=== PATIENT | female | born 1970 | race Caucasian/White ===

== ENCOUNTER 2020-08-18 13:41 | Outpatient (REF) | payer MEDICARE, MEDICAID, SELFPAY ==
[2020-08-18 14:58] LABS: Hematocrit 39.2 % (37-47); Hemoglobin 12.4 g/dl (12.0-16.0); Mean Corpuscular HGB Conc 31.6 g/dl (31.0-35.0); Mean Corpuscular Hemoglobin 25.9 pg (27.0-33.0); Mean Corpuscular Volume 81.8 fL (80-98); Mean Platelet Volume 9.4 fL (9.4-12.3); Platelet Count 292 X10*3/uL (160-400); Red Blood Count 4.79 X10*6/uL (4.20-5.50); Red Cell Distribution Width 16.5 % (11.0-16.0); White Blood Count 7.8 X10*3/uL (4.8-10.8)
[2020-08-18 15:46] LABS: TSH reflex Free T4 0.07 mIU/mL (0.32-4.0)
[2020-08-18 16:53] LABS: Free T4 (Free Thyroxine) 1.43 ng/dL (0.71-1.85)
== END 2020-08-18 13:42 | disposition home or self-care (01) ==
LOC: HO.LAB 13:41
PROVIDERS: PCP Physician Assistant; Visit Provider Physician Assistant
DX: E03.9 Hypothyroidism, unspecified (principal)
CPT/HCPCS: 36415; 84439; 84443; 85027

== ENCOUNTER 2020-09-01 16:18 | Outpatient (REF) | payer MEDICARE, MEDICAID, SELFPAY ==
--- NOTE | 2020-09-01 16:23 | XR_ITS ---
EXAMINATION: CHEST 2 VIEWS CLINICAL INFORMATION: Chest pain. COMPARISON: Multiple prior exams are reviewed. The most recent is from May 11, 2019. TECHNIQUE: PA and lateral views of the chest were obtained. FINDINGS: The cardiac silhouette is not enlarged. The mediastinal and hilar contours are unremarkable. There are neither pleural effusions nor pneumothoraces. The appearance of diffuse coarsened interstitial prominence throughout both lungs is relatively stable. There are no consolidations. The osseous structures are stable. XR/XR chest 2V IMPRESSION: No consolidations. Mild diffuse interstitial prominence throughout both lungs relatively stable.
== END 2020-09-01 16:19 | disposition home or self-care (01) ==
LOC: HO.HMGCX 16:18
PROVIDERS: PCP Physician Assistant; Visit Provider Nurse Practitioner Family
DX: R07.89 Other chest pain (principal)
CPT/HCPCS: 71046

== ENCOUNTER 2020-09-19 10:27 | Emergency (ER) | payer MEDICARE, MEDICAID, SELFPAY ==
--- NOTE | 2020-09-19 11:16 | CT_ITS ---
EXAMINATION: NONCONTRAST HEAD CT NONCONTRAST MAXILLOFACIAL CT NONCONTRAST CERVICAL SPINE CT INDICATION INFORMATION: Head trauma. Facial trauma. Fall. COMPARISON: Chest CT 01/21/2017 TECHNIQUE: Separate noncontrast CT examinations of the head, maxillofacial bones, and cervical spine were performed. Coronal and sagittal images were created for each examination at the technologist workstation. This CT examination was performed using dose optimization techniques as appropriate, variously including the following: *Automated exposure control *Adjustment of mA and/or kV according to patient size (this includes techniques or standardized protocols for targeted exams where dose is matched to indication/reason for exam; i.e. extremities or head) *Use of iterative reconstruction technique DLP: 1360 mGy-cm FINDINGS: Head: There is no evidence of acute intracranial hemorrhage or territorial infarction. No abnormal mass effect or midline shift is seen. Mccormick to white matter differentiation is well preserved. No extra-axial fluid collections are identified. No hydrocephalus. No significant volume loss. There is no abnormal attenuation within the brain parenchyma. No acute soft tissue abnormality. No calvarial fracture. The mastoid air cells are well aerated. Maxillofacial: There is a fracture of the anterior alveolar ridge associated with the left central maxillary incisor. This is seen on series 6 image 101. Mild lucency around the root of the tooth. Additional periapical lucency involving left mandibular molars with dental caries also noted. No additional fractures. The pterygoid plates are intact. The lamina papyracea are intact. The zygomatic arches are intact. The orbital rims are intact. The nasal bone is intact. The frontal, maxillary, ethmoid, and sphenoid sinuses are well aerated. The uncinate process is normal bilaterally. The infundibula and middle meati are patent. The nasal septum is midline. The mandibular heads are well-seated in the condylar fossa. The orbits demonstrate a normal appearance bilaterally. The globes are intact, and there are no suspicious findings to suggest retrobulbar hemorrhage. Cervical spine: There is anatomic alignment of the vertebral bodies and posterior elements. The atlantoaxial and atlantooccipital articulations are intact. Vertebral body heights are maintained. There is multilevel intervertebral disc space narrowing with endplate osteophyte formation and facet arthropathy. This is most prominent at the C6-C7 level. No evidence of acute fracture. No prevertebral soft tissue swelling. Groundglass opacities are seen at the lung apices with mild bronchiectasis. No pneumothorax. The thyroid gland is unremarkable. CT/CT cervical spine wo con IMPRESSION: 1. No acute intracranial finding. 2. Fracture of the left maxillary alveolar ridge overlying the central incisor. 3. No acute fracture or malalignment of the cervical spine. Mild degenerative changes. 4. Nonspecific opacities are seen at both lung apices. This may be chronic given the appearance on previous imaging.
--- NOTE | 2020-09-19 11:16 | ECG_ITS ---
Test Reason : SYNCOPE Blood Pressure : / mmHG Vent. Rate : 080 BPM Atrial Rate : 080 BPM P-R Int : 164 ms QRS Dur : 082 ms QT Int : 386 ms P-R-T Axes : 030 -27 019 degrees QTc Int : 445 ms Normal sinus rhythm Left axis deviation Low voltage QRS Borderline ECG When compared with ECG of 11-MAY-2019 13:43, Heart rate has decreased Referred By: Henrique Ramesh Electronically Signed By:BLAS FENTON MD
[2020-09-19 11:22] VITALS: BP 94/65; PULSE 90; RESP 18; TEMP 37.1; O2SAT 94; BMI 25.0
--- NOTE | 2020-09-19 11:31 | ED.SYNCOPE ---
HPI - Syncope General Chief Complaint: Syncope Stated Complaint: passed out last night,hit face Time Seen by Provider: 09/19/20 10:52 Source: patient Mode of arrival: ambulatory Limitations: no limitations History of Present Illness HPI narrative: patient presents to ED for syncope that occurred last night. Patient states her friend witnessed her passing out through the kitchen,. Patient has a known history of orthostatic hypotension and has passed out before in the past due to low blood pressure. Patient states she is not on any medication for blood pressure. Patient states syncopal episode occurred around 19:00 last night. Patient she came today due to facial pain. Patient states feeling lightheaded before passing out yesterday. Patient denies ever had chest pain, abdominal pain, nausea, vomiting, slurred speech, or paralysis before passing out. patient's only complaint presently is facial pain. patient denies any pmh of blood clots, recent travel, recent surgery, swelling of lower extremities, chest pain, calf pain, chest pain on inspiration, or shortness of breath. patient is not on any control pills. Related Data Previous Rx's Medication Instructions Recorded levothyroxine 150 mcg tablet 150 mcg PO DAILY 30 Days #30 tab 08/22/20 trazodone 50 mg tablet 50 mg PO BEDTIME 30 Days #30 tab 08/22/20 amoxicillin-pot clavulanate 1 tab PO Q12H #20 tab 09/19/20 [Augmentin] naproxen 500 mg PO BID PRN #20 tab 09/19/20 Allergies Allergy/AdvReac Type Severity Reaction Status Date / Time No Known Allergies Allergy Unverified 09/19/20 10:03 Review of Systems Review of Systems: Yes all other systems are reviewed and are negative Constitutional: Constitutional: Reports as per HPI and Reports no additional constitutional complaints Eyes: Eyes: Reports as per HPI and Reports no additional eye complaints ENT: Reports system reviewed and no additional complaints, except as documented and Reports as per HPI Comments: Facial pain due to fall Cardiovascular: Cardiovascular: Reports as per HPI and Reports no additional cardiovascular complaints Respiratory: Respiratory: Reports as per HPI and Reports no additional respiratory complaints Gastrointestinal: Gastrointestinal: Reports as per HPI and Reports no additional gastrointestinal complaints Musculoskeletal: Musculoskeletal: Reports no additional musculoskeletal complaints and Reports as per HPI Neurologic: Reports system reviewed and no additional complaints, except as documented and Reports as per HPI Psychiatric: Psychiatric: Reports no additional psychiatric complaints and Reports as per [facility] Social History Social History Smoking Status: Former smoker Use of substances other than those prescribed or required for medical reasons: Yes Substance Use Type: Marijuana Substance Use Frequency: Socially Advance Directives: No Advance Directives Information Provided: Yes Physical Exam Vital Signs: Vital Signs: Last Vital Signs Temp 98.8 F 09/19/20 11:22 Pulse 101 H 09/19/20 13:42 Resp 16 09/19/20 13:38 BP 112/72 09/19/20 13:42 Pulse Ox 97 09/19/20 13:39 Body Mass Index 25.0 Const: General: cooperative, healthy appearing, comfortable, no acute distress, well developed, alert, awake and Physically active Orientation/consciousness: patient oriented x3 HENMT: Other: positive for Dried blood below Lower lip a small inner laceration that occurred since 19:00 last night. this makes it over 12 hours. Wound is granulating. Head: Yes normal to inspection, Yes No palpable skull fracture present, No Dickey's sign and No raccoon eyes Eyes: General: appearance normal, both eyes and all related structures Neck: Neck: Yes normal visual inspection, Yes full ROM, Yes no lymphadenopathy, Yes no meningeal signs, Yes trachea midline and No tender Chest: Chest palpation & inspection: normal inspection of the chest and no localized rib tenderness Resp: Effort & Inspection: normal respiratory effort and able to speak in complete sentences Auscultation: clear to auscultation bilaterally, no crackles, no rales, no rhonchi and no wheezes Cardio: Jugular venous distension: no JVD Heart sounds: S1 normal heart sound present and S2 normal heart sound present GI: Inspection: Yes normal to inspection and No abdominal wall ecchymosis Palpation (GI): Soft to palpation, not firm, nontender, no guarding and not rigid : General: No CVA tenderness and Yes no CVA tenderness Back/Spine/Pelvis: Back: no CVA tenderness, No CVA tenderness and No back tenderness Skin: General skin exam: no rashes or lesions noted Trauma: no lacerations or abrasions Neuro: General: patient oriented x3, gait normal, no meningeal signs and CN's II-XI intact bilaterally Cranial nerves: Yes CN's II-XII intact bilaterally Extrem: General: Yes normal to inspection and Yes full ROM Psych: Appearance: grossly normal, well kempt and not disheveled Course Course Course Narrative: Patient had basic labs including EKG and troponin. Patient also have head CT, C-spine, and facial CT due to patient's obvious signs of trauma. Patient will be given IV fluids and orthostatics will be done. Reevaluation(s) Reevaluation #1: patient's troponin came back negative. Patient's head CT and C-spine came back negative for any fractures or bleed. Patient's facial CT scan shows maxillary alveolar ridge fracture above left central incisor. Patient's orthostatics are negative After being given 1 bag of IV fluids. Patient was initially hypotensive on initial ED triage. Patient states he feels better. Patient states he has syncopized many times before in the past due to her low blood pressure. Patient informed if she still having menstruation, but refused to give urine. Will add blood test and then discharge patient. Patient will be placed on antibiotics informed to follow-up with dentist. No indication for tooth extraction the ED. Labs are at baseline. patient given copy of imaging for follow up with PCP. patient given tdap Time: 14:19 Reevaluation #2: patient's came back negative. Not suspecting PE. UTI normal MDM - Syncope MDM Narrative Medical decision making narrative: Syncope Lab Data Result diagrams: 09/19/20 12:52 09/19/20 12:25 Labs: Lab Results 09/19/20 09/19/20 09/19/20 Range/Units 12:25 12:52 12:52 WBC 4.5 L (4.8-10.8) X10*3/uL RBC 4.38 (4.20-5.50) X10*6/uL Hgb 11.5 L (12.0-16.0) g/dl Hct 36.3 L (37-47) % MCV 82.9 (80-98) fL MCH 26.3 L (27.0-33.0) pg MCHC 31.7 (31.0-35.0) g/dl RDW 16.3 H (11.0-16.0) % Plt Count 160 D (160-400) X10*3/uL MPV 10.1 (9.4-12.3) fL Immature Gran % (Auto) 0.4 (0.0-0.4) % Neut % (Auto) 66.3 (45-73) % Lymph % (Auto) 24.3 (20-40) % [place] % (Auto) 7.9 (2-11) % Eos % (Auto) 0.9 (0-4) % Baso % (Auto) 0.2 (0-2) % Lymph # (Auto) 1.1 L (1.2-4.9) X10*3/uL [place] # (Auto) 0.4 (0.1-1.2) X10*3/uL Eos # (Auto) 0.0 (0.0-0.4) X10*3/uL Baso # (Auto) 0.0 (0.0-0.2) X10*3/uL Abs Immat Gran (auto) 0.02 (0.00-0.03) X10*3/uL Absolute Neuts (auto) 3.0 (2.0-8.3) X10*3/uL Absolute Nucleated RBC 0.000 (0.0-0.012) X10*3/uL Nucleated RBC % (auto) 0.0 (0.0-0.2) /100WBC Smear Tech's Comments VERIFIED PT 12.2 (10.8-13.0) SEC INR 1.0 (0.9-1.1) APTT 26.7 (24.1-38.0) SEC Sodium 138 (135-145) mmol/L Potassium 4.0 (3.3-5.1) mmol/l Chloride 107 (96-108) mmol/L Carbon Dioxide 22 (22-29) mmol/L Anion Gap 13 (12-20) BUN 18 H (9-16) mg/dL Creatinine 0.73 (0.5-1.4) mg/dL Estim Creat Clear Calc 88.7 Estimated GFR > 60 Random Glucose 78 (60-115) mg/dL Calcium 7.6 L (8.4-10.2) mg/dL Total Bilirubin 0.2 (0.0-1.0) mg/dL AST 29 (5-31) U/L ALT 32 H (0-31) U/L Alkaline Phosphatase 116 (39-117) U/L Troponin I High Sens (<3.5-17.0) ng/L Total Protein 5.9 L (6.5-8.0) g/dL Albumin 3.5 (3.5-5.0) g/dL Beta HCG, Quant < 2 mIU/mL Urine Color Urine Appearance Urine pH (5.0-8.0) Ur Specific [place] (1.005-1.025) Urine Protein (NEG-TRACE) MG/DL Urine Glucose (UA) (NEG) MG/DL Urine Ketones (NEG) MG/DL Urine Blood (NEG) Urine Nitrite (NEG) Ur Leukocyte Esterase (NEG) 09/19/20 09/19/20 Range/Units 13:13 14:52 WBC (4.8-10.8) X10*3/uL RBC (4.20-5.50) X10*6/uL Hgb (12.0-16.0) g/dl Hct (37-47) % MCV (80-98) fL MCH (27.0-33.0) pg MCHC (31.0-35.0) g/dl RDW (11.0-16.0) % Plt Count (160-400) X10*3/uL MPV (9.4-12.3) fL Immature Gran % (Auto) (0.0-0.4) % Neut % (Auto) (45-73) % Lymph % (Auto) (20-40) % [place] % (Auto) (2-11) % Eos % (Auto) (0-4) % Baso % (Auto) (0-2) % Lymph # (Auto) (1.2-4.9) X10*3/uL [place] # (Auto) (0.1-1.2) X10*3/uL Eos # (Auto) (0.0-0.4) X10*3/uL Baso # (Auto) (0.0-0.2) X10*3/uL Abs Immat Gran (auto) (0.00-0.03) X10*3/uL Absolute Neuts (auto) (2.0-8.3) X10*3/uL Absolute Nucleated RBC (0.0-0.012) X10*3/uL Nucleated RBC % (auto) (0.0-0.2) /100WBC Smear Tech's Comments PT (10.8-13.0) SEC INR (0.9-1.1) APTT (24.1-38.0) SEC Sodium (135-145) mmol/L Potassium (3.3-5.1) mmol/l Chloride (96-108) mmol/L Carbon Dioxide (22-29) mmol/L Anion Gap (12-20) BUN (9-16) mg/dL Creatinine (0.5-1.4) mg/dL Estim Creat Clear Calc Estimated GFR Random Glucose (60-115) mg/dL Calcium (8.4-10.2) mg/dL Total Bilirubin (0.0-1.0) mg/dL AST (5-31) U/L ALT (0-31) U/L Alkaline Phosphatase (39-117) U/L Troponin I High Sens < 3.5 (<3.5-17.0) ng/L Total Protein (6.5-8.0) g/dL Albumin (3.5-5.0) g/dL Beta HCG, Quant mIU/mL Urine Color YELLOW Urine Appearance CLEAR Urine pH 5.5 (5.0-8.0) Ur Specific [place] 1.025 (1.005-1.025) Urine Protein NEG (NEG-TRACE) MG/DL Urine Glucose (UA) NEG (NEG) MG/DL Urine Ketones NEG (NEG) MG/DL Urine Blood NEG (NEG) Urine Nitrite NEG (NEG) Ur Leukocyte Esterase NEG (NEG) ECG Data Interpretation: normal sinus rhythm. Ventricular rate 80. Pr interval 164. QRS 82. Negative STEMI Discharge Plan Discharge Clinical Impression: Syncope, Facial bone fracture Patient Disposition: Home, Self-Care Instructions: Syncope (ED) Additional Instructions: return to the ED immediately for any chest pain, shortness of breath, weakness, dizziness, nausea, vomiting, flank pain, headache, slurred speech, paralysis of extremities, another syncopal episode, or any other concerning symptoms. Please follow-up with your dentist for impacted left central incisor due to trauma Prescriptions: New amoxicillin-pot clavulanate [Augmentin] 875-125 mg tablet 1 tab PO Q12H Qty: 20 RF: 0 naproxen 500 mg tablet 500 mg PO BID PRN (Reason: pain) Qty: 20 RF: 0 No Action levothyroxine 150 mcg tablet 150 mcg PO DAILY 30 Days Qty: 30 RF: 1 trazodone 50 mg tablet 50 mg PO BEDTIME 30 Days Qty: 30 RF: 1 Referrals: Eric De La Rosa PA-C [Primary Care Provider] - 2 days (Syncope. facial fracture) Stand Alone Forms: Work/School Release Discharge Date/Time: 09/19/20 15:33 Print Language: Japanese
[2020-09-19] MEDS: 0.9 % Sodium Chloride 1,000 ML 999 ML IVCONT (11:50)
[2020-09-19 13:00] LABS: Alanine Aminotransferase 32 U/L (0-31); Albumin Level 3.5 g/dL (3.5-5.0); Alkaline Phosphatase 116 U/L (39-117); Anion Gap 13 (12-20); Aspartate Amino Transferase 29 U/L (5-31); Bilirubin Total 0.2 mg/dL (0.0-1.0); Blood Urea Nitrogen 18 mg/dL (9-16); Calcium 7.6 mg/dL (8.4-10.2); Carbon Dioxide 22 mmol/L (22-29); Chloride 107 mmol/L (96-108); Creatinine Clr Calc Pharmacy 88.7; Estimated Glomerular Filt Rate > 60; Glucose Random 78 mg/dL (60-115); Sodium 138 mmol/L (135-145); Total Protein 5.9 g/dL (6.5-8.0)
[2020-09-19 13:18] LABS: Prothrombin Time 12.2 SEC (10.8-13.0)
[2020-09-19 13:21] LABS: Partial Thromboplastin Time 26.7 SEC (24.1-38.0)
[2020-09-19 13:24] LABS: Basophils Percent Auto 0.2 % (0-2); Eosinophils Percent Auto 0.9 % (0-4); Hemoglobin 11.5 g/dl (12.0-16.0); Imm Gran Abs Auto 0.02 X10*3/uL (0.00-0.03); MANUAL DIFF FLAG SCAN; PLT CLUMP 1; SCAN SMEAR FLAG 1
[2020-09-19 13:26] LABS: Hematocrit 36.3 % (37-47); Imm Gran Pct Auto 0.4 % (0.0-0.4); Lymphocytes Absolute Auto 1.1 X10*3/uL (1.2-4.9); Lymphocytes Percent Auto 24.3 % (20-40); Mean Corpuscular HGB Conc 31.7 g/dl (31.0-35.0); Mean Corpuscular Hemoglobin 26.3 pg (27.0-33.0); Mean Corpuscular Volume 82.9 fL (80-98); Mean Platelet Volume 10.1 fL (9.4-12.3); Monocytes Absolute Auto 0.4 X10*3/uL (0.1-1.2); Monocytes Percent Auto 7.9 % (2-11); Neutrophils Percent Auto 66.3 % (45-73); Platelet Count 160 X10*3/uL (160-400); Red Blood Count 4.38 X10*6/uL (4.20-5.50); Red Cell Distribution Width 16.3 % (11.0-16.0); White Blood Count 4.5 X10*3/uL (4.8-10.8)
[2020-09-19 13:38] VITALS: BP 95/68; PULSE 81; RESP 16; O2SAT 96
[2020-09-19 13:39] VITALS: PULSE 80; O2SAT 97
[2020-09-19 13:41] VITALS: BP 110/74; BP 95/68; PULSE 80; PULSE 84
[2020-09-19 13:42] VITALS: BP 112/72; PULSE 101
[2020-09-19 13:50] LABS: Troponin-I High Sensitivity < 3.5 ng/L (<3.5-17.0)
[2020-09-19 14:39] LABS: SLIDE REVIEW VERIFIED
[2020-09-19 14:53] LABS: HCG Quantitative < 2 mIU/mL
[2020-09-19] MEDS: Ketorolac Tromethamine 30 MG/ML VIAL IVPUSH (14:59)
[2020-09-19 15:02] LABS: Glucose Urine UA NEG (NEG); Leukocyte Esterase Urine NEG (NEG); Nitrite Urine NEG (NEG); PH 5.5 (5.0-8.0); Specific Gravity - Urine 1.025 (1.005-1.025); Urine Blood NEG (NEG); Urine Ketones NEG (NEG); Urine Protein NEG (NEG-TRACE)
[2020-09-19 15:05] LABS: Appearance Urine CLEAR; Color Urine YELLOW; UACC Culture Trigger NO
== END 2020-09-19 15:33 | disposition home or self-care (01) ==
PROVIDERS: Physician Assistant; Emergency Provider Emergency Medicine; PCP Physician Assistant
DX: S02.2XXA Fracture of nasal bones, initial encounter for closed fracture (principal); S00.31XA Abrasion of nose, initial encounter; R55 Syncope and collapse; F12.90 Cannabis use, unspecified, uncomplicated; W18.30XA Fall on same level, unspecified, initial encounter; Y93.9 Activity, unspecified; Y92.9 Unspecified place or not applicable; Y99.9 Unspecified external cause status; Z79.899 Other long term (current) drug therapy; Z87.891 Personal history of nicotine dependence
CPT/HCPCS: 36415; 70450; 70486; 72125; 80053; 81003; 84484; 84702; 85025; 85610; 85730; 90471; 90715; 93005; 96361; 96374; 99285; J1885

== ENCOUNTER 2020-11-02 07:49 | Emergency (ER) | payer MEDICARE, MEDICAID, SELFPAY ==
[2020-11-02 07:56] VITALS: BP 102/68; PULSE 98; RESP 26; TEMP 36.6; O2SAT 97; BMI 26.6
--- NOTE | 2020-11-02 08:17 | ECG_ITS ---
Test Reason : DYSPNEA Blood Pressure : / mmHG Vent. Rate : 081 BPM Atrial Rate : 081 BPM P-R Int : 146 ms QRS Dur : 082 ms QT Int : 368 ms P-R-T Axes : 037 -35 037 degrees QTc Int : 427 ms Normal sinus rhythm Left axis deviation Borderline ECG When compared with ECG of 19-SEP-2020 14:02, No significant change was found Referred By: Lana Grewal Electronically Signed By:BRAEDEN AGEE
--- NOTE | 2020-11-02 08:17 | XR_ITS ---
EXAMINATION: XR CHEST CLINICAL INFORMATION: Shortness of breath. COMPARISON: 09/01/2020 chest radiographs. Chest CTA dated 01/21/2017. TECHNIQUE: Frontal view of the chest was obtained. FINDINGS: Bilateral patchy pulmonary markings show similar distribution to the previous study, but appear mildly increased. The heart and mediastinal structures are unremarkable. XR/XR chest 1V IMPRESSION: Bilateral patchy pulmonary markings show similar distribution to the previous study, but appear mildly increased. This could be secondary to differences in technique. Acute infiltrates on chronic interstitial disease cannot be excluded.
--- NOTE | 2020-11-02 08:19 | ED.SOB ---
HPI - SOB/Dyspnea General Chief Complaint: Dyspnea Stated Complaint: SOB Time Seen by Provider: 11/02/20 08:17 History of Present Illness HPI Narrative: Patient is a 50-year-old female with a history of a spells that had a positive test for coronavirus. Presents today with coughing upper respiratory symptoms along with chest pain that is constant sharp worse with cough. Cough is nonproductive in nature. Patient denies any diaphoresis. Shortness of breath is made worse with walking. No fever no chills. Patient did not have a coronavirus test in the past. Patient feels very weak and achy. Has a history of smoking. No history of diabetes, hypertension, mi, family history of DC. positive decreased appetite Related Data Previous Rx's Medication Instructions Recorded levothyroxine 150 mcg tablet 150 mcg PO DAILY 30 Days #30 tab 08/22/20 naproxen 500 mg PO BID PRN #20 tab 09/19/20 albuterol sulfate 90 mcg/actuation 2 puff INHALATION Q6H PRN 30 Days 09/26/20 aerosol inhaler #8.5 g azithromycin 250 mg tablet 250 mg PO DAILY 10 Days #10 tab 09/26/20 trazodone 100 mg tablet 100 mg PO BEDTIME 30 Days #30 tab 09/26/20 prednisone 10 mg tablet 10 mg PO DAILY 9 Days #18 tab 10/11/20 Allergies Allergy/AdvReac Type Severity Reaction Status Date / Time No Known Allergies Allergy Verified 09/26/20 08:19 Review of Systems Review of Systems: Constitutional: No Weight loss, No Fever, No Chills, No Night Sweats, No Fatigue, positive Malaise ENT/Mouth: No Hearing loss, No Ear Pain, No Nasal Congestion, No Sinus Pain, No Hoarseness, No sore throat, No Rhinorrhea, No Swallowing Difficulty Eyes: No Eye Pain, No Swelling, No Redness, No Foreign Body, No Discharge, No Vision Changes Cardiovascular: No Chest Pain, No SOB, No Dyspnea on Exertion, No Orthopnea, No Edema, No Palpitations Respiratory: Positive Cough, No Sputum, No Wheezing, No Smoke Exposure, No Dyspnea Gastrointestinal: No Nausea, No Vomiting, No Diarrhea, No Constipation, No abdominal Pain, No Hematochezia, No Melena Genitourinary: no irregular bleeding, No Dysuria, No Urinary Frequency, No Hematuria, No Urinary Incontinence, No Urgency, No Flank Pain, No Urinary Flow Changes, No Hesitancy Musculoskeletal: No joint pain, No Myalgias, No Joint Swelling Skin: No Skin Lesions, No rash Neuro: No Weakness, No Numbness, No Paresthesias, No Loss of Consciousness, No Dizziness, No Headache Psych: No Anxiety/Panic, No Depression, No SI/HI/AH/VH, No Social Issues, Heme/Lymph: No Bruising, No Bleeding,No Lymphadenopathy Endocrine: No Polyuria, No Polydipsia, No Temperature Intolerance [facility] Social History Social History Smoking Status: Former smoker Smoked in Last 30 Days: No Use of substances other than those prescribed or required for medical reasons: No Substance Use Type: Crack/Cocaine Substance Use Frequency: Chronic Longstanding Any prior treatment program specific to substance use: No Advance Directives: No Advance Directives Information Provided: Yes Physical Exam Vital Signs: Vital Signs: Last Vital Signs Temp 98 F 11/02/20 07:56 Pulse 85 11/02/20 09:21 Resp 20 11/02/20 09:21 BP 120/67 11/02/20 09:21 Pulse Ox 96 11/02/20 09:21 Body Mass Index 26.6 Appearance: Alert. Oriented X3. No acute distress. Eyes: Pupils equal, round and reactive to light. ENT: Pharynx normal. Neck: Normal inspection. Neck supple. No lymph nodes noted. No crepitus CVS: Normal heart rate and rhythm. Pulses normal. Normal S1 and S2 Respiratory: No respiratory distress. Breath sounds normal. Minimal Wheezing bilaterally. No rales Abdomen: Soft and nontender. No rigidity. No distention. good BS x4 Skin: Skin warm and dry. Normal skin color. Normal skin turgor. Extremities: No lower extremity edema. Neurovascular intact to all extremities. No Lacerations. No Rash Neuro: Oriented X 3. No motor deficit. No sensory deficit. Moving all extermities. No slurred speech MDM - SOB/Dyspnea MDM Narrative Medical decision making narrative: Well-appearing patient's troponin was negative in the setting of having constant pain for the last 2 days atypical history normal EKG patient's heart score is less than 3. Patient's chest x-ray showed no new focal infiltrate. Patient's alfaro is negative however patient's family was tested positive for the coronavirus. Patient still more likely to have the coronavirus. Will have patient follow strict home quarantine. Close follow-up outpatient basis. Lab Data Result diagrams: 11/02/20 08:33 11/02/20 08:33 Labs: Lab Results 11/02/20 11/02/20 11/02/20 Range/Units 08:24 08:33 08:33 WBC 8.5 (4.8-10.8) X10*3/uL RBC 4.41 (4.20-5.50) X10*6/uL Hgb 11.9 L (12.0-16.0) g/dl Hct 38.0 (37-47) % MCV 86.2 (80-98) fL MCH 27.0 (27.0-33.0) pg MCHC 31.3 (31.0-35.0) g/dl RDW 15.1 (11.0-16.0) % Plt Count 262 D (160-400) X10*3/uL MPV 9.0 L (9.4-12.3) fL Immature Gran % (Auto) 0.1 (0.0-0.4) % Neut % (Auto) 54.8 (45-73) % Lymph % (Auto) 22.8 (20-40) % [place] % (Auto) 9.3 (2-11) % Eos % (Auto) 12.3 H (0-4) % Baso % (Auto) 0.7 (0-2) % Lymph # (Auto) 1.9 (1.2-4.9) X10*3/uL [place] # (Auto) 0.8 (0.1-1.2) X10*3/uL Eos # (Auto) 1.0 H (0.0-0.4) X10*3/uL Baso # (Auto) 0.1 (0.0-0.2) X10*3/uL Abs Immat Gran (auto) 0.01 (0.00-0.03) X10*3/uL Absolute Neuts (auto) 4.6 (2.0-8.3) X10*3/uL Absolute Nucleated RBC 0.000 (0.0-0.012) X10*3/uL Nucleated RBC % (auto) 0.0 (0.0-0.2) /100WBC Hold Blue Top SEE NOTE Sodium (135-145) mmol/L Potassium (3.3-5.1) mmol/l Chloride (96-108) mmol/L Carbon Dioxide (22-29) mmol/L Anion Gap (12-20) BUN (9-16) mg/dL Creatinine (0.5-1.4) mg/dL Estim Creat Clear Calc Estimated GFR Random Glucose (60-115) mg/dL Calcium (8.4-10.2) mg/dL Troponin I High Sens (<3.5-17.0) ng/L B-Natriuretic Peptide (<100) pg/mL Coronavirus (PCR) NEGATIVE (Negative) Influenza Type A (PCR) NEGATIVE (Negative) Influenza Type B (PCR) NEGATIVE (Negative) RSV RNA Qual (PCR) NEGATIVE (Negative) 11/02/20 11/02/20 Range/Units 08:33 08:33 WBC (4.8-10.8) X10*3/uL RBC (4.20-5.50) X10*6/uL Hgb (12.0-16.0) g/dl Hct (37-47) % MCV (80-98) fL MCH (27.0-33.0) pg MCHC (31.0-35.0) g/dl RDW (11.0-16.0) % Plt Count (160-400) X10*3/uL MPV (9.4-12.3) fL Immature Gran % (Auto) (0.0-0.4) % Neut % (Auto) (45-73) % Lymph % (Auto) (20-40) % [place] % (Auto) (2-11) % Eos % (Auto) (0-4) % Baso % (Auto) (0-2) % Lymph # (Auto) (1.2-4.9) X10*3/uL [place] # (Auto) (0.1-1.2) X10*3/uL Eos # (Auto) (0.0-0.4) X10*3/uL Baso # (Auto) (0.0-0.2) X10*3/uL Abs Immat Gran (auto) (0.00-0.03) X10*3/uL Absolute Neuts (auto) (2.0-8.3) X10*3/uL Absolute Nucleated RBC (0.0-0.012) X10*3/uL Nucleated RBC % (auto) (0.0-0.2) /100WBC Hold Blue Top Sodium 140 (135-145) mmol/L Potassium 4.2 (3.3-5.1) mmol/l Chloride 107 (96-108) mmol/L Carbon Dioxide 25 (22-29) mmol/L Anion Gap 12 (12-20) BUN 12 (9-16) mg/dL Creatinine 0.69 (0.5-1.4) mg/dL Estim Creat Clear Calc 103.2 Estimated GFR > 60 Random Glucose 107 D (60-115) mg/dL Calcium 8.8 D (8.4-10.2) mg/dL Troponin I High Sens < 3.5 (<3.5-17.0) ng/L B-Natriuretic Peptide < 10 (<100) pg/mL Coronavirus (PCR) (Negative) Influenza Type A (PCR) (Negative) Influenza Type B (PCR) (Negative) RSV RNA Qual (PCR) (Negative) Discharge Plan Discharge Clinical Impression: COVID-19 Patient Disposition: Home, Self-Care Instructions: COVID-19 (Coronavirus Disease 2019) (ED) Additional Instructions: Strict home quarantine advised. Worsening condition return to the emergency department. Prescriptions: No Action levothyroxine 150 mcg tablet 150 mcg PO DAILY 30 Days Qty: 30 RF: 1 prednisone 10 mg tablet 10 mg PO DAILY 9 Days Qty: 18 RF: 0 naproxen 500 mg tablet 500 mg PO BID PRN (Reason: pain) Qty: 20 RF: 0 albuterol sulfate 90 mcg/actuation HFA aerosol inhaler 2 puff inhalation Q6H PRN (Reason: shortness of breath or wheezing) 30 Days Qty: 8.5 RF: 3 azithromycin 250 mg tablet 250 mg PO DAILY 10 Days Qty: 10 RF: 0 trazodone 100 mg tablet 100 mg PO BEDTIME 30 Days Qty: 30 RF: 3 Referrals: Eric De La Rosa PA-C [Primary Care Provider] - 2 days
[2020-11-02 08:43] LABS: MANUAL DIFF FLAG NO
[2020-11-02 08:46] LABS: Basophils Absolute Auto 0.1 X10*3/uL (0.0-0.2); Basophils Percent Auto 0.7 % (0-2); Eosinophils Percent Auto 12.3 % (0-4); Hemoglobin 11.9 g/dl (12.0-16.0); Imm Gran Abs Auto 0.01 X10*3/uL (0.00-0.03); Imm Gran Pct Auto 0.1 % (0.0-0.4); Lymphocytes Absolute Auto 1.9 X10*3/uL (1.2-4.9); Lymphocytes Percent Auto 22.8 % (20-40); Mean Corpuscular HGB Conc 31.3 g/dl (31.0-35.0); Mean Corpuscular Volume 86.2 fL (80-98); Monocytes Absolute Auto 0.8 X10*3/uL (0.1-1.2); Monocytes Percent Auto 9.3 % (2-11); Neutrophils Absolute Auto 4.6 X10*3/uL (2.0-8.3); Neutrophils Percent Auto 54.8 % (45-73); Platelet Count 262 X10*3/uL (160-400); Red Blood Count 4.41 X10*6/uL (4.20-5.50); Red Cell Distribution Width 15.1 % (11.0-16.0); White Blood Count 8.5 X10*3/uL (4.8-10.8)
[2020-11-02 09:17] LABS: Anion Gap 12 (12-20); Blood Urea Nitrogen 12 mg/dL (9-16); Calcium 8.8 mg/dL (8.4-10.2); Carbon Dioxide 25 mmol/L (22-29); Chloride 107 mmol/L (96-108); Creatinine Clr Calc Pharmacy 103.2; Estimated Glomerular Filt Rate > 60; Glucose Random 107 mg/dL (60-115); Potassium 4.2 mmol/l (3.3-5.1); Sodium 140 mmol/L (135-145)
[2020-11-02 09:21] VITALS: BP 120/67; PULSE 85; RESP 20; O2SAT 96
[2020-11-02 09:24] LABS: Influenza A PCR NEGATIVE (Negative); Influenza B PCR NEGATIVE (Negative); Resp Syncy Virus RNA Qual PCR NEGATIVE (Negative); SARS COV2 PCR INHOUSE NEGATIVE (Negative)
[2020-11-02 09:26] LABS: B Type Natriuretic Peptide < 10 pg/mL (<100); Troponin-I High Sensitivity < 3.5 ng/L (<3.5-17.0)
[2020-11-02] MEDS: HYDROmorphone HCl 2 MG TABLET PO (09:51)
== END 2020-11-02 10:41 | disposition home or self-care (01) ==
PROVIDERS: Emergency Provider Emergency Medicine Emergency Medical Services; PCP Physician Assistant
DX: R06.02 Shortness of breath (principal); Z20.828 Contact with and (suspected) exposure to other viral communicable diseases
CPT/HCPCS: 0241U; 36415; 71045; 80048; 83880; 84484; 85025; 93005; 96374; 99284

== ENCOUNTER 2020-11-16 03:28 | Inpatient (IN) | payer OTHER, SELFPAY ==
[2020-11-16] VITALS (11 sets, daily range): BP systolic 88–119; BP diastolic 50–77; PULSE 89–118; RESP 18–29; TEMP 36.4–37.2; O2SAT 90–95; BMI 26.6; BMI 25.5
--- NOTE | 2020-11-16 04:50 | ED.SOB ---
HPI - SOB/Dyspnea General Chief Complaint: Dyspnea Stated Complaint: Sob Time Seen by Provider: 11/16/20 04:45 Source: patient Mode of arrival: ambulatory Limitations: no limitations History of Present Illness HPI Narrative: Patient comes emergency room complaining of shortness of breath. Patient states it has been ongoing for about week and half. Patient has history of asthma and COPD, but states that she has not been coughing more than usual, not having any sputum production, no fever or chills. Patient tried breathing treatments at home with no relief. MD elicited complaint: shortness of breath Pertinent past history: COPD and asthma Related Data Previous Rx's Medication Instructions Recorded albuterol sulfate 90 mcg/actuation 2 puff INHALATION Q6H PRN 30 Days 09/26/20 aerosol inhaler #8.5 g Allergies Allergy/AdvReac Type Severity Reaction Status Date / Time No Known Allergies Allergy Verified 11/15/20 08:11 Review of Systems Review of Systems: Constitutional : No Weight loss, No Fever, No Chills, No Night Sweats, No Fatigue, No Malaise ENT/Mouth : No Hearing loss, No Ear Pain, No Nasal Congestion, No Sinus Pain, No Hoarseness, No sore throat, No Rhinorrhea, No Swallowing Difficulty Eyes: No Eye Pain, No Swelling, No Redness, No Foreign Body, No Discharge, No Vision Changes Cardiovascular : No Chest Pain, No SOB, No Dyspnea on Exertion, No Orthopnea, No Edema, No Palpitations Respiratory : Usual cough, No Sputum, complaining of worsening Wheezing, No Smoke Exposure, complaining of Dyspnea Gastrointestinal : No Nausea, No Vomiting, No Diarrhea, No Constipation, No abdominal Pain, No Hematochezia, No Melena Genitourinary : no irregular bleeding, No Dysuria, No Urinary Frequency, No Hematuria, No Urinary Incontinence, No Urgency, No Flank Pain, No Urinary Flow Changes, No Hesitancy Musculoskeletal : No joint pain, No Myalgias, No Joint Swelling Skin : No Skin Lesions, No rash Neuro : No Weakness, No Numbness, No Paresthesias, No Loss of Consciousness, No Dizziness, No Headache Psych : No Anxiety/Panic, No Depression, No SI/HI/AH/VH, No Social Issues, Heme/Lymph: No Bruising, No Bleeding,No Lymphadenopathy Endocrine : No Polyuria, No Polydipsia, No Temperature Intolerance PMFSH Past Medical History Medical History Asthma COPD (chronic obstructive pulmonary disease) Hypothyroid Surgical History (Updated 11/15/20 @ 08:12 by KERRIE Jett) History of hemorrhoidectomy History of tubal ligation Family History Family History (Updated 11/15/20 @ 08:12 by KERRIE Jett) Father No problems noted. Mother No problems noted. Maternal Grandmother Stroke Maternal Grandfather Stroke Family/Other Substance abuse Social History Social History Alcohol intake: current Alcohol intake frequency: holidays/special occasions only Smoking Status: Never smoker Use of substances other than those prescribed or required for medical reasons: Yes Substance Use Type: Crack/Cocaine Substance Use Frequency: Occasionally Advance Directives: No Physical Exam Vital Signs: Vital Signs: Last Vital Signs Temp 97.7 F 11/16/20 04:39 Pulse 97 11/16/20 05:00 Resp 22 H 11/16/20 04:39 BP 119/77 11/16/20 04:39 Pulse Ox 94 11/16/20 04:39 Body Mass Index 26.6 Appearance: Alert. Oriented X3. Mild respiratory distress Eyes: Pupils equal, round and reactive to light. ENT: Pharynx normal. Neck: Normal inspection. Neck supple. No lymph nodes noted. No crepitus CVS: Normal heart rate and rhythm. Pulses normal. Normal S1 and S2 Respiratory: Mild respiratory distress, bilateral wheezing Abdomen: Soft and nontender. No rigidity. No distention. good BS x4 Skin: Skin warm and dry. Normal skin color. Normal skin turgor. Extremities: No lower extremity edema. No lower extremity edema. No Lacerations. No Rash Neuro: Oriented X 3. No motor deficit. No sensory deficit. Moving all extermities. No slurred speech. Course Course Course Narrative: Patient's white blood cell count within normal limits, patient's lactic acid likely secondary to multiple albuterol nebulizations. Patient has no fever, sepsis is not suspected. Patient does have history of both asthma and COPD, this is most likely an asthma exacerbation. I discussed the patient with our hospitalist Dr. Hendrix, patient being admitted Bite 1 hour nebulization treatments steroids and magnesium IV, patient continues wheezing, patient's oxygen saturation remains at 93% on room air MDM - SOB/Dyspnea Lab Data Result diagrams: 11/16/20 05:05 11/16/20 05:05 Labs: Lab Results 11/16/20 11/16/20 11/16/20 Range/Units 05:05 05:05 05:05 WBC 10.8 (4.8-10.8) X10*3/uL RBC 5.08 (4.20-5.50) X10*6/uL Hgb 13.5 (12.0-16.0) g/dl Hct 43.5 (37-47) % MCV 85.6 (80-98) fL MCH 26.6 L (27.0-33.0) pg MCHC 31.0 (31.0-35.0) g/dl RDW 14.7 (11.0-16.0) % Plt Count 314 (160-400) X10*3/uL MPV 8.7 L (9.4-12.3) fL Immature Gran % (Auto) 0.3 (0.0-0.4) % Neut % (Auto) 62.3 (45-73) % Lymph % (Auto) 16.9 L (20-40) % [place] % (Auto) 8.2 (2-11) % Eos % (Auto) 11.4 H (0-4) % Baso % (Auto) 0.9 (0-2) % Lymph # (Auto) 1.8 (1.2-4.9) X10*3/uL [place] # (Auto) 0.9 (0.1-1.2) X10*3/uL Eos # (Auto) 1.2 H (0.0-0.4) X10*3/uL Baso # (Auto) 0.1 (0.0-0.2) X10*3/uL Abs Immat Gran (auto) 0.03 (0.00-0.03) X10*3/uL Absolute Neuts (auto) 6.7 (2.0-8.3) X10*3/uL Absolute Nucleated RBC 0.000 (0.0-0.012) X10*3/uL Nucleated RBC % (auto) 0.0 (0.0-0.2) /100WBC Sodium 141 (135-145) mmol/L Potassium 4.7 (3.3-5.1) mmol/l Chloride 105 (96-108) mmol/L Carbon Dioxide 22 (22-29) mmol/L Anion Gap 19 (12-20) BUN 16 (9-16) mg/dL Creatinine 0.80 (0.5-1.4) mg/dL Estim Creat Clear Calc 89.0 Estimated GFR > 60 Random Glucose 113 (60-115) mg/dL Lactic Acid 2.3 H* (0.5-2.0) mmol/L Calcium 9.5 D (8.4-10.2) mg/dL Coronavirus (PCR) (Negative) Influenza Type A (PCR) (Negative) Influenza Type B (PCR) (Negative) RSV RNA Qual (PCR) (Negative) 11/16/20 Range/Units 05:05 WBC (4.8-10.8) X10*3/uL RBC (4.20-5.50) X10*6/uL Hgb (12.0-16.0) g/dl Hct (37-47) % MCV (80-98) fL MCH (27.0-33.0) pg MCHC (31.0-35.0) g/dl RDW (11.0-16.0) % Plt Count (160-400) X10*3/uL MPV (9.4-12.3) fL Immature Gran % (Auto) (0.0-0.4) % Neut % (Auto) (45-73) % Lymph % (Auto) (20-40) % [place] % (Auto) (2-11) % Eos % (Auto) (0-4) % Baso % (Auto) (0-2) % Lymph # (Auto) (1.2-4.9) X10*3/uL [place] # (Auto) (0.1-1.2) X10*3/uL Eos # (Auto) (0.0-0.4) X10*3/uL Baso # (Auto) (0.0-0.2) X10*3/uL Abs Immat Gran (auto) (0.00-0.03) X10*3/uL Absolute Neuts (auto) (2.0-8.3) X10*3/uL Absolute Nucleated RBC (0.0-0.012) X10*3/uL Nucleated RBC % (auto) (0.0-0.2) /100WBC Sodium (135-145) mmol/L Potassium (3.3-5.1) mmol/l Chloride (96-108) mmol/L Carbon Dioxide (22-29) mmol/L Anion Gap (12-20) BUN (9-16) mg/dL Creatinine (0.5-1.4) mg/dL Estim Creat Clear Calc Estimated GFR Random Glucose (60-115) mg/dL Lactic Acid (0.5-2.0) mmol/L Calcium (8.4-10.2) mg/dL Coronavirus (PCR) NEGATIVE (Negative) Influenza Type A (PCR) NEGATIVE (Negative) Influenza Type B (PCR) NEGATIVE (Negative) RSV RNA Qual (PCR) NEGATIVE (Negative) Imaging Data Chest x-ray: Radiologist's impression: FINDINGS: Bilateral patchy pulmonary markings show similar distribution to the previous study, but appear mildly increased. The heart and mediastinal structures are unremarkable. XR/XR chest 1V IMPRESSION: Bilateral patchy pulmonary markings show similar distribution to the previous study, but appear mildly increased. This could be secondary to differences in technique. Acute infiltrates on chronic interstitialdisease cannot be excluded. Discharge Plan Discharge Clinical Impression: Asthma exacerbation, Asthma with exacerbation Patient Disposition: Admitted As Inpatient Prescriptions: No Action albuterol sulfate 90 mcg/actuation HFA aerosol inhaler 2 puff inhalation Q6H PRN (Reason: shortness of breath or wheezing) 30 Days Qty: 8.5 RF: 3
--- NOTE | 2020-11-16 04:53 | XR_ITS ---
EXAMINATION: XR CHEST CLINICAL INFORMATION: Cough COMPARISON: 11/02/2020 TECHNIQUE: Frontal view of the chest was obtained. FINDINGS: Patchy reticular interstitial and airspace opacities are again seen throughout both lungs. These appear unchanged if not slightly improved as compared to prior (11/02/2020). No new opacities are identified. Cardiomediastinal contours are unchanged. No pneumothorax or pleural effusion. Biapical pleural parenchymal scarring is noted. No acute osseous findings. XR/XR chest 1V IMPRESSION: Patchy bilateral reticular pulmonary opacities are unchanged if not slightly improved as compared to prior. No new abnormalities.
[2020-11-16] MEDS: Albuterol Sulfate (0.083%) 2.5 MG/3 ML VIAL.NEB 10 MG INHALE (04:59)
[2020-11-16] MEDS: Magnesium Sulfate/H2O 2 GM/50 ML PIGGYBACK IV (05:11)
[2020-11-16] MEDS: methylPREDNISolone Sod Succ/PF 125 MG/2 ML VIAL IVPUSH (05:11)
[2020-11-16 05:13] LABS: MANUAL DIFF FLAG NO
[2020-11-16 05:14] LABS: Basophils Absolute Auto 0.1 X10*3/uL (0.0-0.2); Basophils Percent Auto 0.9 % (0-2); Eosinophils Absolute Auto 1.2 X10*3/uL (0.0-0.4); Eosinophils Percent Auto 11.4 % (0-4); Hematocrit 43.5 % (37-47); Hemoglobin 13.5 g/dl (12.0-16.0); Imm Gran Abs Auto 0.03 X10*3/uL (0.00-0.03); Imm Gran Pct Auto 0.3 % (0.0-0.4); Lymphocytes Absolute Auto 1.8 X10*3/uL (1.2-4.9); Lymphocytes Percent Auto 16.9 % (20-40); Mean Corpuscular Hemoglobin 26.6 pg (27.0-33.0); Mean Corpuscular Volume 85.6 fL (80-98); Mean Platelet Volume 8.7 fL (9.4-12.3); Monocytes Absolute Auto 0.9 X10*3/uL (0.1-1.2); Monocytes Percent Auto 8.2 % (2-11); Neutrophils Absolute Auto 6.7 X10*3/uL (2.0-8.3); Neutrophils Percent Auto 62.3 % (45-73); Platelet Count 314 X10*3/uL (160-400); Red Blood Count 5.08 X10*6/uL (4.20-5.50); Red Cell Distribution Width 14.7 % (11.0-16.0); White Blood Count 10.8 X10*3/uL (4.8-10.8)
[2020-11-16 05:35] LABS: Anion Gap 19 (12-20); Blood Urea Nitrogen 16 mg/dL (9-16); Calcium 9.5 mg/dL (8.4-10.2); Carbon Dioxide 22 mmol/L (22-29); Chloride 105 mmol/L (96-108); Estimated Glomerular Filt Rate > 60; Glucose Random 113 mg/dL (60-115); Lactic Acid 2.3 mmol/L (0.5-2.0); Potassium 4.7 mmol/l (3.3-5.1); Sodium 141 mmol/L (135-145)
[2020-11-16 06:03] LABS: Influenza A PCR NEGATIVE (Negative); Influenza B PCR NEGATIVE (Negative); Resp Syncy Virus RNA Qual PCR NEGATIVE (Negative); SARS COV2 PCR INHOUSE NEGATIVE (Negative)
[2020-11-16] MEDS: 0.9 % Sodium Chloride 1,000 ML 999 ML IVCONT (06:44)
[2020-11-16 07:10] LABS: Reflex Lactate? Lactic Acid Added
--- NOTE | 2020-11-16 10:06 | PC.NURSE ---
PER PROVIDER REQUEST THIS RN AMBULATED PATIENT W/ PULSE OX IN [facility], PT'S SPO2 DROPPED FROM 94% TO 92%, HR INCREASED FROM ~100 TO 130, RR INCREASED FROM 22 TO 42, PT REPORTED SIGNIFICANT SOB.
--- NOTE | 2020-11-16 11:11 | P.HPHOSP_ITS ---
History of Present Illness Date of Service: 11/16/20 Chief Complaint: Difficulty breathing, dyspnea 50 years old lady with PMH of I LD, asthma, COPD who presents to the hospital complaining difficulty breathing, dyspnea on exertion for the last 2 weeks. The patient reports moving to a new place recently. She is reporting feeling congested, lethargic, short of breath with minimal exertion. She denies having fever, chills, nausea or vomiting for changes of mental status. She uses albuterol as needed when she has difficulty breathing but otherwise she is used to ambulate final room air. In the emergency a chest x-ray was consistent with stable findings of I LD. She was noted to be in significant respiratory distress as her respiratory rate went in 30s with heart rate in 140s. Admitted for further evaluation and treatment. Review of Systems Review of Systems: No fever, chills but reports generalized weakness No chest pain, palpitation Dyspnea on exertion, shortness of breath No abdominal pain, nausea or vomiting No urinary symptoms No any rash or wounds [facility] Medical History (Updated 11/16/20 @ 11:14 by Richard Gomez MD) Asthma COPD (chronic obstructive pulmonary disease) Hypothyroid Interstitial lung disease Family History Father No problems noted. Mother No problems noted. Maternal Grandmother Stroke Maternal Grandfather Stroke Family/Other Substance abuse Surgical History History of hemorrhoidectomy History of tubal ligation Social History Alcohol intake: current Alcohol intake frequency: holidays/special occasions only Smoking Status: Never smoker Use of substances other than those prescribed or required for medical reasons: Yes Substance Use Type: Crack/Cocaine Substance Use Frequency: Occasionally Advance Directives: No Meds Allergies Allergy/AdvReac Type Severity Reaction Status Date / Time No Known Allergies Allergy Verified 11/15/20 08:11 Physical Exam 2 Vital Signs and Narrative: Vital Signs: Last Vital Signs Temp 97.7 F 11/16/20 04:39 Pulse 100 11/16/20 10:07 Resp 22 H 11/16/20 10:07 BP 96/55 L 11/16/20 07:55 Pulse Ox 94 11/16/20 10:07 Body Mass Index 26.6 Constitutional : Alert, oriented, in mild respiratory distress Neck : Normal inspection, Supple Cardiovascular : Tachycardia, RRR, S1 S2, no lower extremity edema Respiratory : Decreased bilateral air entry, with bilateral expiratory wheezes and rhonchi, no crackles noted Gastrointestinal: soft, lax, Normal bowel sounds, Non tender Skin : Warm/Dry, facial rash which reported to be chronic Neurological : Alert & oriented x3, No focal deficit Results Labs CBC and Chem 7: 11/16/20 05:05 11/16/20 05:05 Labs: Laboratory Results - last 24 hr 11/16/20 11/16/20 11/16/20 05:05 05:05 05:05 MCV 85.6 MCH 26.6 L MCHC 31.0 RDW 14.7 Plt Count 314 MPV 8.7 L Immature Gran % (Auto) 0.3 Neut % (Auto) 62.3 Lymph % (Auto) 16.9 L [place] % (Auto) 8.2 Eos % (Auto) 11.4 H Baso % (Auto) 0.9 Lymph # (Auto) 1.8 [place] # (Auto) 0.9 Eos # (Auto) 1.2 H Baso # (Auto) 0.1 Abs Immat Gran (auto) 0.03 Absolute Neuts (auto) 6.7 Absolute Nucleated RBC 0.000 Nucleated RBC % (auto) 0.0 Anion Gap 19 Estim Creat Clear Calc 89.0 Estimated GFR > 60 Random Glucose 113 Lactic Acid 2.3 H* Lactic Acid Fup @ 2Hr Calcium 9.5 D Coronavirus (PCR) Influenza Type A (PCR) Influenza Type B (PCR) RSV RNA Qual (PCR) 11/16/20 11/16/20 05:05 07:53 MCV MCH MCHC RDW Plt Count MPV Immature Gran % (Auto) Neut % (Auto) Lymph % (Auto) [place] % (Auto) Eos % (Auto) Baso % (Auto) Lymph # (Auto) [place] # (Auto) Eos # (Auto) Baso # (Auto) Abs Immat Gran (auto) Absolute Neuts (auto) Absolute Nucleated RBC Nucleated RBC % (auto) Anion Gap Estim Creat Clear Calc Estimated GFR Random Glucose Lactic Acid Lactic Acid Fup @ 2Hr 2.0 Calcium Coronavirus (PCR) NEGATIVE Influenza Type A (PCR) NEGATIVE Influenza Type B (PCR) NEGATIVE RSV RNA Qual (PCR) NEGATIVE Imaging Radiologist's Impressions: Impressions Chest X-Ray 11/16/20 04:53 IMPRESSION: Patchy bilateral reticular pulmonary opacities are unchanged if not slightly improved as compared to prior. No new abnormalities. Assessment and Plan (1) Interstitial lung disease: Status: Acute (2) IPF (idiopathic pulmonary fibrosis): Status: Acute (3) Asthma exacerbation: Qualifiers: Asthma persistence: unspecified Asthma severity: unspecified severity Qualified Code(s): J45.901 - Unspecified asthma with (acute) exacerbation Status: Acute 50 years old lady with PMH of I LD, asthma, COPD who presents to the hospital complaining difficulty breathing, dyspnea on exertion for the last 2 weeks. Interstitial lung disease exacerbation Asthma exacerbation Respiratory distress Patient RR 29 with heart rate of 140s Continue IV steroids Start azithromycin antibiotic for anti-inflammatory effect O2 supplement as needed Bronchodilator nebulizers To get pulmonology evaluation Lactic acidosis Likely secondary to albuterol usage Improved Hypotension Blood pressure noted to be low in 80s over 50s Received IV fluid Continue to monitor DVT PPX Lovenox
[2020-11-16] MEDS: Azithromycin 500 MG in 0.9 % Sodium Chloride 250 ML 125 MG IV (11:44)
[2020-11-16] MEDS: Enoxaparin Sodium 40 MG/0.4 ML SYRINGE SUBCUT (11:44)
[2020-11-16] MEDS: Albuterol/Iprat 2.5/0.5MG 3 ML AMPUL.NEB INHALE ×3 (12:02→20:11)
[2020-11-16] MEDS: 0.9 % Sodium Chloride Flush 3 ML SYRINGE IVFLUSH ×2 (15:57→20:02)
--- NOTE | 2020-11-16 16:43 | MHC.CM.PN ---
Met with pt in [facility]. INPT with bed pending. Pt independent. A&O x3. Has no services. Expect d/c home without services. IMM reviewed and signed. HCP Vaughn Nunes, , ([phone]). will follow for d/c needs
[2020-11-16] MEDS: Acetaminophen 325 MG TABLET 650 MG PO (20:02)
[2020-11-17] VITALS (8 sets, daily range): BP systolic 115–118; BP diastolic 49–73; PULSE 95–121; RESP 18; TEMP 36.2–36.6; O2SAT 94–96
--- NOTE | 2020-11-17 | CT_ITS ---
EXAMINATION: CT CHEST WITHOUT CONTRAST CLINICAL INFORMATION: ILD. COMPARISON: CT chest of 08/15/2018 TECHNIQUE: Multidetector volumetric CT imaging of the chest was done. Axial MIP volume rendering provided. Sagittal and coronal reformatted images were obtained. This CT examination was performed using dose optimization techniques as appropriate, variously including the following: *Automated exposure control *Adjustment of mA and/or kV according to patient size (this includes techniques or standardized protocols for targeted exams where dose is matched to indication/reason for exam; i.e. extremities or head) *Use of iterative reconstruction technique DLP: 125 mGy-cm FINDINGS: LUNGS: There is no significant change in bilateral regions of interstitial lung disease compared to study of 08/15/2018. There are regions of ground-glass opacification with some retraction and cylindrical bronchiectasis within the upper lobes bilaterally. Other areas of interstitial disease with bronchiectasis seen within the lingula, right middle lobe, and lower lobes bilaterally. No significant emphysematous change is appreciated. Within the right lower lobe, there is a noncalcified 5 mm nodule on image 73 of 199. This was present on study of 08/15/2018. MEDIASTINUM: Heart normal size. Minimal aortic valve calcification. Minimal coronary artery calcification. No pericardial effusion. There are prominent mediastinal lymph nodes but none of which are pathologically enlarged. No thoracic aortic aneurysm. No mediastinal or hilar lymphadenopathy. Prominent but not pathologically enlarged hilar lymph nodes present. PLEURA: There is no pleural effusion. No pleural mass or thickening. AXILLA: No lymphadenopathy. UPPER ABDOMEN: Unremarkable. OSSEOUS STRUCTURES: No destructive bony lesions identified. CT/CT chest wo con IMPRESSION: Stable chronic interstitial lung disease with bronchiectasis and stable right lower lobe nodule. There are prominent but not pathologically enlarged mediastinal and hilar lymph nodes. Findings can be seen in respiratory bronchiolitis interstitial lung disease. Chronic hypersensitivity to the pneumonitis can have this appearance as can idiopathic pulmonary fibrosis. Chronic sarcoidosis could also look this way.
[2020-11-17 06:13] LABS: Basophils Percent Auto 0.1 % (0-2); Hematocrit 37.2 % (37-47); Hemoglobin 11.8 g/dl (12.0-16.0); Imm Gran Abs Auto 0.05 X10*3/uL (0.00-0.03); Imm Gran Pct Auto 0.4 % (0.0-0.4); Lymphocytes Absolute Auto 0.6 X10*3/uL (1.2-4.9); Lymphocytes Percent Auto 5.6 % (20-40); MANUAL DIFF FLAG SCAN; Mean Corpuscular HGB Conc 31.7 g/dl (31.0-35.0); Mean Corpuscular Hemoglobin 27.3 pg (27.0-33.0); Mean Corpuscular Volume 85.9 fL (80-98); Mean Platelet Volume 9.4 fL (9.4-12.3); Monocytes Absolute Auto 0.3 X10*3/uL (0.1-1.2); Monocytes Percent Auto 2.6 % (2-11); Neutrophils Absolute Auto 10.4 X10*3/uL (2.0-8.3); Neutrophils Percent Auto 91.3 % (45-73); Platelet Count 298 X10*3/uL (160-400); Red Blood Count 4.33 X10*6/uL (4.20-5.50); Red Cell Distribution Width 14.6 % (11.0-16.0); SCAN SMEAR FLAG 1; White Blood Count 11.4 X10*3/uL (4.8-10.8)
[2020-11-17 06:45] LABS: Alanine Aminotransferase 12 U/L (0-31); Alkaline Phosphatase 90 U/L (39-117); Anion Gap 15 (12-20); Aspartate Amino Transferase 8 U/L (5-31); Bilirubin Total < 0.2 mg/dL (0.0-1.0); Blood Urea Nitrogen 19 mg/dL (9-16); Calcium 9.1 mg/dL (8.4-10.2); Carbon Dioxide 23 mmol/L (22-29); Chloride 108 mmol/L (96-108); Creatinine Clr Calc Pharmacy 99.9; Estimated Glomerular Filt Rate > 60; Glucose Random 133 mg/dL (60-115); Potassium 4.7 mmol/l (3.3-5.1); Sodium 141 mmol/L (135-145); Total Protein 6.9 g/dL (6.5-8.0)
[2020-11-17] MEDS: Albuterol/Iprat 2.5/0.5MG 3 ML AMPUL.NEB INHALE ×4 (07:37→20:24)
[2020-11-17 08:03] LABS: SLIDE REVIEW VERIFIED
[2020-11-17] MEDS: 0.9 % Sodium Chloride Flush 3 ML SYRINGE IVFLUSH ×3 (09:25→20:20)
--- NOTE | 2020-11-17 10:02 | PM.EVENT ---
Event Note Date of Service: 11/17/20 Event Note: Pulmonary consult note: I saw this patient this morning, reviewed her current to history, past history, lab and chest x-ray. Complete note is dictated. A: Acute exacerbation bronchial asthma/COPD Longstanding history of allergic bronchial asthma/COPD Eiosinophil count high Also known to have interstitial lung disease . P: Agree with current T/X will need IV Solumedrol for one more day and then slow Prednisone taper . will order CT scan of chest for comparison with old CT scan of 2018 .
[2020-11-17] MEDS: Enoxaparin Sodium 40 MG/0.4 ML SYRINGE SUBCUT (11:52)
[2020-11-17] MEDS: Azithromycin 500 MG in 0.9 % Sodium Chloride 250 ML 125 MG IV (11:52)
--- NOTE | 2020-11-17 13:49 | CONS_ITS ---
DATE OF SERVICE: 11/17/2020 HISTORY OF PRESENT ILLNESS: This 50-year-old female is a long-standing case of bronchial asthma. She has history of frequent admissions to the hospital with acute exacerbations. Her previous CT scan of the chest back in 2018, has shown presence of diffuse interstitial lung disease suggesting hypersensitivity pneumonitis/bronchiolitis. She has not been seen by me as outpatient for the last few years. During that time, she has been admitted here a few times. At this time, she presented to the emergency room on 11/16/2020 with recurrent bouts of cough, feeling of chest congestion, and shortness of breath. These symptoms have been going on for about 2 weeks'. Initially, she was seen in the emergency room on 11/02/2020. Her COVID-19 test at that time was negative. The patient was sent home on a short course of prednisone and no antibiotics. The patient finished her prednisone in 5 days and continue to use the albuterol. Her symptoms have gotten worse again, but she denies fever, chills, or chest pain. She presented to the emergency room, and at this time, the chest x-ray shows mild increase in the interstitial markings, but no definite pneumonia. The patient is admitted for further care in the hospital. REVIEW OF SYSTEMS: No chest pain. No palpitations. No abdominal pain, nausea, or vomiting. No fever or chills, but she has had general weakness. She has no urinary symptoms. No skin rash. PAST MEDICAL HISTORY: 1. Bronchial asthma/COPD for the past many years. 2. Hypothyroidism. 3. Interstitial lung disease as per previous CT scan of the chest. PERSONAL HISTORY: Lives with her . Currently denies smoking. She has had history of opioid use in the past and still uses cocaine occasionally. PHYSICAL EXAMINATION: GENERAL: A 50-year-old female, who is relatively more comfortable today and she did have by bilateral malar erythema of the face. THROAT: No acute infection especially. No thrush is noted. NECK: No jugular venous distention. Trachea is in midline. CHEST: Percussion note resonant and has good breath sounds on both sides. The breath sounds are very harsh, and she has scattered inspiratory crackles and wheezes throughout the chest. CARDIAC: PMI not palpable. Heart sounds are normal. No murmurs or gallops. ABDOMEN: Flat, soft, and nontender. EXTREMITIES: No clubbing. No varicosities. Peripheral pulses are normal. LABORATORY DATA: White cell count 11.4, hemoglobin 11.8, and eosinophil count is 12.3 on 11/02 and 11.4 on 11/16 and 0 today. Chest x-ray, there is no definite pneumonia, but she has patchy bilateral reticular opacities, consistent with interstitial lung disease. IMPRESSION: 1. Acute exacerbation of bronchial asthma/chronic obstructive pulmonary disease. 2. Most likely she has hypersensitivity type of bronchial asthma/pneumonitis. 3. Chronic interstitial lung disease. RECOMMENDATIONS: 1. I think we should get a CT scan of the chest for comparison to the last CT scan in 2018. 2. Continue IV Solu-Medrol 40 mg b.i.d. for 1 or 2 more days, then she should be on a prednisone taper for few weeks. 3. Oxygen supplementation 2 L/minute as needed. 4. Singulair 10 mg daily for her chronic allergic symptoms. 5. The patient has had intolerance to inhaled steroids, so we will have to avoid that. Thank you very much for asking me to see this patient. I will be glad to follow her along. MD ODETTE Gordillo/ALEX / [phone]
[2020-11-17] MEDS: Benzonatate 100 MG CAPSULE 200 MG PO ×2 (13:54→20:19)
[2020-11-17] MEDS: guaiFENesin LA 600 MG TAB.ER.12H PO ×2 (13:54→20:19)
--- NOTE | 2020-11-17 16:13 | HO.PM.IMPN ---
Subjective Subjective Date of Service: 11/17/20 Interval History: the patient was seen and evaluated this morning Laying in bed, feels comfortable the, still complaining of shortness of breath and coughing Denies any fever, chills or the chest pain No reported other overnight events. Systemic review: No fever, chills or weakness No chest pain, palpitation The dyspnea on exertion, reporting shortness of breath No abdominal pain, nausea or vomiting No urinary symptoms No any rash or wounds Physical Exam Vital Signs: Vital Signs: Last Vital Signs Temp 97.8 F 11/17/20 16:00 Pulse 121 H 11/17/20 16:00 Resp 18 11/17/20 16:00 BP 118/56 L 11/17/20 16:00 Pulse Ox 95 11/17/20 16:00 Body Mass Index 25.5 Constitutional : Alert, oriented, not in distress Neck : Normal inspection, Supple Cardiovascular : RRR, S1 S2, no lower extremity edema Respiratory : Decreased bilateral air entry, bilateral scattered wheezes and rhonchi, basal bilateral crackles. Gastrointestinal: soft, lax, Normal bowel sounds, Non tender Skin : Warm/Dry, No rash Neurological : Alert & oriented x3, No focal deficit Objective Data Current Medications Generic Name Dose Route Start Last Admin Trade Name Freq PRN Reason Stop Dose Admin Acetaminophen 650 mg 11/16/20 11:10 11/16/20 20:02 Acetaminophen 325 Mg Tablet PO 650 mg Q6H PRN Administration Pain, Mild (Pain Scale 1-3) Albuterol Sulfate 2.5 mg 11/16/20 11:10 Albuterol Sulfate (0.083%) 2.5 Mg/3 Ml Vial.Neb INHALE Q2H PRN Shortness of Breath/Wheezing Albuterol/Ipratropium 3 ml 11/16/20 12:00 11/17/20 15:11 Albuterol/Iprat 2.5/0.5mg 3 Ml Ampul.Neb INHALE 3 ml RQ4H WHILE AWAKE PAULA Administration Benzonatate 200 mg 11/17/20 12:25 11/17/20 13:54 Benzonatate 100 Mg Capsule PO 200 mg TID PAULA Administration Enoxaparin Sodium 40 mg 11/16/20 11:15 11/17/20 11:52 Enoxaparin Sodium 40 Mg/0.4 Ml Syringe SUBCUT 40 mg Q24H PAULA Administration Guaifenesin 600 mg 11/17/20 12:25 11/17/20 13:54 Guaifenesin La 600 Mg Tab.Er.12h PO 600 mg BID PAULA Administration Azithromycin 500 mg/ Sodium 250 mls @ 125 mls/hr 11/16/20 11:15 11/17/20 13:56 Chloride IV Infused Q24H PAULA Infusion Methylprednisolone Sodium Succinate 40 mg 11/16/20 21:00 11/17/20 09:25 Methylprednisolone Sod Succ/Pf 40 Mg/Ml Vial IVPUSH 40 mg BID PAULA Administration Montelukast Sodium 10 mg 11/17/20 21:00 Montelukast Sodium 10 Mg Tablet PO BEDTIME PAULA Ondansetron HCl 4 mg 11/16/20 11:10 Ondansetron Hcl 4 Mg/2 Ml Vial IVPUSH Q8H PRN Nausea and Vomiting Sodium Chloride 3 ml 11/16/20 16:00 11/17/20 15:25 0.9 % Sodium Chloride Flush 3 Ml Syringe IVFLUSH 3 ml QSHIFT PAULA Administration Labs CBC & Chem 7: 11/17/20 05:36 11/17/20 05:36 Microbiology Microbiology Results: Microbiology 11/16/20 05:05 Blood - Venous Blood Culture - Preliminary No growth after 24 hours. 11/16/20 05:05 Blood - Venous Blood Culture - Preliminary No growth after 24 hours. Assessment and Plan (1) Interstitial lung disease: Status: Acute (2) IPF (idiopathic pulmonary fibrosis): Status: Acute (3) Asthma exacerbation: Status: Acute Assessment and Plan: 50 years old lady with PMH of I LD, asthma, COPD who presents to the hospital complaining difficulty breathing, dyspnea on exertion for the last 2 weeks. Interstitial lung disease exacerbation Asthma exacerbation Respiratory distress Patient RR 29 with heart rate of 140s the Continue IV steroids Start azithromycin antibiotic for anti-inflammatory effect O2 supplement as needed Bronchodilator nebulizers Pulmonology input appreciated, the continue steroids and Singulair the Lactic acidosis Likely secondary to albuterol usage Improved Hypotension Blood pressure noted to be low in 80s over 50s Received IV fluid Continue to monitor DVT PPX Lovenox
[2020-11-17] MEDS: Montelukast Sodium 10 MG TABLET PO (20:19)
[2020-11-18] VITALS (8 sets, daily range): BP systolic 102–122; BP diastolic 55–72; PULSE 86–111; RESP 18–20; TEMP 36.3–37.1; O2SAT 93–98
[2020-11-18 06:40] LABS: Hematocrit 36.2 % (37-47); Hemoglobin 11.3 g/dl (12.0-16.0); Mean Corpuscular HGB Conc 31.2 g/dl (31.0-35.0); Mean Corpuscular Hemoglobin 27.1 pg (27.0-33.0); Mean Corpuscular Volume 86.8 fL (80-98); Mean Platelet Volume 10.8 fL (9.4-12.3); Platelet Count 177 X10*3/uL (160-400); Red Blood Count 4.17 X10*6/uL (4.20-5.50); Red Cell Distribution Width 14.8 % (11.0-16.0); White Blood Count 14.7 X10*3/uL (4.8-10.8)
[2020-11-18 07:12] LABS: Anion Gap 17 (12-20); Blood Urea Nitrogen 19 mg/dL (9-16); Calcium 8.8 mg/dL (8.4-10.2); Carbon Dioxide 21 mmol/L (22-29); Chloride 104 mmol/L (96-108); Creatinine Clr Calc Pharmacy 105.9; Estimated Glomerular Filt Rate > 60; Glucose Random 120 mg/dL (60-115); Potassium 4.6 mmol/l (3.3-5.1); Sodium 137 mmol/L (135-145)
[2020-11-18] MEDS: Albuterol/Iprat 2.5/0.5MG 3 ML AMPUL.NEB INHALE ×4 (07:19→20:10)
[2020-11-18] MEDS: Benzonatate 100 MG CAPSULE 200 MG PO ×3 (10:20→20:00)
[2020-11-18] MEDS: 0.9 % Sodium Chloride Flush 3 ML SYRINGE IVFLUSH ×3 (10:22→20:01)
[2020-11-18] MEDS: guaiFENesin LA 600 MG TAB.ER.12H PO ×2 (10:23→20:00)
[2020-11-18] MEDS: Azithromycin 500 MG in 0.9 % Sodium Chloride 250 ML 125 MG IV (10:23)
[2020-11-18] MEDS: Enoxaparin Sodium 40 MG/0.4 ML SYRINGE SUBCUT (10:24)
--- NOTE | 2020-11-18 10:40 | P.PNPL_ITS ---
Subjective Subjective Date of Service: 11/18/20 Principal diagnosis: copd excerbation Interval history: This patient is feeling much better, has only mild nasal conge stion. Has mild intermittent cough and she gets short winded if she gets up and walk. No fever chills or chest pain. Expectorates only small amount of mucus off and on. Has remained off oxygen. Objective Data Labs CBC & Chem 7: 11/18/20 05:47 11/18/20 05:47 Labs: Laboratory Results - last 24 hr 11/18/20 11/18/20 05:47 05:47 WBC 14.7 H RBC 4.17 L Hgb 11.3 L Hct 36.2 L MCV 86.8 MCH 27.1 MCHC 31.2 RDW 14.8 Plt Count 177 D MPV 10.8 Absolute Nucleated RBC 0.000 Nucleated RBC % (auto) 0.0 Sodium 137 Potassium 4.6 Chloride 104 Carbon Dioxide 21 L Anion Gap 17 BUN 19 H Creatinine 0.66 Estim Creat Clear Calc 105.9 Estimated GFR > 60 Random Glucose 120 H Calcium 8.8 Microbiology Microbiology Results: Microbiology 11/16/20 05:05 Blood - Venous Blood Culture - Preliminary No growth after 48 hours. 11/16/20 05:05 Blood - Venous Blood Culture - Preliminary No growth after 48 hours. Review of Systems Review of Systems Yes all other systems are reviewed and are negative Constitutional: Denies body ache(s), Denies chills, Reports fatigue, Denies fever(s) and Denies headache(s) Eyes: Denies blurry vision, Denies irritation, Denies itchy eyes and Denies loss of vision Denies dysphagia, Denies vertigo, Denies headache(s), Denies epistaxis, Reports nasal congestion (mild), Denies nasal discharge, Denies nasal obstruction and Denies sinus pain Cardiovascular: Denies chest pain, Denies rapid heart rate, Denies irregular heart rhythm and Reports dyspnea on exertion Respiratory: Reports as per HPI and Reports dyspnea on exertion Gastrointestinal: Denies bloating, Denies change in bowel habits, Denies change in stool character, Denies dysphagia, Denies heartburn, Denies nausea and Denies vomiting Genitourinary: Denies difficulty voiding and Denies urinary incontinence Musculoskeletal: Denies abnormal gait, Denies back pain, Denies myalgias, Denies arthralgias, Denies muscle weakness and Denies stiffness Denies abnormal gait, Denies vertigo, Denies headache(s), Denies focal weakness, Denies loss of vision, Denies memory loss, Denies restless legs and Denies tremor(s) Psychiatric: Denies anxiety, Denies depression, Denies difficulty concentrating, Denies irritability, Denies memory loss and Denies mood swings Endocrine: Reports no additional endocrine complaints and Reports fatigue Hematologic/Lymphatic: Reports no additional hematologic/lymphatic complaints Allergic/Immunologic: Reports no additional allergic/immunologic complaints and Denies itchy eyes Physical Exam Vital Signs: Vital Signs: Last Vital Signs Temp 97.9 F 11/18/20 09:17 Pulse 105 H 11/18/20 09:17 Resp 20 11/18/20 09:17 BP 122/72 11/18/20 09:17 Pulse Ox 93 11/18/20 09:17 Body Mass Index 25.5 Const: General: healthy appearing, comfortable, no acute distress, alert and awake Orientation/consciousness: patient oriented x3 HENMT: Head: Yes normal to inspection General nose exam: No nasal polyps present and No nasal discharge present Face and sinus: Yes sinuses nontender Mouth: oropharynx normal Throat: Yes posterior oropharynx normal Eyes: General: appearance normal, both eyes and all related structures Neck: Neck: Yes normal visual inspection, Yes no lymphadenopathy, Yes trachea midline and Yes no JVD Thyroid: Thyroid normal Chest: Chest palpation & inspection: normal inspection of the chest and normal palpation of entire chest wall Resp: Other: She does have good breath sounds on both sides. However the breath sounds are very harsh. She has inspiratory crackles and some expiratory wheezes throughout the chest more marked over the upper lobes Cardio: Palpation: normal PMI Rate: regular rate Rhythm: regular rhythm Heart sounds: no gallops and no murmurs Peripheral pulses: Peripheral pulses 2+ throughout GI: Palpation (GI): Soft to palpation, nontender, No hepatosplenomegaly present and no masses Auscultation: normal bowel sounds Back/Spine/Pelvis: Thoracic/Lumbar Spine: thoracic and lumbar spine normal to inspection Skin: General skin exam: other (both cheeks are erythematous) Neuro: General: patient oriented x3, gait normal and no focal motor deficits Cranial nerves: Yes CN's II-XII intact bilaterally Extrem: General: Yes normal to inspection, Yes no clubbing, cyanosis or edema, Yes no calf tenderness and No venous stasis dermatitis Psych: Appearance: grossly normal Speech and movement: Normal speech and movement present Assessment and Plan Assessment and plan (1) IPF (idiopathic pulmonary fibrosis): Problem details: She has chronic fibrotic changes throughout the lungs, along with ground-glass opacities, consistent with IV LD/pulmonary fibrosis. Current CT scan does not show any interval changes. Status: Acute Assessment and Plan: I think to oral prednisone over the next few weeks she would be helpful, to reduce any interstitial pneumonitis. (2) Asthma with exacerbation: Problem details: Seems to be well controlled at this time, Status: Acute Assessment and Plan: Complete the course of azithromycin. May change IV Solu-Medrol to prednisone 40 mg a day, taper by 10 mg every week, until she is seen in the office as outpatient (3) Allergic rhinitis: Problem details: She has chronic mild allergic rhinitis which is controlled at present, She cannot use nasal steroids. Singulair 10 mg daily will be helpful Status: Acute Time Spent With Patient Time: Total time spent is greater than 50% in coordination of care (as documented) at patient's floor/unit and/or counseling patient: Time with patient: 15 - 24 minutes
--- NOTE | 2020-11-18 11:50 | MHC.CM.PN ---
per rounds pt expected to dc sat imm updated pt will go mhome no servceis ttransportaion will be provided by family
--- NOTE | 2020-11-18 14:02 | HO.PM.IMPN ---
Subjective Subjective Date of Service: 11/18/20 Interval History: the patient was seen and evaluated this morning Laying in bed, feels comfortable the, still complaining of shortness of breath and coughing Denies any fever, chills or the chest pain No reported other overnight events. Systemic review: No fever, chills or weakness No chest pain, palpitation The dyspnea on exertion, reporting shortness of breath No abdominal pain, nausea or vomiting No urinary symptoms No any rash or wounds Physical Exam Vital Signs: Vital Signs: Last Vital Signs Temp 97.9 F 11/18/20 09:17 Pulse 92 11/18/20 11:28 Resp 20 11/18/20 09:17 BP 122/72 11/18/20 09:17 Pulse Ox 93 11/18/20 09:17 Body Mass Index 25.5 Constitutional : Alert, oriented, not in distress Neck : Normal inspection, Supple Cardiovascular : RRR, S1 S2, no lower extremity edema Respiratory : Decreased bilateral air entry, bilateral scattered wheezes and rhonchi, basal bilateral crackles. Gastrointestinal: soft, lax, Normal bowel sounds, Non tender Skin : Warm/Dry, No rash Neurological : Alert & oriented x3, No focal deficit Objective Data Current Medications Generic Name Dose Route Start Last Admin Trade Name Freq PRN Reason Stop Dose Admin Acetaminophen 650 mg 11/16/20 11:10 11/16/20 20:02 Acetaminophen 325 Mg Tablet PO 650 mg Q6H PRN Administration Pain, Mild (Pain Scale 1-3) Albuterol Sulfate 2.5 mg 11/16/20 11:10 Albuterol Sulfate (0.083%) 2.5 Mg/3 Ml Vial.Neb INHALE Q2H PRN Shortness of Breath/Wheezing Albuterol/Ipratropium 3 ml 11/16/20 12:00 11/18/20 11:27 Albuterol/Iprat 2.5/0.5mg 3 Ml Ampul.Neb INHALE 3 ml RQ4H WHILE AWAKE PAULA Administration Benzonatate 200 mg 11/17/20 12:25 11/18/20 10:20 Benzonatate 100 Mg Capsule PO 200 mg TID PAULA Administration Enoxaparin Sodium 40 mg 11/16/20 11:15 11/18/20 10:24 Enoxaparin Sodium 40 Mg/0.4 Ml Syringe SUBCUT 40 mg Q24H PAULA Administration Guaifenesin 600 mg 11/17/20 12:25 11/18/20 10:23 Guaifenesin La 600 Mg Tab.Er.12h PO 600 mg BID PAULA Administration Azithromycin 500 mg/ Sodium 250 mls @ 125 mls/hr 11/16/20 11:15 11/18/20 12:32 Chloride IV Infused Q24H PAULA Infusion Methylprednisolone Sodium Succinate 40 mg 11/16/20 21:00 11/18/20 10:23 Methylprednisolone Sod Succ/Pf 40 Mg/Ml Vial IVPUSH 11/18/20 22:00 40 mg BID PAULA Administration Montelukast Sodium 10 mg 11/17/20 21:00 11/17/20 20:19 Montelukast Sodium 10 Mg Tablet PO 10 mg BEDTIME PAULA Administration Ondansetron HCl 4 mg 11/16/20 11:10 Ondansetron Hcl 4 Mg/2 Ml Vial IVPUSH Q8H PRN Nausea and Vomiting Prednisone 40 mg 11/19/20 09:00 Prednisone 20 Mg Tablet PO DAILY PAULA Sodium Chloride 3 ml 11/16/20 16:00 11/18/20 10:22 0.9 % Sodium Chloride Flush 3 Ml Syringe IVFLUSH 3 ml QSHIFT PAULA Administration Labs CBC & Chem 7: 11/18/20 05:47 11/18/20 05:47 Microbiology Microbiology Results: Microbiology 11/16/20 05:05 Blood - Venous Blood Culture - Preliminary No growth after 48 hours. 11/16/20 05:05 Blood - Venous Blood Culture - Preliminary No growth after 48 hours. Assessment and Plan (1) Interstitial lung disease: Status: Acute (2) IPF (idiopathic pulmonary fibrosis): Status: Acute (3) Asthma exacerbation: Status: Acute Assessment and Plan: 50 years old lady with PMH of I LD, asthma, COPD who presents to the hospital complaining difficulty breathing, dyspnea on exertion for the last 2 weeks. Interstitial lung disease exacerbation Asthma exacerbation improving slowly DC IV steroids PO Prednisone tomorrow Continue azithromycin antibiotic for anti-inflammatory effect O2 supplement as needed Bronchodilator nebulizers Pulmonology input appreciated, the continue steroids and Singulair Lactic acidosis Likely secondary to albuterol usage Improved Hypotension Blood pressure noted to be low in 80s over 50s Received IV fluid Continue to monitor DVT PPX Lovenox
[2020-11-18] MEDS: Acetaminophen 325 MG TABLET 650 MG PO (19:59)
[2020-11-18] MEDS: Montelukast Sodium 10 MG TABLET PO (20:00)
[2020-11-19 03:59] VITALS: BP 112/57; PULSE 83; RESP 18; TEMP 36.8; O2SAT 95
[2020-11-19] MEDS: Benzonatate 100 MG CAPSULE 200 MG PO (07:47)
[2020-11-19] MEDS: Albuterol/Iprat 2.5/0.5MG 3 ML AMPUL.NEB INHALE ×2 (07:47→11:17)
[2020-11-19] MEDS: guaiFENesin LA 600 MG TAB.ER.12H PO (07:47)
[2020-11-19] MEDS: predniSONE 20 MG TABLET 40 MG PO (07:48)
[2020-11-19] MEDS: 0.9 % Sodium Chloride Flush 3 ML SYRINGE IVFLUSH (07:50)
[2020-11-19 08:00] VITALS: BP 132/80; PULSE 100; RESP 20; TEMP 36.6; O2SAT 94
[2020-11-19] MEDS: Azithromycin 250 MG TABLET PO (08:07)
[2020-11-19] MEDS: Omeprazole 40 MG CAPSULE.DR PO (08:07)
--- NOTE | 2020-11-19 11:37 | PM.DS ---
DS: Providers Provider Date of Service: 11/19/20 Date of admission: 11/16/20 11:10 Primary care physician: Unknown Physician Consults: 11/16/20 11:10 Consult to Pulmonology Routine Consulting Provider: Danyell Wagner Reason for consultation: Respiratory distress, ILD exacerbation for your kind evaluation DS: Diagnosis Discharge Diagnosis (1) Interstitial lung disease: Status: Acute (2) IPF (idiopathic pulmonary fibrosis): Status: Acute (3) Asthma exacerbation: Status: Acute (4) Lactic acidosis: Status: Acute (5) Hypotension: Status: Acute DS: Medications Discharge Medications Home Medications: Previous Rx's Medication Instructions Recorded albuterol sulfate 90 mcg/actuation 2 puff INHALATION Q6H PRN 30 Days 09/26/20 aerosol inhaler #8.5 g azithromycin 250 mg PO Q24H #3 tab 11/19/20 benzonatate 200 mg PO TID #30 cap 11/19/20 prednisone See Rx Instructions .ROUTE 11/19/20 .COMPLEX #30 tab DS: Summary Hospital Course Hospital Course: Admission note HPI 50 years old lady with PMH of I LD, asthma, COPD who presents to the hospital complaining difficulty breathing, dyspnea on exertion for the last 2 weeks. The patient reports moving to a new place recently. She is reporting feeling congested, lethargic, short of breath with minimal exertion. She denies having fever, chills, nausea or vomiting for changes of mental status. She uses albuterol as needed when she has difficulty breathing but otherwise she is used to ambulate final room air. In the emergency a chest x-ray was consistent with stable findings of I LD. She was noted to be in significant respiratory distress as her respiratory rate went in 30s with heart rate in 140s. Admitted for further evaluation and treatment. Hospital course The patient was admitted to the hospital and treated with IV steroids, oxygen supplement and azithromycin as antibiotic with bronchodilator nebulizers. She improved during the hospital stay and was able to wean him down to room air with good response over the course of hospital stay. Evaluated by pulmonology who recommended tapering dose of steroid at time of discharge. Next [facility] to follow-up as outpatient with pulmonology next [place] to continue prednisone, azithromycin and home inhalers as prescribed. Time Spent with Patient Time attestation: Total time spent providing and/or coordinating discharge services: Discharge coordination time: Greater than 30 minutes Physical Exam Vital Signs: Vital Signs: Last Vital Signs Temp 97.9 F 11/19/20 08:00 Pulse 100 11/19/20 08:00 Resp 20 11/19/20 08:00 BP 132/80 11/19/20 08:00 Pulse Ox 94 11/19/20 08:00 Body Mass Index 25.5 Constitutional : Alert, oriented, not in distress Neck : Normal inspection, Supple Cardiovascular : RRR, S1 S2, no lower extremity edema Respiratory : Fair bilateral air entry, scattered bilateral wheezes, no crepitations Gastrointestinal: soft, lax, Normal bowel sounds, Non tender Skin : Warm/Dry, chronic facial rash Neurological : Alert & oriented x3, No focal deficit DS: Data Data Completed and Pending Labs on day of discharge: Laboratory Tests 11/16/20 11/16/20 11/16/20 05:05 05:05 05:05 WBC 10.8 RBC 5.08 Hgb 13.5 Hct 43.5 MCV 85.6 MCH 26.6 L MCHC 31.0 RDW 14.7 Plt Count 314 MPV 8.7 L Immature Gran % (Auto) 0.3 Neut % (Auto) 62.3 Lymph % (Auto) 16.9 L [place] % (Auto) 8.2 Eos % (Auto) 11.4 H Baso % (Auto) 0.9 Lymph # (Auto) 1.8 [place] # (Auto) 0.9 Eos # (Auto) 1.2 H Baso # (Auto) 0.1 Abs Immat Gran (auto) 0.03 Absolute Neuts (auto) 6.7 Absolute Nucleated RBC 0.000 Nucleated RBC % (auto) 0.0 Smear Tech's Comments Sodium 141 Potassium 4.7 Chloride 105 Carbon Dioxide 22 Anion Gap 19 BUN 16 Creatinine 0.80 Estim Creat Clear Calc 89.0 Estimated GFR > 60 Random Glucose 113 Lactic Acid 2.3 H* Lactic Acid Fup @ 2Hr Calcium 9.5 D Total Bilirubin AST ALT Alkaline Phosphatase Total Protein Albumin Coronavirus (PCR) Influenza Type A (PCR) Influenza Type B (PCR) RSV RNA Qual (PCR) 11/16/20 11/16/20 11/17/20 05:05 07:53 05:36 WBC 11.4 H RBC 4.33 Hgb 11.8 L Hct 37.2 MCV 85.9 MCH 27.3 MCHC 31.7 RDW 14.6 Plt Count 298 MPV 9.4 Immature Gran % (Auto) 0.4 Neut % (Auto) 91.3 H Lymph % (Auto) 5.6 L [place] % (Auto) 2.6 Eos % (Auto) 0.0 Baso % (Auto) 0.1 Lymph # (Auto) 0.6 L [place] # (Auto) 0.3 Eos # (Auto) 0.0 Baso # (Auto) 0.0 Abs Immat Gran (auto) 0.05 H Absolute Neuts (auto) 10.4 H Absolute Nucleated RBC 0.000 Nucleated RBC % (auto) 0.0 Smear Tech's Comments VERIFIED Sodium Potassium Chloride Carbon Dioxide Anion Gap BUN Creatinine Estim Creat Clear Calc Estimated GFR Random Glucose Lactic Acid Lactic Acid Fup @ 2Hr 2.0 Calcium Total Bilirubin AST ALT Alkaline Phosphatase Total Protein Albumin Coronavirus (PCR) NEGATIVE Influenza Type A (PCR) NEGATIVE Influenza Type B (PCR) NEGATIVE RSV RNA Qual (PCR) NEGATIVE 11/17/20 11/18/20 11/18/20 05:36 05:47 05:47 WBC 14.7 H RBC 4.17 L Hgb 11.3 L Hct 36.2 L MCV 86.8 MCH 27.1 MCHC 31.2 RDW 14.8 Plt Count 177 D MPV 10.8 Immature Gran % (Auto) Neut % (Auto) Lymph % (Auto) [place] % (Auto) Eos % (Auto) Baso % (Auto) Lymph # (Auto) [place] # (Auto) Eos # (Auto) Baso # (Auto) Abs Immat Gran (auto) Absolute Neuts (auto) Absolute Nucleated RBC 0.000 Nucleated RBC % (auto) 0.0 Smear Tech's Comments Sodium 141 137 Potassium 4.7 4.6 Chloride 108 104 Carbon Dioxide 23 21 L Anion Gap 15 17 BUN 19 H 19 H Creatinine 0.70 0.66 Estim Creat Clear Calc 99.9 105.9 Estimated GFR > 60 > 60 Random Glucose 133 H 120 H Lactic Acid Lactic Acid Fup @ 2Hr Calcium 9.1 8.8 Total Bilirubin < 0.2 AST 8 D ALT 12 Alkaline Phosphatase 90 D Total Protein 6.9 Albumin 4.0 Coronavirus (PCR) Influenza Type A (PCR) Influenza Type B (PCR) RSV RNA Qual (PCR) Preliminary micro results at discharge 11/16/20 05:05 Blood Culture - Preliminary Blood - Venous No growth after 48 hours. 11/16/20 05:05 Blood Culture - Preliminary Blood - Venous No growth after 48 hours. Discharge Plan Discharge Patient Disposition: Home, Self-Care Referrals: Physician,Unknown [Primary Care Provider] - Discharge Medications: New azithromycin 250 mg Tablet 250 mg PO Q24H Qty: 3 RF: 0 benzonatate 100 mg Capsule 200 mg PO TID Qty: 30 RF: 0 prednisone 10 mg tablet See Rx Instructions .ROUTE .COMPLEX Qty: 30 RF: 0 Continued albuterol sulfate 90 mcg/actuation HFA aerosol inhaler 2 puff inhalation Q6H PRN (Reason: shortness of breath or wheezing) 30 Days Qty: 8.5 RF: 3 Discharge Orders: Discharge Order (Routine); Ordered 11/19/20 Ordered By: Richard Gomez Diet: advance to usual diet Activity on Discharge: As tolerated Visit Report Forms: Patient Portal Discharge page Care Plan Goals: Read below Health Concerns: Read below Plan of Treatment: You have presented to the hospital for evaluation of shortness of breath and wheezing. Treated for asthma exacerbation with nebulizers, steroids and antibiotic with good response. You were evaluated with lung specialist who recommended tapering dose of steroids at time of discharge. Azithromycin as prescribed Use cough pills as needed Continue prednisone tapering dose as prescribed to follow-up with lung physician as outpatient as scheduled
--- NOTE | 2020-11-19 11:55 | MHC.CM.PN ---
Patient has been medically cleared for dc to home today, no services. Last IMM addressed on 11/18/2020.
== END 2020-11-19 12:53 | disposition home or self-care (01) | DRG 203 ==
LOC: HO.ED 08:46 → HO.EDOVER 11:29 → HO.IMC 17:45
PROVIDERS: Admitting Provider Student in an Organized Health Care Education/Training Program; Emergency Provider Emergency Medicine; PCP Physician Assistant; Visit Provider Student in an Organized Health Care Education/Training Program
DX: J45.901 Unspecified asthma with (acute) exacerbation (principal); J84.112 Idiopathic pulmonary fibrosis; I95.9 Hypotension, unspecified; Z20.822 Contact with and (suspected) exposure to COVID-19; E03.9 Hypothyroidism, unspecified; Z79.51 Long term (current) use of inhaled steroids; Z79.899 Other long term (current) drug therapy
CPT/HCPCS: 0241U; 36415; 71045; 71250; 80048; 80053; 83605; 85025; 85027; 87040; 94640; 94644; 94664; 96361; 96365; 96366; 96375; 99285; J0456; J1650; J2920; J2930; J3475

== ENCOUNTER 2020-12-17 10:06 | Emergency (ER) | payer OTHER, SELFPAY ==
--- NOTE | ~2020-12-17 | XR_ITS ---
EXAMINATION: XR CHEST CLINICAL INFORMATION: Cough with wheezing COMPARISON: November 16, 2020 and studies dating back to January 18, 2017 TECHNIQUE: AP portable view of the chest was obtained. FINDINGS: There is stable bilateral chronic interstitial lung disease without significant change from prior study of September 21, 2017. No definite new region of acute parenchymal disease is appreciated. No pneumothorax or pleural effusion. Heart normal size. No evidence of pulmonary edema. XR/XR chest 1V IMPRESSION: Stable chronic interstitial lung disease.
[2020-12-17 10:29] VITALS: BP 106/72; PULSE 110; RESP 24; TEMP 36.7; O2SAT 94; BMI 25.8
--- NOTE | 2020-12-17 10:43 | ECG_ITS ---
Test Reason : ASTHMA Blood Pressure : / mmHG Vent. Rate : 099 BPM Atrial Rate : 099 BPM P-R Int : 138 ms QRS Dur : 078 ms QT Int : 334 ms P-R-T Axes : 041 -29 040 degrees QTc Int : 428 ms Normal sinus rhythm Normal ECG When compared with ECG of 02-NOV-2020 08:25, No significant change was found Referred By: Cheryl Iglesias Electronically Signed By:JERAMIE BOOKER MD
[2020-12-17 11:15] LABS: MANUAL DIFF FLAG NO
[2020-12-17 11:19] LABS: Basophils Percent Auto 0.4 % (0-2); Eosinophils Absolute Auto 0.4 X10*3/uL (0.0-0.4); Hematocrit 38.8 % (37-47); Hemoglobin 12.6 g/dl (12.0-16.0); Imm Gran Abs Auto 0.03 X10*3/uL (0.00-0.03); Imm Gran Pct Auto 0.3 % (0.0-0.4); Lymphocytes Absolute Auto 0.8 X10*3/uL (1.2-4.9); Mean Corpuscular HGB Conc 32.5 g/dl (31.0-35.0); Mean Corpuscular Hemoglobin 27.6 pg (27.0-33.0); Mean Corpuscular Volume 84.9 fL (80-98); Monocytes Absolute Auto 0.7 X10*3/uL (0.1-1.2); Monocytes Percent Auto 6.8 % (2-11); Neutrophils Absolute Auto 7.8 X10*3/uL (2.0-8.3); Neutrophils Percent Auto 80.5 % (45-73); Platelet Count 249 X10*3/uL (160-400); Red Blood Count 4.57 X10*6/uL (4.20-5.50); Red Cell Distribution Width 14.7 % (11.0-16.0); White Blood Count 9.6 X10*3/uL (4.8-10.8)
[2020-12-17 11:28] LABS: Prothrombin Time 12.3 SEC (10.8-13.0)
[2020-12-17] MEDS: Magnesium Sulfate/H2O 2 GM/50 ML PIGGYBACK IV (11:29)
[2020-12-17] MEDS: methylPREDNISolone Sod Succ/PF 125 MG/2 ML VIAL IVPUSH (11:29)
[2020-12-17] MEDS: 0.9 % Sodium Chloride 1,000 ML 999 ML IVCONT (11:30)
[2020-12-17 11:44] LABS: IDNOW Serial# 9DD0AD1C
[2020-12-17 11:45] LABS: COVID-19 Test Negative (Negative)
[2020-12-17 11:48] LABS: Lactic Acid 2.1 mmol/L (0.5-2.0)
[2020-12-17 11:50] LABS: Alanine Aminotransferase 13 U/L (0-31); Albumin Level 4.2 g/dL (3.5-5.0); Alkaline Phosphatase 107 U/L (39-117); Anion Gap 16 (12-20); Aspartate Amino Transferase 15 U/L (5-31); Bilirubin Direct < 0.2 mg/dL (0.0-0.5); Bilirubin Total 0.4 mg/dL (0.0-1.0); Blood Urea Nitrogen 11 mg/dL (9-16); C Reactive Protein 1.88 mg/dL (< or = 0.50); Calcium 9.1 mg/dL (8.4-10.2); Carbon Dioxide 25 mmol/L (22-29); Chloride 103 mmol/L (96-108); Creatinine Clr Calc Pharmacy 103.4; Estimated Glomerular Filt Rate > 60; Glucose Random 93 mg/dL (60-115); Lactate Dehydrogenase 245 U/L (122-220); Magnesium 2.1 mg/dL (1.6-2.6); Potassium 4.5 mmol/L (3.3-5.1); Sodium 139 mmol/L (135-145); Total Protein 7.1 g/dL (6.5-8.0)
[2020-12-17] MEDS: Albuterol Sulfate (0.083%) 2.5 MG/3 ML VIAL.NEB 10 MG INHALE (11:54)
[2020-12-17 11:56] VITALS: PULSE 95; O2SAT 98
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
[2020-12-17 12:08] LABS: Procalcitonin 0.04 ng/mL
[2020-12-17 12:17] LABS: Ferritin 46 ng/mL (10-250)
[2020-12-17 13:13] LABS: Reflex Lactate? Lactic Acid Added
[2020-12-17 13:27] VITALS: BP 103/58; PULSE 110; RESP 24; TEMP 36.8; O2SAT 98
[2020-12-17 14:00] LABS: Appearance Urine CLEAR; Color Urine YELLOW; Glucose Urine UA NEG (NEG); Leukocyte Esterase Urine NEG (NEG); Nitrite Urine NEG (NEG); PH 6.5 (5.0-8.0); Specific Gravity - Urine 1.025 (1.005-1.025); Urine Blood NEG (NEG); Urine Ketones NEG (NEG); Urine Protein NEG (NEG-TRACE)
[2020-12-17 14:04] LABS: ~Lactic Acid-LAB USE ONLY 1.9 mmol/L (0.5-2.0)
[2020-12-17] MEDS: cefTRIAXone sodium 1 GM in 0.9 % Sodium Chloride 50 ML IV (14:57)
[2020-12-17 15:59] VITALS: BP 104/53; PULSE 113; RESP 18; O2SAT 97
--- NOTE | 2020-12-17 17:08 | PC.NURSE ---
pt reports sx improved, wheexing throughout has improved and is mild at this time. She states she is ready for discharge.
== END 2020-12-17 17:00 | disposition home or self-care (01) ==
PROVIDERS: Physician Assistant Medical; Emergency Provider Emergency Medicine Emergency Medical Services; PCP Physician Assistant
DX: J40 Bronchitis, not specified as acute or chronic (principal); J44.1 Chronic obstructive pulmonary disease with (acute) exacerbation; J45.901 Unspecified asthma with (acute) exacerbation; J84.9 Interstitial pulmonary disease, unspecified; Z20.822 Contact with and (suspected) exposure to COVID-19
CPT/HCPCS: 36415; 71045; 80048; 80076; 81003; 82728; 83605; 83615; 83735; 84145; 85025; 85610; 86140; 87040; 87635; 93005; 94640; 94644; 96361; 96365; 96375; 99284; 99291; J0696; J2930; J3475

== ENCOUNTER 2021-01-04 09:05 | Outpatient (REF) | payer OTHER, SELFPAY ==
[2021-01-04 09:45] LABS: MANUAL DIFF FLAG NO
[2021-01-04 09:48] LABS: Basophils Absolute Auto 0.1 X10*3/uL (0.0-0.2); Basophils Percent Auto 0.6 % (0-2); Eosinophils Absolute Auto 0.1 X10*3/uL (0.0-0.4); Eosinophils Percent Auto 1.1 % (0-4); Hematocrit 38.7 % (37-47); Hemoglobin 12.2 g/dl (12.0-16.0); Imm Gran Abs Auto 0.04 X10*3/uL (0.00-0.03); Imm Gran Pct Auto 0.4 % (0.0-0.4); Lymphocytes Absolute Auto 1.6 X10*3/uL (1.2-4.9); Lymphocytes Percent Auto 14.6 % (20-40); Mean Corpuscular HGB Conc 31.5 g/dl (31.0-35.0); Mean Corpuscular Hemoglobin 26.9 pg (27.0-33.0); Mean Corpuscular Volume 85.2 fL (80-98); Monocytes Absolute Auto 0.5 X10*3/uL (0.1-1.2); Monocytes Percent Auto 4.2 % (2-11); Neutrophils Absolute Auto 8.5 X10*3/uL (2.0-8.3); Neutrophils Percent Auto 79.1 % (45-73); Platelet Count 334 X10*3/uL (160-400); Red Blood Count 4.54 X10*6/uL (4.20-5.50); Red Cell Distribution Width 14.9 % (11.0-16.0); White Blood Count 10.7 X10*3/uL (4.8-10.8)
[2021-01-04 10:30] LABS: Alanine Aminotransferase 12 U/L (0-31); Albumin Level 4.3 g/dL (3.5-5.0); Alkaline Phosphatase 94 U/L (39-117); Anion Gap 15 (12-20); Aspartate Amino Transferase 8 U/L (5-31); Bilirubin Total 0.6 mg/dL (0.0-1.0); Blood Urea Nitrogen 15 mg/dL (9-16); Calcium 9.1 mg/dL (8.4-10.2); Carbon Dioxide 25 mmol/L (22-29); Chloride 103 mmol/L (96-108); Estimated Glomerular Filt Rate > 60; Glucose Fasting 143 mg/dL (60-99); Potassium 4.5 mmol/L (3.3-5.1); Sodium 138 mmol/L (135-145); Total Protein 7.1 g/dL (6.5-8.0)
[2021-01-04 10:40] LABS: Estimated Average Glucose 117 mg/dL; Hemoglobin A1c % 5.7 %
[2021-01-04 10:55] LABS: TSH reflex Free T4 4.21 uIU/mL (0.32-4.0)
[2021-01-04 12:39] LABS: Free T4 (Free Thyroxine) 0.69 ng/dL (0.71-1.85)
[2021-01-05 08:51] LABS: Follicle Stimulating Hormone 18.1 mIU/mL
== END 2021-01-04 09:06 | disposition home or self-care (01) ==
LOC: HO.LAB 09:05
PROVIDERS: PCP Physician Assistant; Visit Provider Physician Assistant
DX: J84.112 Idiopathic pulmonary fibrosis (principal); N95.1 Menopausal and female climacteric states; M79.10 Myalgia, unspecified site; J41.0 Simple chronic bronchitis; E03.9 Hypothyroidism, unspecified; Z13.1 Encounter for screening for diabetes mellitus; Z13.29 Encounter for screening for other suspected endocrine disorder
CPT/HCPCS: 36415; 80053; 82785; 83001; 83036; 84439; 84443; 85025; 86003

== ENCOUNTER 2021-01-31 18:34 | Inpatient (IN) | payer OTHER, SELFPAY ==
--- NOTE | ~2021-01-31 | XR_ITS ---
EXAMINATION: PORTABLE CHEST 1 VIEW CLINICAL INFORMATION: sob . COMPARISON: 12/17/2020. TECHNIQUE: Portable frontal view of the chest was obtained. FINDINGS: Lungs are hyperinflated with chronic patchy bilateral interstitial changes similar distribution to the prior study. I do not appreciate any acute superimposed process superimposed on these extensive chronic changes. These airspace changes are better demonstrated on the older 11/17/2020 CT scan. No significant effusion edema or pneumothorax. Cardiac and mediastinal silhouettes within normal limits for size. XR/XR chest 1V IMPRESSION: Chronic airspace disease again noted.
[2021-01-31 20:04] VITALS: BP 147/111; PULSE 107; RESP 24; O2SAT 91; BMI 25.8
[2021-01-31 21:08] VITALS: PULSE 105; O2SAT 95
[2021-01-31] MEDS: Albuterol Sulfate (0.083%) 2.5 MG/3 ML VIAL.NEB 10 MG INHALE (21:08)
[2021-01-31] MEDS: Albuterol/Iprat 2.5/0.5MG 3 ML AMPUL.NEB INHALE (21:08)
--- NOTE | 2021-01-31 21:13 | ED.ASTHMA ---
HPI - Asthma General Chief Complaint: Asthma Stated Complaint: asthma Time Seen by Provider: 01/31/21 20:31 Source: patient Mode of arrival: ambulatory Limitations: no limitations History of Present Illness HPI Narrative: History of asthma pulmonary fibrosis cocaine abuse been short of breath for last 5 days using nebulizing treatment every 4 hours without any relief patient used to be on low-dose prednisone for long time which stopped about 1 year ago as she was doing better patient denies any fever has dry cough no COVID contacts on arrival patient is saturating 91% at room air tachypneic and tachycardic. Patient denied chest pain no leg swelling seems similar to her previous attacks MD complaint: shortness of breath Onset (ago): day(s) Severity: severe Associated symptoms: dry cough Asthma History: adult onset, history of frequent attacks and history of prior ED visit Treatments Prior to Arrival: inhaled bronchodilator Related Data Current Asthma Therapy: inhaled bronchodilator Previous Rx's Medication Instructions Recorded nebulizers #1 ea 12/22/20 ipratropium 0.5 mg-albuterol 3 mg 3 ml INHALATION Q8H PRN 30 Days 01/02/21 (2.5 mg base)/3 mL nebulization #180 ml soln albuterol sulfate 0.63 mg/3 mL 0.63 mg INHALATION QID 30 Days #90 01/17/21 solution for nebulization ml albuterol sulfate 90 mcg/actuation 2 puff INHALATION Q6H PRN 30 Days 01/17/21 aerosol inhaler #8.5 g Allergies Allergy/AdvReac Type Severity Reaction Status Date / Time No Known Allergies Allergy Verified 01/02/21 15:04 Review of Systems Review of Systems: Constitutional : No Weight loss, No Fever, No Chills ENT/Mouth : No sore throat, No Rhinorrhea Eyes: No Eye Pain, No Swelling Cardiovascular : No Chest Pain, no palpitations Respiratory : ++ Cough, No Sputum, ++shortness of breath Gastrointestinal : no Nausea, No Vomiting, No Diarrhea, No abdominal Pain, no black stools Genitourinary : No Dysuria, No Urinary Frequency Musculoskeletal : No joint pain, No Myalgias, No Joint Swelling Skin : No Skin Lesions, No rash Neuro : No Weakness, No Numbness, No Dizziness, No Headache Psych : No Anxiety/Panic, No Depression Heme/Lymph: No Bruising, No Lymphadenopathy Endocrine : No Polyuria, No Polydipsia All other systems reviewed and are negative [facility] Past Medical History Medical History Allergic rhinitis Asthma Asthma with exacerbation COPD (chronic obstructive pulmonary disease) Hypothyroid Interstitial lung disease IPF (idiopathic pulmonary fibrosis) Surgical History History of hemorrhoidectomy History of tubal ligation Family History Family History Father No problems noted. Mother No problems noted. Maternal Grandmother Stroke Maternal Grandfather Stroke Family/Other Substance abuse Social History Social History Household Members: Spouse Housing: House Alcohol intake: never Smoking Status: Never smoker Substance Use Type: Crack/Cocaine Advance Directives: No Advance Directives Information Provided: Yes service: No Current occupational status: disabled Physical Exam Vital Signs: Vital Signs: Last Vital Signs Temp 98.1 F 01/31/21 22:00 Pulse 100 02/01/21 02:42 Resp 28 H 02/01/21 02:42 BP 103/40 L 02/01/21 02:42 Pulse Ox 97 02/01/21 02:42 Body Mass Index 25.8 Const: General: well developed and in distress Nutritional Appearance: average body habitus Orientation/consciousness: patient oriented x3 HENMT: Head: Yes normocephalic and Yes atraumatic Eyes: General: appearance normal, both eyes and all related structures Conjunctivae: conjunctivae normal Sclerae: sclerae normal Corneas: corneas normal Neck: Neck: Yes full ROM and Yes no lymphadenopathy Thyroid: Thyroid normal Chest: Chest palpation & inspection: normal inspection of the chest Resp: Effort & Inspection: labored Auscultation: no crackles, no rales, rhonchi throughout and wheezes throughout Cardio: Jugular venous distension: no JVD Palpation: normal PMI Rate: tachycardic Rhythm: regular rhythm Heart sounds: S1 normal heart sound present and S2 normal heart sound present Peripheral pulses: Peripheral pulses 2+ throughout GI: Inspection: Yes normal to inspection Palpation (GI): Soft to palpation and nontender Auscultation: normal bowel sounds : General: Yes no CVA tenderness Back/Spine/Pelvis: Back: no CVA tenderness Thoracic/Lumbar Spine: thoracic and lumbar spine normal to inspection Skin: General skin exam: no rashes or lesions noted Neuro: General: patient oriented x3, moves all extremities and no focal motor deficits Extrem: General: Yes normal to inspection, Yes no calf tenderness and No pedal edema MDM - Asthma MDM Narrative Medical decision making narrative: Patient chronic lung disease cocaine abuse came with hypoxia. Patient improved after IV steroids and nebulizing treatment with still wheezing COVID-19 is negative no pneumonia will admit patient for bronchodilator treatment and IV steroids Differential Diagnosis Differential diagnosis: Likely Acute exacerbation, Pneumonia and COPD exacerbation Medical Records Attestation: I reviewed the patient's medical records. Lab Data Attestation: I reviewed the patient's lab results. Result diagrams: 01/31/21 22:02 01/31/21 23:26 Labs: Lab Results 01/31/21 01/31/21 01/31/21 Range/Units 22:02 22:02 22:02 WBC 12.8 H (4.8-10.8) X10*3/uL RBC 4.46 (4.20-5.50) X10*6/uL Hgb 12.2 (12.0-16.0) g/dl Hct 38.3 (37-47) % MCV 85.9 (80-98) fL MCH 27.4 (27.0-33.0) pg MCHC 31.9 (31.0-35.0) g/dl RDW 14.7 (11.0-16.0) % Plt Count 310 (160-400) X10*3/uL MPV 9.8 (9.4-12.3) fL Immature Gran % (Auto) 0.3 (0.0-0.4) % Neut % (Auto) 55.7 (45-73) % Lymph % (Auto) 23.9 (20-40) % [place] % (Auto) 6.0 (2-11) % Eos % (Auto) 13.3 H (0-4) % Baso % (Auto) 0.8 (0-2) % Lymph # (Auto) 3.1 (1.2-4.9) X10*3/uL [place] # (Auto) 0.8 (0.1-1.2) X10*3/uL Eos # (Auto) 1.7 H (0.0-0.4) X10*3/uL Baso # (Auto) 0.1 (0.0-0.2) X10*3/uL Abs Immat Gran (auto) 0.04 H (0.00-0.03) X10*3/uL Absolute Neuts (auto) 7.2 (2.0-8.3) X10*3/uL Absolute Nucleated RBC 0.000 (0.0-0.012) X10*3/uL Nucleated RBC % (auto) 0.0 (0.0-0.2) /100WBC Smear Tech's Comments VERIFIED PT (10.8-13.0) SEC INR (0.9-1.1) APTT (24.1-38.0) SEC D-Dimer NG/ML Sodium (135-145) mmol/L Potassium (3.3-5.1) mmol/L Chloride (96-108) mmol/L Carbon Dioxide (22-29) mmol/L Anion Gap (12-20) BUN (9-16) mg/dL Creatinine (0.5-1.4) mg/dL Estim Creat Clear Calc Estimated GFR Random Glucose (60-115) mg/dL Lactic Acid 1.5 (0.5-2.0) mmol/L Calcium (8.4-10.2) mg/dL Total Bilirubin (0.0-1.0) mg/dL Direct Bilirubin (0.0-0.5) mg/dL AST (5-31) U/L ALT (0-31) U/L Alkaline Phosphatase (39-117) U/L Troponin I High Sens < 3.5 (<3.5-17.0) ng/L Total Protein (6.5-8.0) g/dL Albumin (3.5-5.0) g/dL COVID-19 (JON) (Negative) COVID-19 Clin Com 01/31/21 01/31/21 01/31/21 Range/Units 22:05 23:26 23:26 WBC (4.8-10.8) X10*3/uL RBC (4.20-5.50) X10*6/uL Hgb (12.0-16.0) g/dl Hct (37-47) % MCV (80-98) fL MCH (27.0-33.0) pg MCHC (31.0-35.0) g/dl RDW (11.0-16.0) % Plt Count (160-400) X10*3/uL MPV (9.4-12.3) fL Immature Gran % (Auto) (0.0-0.4) % Neut % (Auto) (45-73) % Lymph % (Auto) (20-40) % [place] % (Auto) (2-11) % Eos % (Auto) (0-4) % Baso % (Auto) (0-2) % Lymph # (Auto) (1.2-4.9) X10*3/uL [place] # (Auto) (0.1-1.2) X10*3/uL Eos # (Auto) (0.0-0.4) X10*3/uL Baso # (Auto) (0.0-0.2) X10*3/uL Abs Immat Gran (auto) (0.00-0.03) X10*3/uL Absolute Neuts (auto) (2.0-8.3) X10*3/uL Absolute Nucleated RBC (0.0-0.012) X10*3/uL Nucleated RBC % (auto) (0.0-0.2) /100WBC Smear Tech's Comments PT 12.7 (10.8-13.0) SEC INR 1.1 (0.9-1.1) APTT 28.6 (24.1-38.0) SEC D-Dimer < 200 NG/ML Sodium 140 (135-145) mmol/L Potassium 2.9 L D (3.3-5.1) mmol/L Chloride 106 (96-108) mmol/L Carbon Dioxide 23 (22-29) mmol/L Anion Gap 14 (12-20) BUN 14 (9-16) mg/dL Creatinine 0.77 (0.5-1.4) mg/dL Estim Creat Clear Calc 91.2 Estimated GFR > 60 Random Glucose 150 H D (60-115) mg/dL Lactic Acid (0.5-2.0) mmol/L Calcium 8.3 L D (8.4-10.2) mg/dL Total Bilirubin 0.4 (0.0-1.0) mg/dL Direct Bilirubin < 0.2 (0.0-0.5) mg/dL AST 18 D (5-31) U/L ALT 30 (0-31) U/L Alkaline Phosphatase 96 (39-117) U/L Troponin I High Sens (<3.5-17.0) ng/L Total Protein 6.1 L (6.5-8.0) g/dL Albumin 3.7 (3.5-5.0) g/dL COVID-19 (JON) Negative (Negative) COVID-19 Clin Com See Note ECG Data Attestation: I personally reviewed and interpreted this ECG as follows: Interpretation: Sinus tachycardia with heart rate of 106 beats per minute left axis deviation normal intervals no acute ST T wave changes no acute ischemia Discharge Plan Discharge Clinical Impression: Interstitial lung disease, Hypoxia COPD (chronic obstructive pulmonary disease) Qualifiers: COPD type: chronic bronchitis Chronic bronchitis type: mixed simple and mucopurulent Qualified Code(s): J41.8 - Mixed simple and mucopurulent chronic bronchitis Patient Disposition: Admitted As Inpatient
--- NOTE | 2021-01-31 21:17 | ECG_ITS ---
Test Reason : SOB Blood Pressure : / mmHG Vent. Rate : 106 BPM Atrial Rate : 106 BPM P-R Int : 138 ms QRS Dur : 078 ms QT Int : 326 ms P-R-T Axes : 040 -60 024 degrees QTc Int : 433 ms Sinus tachycardia Left axis deviation Inferior infarct , age undetermined Anterior infarct , age undetermined Abnormal ECG When compared with ECG of 17-DEC-2020 11:23, Anterior and inferior infarct present now Referred By: Freddy English Electronically Signed By:Jj Woods
[2021-01-31 22:00] VITALS: BP 105/58; PULSE 108; RESP 28; TEMP 36.7; O2SAT 94
[2021-01-31] MEDS: dexAMETHasone sod phosphate 4 MG/ML VIAL 6 MG IVPUSH (22:08)
[2021-01-31] MEDS: 0.9 % Sodium Chloride 1,000 ML 999 ML IVCONT ×2 (22:08→23:45)
[2021-01-31 22:18] LABS: Basophils Absolute Auto 0.1 X10*3/uL (0.0-0.2); Basophils Percent Auto 0.8 % (0-2); Imm Gran Abs Auto 0.04 X10*3/uL (0.00-0.03); Imm Gran Pct Auto 0.3 % (0.0-0.4); MANUAL DIFF FLAG SCAN; PLT CLUMP 1; SCAN SMEAR FLAG 1
[2021-01-31 22:20] LABS: Eosinophils Absolute Auto 1.7 X10*3/uL (0.0-0.4); Eosinophils Percent Auto 13.3 % (0-4); Hematocrit 38.3 % (37-47); Hemoglobin 12.2 g/dl (12.0-16.0); Lymphocytes Absolute Auto 3.1 X10*3/uL (1.2-4.9); Lymphocytes Percent Auto 23.9 % (20-40); Mean Corpuscular HGB Conc 31.9 g/dl (31.0-35.0); Mean Corpuscular Hemoglobin 27.4 pg (27.0-33.0); Mean Corpuscular Volume 85.9 fL (80-98); Mean Platelet Volume 9.8 fL (9.4-12.3); Monocytes Absolute Auto 0.8 X10*3/uL (0.1-1.2); Neutrophils Absolute Auto 7.2 X10*3/uL (2.0-8.3); Neutrophils Percent Auto 55.7 % (45-73); Platelet Count 310 X10*3/uL (160-400); Red Blood Count 4.46 X10*6/uL (4.20-5.50); Red Cell Distribution Width 14.7 % (11.0-16.0); White Blood Count 12.8 X10*3/uL (4.8-10.8)
[2021-01-31 22:28] LABS: COVID-19 Test Negative (Negative); IDNOW Serial# 9DD0AD1C
--- NOTE | 2021-01-31 22:29 | PC.NURSE ---
Late Entry 2030 Pt arrived to ED via triage for asthma exacerbation x4 days. At this time, patient with labored breathing; tight breath sounds, I/E wheezing. Pt apperas uncomfortable. Pt states no relief with use of at home nebs. Pt with resp hx of COPD, asthma and interstitial lung disease. Pt also admits to using IV cocaine, last use Saturday. Upon arrival to room, SPO2 90-91%, placed on 2L NC. Neb started as ordered. MD to bedside for IV insertion. EJ to left place 20G. IVF started and pt medicated as ordered. Will continue to monitor.
--- NOTE | 2021-01-31 22:33 | PC.NURSE ---
Labs need to be redrawn. As patient hard is hard phlebotomy stick, phlebotomy paged and stated They will send someone up next shift whenever they are available . swatch cutter aware
[2021-01-31 22:35] LABS: Lactic Acid 1.5 mmol/L (0.5-2.0)
[2021-01-31 22:39] VITALS: PULSE 110; RESP 30; O2SAT 95
--- NOTE | 2021-01-31 22:40 | PC.NURSE ---
Hour long breathing treatment completed. Pt remains with increased WOB. Pt also with dry cough noted at this time. Pt remains on 2L via NC. Pt states she feels more comfortable. Will continue to monitor closely. Call caballero within reach
[2021-01-31 22:44] LABS: Troponin-I High Sensitivity < 3.5 ng/L (<3.5-17.0)
[2021-01-31 22:52] LABS: SLIDE REVIEW VERIFIED
[2021-01-31] MEDS: Magnesium Sulfate/H2O 2 GM/50 ML PIGGYBACK IV (22:52)
[2021-01-31 22:56] VITALS: PULSE 92; RESP 28; O2SAT 97
--- NOTE | 2021-01-31 22:56 | PC.NURSE ---
Pt medicated as ordered with IV Mag at this time. IV positional to EJ, IV bolus continues to infuse as well. Pt laying on left side, position of comfort. Breathing less labored, VSS. Will continue to monitor
[2021-01-31 23:41] LABS: INTERNATIONAL NORM RATIO 1.1 (0.9-1.1); Prothrombin Time 12.7 SEC (10.8-13.0)
[2021-01-31] MEDS: cefTRIAXone sodium 1 GM in 0.9 % Sodium Chloride 50 ML IV (23:43)
[2021-01-31 23:44] LABS: Partial Thromboplastin Time 28.6 SEC (24.1-38.0)
[2021-01-31 23:46] VITALS: PULSE 90; RESP 22; O2SAT 97
[2021-01-31 23:55] LABS: Alanine Aminotransferase 30 U/L (0-31); Albumin Level 3.7 g/dL (3.5-5.0); Alkaline Phosphatase 96 U/L (39-117); Anion Gap 14 (12-20); Aspartate Amino Transferase 18 U/L (5-31); Bilirubin Direct < 0.2 mg/dL (0.0-0.5); Bilirubin Total 0.4 mg/dL (0.0-1.0); Blood Urea Nitrogen 14 mg/dL (9-16); Calcium 8.3 mg/dL (8.4-10.2); Carbon Dioxide 23 mmol/L (22-29); Chloride 106 mmol/L (96-108); Creatinine Clr Calc Pharmacy 91.2; Estimated Glomerular Filt Rate > 60; Glucose Random 150 mg/dL (60-115); Potassium 2.9 mmol/L (3.3-5.1); Sodium 140 mmol/L (135-145); Total Protein 6.1 g/dL (6.5-8.0)
[2021-02-01] VITALS (11 sets, daily range): BP systolic 86–134; BP diastolic 36–89; PULSE 78–100; RESP 18–28; TEMP 36.2–36.7; O2SAT 95–97
--- NOTE | 2021-02-01 00:27 | P.HPHOSP_ITS ---
History of Present Illness Date of Service: 02/01/21 <Darnell Gibbons MD - Last Filed: 02/01/21 00:30> Chief Complaint: SOB <Darnell Gibbons MD - Last Filed: 02/01/21 00:30> 50-year-old female with a past medical history of asthma/COPD, idiopathic pulmonary fibrosis presented to the hospital with a chief complaint of shortness for breath. Patient mentioned that over the past few days he has been having increased shortness of breath associated with cough and sputum. Denies any fever chills. Denies any COVID-19 exposures. Tried to use her home inhalers as the symptoms were not improving decided to come to the ER for further evaluation. Denies any numbness tingling. Denies any chest pain palpitations lightheadedness or dizziness. Review of all other systems is negative except mentioned above ER course: Per ER team patient was noted to have diffuse wheezing on presentation and 91% on room air placed on supplemental oxygen. Given nebulizations, steroids, magnesium. Home admitted to the hospital for further management. At the time of entry patient reported that her symptoms are improving. <Darnell Gibbons MD - Last Filed: 02/01/21 00:30> [facility] Medical History: Medical History Allergic rhinitis Asthma Asthma with exacerbation COPD (chronic obstructive pulmonary disease) Hypothyroid Interstitial lung disease IPF (idiopathic pulmonary fibrosis) <Darnell Gibbons MD - Last Filed: 02/01/21 00:30> Family History: Family History Father No problems noted. Mother No problems noted. Maternal Grandmother Stroke Maternal Grandfather Stroke Family/Other Substance abuse <Darnell Gibbons MD - Last Filed: 02/01/21 00:30> Surgical History: Surgical History History of hemorrhoidectomy History of tubal ligation <Darnell Gibbons MD - Last Filed: 02/01/21 00:30> Social History: Social History Household Members: Family Housing: House Alcohol intake: never Smoking Status: Former smoker Tobacco Type: Cigarette Second Hand Smoke Exposure: No Substance Use Type: Crack/Cocaine service: No Current occupational status: unemployed and disabled <Darnell Gibbons MD - Last Filed: 02/01/21 00:30> Meds Allergies/Adverse reactions: Allergies Allergy/AdvReac Type Severity Reaction Status Date / Time No Known Allergies Allergy Verified 01/02/21 15:04 <Darnell Gibbons MD - Last Filed: 02/01/21 00:30> Active Medications: Current Medications Generic Name Dose Route Start Last Admin Trade Name Freq PRN Reason Stop Dose Admin Acetaminophen 650 mg 02/01/21 00:22 Acetaminophen 325 Mg Tablet PO Q6H PRN Pain, Mild (Pain Scale 1-3) Albuterol/Ipratropium 3 ml 02/01/21 08:00 Albuterol/Iprat 2.5/0.5mg 3 Ml Ampul.Neb INHALE RQ6H WHILE AWAKE PAULA Albuterol/Ipratropium 3 ml 02/01/21 00:22 Albuterol/Iprat 2.5/0.5mg 3 Ml Ampul.Neb INHALE RQ4H PRN Shortness of Breath/Wheezing Azithromycin 500 mg 02/01/21 00:30 Azithromycin 500 Mg Tablet PO Q24H PAULA Enoxaparin Sodium 40 mg 02/01/21 00:30 Enoxaparin Sodium 40 Mg/0.4 Ml Syringe SUBCUT Q24H PAULA Famotidine 20 mg 02/01/21 09:00 Famotidine 20 Mg Tablet PO BID PAULA Sodium Chloride 1,000 mls @ 999 mls/hr 01/31/21 23:45 01/31/21 23:45 Ns IVCONT 02/01/21 00:45 999 mls/hr .Q1H1M PAULA Administration Methylprednisolone Sodium Succinate 60 mg 02/01/21 00:30 Methylprednisolone Sod Succ 125 Mg/2 Ml Vial IVPUSH Q8H PAULA Senna 17.2 mg 02/01/21 00:22 Sennosides 8.6 Mg Tablet PO BEDTIME PRN Constipation Sodium Chloride 3 ml 02/01/21 08:00 0.9 % Sodium Chloride Flush 3 Ml Syringe IVFLUSH QSHIFT PAULA <Darnell Gibbons MD - Last Filed: 02/01/21 00:30> Home medications: Home Medications Medication Instructions Recorded Confirmed Last Taken Type Spiriva with HandiHaler 1 cap INHALATION DAILY 02/01/21 02/01/21 Unknown History montelukast 10 mg PO DAILY 02/01/21 02/01/21 Unknown History <Darnell Gibbons MD - Last Filed: 02/01/21 00:30> Physical Exam Vital Signs and Narrative: Vital Signs: Last Vital Signs Temp 98.1 F 01/31/21 22:00 Pulse 90 01/31/21 23:46 Resp 22 H 01/31/21 23:46 BP 105/58 L 01/31/21 22:00 Pulse Ox 97 01/31/21 23:46 Body Mass Index 25.8 <Darnell Gibbons MD - Last Filed: 02/01/21 00:30> Gen: Appears be in no acute distress. Speaks in full sentences HEENT: NCAT, Moist mucosa. Pulmonary: Diffuse wheezing bilaterally. But has a entry. CVS: Normal S1-S2 Abdomen: BS+, Soft, Nontender Extremities: Warm well perfused Neuro: Alert and awake. <Darnell Gibbons MD - Last Filed: 02/01/21 00:30> Results Labs CBC and Chem 7: : 02/01/21 07:08 02/01/21 07:08 <Darnell Gibbons MD - Last Filed: 02/01/21 00:30> Labs: Laboratory Results - last 24 hr 01/31/21 01/31/21 01/31/21 22:02 22:02 22:02 MCV 85.9 MCH 27.4 MCHC 31.9 RDW 14.7 Plt Count 310 MPV 9.8 Immature Gran % (Auto) 0.3 Neut % (Auto) 55.7 Lymph % (Auto) 23.9 [place] % (Auto) 6.0 Eos % (Auto) 13.3 H Baso % (Auto) 0.8 Lymph # (Auto) 3.1 [place] # (Auto) 0.8 Eos # (Auto) 1.7 H Baso # (Auto) 0.1 Abs Immat Gran (auto) 0.04 H Absolute Neuts (auto) 7.2 Absolute Nucleated RBC 0.000 Nucleated RBC % (auto) 0.0 Smear Tech's Comments VERIFIED PT INR APTT Anion Gap Estim Creat Clear Calc Estimated GFR Random Glucose Lactic Acid 1.5 Calcium Total Bilirubin Direct Bilirubin AST ALT Alkaline Phosphatase Troponin I High Sens < 3.5 Total Protein Albumin COVID-19 (JON) COVID-19 Clin Com 01/31/21 01/31/21 01/31/21 22:05 23:26 23:26 MCV MCH MCHC RDW Plt Count MPV Immature Gran % (Auto) Neut % (Auto) Lymph % (Auto) [place] % (Auto) Eos % (Auto) Baso % (Auto) Lymph # (Auto) [place] # (Auto) Eos # (Auto) Baso # (Auto) Abs Immat Gran (auto) Absolute Neuts (auto) Absolute Nucleated RBC Nucleated RBC % (auto) Smear Tech's Comments PT 12.7 INR 1.1 APTT 28.6 Anion Gap 14 Estim Creat Clear Calc 91.2 Estimated GFR > 60 Random Glucose 150 H D Lactic Acid Calcium 8.3 L D Total Bilirubin 0.4 Direct Bilirubin < 0.2 AST 18 D ALT 30 Alkaline Phosphatase 96 Troponin I High Sens Total Protein 6.1 L Albumin 3.7 COVID-19 (JON) Negative COVID-19 Clin Com See Note <Darnell Gibbons MD - Last Filed: 02/01/21 00:30> Imaging Radiologist's Impressions: Impressions Chest X-Ray 01/31/21 21:17 IMPRESSION: Chronic airspace disease again noted. <Darnell Gibbons MD - Last Filed: 02/01/21 00:30> Assessment and Plan (1) Hypoxia: Status: Resolved <Darnell Gibbons MD - Last Filed: 02/01/21 00:30> 50-year-old female with a chief complaint of asthma/COPD, idiopathic pulmonary fibrosis presented to the hospital with a chief complaint of shortness of breath. Shortness of breath: Likely in the setting of COPD/pulmonary fibrosis flare. Will give the patient on Solu-Medrol 60 mg IV t.i.d. DuoNeb standing and p.r.n. Pepcid for GI prophylaxis Will consult pulmonology for further recommendations. Patient speaks in full sentences. Continue supplemental oxygen with goal saturation 93%. Will also keep the patient on azithromycin. COVID-19 negative. DVT prophylaxis: Lovenox Code status: Full code <Darnell Gibbons MD - Last Filed: 02/01/21 00:30>
[2021-02-01 00:36] LABS: D Dimer < 200 NG/ML
[2021-02-01] MEDS: Azithromycin 500 MG TABLET PO ×2 (01:16→20:50)
--- NOTE | 2021-02-01 01:17 | PC.NURSE ---
Pt medicated per MAR with PO ABX.. Per hospitalist to hold first dose of Solumedrol as pt received Decadron @ 2114. VSS at this time. Continue to monitor.
[2021-02-01] MEDS: 0.9 % Sodium Chloride 500 ML 50 ML IV (02:16)
--- NOTE | 2021-02-01 02:25 | PC.NURSE ---
Repeat Troponin obtained and sent by this RN. Troponin drawn late due to extremely poor access. Pt ambulating to and from the bathroom with a steady gait, O2 sat upon return from the bathroom while ambulating was 93%. Pt sitting upright in bed eating/drinking in NAD. IVF infusing per MAR. Continue to monitor.
--- NOTE | 2021-02-01 03:01 | PC.NURSE ---
network support technician at bedside to redraw hemolyzed Troponin.
[2021-02-01 03:36] LABS: Troponin-I High Sensitivity < 3.5 ng/L (<3.5-17.0)
[2021-02-01] MEDS: Enoxaparin Sodium 40 MG/0.4 ML SYRINGE SUBCUT (05:47)
--- NOTE | 2021-02-01 05:50 | PC.NURSE ---
Pt found sleeping in bed, had removed oxygen by accident however was able to maintain an O2 sat of 95% with good pleth. Pt medicated per JAN, VSS. Awaiting bed assignment.
[2021-02-01 07:36] LABS: Basophils Percent Auto 0.4 % (0-2); Eosinophils Percent Auto 0.4 % (0-4); Hematocrit 34.3 % (37-47); Imm Gran Abs Auto 0.02 X10*3/uL (0.00-0.03); Imm Gran Pct Auto 0.3 % (0.0-0.4); Lymphocytes Absolute Auto 0.4 X10*3/uL (1.2-4.9); Lymphocytes Percent Auto 4.9 % (20-40); MANUAL DIFF FLAG SCAN; Mean Corpuscular HGB Conc 32.1 g/dl (31.0-35.0); Mean Corpuscular Volume 87.3 fL (80-98); Mean Platelet Volume 9.8 fL (9.4-12.3); Monocytes Absolute Auto 0.1 X10*3/uL (0.1-1.2); Monocytes Percent Auto 0.8 % (2-11); Neutrophils Absolute Auto 7.4 X10*3/uL (2.0-8.3); Neutrophils Percent Auto 93.2 % (45-73); Platelet Count 269 X10*3/uL (160-400); Red Blood Count 3.93 X10*6/uL (4.20-5.50); Red Cell Distribution Width 14.7 % (11.0-16.0); SCAN SMEAR FLAG 1; White Blood Count 7.9 X10*3/uL (4.8-10.8)
[2021-02-01 07:46] LABS: Anion Gap 14 (12-20); Blood Urea Nitrogen 13 mg/dL (9-16); Calcium 7.7 mg/dL (8.4-10.2); Carbon Dioxide 18 mmol/L (22-29); Chloride 111 mmol/L (96-108); Creatinine Clr Calc Pharmacy 94.9; Estimated Glomerular Filt Rate > 60; Glucose Random 188 mg/dL (60-115); Potassium 4.2 mmol/L (3.3-5.1); Sodium 139 mmol/L (135-145)
[2021-02-01] MEDS: Famotidine 20 MG TABLET PO ×2 (07:56→20:50)
[2021-02-01] MEDS: methylPREDNISolone Sod Succ 125 MG/2 ML VIAL 60 MG IVPUSH ×2 (07:56→16:59)
--- NOTE | 2021-02-01 08:08 | PC.NURSE ---
report given to Monique MELENDEZ
[2021-02-01 08:20] LABS: SLIDE REVIEW VERIFIED
--- NOTE | 2021-02-01 09:02 | MHC.CDI.CONC ---
CDI Concurrent Query Service Date: 02/03/21 Documentation Clarification: Please clarify if you are treating a probable/suspected/likely or confirmed: Specifics: COPD COPD exacerbation Please specify if known Provider Response: COPD Exacerbation PLEASE DO NOT DELETE/MODIFY EXISTING CONTENT Additional information is needed in order to code to the highest accuracy and appropriate Severity of Illness (SOI). Please clarify the information noted below in your progress notes and discharge summary. Risk Factors/Clinical Indicators/Treatments Shortness of breath: likely in the setting of COPD/pulmonary fibrosis flare. Will give patient Solumedrol 60 mg IV t.i.d. Duayeshab standing and p.r.n.. Consult pulmonology for further recommendations. CDS: Nikki Gonsales CCS, CDIS Contact Number: [phone] Please Review the information above and exercise your independent professional judgment in responding to the query. If you concur, pleas document in the PROGRESS NOTES and DISCHARGE SUMMARY. If you do not agree with the query, please document in the query above. THIS QUERY IS PART OF THE PERMANENT MEDICAL RECORD
--- NOTE | 2021-02-01 14:04 | PM.CNPUL ---
History of Present Illness History of Present Illness Consult date: 02/01/21 Requesting physician: Rudolph Cedeno Chief complaint: SOB Narrative: 50-year-old lady, former 20+ pack-year smoker, with underlying history of UIP, COPD, supplemental oxygen dependent 2 L at baseline, poor medication compliance, inability to tolerate inhaled corticosteroids admitted on 02/01/2021 with several day history of progressive dyspnea, wheezing, and nonproductive cough. Patient was noted to be in exacerbation of her underlying COPD she was started on inhaled bronchodilators and systemic glucocorticoids and admitted to general medical [facility]. Review of Systems Constitutional: Constitutional: Denies daytime sleepiness, Denies excessive sweating, Denies fatigue, Denies fever(s), Denies lethargy, Denies malaise, Denies night sweats, Denies snoring and Denies weight loss Eyes: Eyes: Denies blurry vision and Denies itchy eyes ENT: Denies nasal congestion, Denies post nasal drip, Denies sinus pain, Denies sinus pressure and Denies other ( Thrush) Cardiovascular: Cardiovascular: Denies chest pain, Denies pedal edema, Reports dyspnea, Denies orthopnea and Denies paroxysmal nocturnal dyspnea Respiratory: Respiratory: Reports cough, Denies hemoptysis, Denies excessive phlegm production, Reports dyspnea, Denies snoring and Reports wheezing Gastrointestinal: Gastrointestinal: Denies abdominal pain and Denies heartburn Musculoskeletal: Musculoskeletal: Denies myalgias, Denies arthralgias and Denies joint swelling Integumentary/Breasts: Skin/Breast: Denies rash Neurologic: Denies memory loss and Denies seizure-like activity Psychiatric: Psychiatric: Denies abnormal sleep pattern, Denies anxiety and Denies memory loss Endocrine: Endocrine: Denies excessive sweating, Denies fatigue and Denies heat intolerance Hematologic/Lymphatic: Hematologic/Lymphatic: Denies easy bruising Allergic/Immunologic: Allergic/Immunologic: Denies itchy eyes, Denies seasonal rhinorrhea and Reports wheezing PMFSH Past Medical History Medical History Allergic rhinitis Asthma Asthma with exacerbation COPD (chronic obstructive pulmonary disease) Hypothyroid Interstitial lung disease IPF (idiopathic pulmonary fibrosis) Family History Family History Father No problems noted. Mother No problems noted. Maternal Grandmother Stroke Maternal Grandfather Stroke Family/Other Substance abuse Surgical History Surgical History History of hemorrhoidectomy History of tubal ligation Social History Social History Household Members: Family Housing: House Do you presently have visiting nurse or other home services: No Alcohol intake: never Smoking Status: Former smoker Tobacco Type: Cigarette Patient Interested in Nicotine Replacement: No Patient Given Instructions on How to Stop Smoking: No Second Hand Smoke Exposure: No Use of substances other than those prescribed or required for medical reasons: Yes Substance Use Type: Crack/Cocaine Substance Use Frequency: Chronic Longstanding Last Used Substance: Days (ago) Currently Displaying Signs/Symptoms of Drug Intoxication Withdrawal: No Any prior treatment program specific to substance use: No Have you been hit, kicked, punched, or otherwise hurt by someone within the past year? If so, by whom?: No Do you feel safe in your current relationship?: Yes Is there a partner from a previous relationship who is making you feel unsafe now?: No Are you made to feel afraid or neglected: No Advance Directives: No Advance Directives Information Provided: Yes Advance Directives on File: Yes Do you have thoughts of harming others: None Do you have a plan to hurt others: No Plan Recently lost weight without trying: No service: No Current occupational status: disabled Meds Allergies Allergy/AdvReac Type Severity Reaction Status Date / Time No Known Allergies Allergy Verified 01/02/21 15:04 Active Medications: Current Medications Generic Name Dose Route Start Last Admin Trade Name Freq PRN Reason Stop Dose Admin Acetaminophen 650 mg 02/01/21 00:22 Acetaminophen 325 Mg Tablet PO Q6H PRN Pain, Mild (Pain Scale 1-3) Albuterol/Ipratropium 3 ml 02/01/21 08:00 02/01/21 07:40 Albuterol/Iprat 2.5/0.5mg 3 Ml Ampul.Neb INHALE Not Given RQ6H WHILE AWAKE PAULA Albuterol/Ipratropium 3 ml 02/01/21 00:22 Albuterol/Iprat 2.5/0.5mg 3 Ml Ampul.Neb INHALE RQ4H PRN Shortness of Breath/Wheezing Azithromycin 500 mg 02/01/21 00:30 02/01/21 01:16 Azithromycin 500 Mg Tablet PO 500 mg 2200 [facility] Administration Enoxaparin Sodium 40 mg 02/01/21 06:00 02/01/21 05:47 Enoxaparin Sodium 40 Mg/0.4 Ml Syringe SUBCUT 40 mg Q24H PAULA Administration Famotidine 20 mg 02/01/21 09:00 02/01/21 07:56 Famotidine 20 Mg Tablet PO 20 mg BID PAULA Administration Methylprednisolone Sodium Succinate 60 mg 02/01/21 01:00 02/01/21 07:56 Methylprednisolone Sod Succ 125 Mg/2 Ml Vial IVPUSH 60 mg Q8H [facility] Administration Senna 17.2 mg 02/01/21 00:22 Sennosides 8.6 Mg Tablet PO BEDTIME PRN Constipation Sodium Chloride 3 ml 02/01/21 08:00 02/01/21 09:01 0.9 % Sodium Chloride Flush 3 Ml Syringe IVFLUSH Not Given QSHIFT [facility] Home Medications Medication Instructions Recorded Confirmed Last Taken Type montelukast 10 mg PO DAILY 02/01/21 02/01/21 Unknown History tiotropium bromide [Spiriva with 1 cap INHALATION DAILY 02/01/21 02/01/21 Unknown History HandiHaler] Physical Exam Vital Signs: Vital Signs: Last Vital Signs Temp 98.0 F 02/01/21 12:00 Pulse 100 02/01/21 12:00 Resp 24 H 02/01/21 12:00 BP 134/89 02/01/21 12:00 Pulse Ox 96 02/01/21 12:00 Body Mass Index 25.8 Const: General: no acute distress, alert and awake Eyes: Sclerae: sclerae normal EOM: EOMs intact bilaterally Neck: Neck: Yes no lymphadenopathy, Yes trachea midline and Yes supple Resp: Effort & Inspection: normal respiratory effort and no respiratory distress Auscultation: wheezes expiratory wheezes (Diffuse bilateral) Cardio: Rate: regular rate Rhythm: regular rhythm Heart sounds: no gallops, no murmurs and no rubs GI: Palpation (GI): Soft to palpation and Other GI palpation findings present ( Nontender) Auscultation: normal bowel sounds Extrem: General: Yes no pedal edema, No clubbing and No cyanosis Results Laboratory Findings CBC and BMP: 02/01/21 07:08 02/01/21 07:08 ABG, PT/INR, D-dimer: PT/INR, D-dimer PT 12.7 SEC (10.8-13.0) 01/31/21 23:26 INR 1.1 (0.9-1.1) 01/31/21 23:26 D-Dimer < 200 NG/ML 01/31/21 23:26 Abnormal lab findings: Abnormal Labs 01/31/21 01/31/21 02/01/21 22:02 23:26 07:08 WBC 12.8 H RBC 3.93 L Hgb 11.0 L Hct 34.3 L Neut % (Auto) 93.2 H Lymph % (Auto) 4.9 L Toole % (Auto) 0.8 L Eos % (Auto) 13.3 H Lymph # (Auto) 0.4 L Eos # (Auto) 1.7 H Abs Immat Gran (auto) 0.04 H Potassium 2.9 L D Chloride Carbon Dioxide Random Glucose 150 H D Calcium 8.3 L D Total Protein 6.1 L 02/01/21 07:08 WBC RBC Hgb Hct Neut % (Auto) Lymph % (Auto) Toole % (Auto) Eos % (Auto) Lymph # (Auto) Eos # (Auto) Abs Immat Gran (auto) Potassium Chloride 111 H Carbon Dioxide 18 L Random Glucose 188 H Calcium 7.7 L D Total Protein Assessment and Plan (1) COPD (chronic obstructive pulmonary disease): Qualifiers: COPD type: chronic bronchitis Chronic bronchitis type: mixed simple and mucopurulent Qualified Code(s): J41.8 - Mixed simple and mucopurulent chronic bronchitis Status: Acute Impression: 50-year-old lady with underlying COPD, you AP, supplemental oxygen 2 L continuous flow dependent, poor compliance with therapy, and inability to use inhaled glucocorticoid secondary to severe stomatitis admitted with COPD exacerbation, improving slowly on current therapy of inhaled bronchodilators and systemic glucocorticoids. Recommendation: Agree with current regimen of inhaled bronchodilators and systemic glucocorticoids. (2) IPF (idiopathic pulmonary fibrosis): Status: Acute (3) Supplemental oxygen dependent: Status: Acute
[2021-02-01] MEDS: Albuterol/Iprat 2.5/0.5MG 3 ML AMPUL.NEB INHALE ×2 (15:04→20:02)
--- NOTE | 2021-02-01 15:57 | MHC.CM.PN ---
pt lives c her in their home. she reports that she is independent in her care, but if she needs help c something then her will help her. in fact her will provide transport when she is dc'd. she does not use any AD c ambulation and has no svcs in the home. she denies the need for vna at DC. dc plan is home no svcs. cm to cont. to follow.
[2021-02-01] MEDS: 0.9 % Sodium Chloride Flush 3 ML SYRINGE IVFLUSH ×2 (17:03→20:51)
[2021-02-01] MEDS: Acetaminophen 325 MG TABLET 650 MG PO (18:11)
[2021-02-01] MEDS: oxyCODONE HCl Immed Release 5 MG TABLET PO (20:51)
[2021-02-02] VITALS (9 sets, daily range): BP systolic 100–119; BP diastolic 52–70; PULSE 80–115; RESP 18–21; TEMP 36.3–36.9; O2SAT 95–98
[2021-02-02] MEDS: methylPREDNISolone Sod Succ 125 MG/2 ML VIAL 60 MG IVPUSH ×3 (00:33→16:32)
[2021-02-02] MEDS: Enoxaparin Sodium 40 MG/0.4 ML SYRINGE SUBCUT (06:01)
[2021-02-02] MEDS: Albuterol/Iprat 2.5/0.5MG 3 ML AMPUL.NEB INHALE ×3 (07:48→19:42)
[2021-02-02] MEDS: 0.9 % Sodium Chloride Flush 3 ML SYRINGE IVFLUSH ×3 (08:07→21:11)
[2021-02-02] MEDS: Famotidine 20 MG TABLET PO ×2 (08:07→21:11)
[2021-02-02] MEDS: Acetaminophen 325 MG TABLET 650 MG PO (13:54)
[2021-02-02] MEDS: Azithromycin 500 MG TABLET PO (21:11)
[2021-02-03] MEDS: methylPREDNISolone Sod Succ 125 MG/2 ML VIAL 60 MG IVPUSH (01:41)
[2021-02-03 03:39] VITALS: BP 127/76; PULSE 82; RESP 19; TEMP 36.4; O2SAT 94
[2021-02-03] MEDS: Enoxaparin Sodium 40 MG/0.4 ML SYRINGE SUBCUT (06:08)
[2021-02-03 07:17] VITALS: BP 117/65; PULSE 77; RESP 21; TEMP 36.6; O2SAT 95
[2021-02-03] MEDS: Famotidine 20 MG TABLET PO (08:52)
[2021-02-03] MEDS: Albuterol/Iprat 2.5/0.5MG 3 ML AMPUL.NEB INHALE (09:16)
[2021-02-03 09:17] VITALS: PULSE 102; O2SAT 96
--- NOTE | 2021-02-03 09:22 | P.PNIM_ITS ---
Subjective Subjective Date of Service: 02/02/21 Interval History: late entry note for 02/02 , seen in f/u for asthma ex, less sob Review of Systems Gen: no fever Resp: less sob, cough CV: no chest, no WIGGINS, no leg edema GI: No n/v, no abd pain Neuro: No confusion Physical Exam Vital Signs: Vital Signs: vitals from 02/22 were reveiewed Body Mass Index 25.8 General: AO X 3, no acute distress Resp: R upper lung field wheeze CVS: S1,S2,RRR GI: +BS, NT, no distention Skin: No rash Neuro: motor grossly intact Psych: appropriate affect Objective Data Current Medications Generic Name Dose Route Start Last Admin Trade Name Freq PRN Reason Stop Dose Admin Acetaminophen 650 mg 02/01/21 00:22 02/02/21 13:54 Acetaminophen 325 Mg Tablet PO 650 mg Q6H PRN Administration Pain, Mild (Pain Scale 1-3) Albuterol/Ipratropium 3 ml 02/01/21 08:00 02/03/21 09:16 Albuterol/Iprat 2.5/0.5mg 3 Ml Ampul.Neb INHALE 3 ml RQ6H WHILE AWAKE PAULA Administration Albuterol/Ipratropium 3 ml 02/01/21 00:22 Albuterol/Iprat 2.5/0.5mg 3 Ml Ampul.Neb INHALE RQ4H PRN Shortness of Breath/Wheezing Azithromycin 500 mg 02/01/21 00:30 02/02/21 21:11 Azithromycin 500 Mg Tablet PO 500 mg 2200 PAULA Administration Benzonatate 100 mg 02/03/21 09:19 Benzonatate 100 Mg Capsule PO TID PRN Cough Enoxaparin Sodium 40 mg 02/01/21 06:00 02/03/21 06:08 Enoxaparin Sodium 40 Mg/0.4 Ml Syringe SUBCUT 40 mg Q24H PAULA Administration Famotidine 20 mg 02/01/21 09:00 02/03/21 08:52 Famotidine 20 Mg Tablet PO 20 mg BID PAULA Administration Lidocaine 1 patch 02/02/21 09:00 02/03/21 08:53 Lidocaine 4 % Patch Adh..Patch TRANSDERMA Not Given DAILY [facility] Protocol Oxycodone HCl 5 mg 02/01/21 19:31 02/01/21 20:51 Oxycodone Hcl Immed Release 5 Mg Tablet PO 5 mg Q6H PRN Administration Breakthrough Pain Prednisone 40 mg 02/03/21 09:20 Prednisone 20 Mg Tablet PO DAILY [facility] Senna 17.2 mg 02/01/21 00:22 Sennosides 8.6 Mg Tablet PO BEDTIME PRN Constipation Sodium Chloride 3 ml 02/01/21 08:00 02/02/21 21:11 0.9 % Sodium Chloride Flush 3 Ml Syringe IVFLUSH 3 ml QSHIFT PAULA Administration Labs CBC & Chem 7: 02/01/21 07:08 02/01/21 07:08 Microbiology Microbiology Results: Microbiology 01/31/21 22:02 Blood - Arterial Blood Culture - Preliminary No growth after 48 hours. 01/31/21 22:07 Blood - Arterial Blood Culture - Preliminary No growth after 48 hours. Assessment and Plan (1) Hypoxia: Status: Acute Assessment and Plan: 50-year-old female with a chief complaint of asthma/COPD, idiopathic pulmonary fibrosis presented to the hospital with a chief complaint of shortness of breath. Shortness of breath: Likely in the setting of COPD/pulmonary fibrosis flare. IV solumedrol for one more day DuoNeb standing and p.r.n. Pepcid for GI prophylaxis DVT prophylaxis: Lovenox Code status: Full code Late entry note for 02/02/21
--- NOTE | 2021-02-03 09:30 | PM.DS ---
DS: Providers Provider Date of Service: 02/03/21 Date of admission: 02/01/21 00:22 Primary care physician: Eric De La Rosa PA-C Consults: 02/01/21 00:22 Consult to Pulmonology Routine Consulting Provider: Danyell Wagner Reason for consultation: Hypoxia DS: Diagnosis Discharge Diagnosis (1) Hypoxia: Status: Acute (2) COPD (chronic obstructive pulmonary disease): Status: Acute (3) IPF (idiopathic pulmonary fibrosis): Status: Acute (4) Interstitial lung disease: Status: Acute DS: Medications Discharge Medications Home Medications: Home Medications Medication Instructions Recorded Confirmed montelukast 10 mg PO DAILY 02/01/21 02/01/21 tiotropium bromide [Spiriva with 1 cap INHALATION DAILY 02/01/21 02/01/21 HandiHaler] Previous Rx's Medication Instructions Recorded nebulizers #1 ea 12/22/20 ipratropium 0.5 mg-albuterol 3 mg 3 ml INHALATION Q8H PRN 30 Days 01/02/21 (2.5 mg base)/3 mL nebulization #180 ml soln albuterol sulfate 0.63 mg/3 mL 0.63 mg INHALATION QID 30 Days #90 01/17/21 solution for nebulization ml albuterol sulfate 90 mcg/actuation 2 puff INHALATION Q6H PRN 30 Days 01/17/21 aerosol inhaler #8.5 g DS: Summary Hospital Course Hospital Course: HPI from admission:Chief Complaint: Difficulty breathing, dyspnea 50 years old lady with PMH of I LD, asthma, COPD who presents to the hospital complaining difficulty breathing, dyspnea on exertion for the last 2 weeks. The patient reports moving to a new place recently. She is reporting feeling congested, lethargic, short of breath with minimal exertion. She denies having fever, chills, nausea or vomiting for changes of mental status. She uses albuterol as needed when she has difficulty breathing but otherwise she is used to ambulate final room air. In the emergency a chest x-ray was consistent with stable findings of I LD. She was noted to be in significant respiratory distress as her respiratory rate went in 30s with heart rate in 140s. Admitted for further evaluation and treatment. Hospital course: Patient was admitted for exacerbation of copd complicated by interstitial sadia disease with pumonary fibrosis. She was treated with IV solumedrol, bronchodilator by Nebulizer and was on Azithromycin, however there is no evidence of bacterial infection and therefore discontinued antibiotics. Pulmonology saw her with no further recommendation. She will be discharged with Prednisone for 4 more days. Treated with 1 time dose of diflucan 150 for lc vaginitis Time Spent with Patient Time attestation: Total time spent providing and/or coordinating discharge services: Discharge coordination time: Greater than 30 minutes Physical Exam Vital Signs: Vital Signs: Last Vital Signs Temp 97.8 F 02/03/21 07:17 Pulse 102 H 02/03/21 09:17 Resp 21 H 02/03/21 07:17 BP 117/65 02/03/21 07:17 Pulse Ox 95 02/03/21 07:17 Body Mass Index 25.8 General: AO X 3, no acute distress Resp: CTA bilateral, except sligh wheeze at rul CVS: S1,S2,RRR GI: +BS, NT, no distention Skin: No rash Neuro: motor grossly intact Psych: appropriate affect DS: Data Data Completed and Pending Labs on day of discharge: Preliminary micro results at discharge 01/31/21 22:02 Blood Culture - Preliminary Blood - Arterial No growth after 48 hours. 01/31/21 22:07 Blood Culture - Preliminary Blood - Arterial No growth after 48 hours. Discharge Plan Discharge Anticipated Discharge Date/Time: 02/03/21 09:26 Patient Disposition: Home, Self-Care Referrals: Eric De La Rosa PA-C [Primary Care Provider] - Discharge Medications: New prednisone 20 mg Tablet 40 mg PO DAILY Qty: 4 RF: 0 benzonatate 100 mg Capsule 100 mg PO TID PRN (Reason: Cough) Qty: 15 RF: 0 Continued (DME) AeroEclipse II Nebulizer Misc See Rx Instructions .ROUTE .MEDSUPPLY Qty: 1 RF: 0 albuterol sulfate 90 mcg/actuation HFA aerosol inhaler 2 puff inhalation Q6H PRN (Reason: shortness of breath or wheezing) 30 Days Qty: 8.5 RF: 3 albuterol sulfate 0.63 mg/3 mL solution for nebulization 0.63 mg inhalation QID 30 Days Qty: 90 RF: 1 montelukast 10 mg tablet 10 mg PO DAILY RF: 0 Spiriva with HandiHaler 18 mcg capsule, w/inhalation device 1 cap inhalation DAILY RF: 0 ipratropium-albuterol 0.5 mg-3 mg(2.5 mg base)/3 mL solution for nebulization 3 ml inhalation Q8H PRN (Reason: wheezing) 30 Days Qty: 180 RF: 3 Discharge Orders: Discharge Order (Routine); Ordered 02/03/21 Ordered By: Rudolph Cedeno Diet: advance to usual diet Activity on Discharge: As tolerated Stand Alone Forms: Patient Portal Discharge page Care Plan Goals: prvent rehospitalization and exacerbation of copd Health Concerns: interstitial lung disease, copd exacerbation Plan of Treatment: use and inhalers and take prednisone as directed and no smoking and follow up with your Doctor in[place]
--- NOTE | 2021-02-03 09:48 | MHC.CM.PN ---
Addendum entered by Hawa Mcclain RN 02/03/21 10:17: PER PT REQUEST PT GIVEN CONTACT INFO FOR WAY FINDERS, PT AWARE THEY ARE REMOTE ONLY. Original Note: IMM 02/03/21, PT DISCHARGING HOME SELF-CARE, SPOUSE TO TRANSPORT, PT HAS NEBULIZER AT HOME FOR TX'S.
[2021-02-03] MEDS: Fluconazole 150 MG TABLET PO (09:57)
[2021-02-03] MEDS: predniSONE 20 MG TABLET 40 MG PO (09:57)
== END 2021-02-03 11:43 | disposition home or self-care (01) | DRG 192 ==
LOC: HO.ED 23:36 → HO.EDOVER 02-01 00:42 → HO.S3 02-01 07:28
PROVIDERS: Admitting Provider Hospitalist; Emergency Provider Internal Medicine; PCP Physician Assistant; Visit Provider Internal Medicine
DX: J44.1 Chronic obstructive pulmonary disease with (acute) exacerbation (principal); E03.9 Hypothyroidism, unspecified; J84.112 Idiopathic pulmonary fibrosis; Z20.822 Contact with and (suspected) exposure to COVID-19; Z99.81 Dependence on supplemental oxygen; Z87.891 Personal history of nicotine dependence; Z79.899 Other long term (current) drug therapy
CPT/HCPCS: 36415; 71045; 80048; 80076; 83605; 84484; 85025; 85379; 85610; 85730; 87040; 87635; 93005; 94640; 94644; 96365; 96367; 96375; 99285; J0696; J1100; J1650; J2930; J3475

== ENCOUNTER 2021-05-07 21:04 | Inpatient (IN) | payer OTHER, SELFPAY ==
--- NOTE | ~2021-05-07 | XR_ITS ---
EXAMINATION: XR CHEST CLINICAL INFORMATION: Shortness of breath. COMPARISON: X-ray 01/31/2021. TECHNIQUE: Frontal view of the chest was obtained. FINDINGS: Cardiac and mediastinal silhouette is stable. Lungs are hyperinflated. There are chronic interstitial airspace opacities extensively in bilateral lungs, appearing similar as compared to previous. No definite acute superimposed process is identified. No effusion. No pulmonary edema. No pneumothorax. XR/XR chest 1V IMPRESSION: Extensive chronic airspace disease, appearing similar as compared to previous. No definite new/acute superimposed process is identified.
[2021-05-07 21:08] VITALS: BP 111/74; PULSE 119; RESP 18; TEMP 37.1; O2SAT 91; BMI 23.8
--- NOTE | 2021-05-07 21:33 | ECG_ITS ---
Test Reason : SOB Blood Pressure : / mmHG Vent. Rate : 120 BPM Atrial Rate : 120 BPM P-R Int : 130 ms QRS Dur : 078 ms QT Int : 306 ms P-R-T Axes : 041 -62 041 degrees QTc Int : 432 ms Sinus tachycardia Possible Left atrial enlargement Left axis deviation Abnormal ECG When compared with ECG of 31-JAN-2021 21:42, Criteria for Inferior infarct are no longer Present T wave inversion no longer evident in Anterolateral leads Referred By: Lamar Holbrook Electronically Signed By:JERAMIE BOOKER MD
[2021-05-07] MEDS: Albuterol Sulfate (0.083%) 2.5 MG/3 ML VIAL.NEB 5 MG INHALE (21:45)
--- NOTE | 2021-05-07 21:45 | ED_ITS ---
HPI - SOB/Dyspnea General Chief Complaint: Upper Respiratory Symptoms Stated Complaint: Difficulty breathing Time Seen by Provider: 05/07/21 21:33 Source: patient Mode of arrival: ambulatory History of Present Illness HPI Narrative: 51-year-old female with history of COPD and on oxygen as needed at home (specific order as per patient is for 2 L while ambulating ) presents with 3 days of increasing shortness of breath without associated fevers, chills, chest pain /palpitations, but notes that she is having pain in her chest when she coughs ( has been productive with yellowish color) or takes a deep breath primarily on the right side. Otherwise, patient denies GI or symptoms. Patient drinks infrequently, however endorses that she regularly uses cocaine with the last episode occurring prior to arrival. She denies having received any COVID-19 vaccine. Related Data Home Medications Medication Instructions Recorded Confirmed Spiriva with HandiHaler 1 cap INHALATION DAILY 02/01/21 04/05/21 montelukast 10 mg PO DAILY 02/01/21 04/05/21 benzonatate 100 mg PO TID PRN 05/08/21 05/08/21 Previous Rx's Medication Instructions Recorded nebulizers #1 ea 12/22/20 ipratropium 0.5 mg-albuterol 3 mg 3 ml INHALATION Q8H PRN 30 Days 01/02/21 (2.5 mg base)/3 mL nebulization #180 ml soln albuterol sulfate 0.63 mg/3 mL 0.63 mg INHALATION QID 30 Days #90 04/22/21 solution for nebulization ml albuterol sulfate 90 mcg/actuation 2 puff INHALATION Q6H PRN 30 Days 04/22/21 aerosol inhaler #8.5 g prednisone 10 mg tablet 10 mg PO TID 3 Days #9 tab 04/22/21 Allergies Allergy/AdvReac Type Severity Reaction Status Date / Time No Known Allergies Allergy Verified 05/07/21 21:07 Review of Systems Review of Systems: Pertinent positives and negatives as stated in HPI 10 point review of systems is otherwise negative. [facility] Past Medical History Source: nursing notes reviewed Medical History Allergic rhinitis Asthma Asthma with exacerbation COPD (chronic obstructive pulmonary disease) Hypothyroid Interstitial lung disease IPF (idiopathic pulmonary fibrosis) Surgical History History of hemorrhoidectomy History of tubal ligation Family History Family History Father No problems noted. Mother No problems noted. Maternal Grandmother Stroke Maternal Grandfather Stroke Family/Other Substance abuse Social History Social History Household Members: Family Housing: House Do you presently have visiting nurse or other home services: No Alcohol intake: never Patient Tobacco Use Status: Former Tobacco user Quit Date: 7 years ago Second Hand Smoke Exposure: No Use of substances other than those prescribed or required for medical reasons: Yes Substance Use Type: Crack/Cocaine Substance Use Frequency: Chronic Longstanding Last Used Substance: Hours (ago) Advance Directives: No Advance Directives Information Provided: No service: No Current occupational status: unemployed and disabled Physical Exam Vital Signs: Vital Signs: Last Vital Signs Temp 98.7 F 05/07/21 21:08 Pulse 91 05/08/21 01:06 Resp 24 H 05/08/21 00:16 BP 100/61 05/08/21 00:00 Pulse Ox 100 05/08/21 00:00 Body Mass Index 23.8 VITAL SIGNS: Reviewed. GENERAL: Well developed, well nourished, in no acute distress. HEAD: Normocephalic/atraumatic EYES: PERRLA, EOMI OROPHARYNX: no oral lesions noted, posterior pharynx clear , dry mucosa NECK: Supple, no adenopathy LUNGS: scattered rhonchi throughout, bibasilar decreased breath sounds with noted expiratory wheeze, tachypnea, increased work of breathing with pursing of lips but otherwise able to complete full sentences. SpO2<99> On supplemental nasal cannula, 2 L CARDIOVASCULAR: Regular rate and rhythm without noted murmurs, no JVD or lower extremity edema. ABDOMEN: Soft, non-tender, non-distended with bowel sounds. SKIN: Inspection of the skin reveals no rashes NEUROLOGIC: Alert and oriented x 4. Strength and sensation to light touch were grossly intact x 4. Course Course Course Narrative: 51-year-old female with history and clinical presentation suggestive of COPD/asthma exacerbation, but with phlegm production the possibility of pneumonia. Lactic acid /blood cultures / antibiotics were initiated and at this time there is no indication to pursue IV fluids. Review of all investigations consistent with COPD/asthma exacerbation, patient has received antibiotics, steroids, as well as nebulized treatments an re- evaluation reports some improvement of her symptoms. Patient still requiring nasal cannula supplementation and this case was discussed with inpatient hospitalist who has accepted admission. MDM - SOB/Dyspnea Lab Data Result diagrams: 05/07/21 22:12 05/07/21 22:12 Labs: Lab Results 05/07/21 05/07/21 05/07/21 Range/Units 22:12 22:12 22:12 WBC 16.1 H (4.8-10.8) X10*3/uL RBC 5.02 D (4.20-5.50) X10*6/uL Hgb 13.7 D (12.0-16.0) g/dl Hct 42.3 D (37-47) % MCV 84.3 (80-98) fL MCH 27.3 (27.0-33.0) pg MCHC 32.4 (31.0-35.0) g/dl RDW 15.3 (11.0-16.0) % Plt Count 346 D (160-400) X10*3/uL MPV 8.8 L (9.4-12.3) fL Immature Gran % (Auto) 0.3 (0.0-0.4) % Neut % (Auto) 74.5 H (45-73) % Lymph % (Auto) 8.3 L (20-40) % [place] % (Auto) 7.2 (2-11) % Eos % (Auto) 9.0 H (0-4) % Baso % (Auto) 0.7 (0-2) % Lymph # (Auto) 1.3 (1.2-4.9) X10*3/uL [place] # (Auto) 1.2 (0.1-1.2) X10*3/uL Eos # (Auto) 1.4 H (0.0-0.4) X10*3/uL Baso # (Auto) 0.1 (0.0-0.2) X10*3/uL Abs Immat Gran (auto) 0.05 H (0.00-0.03) X10*3/uL Absolute Neuts (auto) 12.0 H (2.0-8.3) X10*3/uL Absolute Nucleated RBC 0.000 (0.0-0.012) X10*3/uL Nucleated RBC % (auto) 0.0 (0.0-0.2) /100WBC PT 12.4 (9.9-13.0) SEC INR 1.1 (0.9-1.1) VBG pH (7.32-7.43) VBG pCO2 mmHg VBG pO2 mmHg VBG HCO3 (22-26) mmol/L VBG O2 Saturation % VBG Base Excess mmol/L Sodium 138 (135-145) mmol/L Potassium 4.3 (3.3-5.1) mmol/L Chloride 100 (96-108) mmol/L Carbon Dioxide 24 (22-29) mmol/L Anion Gap 18 (12-20) BUN 10 (9-16) mg/dL Creatinine 0.81 (0.5-1.4) mg/dL Estim Creat Clear Calc 79.0 Estimated GFR > 60 Random Glucose 149 H (60-115) mg/dL Lactic Acid (0.5-2.0) mmol/L Calcium 10.3 H D (8.4-10.2) mg/dL Magnesium (1.6-2.6) mg/dL Total Bilirubin 0.9 (0.0-1.0) mg/dL AST 12 (5-31) U/L ALT 15 (0-31) U/L Alkaline Phosphatase 129 H D (39-117) U/L Total Protein 7.9 D (6.5-8.0) g/dL Albumin 4.4 (3.5-5.0) g/dL COVID-19 (JON) (Negative) COVID-19 Clin Com 05/07/21 05/07/21 05/07/21 Range/Units 22:12 22:12 22:12 WBC (4.8-10.8) X10*3/uL RBC (4.20-5.50) X10*6/uL Hgb (12.0-16.0) g/dl Hct (37-47) % MCV (80-98) fL MCH (27.0-33.0) pg MCHC (31.0-35.0) g/dl RDW (11.0-16.0) % Plt Count (160-400) X10*3/uL MPV (9.4-12.3) fL Immature Gran % (Auto) (0.0-0.4) % Neut % (Auto) (45-73) % Lymph % (Auto) (20-40) % [place] % (Auto) (2-11) % Eos % (Auto) (0-4) % Baso % (Auto) (0-2) % Lymph # (Auto) (1.2-4.9) X10*3/uL [place] # (Auto) (0.1-1.2) X10*3/uL Eos # (Auto) (0.0-0.4) X10*3/uL Baso # (Auto) (0.0-0.2) X10*3/uL Abs Immat Gran (auto) (0.00-0.03) X10*3/uL Absolute Neuts (auto) (2.0-8.3) X10*3/uL Absolute Nucleated RBC (0.0-0.012) X10*3/uL Nucleated RBC % (auto) (0.0-0.2) /100WBC PT (9.9-13.0) SEC INR (0.9-1.1) VBG pH (7.32-7.43) VBG pCO2 mmHg VBG pO2 mmHg VBG HCO3 (22-26) mmol/L VBG O2 Saturation % VBG Base Excess mmol/L Sodium (135-145) mmol/L Potassium (3.3-5.1) mmol/L Chloride (96-108) mmol/L Carbon Dioxide (22-29) mmol/L Anion Gap (12-20) BUN (9-16) mg/dL Creatinine (0.5-1.4) mg/dL Estim Creat Clear Calc Estimated GFR Random Glucose (60-115) mg/dL Lactic Acid 2.3 H* (0.5-2.0) mmol/L Calcium (8.4-10.2) mg/dL Magnesium 2.1 (1.6-2.6) mg/dL Total Bilirubin (0.0-1.0) mg/dL AST (5-31) U/L ALT (0-31) U/L Alkaline Phosphatase (39-117) U/L Total Protein (6.5-8.0) g/dL Albumin (3.5-5.0) g/dL COVID-19 (JON) Negative (Negative) COVID-19 Clin Com See Note 05/07/21 Range/Units 22:19 WBC (4.8-10.8) X10*3/uL RBC (4.20-5.50) X10*6/uL Hgb (12.0-16.0) g/dl Hct (37-47) % MCV (80-98) fL MCH (27.0-33.0) pg MCHC (31.0-35.0) g/dl RDW (11.0-16.0) % Plt Count (160-400) X10*3/uL MPV (9.4-12.3) fL Immature Gran % (Auto) (0.0-0.4) % Neut % (Auto) (45-73) % Lymph % (Auto) (20-40) % [place] % (Auto) (2-11) % Eos % (Auto) (0-4) % Baso % (Auto) (0-2) % Lymph # (Auto) (1.2-4.9) X10*3/uL [place] # (Auto) (0.1-1.2) X10*3/uL Eos # (Auto) (0.0-0.4) X10*3/uL Baso # (Auto) (0.0-0.2) X10*3/uL Abs Immat Gran (auto) (0.00-0.03) X10*3/uL Absolute Neuts (auto) (2.0-8.3) X10*3/uL Absolute Nucleated RBC (0.0-0.012) X10*3/uL Nucleated RBC % (auto) (0.0-0.2) /100WBC PT (9.9-13.0) SEC INR (0.9-1.1) VBG pH 7.43 (7.32-7.43) VBG pCO2 38 mmHg VBG pO2 50 mmHg VBG HCO3 26 (22-26) mmol/L VBG O2 Saturation 75.0 % VBG Base Excess 1.9 mmol/L Sodium (135-145) mmol/L Potassium (3.3-5.1) mmol/L Chloride (96-108) mmol/L Carbon Dioxide (22-29) mmol/L Anion Gap (12-20) BUN (9-16) mg/dL Creatinine (0.5-1.4) mg/dL Estim Creat Clear Calc Estimated GFR Random Glucose (60-115) mg/dL Lactic Acid (0.5-2.0) mmol/L Calcium (8.4-10.2) mg/dL Magnesium (1.6-2.6) mg/dL Total Bilirubin (0.0-1.0) mg/dL AST (5-31) U/L ALT (0-31) U/L Alkaline Phosphatase (39-117) U/L Total Protein (6.5-8.0) g/dL Albumin (3.5-5.0) g/dL COVID-19 (JON) (Negative) COVID-19 Clin Com ECG Data Attestation: I personally reviewed and interpreted this ECG as follows: Prior ECG tracings: available for review ( 01/31/2021 no acute changes on comp arison) Interpretation: sinus tachycardia, HR - 120, no evidence of acute ischemia, AL /QRS /QTC are within normal limits. Discharge Plan Discharge Clinical Impression: Asthma exacerbation with COPD (chronic obstructive pulmonary disease), Sepsis Patient Disposition: Admitted As Inpatient Prescriptions: No Action (DME) AeroEclipse II Nebulizer Misc See Rx Instructions .ROUTE .MEDSUPPLY Qty: 1 RF: 0 albuterol sulfate 90 mcg/actuation HFA aerosol inhaler 2 puff inhalation Q6H PRN (Reason: shortness of breath or wheezing) 30 Days Qty: 8.5 RF: 3 albuterol sulfate 0.63 mg/3 mL solution for nebulization 0.63 mg inhalation QID 30 Days Qty: 90 RF: 1 prednisone 10 mg tablet 10 mg PO TID 3 Days Qty: 9 RF: 0 montelukast 10 mg tablet 10 mg PO DAILY RF: 0 Spiriva with HandiHaler 18 mcg capsule, w/inhalation device 1 cap inhalation DAILY RF: 0 benzonatate 100 mg capsule 100 mg PO TID PRN (Reason: Cough) RF: 0 ipratropium-albuterol 0.5 mg-3 mg(2.5 mg base)/3 mL solution for nebulization 3 ml inhalation Q8H PRN (Reason: wheezing) 30 Days Qty: 180 RF: 3
[2021-05-07 21:51] VITALS: PULSE 115; O2SAT 96
[2021-05-07] MEDS: Ketorolac Tromethamine 15 MG/ML VIAL IVPUSH (22:17)
[2021-05-07] MEDS: methylPREDNISolone Sod Succ 125 MG/2 ML VIAL IVPUSH (22:18)
[2021-05-07 22:21] VITALS: PULSE 116; O2SAT 93
[2021-05-07 22:31] LABS: Basophils Absolute Auto 0.1 X10*3/uL (0.0-0.2); Basophils Percent Auto 0.7 % (0-2); Eosinophils Absolute Auto 1.4 X10*3/uL (0.0-0.4); Hematocrit 42.3 % (37-47); Hemoglobin 13.7 g/dl (12.0-16.0); Imm Gran Abs Auto 0.05 X10*3/uL (0.00-0.03); Imm Gran Pct Auto 0.3 % (0.0-0.4); Lymphocytes Absolute Auto 1.3 X10*3/uL (1.2-4.9); Lymphocytes Percent Auto 8.3 % (20-40); Mean Corpuscular HGB Conc 32.4 g/dl (31.0-35.0); Mean Corpuscular Hemoglobin 27.3 pg (27.0-33.0); Mean Corpuscular Volume 84.3 fL (80-98); Mean Platelet Volume 8.8 fL (9.4-12.3); Monocytes Absolute Auto 1.2 X10*3/uL (0.1-1.2); Monocytes Percent Auto 7.2 % (2-11); Neutrophils Percent Auto 74.5 % (45-73); Platelet Count 346 X10*3/uL (160-400); Red Blood Count 5.02 X10*6/uL (4.20-5.50); Red Cell Distribution Width 15.3 % (11.0-16.0); White Blood Count 16.1 X10*3/uL (4.8-10.8)
--- NOTE | 2021-05-07 22:31 | PC.NURSE ---
RHONCHI & WHEEZES AUDIBLE THROUGHOUT. PT SPEAKING IN CLEAR FULL SENTENCES, THOUGH LABOURED. DIFFICULT STICK, IV ACCESS OBTAINED IN R FOOT. SPO2 WNL.
[2021-05-07 22:33] LABS: MANUAL DIFF FLAG NO
[2021-05-07 22:37] LABS: INTERNATIONAL NORM RATIO 1.1 (0.9-1.1); Prothrombin Time 12.4 SEC (9.9-13.0)
[2021-05-07 22:44] LABS: Venous Blood Gas Refer to POC result
[2021-05-07 22:45] LABS: VBG Base Excess 1.9 mmol/L; VBG HCO3 26 mmol/L (22-26); VBG pCO2 38 mmHg; VBG pH 7.43 (7.32-7.43); VBG pO2 50 mmHg
[2021-05-07 22:48] LABS: Lactic Acid 2.3 mmol/L (0.5-2.0)
[2021-05-07] MEDS: levoFLOXacin/D5W 750 MG/150 ML PIGGYBACK 100 MG IV (22:50)
[2021-05-07 22:51] LABS: Magnesium 2.1 mg/dL (1.6-2.6)
[2021-05-07 22:52] LABS: COVID-19 Test Negative (Negative); IDNOW Serial# 9DD0AD1C
[2021-05-07 22:55] LABS: Alanine Aminotransferase 15 U/L (0-31); Albumin Level 4.4 g/dL (3.5-5.0); Alkaline Phosphatase 129 U/L (39-117); Anion Gap 18 (12-20); Aspartate Amino Transferase 12 U/L (5-31); Bilirubin Total 0.9 mg/dL (0.0-1.0); Blood Urea Nitrogen 10 mg/dL (9-16); Calcium 10.3 mg/dL (8.4-10.2); Carbon Dioxide 24 mmol/L (22-29); Chloride 100 mmol/L (96-108); Estimated Glomerular Filt Rate > 60; Glucose Random 149 mg/dL (60-115); Potassium 4.3 mmol/L (3.3-5.1); Sodium 138 mmol/L (135-145); Total Protein 7.9 g/dL (6.5-8.0)
--- NOTE | 2021-05-07 22:56 | PC.NURSE ---
PATIENT IS A DIFFICULT STICK MULTIPLE ATTEMPTS WERE MADE BY PREVIOUS RN FOR IV ACCESS AND LABS. WAS ABLE TO GET ONE SET OF CULTURES AND KANDI CURTIS IS CURRENTLY MAKING ATTEMPTS FOR A SECOND SET. HAS BEEN UNSUCCESSFUL THIS FAR. PATIENT STATING FEELING BETTER AFTER FINISHING BREATHING TREATMENT. IV ANTIBIOTICS WILL BE HUNG TECH CONTINUES TO MAKE ATTEMPTS FOR BLOOD CULTURES
--- NOTE | 2021-05-07 23:25 | PC.NURSE ---
DISCUSSING CRITIAL LACTIC WITH PROVIDER, NO NEW ORDERS AT THIS TIME.
[2021-05-08] VITALS (15 sets, daily range): BP systolic 94–118; BP diastolic 49–69; PULSE 68–118; RESP 12–24; TEMP 35.8–36.8; O2SAT 90–100
[2021-05-08 00:16] LABS: Reflex Lactate? Lactic Acid Added
[2021-05-08] MEDS: 0.9 % Sodium Chloride 1,000 ML 999 ML IV (00:16)
[2021-05-08] MEDS: Albuterol/Iprat 2.5/0.5MG 3 ML AMPUL.NEB INHALE ×5 (01:06→20:01)
[2021-05-08 01:35] LABS: ~Lactic Acid-LAB USE ONLY 1.7 mmol/L (0.5-2.0)
[2021-05-08] MEDS: Enoxaparin Sodium 40 MG/0.4 ML SYRINGE SUBCUT (05:31)
--- NOTE | 2021-05-08 06:14 | PM.IMHP ---
History of Present Illness Date of Service: 05/08/21 Chief Complaint: shortness of breath this is a 51-year-old female with past medical history of COPD, asthma, hypothyroidism, IPF, who presents to the hospital with complaints of shortness of breath. Patient reports that she has always had shortness of breath and is on home oxygen p.r.n. but about few days ago started developing worsening shortness of breath, and some sputum production. reports some fever as high as 99, some chills, also reports using cocaine, denies any headache, change in vision, chest pain, no palpitations, no abdominal pain nausea or vomiting, no diarrhea constipation, no urinary symptoms. of note patient was recently placed on prednisone with no relief of her symptoms. On arrival to the ED hemodynamically stable, with no abnormal vitals, satting 90-91% on room air, patient placed on 2 L of oxygen now satting 98%. Labs are significant for WBC count 16.1, Lactic acid of 2.3 which resolved, chest x-ray shows no evidence of pneumonia but rather an extensive chronic airspace disease, appearing similar to as compared to previous. No definitive new acute superimposed process [facility] Medical History Allergic rhinitis Asthma Asthma with exacerbation COPD (chronic obstructive pulmonary disease) Hypothyroid Interstitial lung disease IPF (idiopathic pulmonary fibrosis) Family History Father No problems noted. Mother No problems noted. Maternal Grandmother Stroke Maternal Grandfather Stroke Family/Other Substance abuse Surgical History History of hemorrhoidectomy History of tubal ligation Social History Household Members: Spouse Housing: House Do you presently have visiting nurse or other home services: No Alcohol intake: never Patient Tobacco Use Status: Former Tobacco user Quit Date: 7 years ago Second Hand Smoke Exposure: No Use of substances other than those prescribed or required for medical reasons: No Substance Use Type: Crack/Cocaine Substance Use Frequency: Weekly Last Used Substance: Just Prior to Admission Currently Displaying Signs/Symptoms of Drug Intoxication Withdrawal: No Have you been hit, kicked, punched, or otherwise hurt by someone within the past year? If so, by whom?: No Do you feel safe in your current relationship?: Yes Is there a partner from a previous relationship who is making you feel unsafe now?: No Are you made to feel afraid or neglected: No Advance Directives: No Advance Directives Information Provided: No Do you have thoughts of harming others: None Do you have a plan to hurt others: No Plan Recently lost weight without trying: No Nutrition Risks: No Nutritional Risk service: No Current occupational status: unemployed and disabled Meds Allergies Allergy/AdvReac Type Severity Reaction Status Date / Time No Known Allergies Allergy Verified 05/07/21 21:07 Active Medications: Current Medications Generic Name Dose Route Start Last Admin Trade Name Freq PRN Reason Stop Dose Admin Acetaminophen 650 mg 05/08/21 00:56 Acetaminophen 325 Mg Tablet PO Q6H PRN Pain, Mild (Pain Scale 1-3) Albuterol/Ipratropium 3 ml 05/08/21 08:00 Albuterol/Iprat 2.5/0.5mg 3 Ml Ampul.Neb INHALE RQ4H WHILE AWAKE [facility] Albuterol/Ipratropium 3 ml 05/08/21 00:56 Albuterol/Iprat 2.5/0.5mg 3 Ml Ampul.Neb INHALE RQ4H PRN Shortness of Breath/Wheezing Docusate Sodium 100 mg 05/08/21 00:56 Docusate Sodium 100 Mg Capsule PO DAILY PRN Constipation Enoxaparin Sodium 40 mg 05/08/21 06:00 05/08/21 05:31 Enoxaparin Sodium 40 Mg/0.4 Ml Syringe SUBCUT 40 mg Q24H PAULA Administration Methylprednisolone Sodium Succinate 40 mg 05/08/21 09:00 Methylprednisolone Sod Succ 40 Mg/Ml Vial IVPUSH Q12H PAULA Ondansetron HCl 4 mg 05/08/21 00:56 Ondansetron Hcl 4 Mg/2 Ml Vial IVPUSH Q8H PRN Nausea and Vomiting Sodium Chloride 3 ml 05/08/21 08:00 0.9 % Sodium Chloride Flush 3 Ml Syringe IVFLUSH QSHIFT [facility] Home Medications Medication Instructions Recorded Confirmed Last Taken Type Spiriva with HandiHaler 1 cap INHALATION DAILY 02/01/21 05/08/21 Unknown History montelukast 10 mg PO DAILY 02/01/21 04/05/21 Unknown History benzonatate 100 mg PO TID PRN 05/08/21 05/08/21 Unknown History Physical Exam Vital Signs and Narrative: Vital Signs: Last Vital Signs Temp 97.4 F 05/08/21 03:30 Pulse 99 05/08/21 03:30 Resp 16 05/08/21 03:30 BP 100/60 05/08/21 03:30 Pulse Ox 98 05/08/21 03:30 Body Mass Index 23.8 Const: General: cooperative and no acute distress Orientation/consciousness: patient oriented x3 Eyes: General: appearance normal, both eyes and all related structures Pupils: Equal, round and reactive pupils present Resp: Other: rhonchi bilaterally Effort & Inspection: normal respiratory effort and able to speak in complete sentences Cardio: Rate: regular rate Rhythm: regular rhythm GI: Palpation (GI): Soft to palpation Auscultation: normal bowel sounds Skin: General skin exam: no rashes or lesions noted Neuro: General: patient oriented x3 Cranial nerves: Yes Equal, round and reactive pupils present Cognition (Neuro): normal cognition Extrem: General: Yes normal to inspection and Yes no pedal edema Results Labs CBC and Chem 7: 05/07/21 22:12 05/07/21 22:12 Labs: Laboratory Results - last 24 hr 05/07/21 05/07/21 05/07/21 22:12 22:12 22:12 MCV 84.3 MCH 27.3 MCHC 32.4 RDW 15.3 Plt Count 346 D MPV 8.8 L Immature Gran % (Auto) 0.3 Neut % (Auto) 74.5 H Lymph % (Auto) 8.3 L [place] % (Auto) 7.2 Eos % (Auto) 9.0 H Baso % (Auto) 0.7 Lymph # (Auto) 1.3 [place] # (Auto) 1.2 Eos # (Auto) 1.4 H Baso # (Auto) 0.1 Abs Immat Gran (auto) 0.05 H Absolute Neuts (auto) 12.0 H Absolute Nucleated RBC 0.000 Nucleated RBC % (auto) 0.0 PT 12.4 INR 1.1 VBG pH VBG pCO2 VBG pO2 VBG HCO3 VBG O2 Saturation VBG Base Excess Anion Gap 18 Estim Creat Clear Calc 79.0 Estimated GFR > 60 Random Glucose 149 H Lactic Acid Lactic Acid Fup @ 2Hr Calcium 10.3 H D Magnesium Total Bilirubin 0.9 AST 12 ALT 15 Alkaline Phosphatase 129 H D Total Protein 7.9 D Albumin 4.4 COVID-19 (JON) COVID-19 [employer] Com 05/07/21 05/07/21 05/07/21 22:12 22:12 22:12 MCV MCH MCHC RDW Plt Count MPV Immature Gran % (Auto) Neut % (Auto) Lymph % (Auto) [place] % (Auto) Eos % (Auto) Baso % (Auto) Lymph # (Auto) [place] # (Auto) Eos # (Auto) Baso # (Auto) Abs Immat Gran (auto) Absolute Neuts (auto) Absolute Nucleated RBC Nucleated RBC % (auto) PT INR VBG pH VBG pCO2 VBG pO2 VBG HCO3 VBG O2 Saturation VBG Base Excess Anion Gap Estim Creat Clear Calc Estimated GFR Random Glucose Lactic Acid 2.3 H* Lactic Acid Fup @ 2Hr Calcium Magnesium 2.1 Total Bilirubin AST ALT Alkaline Phosphatase Total Protein Albumin COVID-19 (JON) Negative COVID-19 ScreenTag See Note 05/07/21 05/08/21 22:19 01:05 MCV MCH MCHC RDW Plt Count MPV Immature Gran % (Auto) Neut % (Auto) Lymph % (Auto) [place] % (Auto) Eos % (Auto) Baso % (Auto) Lymph # (Auto) [place] # (Auto) Eos # (Auto) Baso # (Auto) Abs Immat Gran (auto) Absolute Neuts (auto) Absolute Nucleated RBC Nucleated RBC % (auto) PT INR VBG pH 7.43 VBG pCO2 38 VBG pO2 50 VBG HCO3 26 VBG O2 Saturation 75.0 VBG Base Excess 1.9 Anion Gap Estim Creat Clear Calc Estimated GFR Random Glucose Lactic Acid Lactic Acid Fup @ 2Hr 1.7 Calcium Magnesium Total Bilirubin AST ALT Alkaline Phosphatase Total Protein Albumin COVID-19 (JON) COVID-19 [employer] Com Imaging Radiologist's Impressions: Impressions Chest X-Ray 05/07/21 21:17 IMPRESSION: Extensive chronic airspace disease, appearing similar as compared to previous. No definite new/acute superimposed process is identified. Assessment and Plan (1) Asthma exacerbation with COPD (chronic obstructive pulmonary disease): Status: Acute (2) Sepsis: Status: Acute (3) Leukocytosis: Status: Acute 51-year-old female with past medical history of COPD presents the hospital with complaints of shortness of breath. # Acute COPD exacerbation - cough, sputum production, dyspnea - most likely exacerbated by her cocaine use - will start her on IV Solu-Medrol, DuoNeb p.r.n. as well as scheduled - follow respiratory status # meets sepsis criteria - based on tachycardia, leukocytosis - no evidence of pneumonia on chest x-ray - lactic acidosis most likely secondary to hypoxia which resolved after IV fluids - monitor # leukocytosis - most likely secondary to recent prednisone use - no evidence of infection - follow CBC # hypothyroidism - no levothyroxine on med list - follow-up outpatient DVT prophylaxis: lovenox Quality Stroke Does the patient have a stroke diagnosis?: No VTE Prior VTE?: No VTE Risk Level:: Medical - moderate - high VTE Device Contraindication: Treatment Not Indicated VTE Drug Contraindication: N/A - Med Ordered
[2021-05-08] MEDS: methylPREDNISolone Sod Succ 40 MG/ML VIAL IVPUSH ×2 (08:18→20:30)
[2021-05-08] MEDS: 0.9 % Sodium Chloride Flush 3 ML SYRINGE IVFLUSH ×3 (08:19→23:25)
[2021-05-08 08:22] LABS: Hematocrit 36.3 % (37-47); Hemoglobin 11.6 g/dl (12.0-16.0); Mean Corpuscular Hemoglobin 27.1 pg (27.0-33.0); Mean Corpuscular Volume 84.8 fL (80-98); Mean Platelet Volume 9.1 fL (9.4-12.3); Platelet Count 296 X10*3/uL (160-400); Red Blood Count 4.28 X10*6/uL (4.20-5.50); Red Cell Distribution Width 14.9 % (11.0-16.0); White Blood Count 7.7 X10*3/uL (4.8-10.8)
[2021-05-08 08:23] LABS: Glucose Urine UA 100 MG/DL (NEG); Leukocyte Esterase Urine NEG (NEG); Nitrite Urine NEG (NEG); PH 5.5 (5.0-8.0); Specific Gravity - Urine >= 1.030 (1.005-1.025); Urine Blood NEG (NEG); Urine Ketones NEG (NEG); Urine Protein NEG (NEG-TRACE)
[2021-05-08] MEDS: Benzonatate 100 MG CAPSULE PO ×3 (08:24→23:24)
[2021-05-08 08:26] LABS: Appearance Urine HAZY; Color Urine YELLOW
[2021-05-08 08:39] LABS: Amphetamine Screen Urine Not Detected (Not Detect); Barbiturates, Urine Not Detected (Not Detect); Benzodiazepines Screen Urine Not Detected (Not Detect); Cannabinoid Screen Urine Not Detected (Not Detect); Cocaine Screen Urine POSITIVE (Not Detect); Opiate Screen Urine Not Detected (Not Detect); Phencyclidine Screen Urine Not Detected (Not Detect)
--- NOTE | 2021-05-08 09:15 | MHC.CM.PN ---
PATIENT LIVES WITH HER HCP/SPOUSE. HCP IS ON FILE AND VERIFIED. SHE USES NO ASSISTIVE DEVICES FOR AMBULATION. SHE DOES USE INHALERS AND NEBULIZER. NO SUPERVISOR FORCE ADJUSTMENT OR MENTAL HEALTH SERVICES IN THE HOME. SHE IS HOPING OT RETURN HOME WITH NO NEED FOR SERVICES. SPOUSE TO TRANSPORT. IMM 05/08 IN CHART.
--- NOTE | 2021-05-08 12:20 | PM.IMPN ---
Subjective Subjective Date of Service: 05/08/21 Interval History: Follow up sob still with coughing but better Physical Exam Vital Signs: Vital Signs: Last Vital Signs Temp 98.3 F 05/08/21 11:56 Pulse 73 05/08/21 11:56 Resp 18 05/08/21 11:56 BP 107/63 05/08/21 11:56 Pulse Ox 92 05/08/21 11:56 Body Mass Index 23.8 Appearing in no acute distress lung sounds wheezing heart regular rate rhythm, clear S1, S2 positive bowel sounds, abdomen is soft, nontender neuro patient is alert x3, no focal deficits Objective Data Current Medications Generic Name Dose Route Start Last Admin Trade Name Freq PRN Reason Stop Dose Admin Acetaminophen 650 mg 05/08/21 00:56 Acetaminophen 325 Mg Tablet PO Q6H PRN Pain, Mild (Pain Scale 1-3) Albuterol/Ipratropium 3 ml 05/08/21 08:00 05/08/21 11:38 Albuterol/Iprat 2.5/0.5mg 3 Ml Ampul.Neb INHALE 3 ml RQ4H WHILE AWAKE PAULA Administration Albuterol/Ipratropium 3 ml 05/08/21 00:56 Albuterol/Iprat 2.5/0.5mg 3 Ml Ampul.Neb INHALE RQ4H PRN Shortness of Breath/Wheezing Benzonatate 100 mg 05/08/21 06:16 05/08/21 08:24 Benzonatate 100 Mg Capsule PO 100 mg TID PRN Administration Cough Docusate Sodium 100 mg 05/08/21 00:56 Docusate Sodium 100 Mg Capsule PO DAILY PRN Constipation Enoxaparin Sodium 40 mg 05/08/21 06:00 05/08/21 05:31 Enoxaparin Sodium 40 Mg/0.4 Ml Syringe SUBCUT 40 mg Q24H PAULA Administration Methylprednisolone Sodium Succinate 40 mg 05/08/21 09:00 05/08/21 08:18 Methylprednisolone Sod Succ 40 Mg/Ml Vial IVPUSH 40 mg Q12H PAULA Administration Ondansetron HCl 4 mg 05/08/21 00:56 Ondansetron Hcl 4 Mg/2 Ml Vial IVPUSH Q8H PRN Nausea and Vomiting Sodium Chloride 3 ml 05/08/21 08:00 05/08/21 08:19 0.9 % Sodium Chloride Flush 3 Ml Syringe IVFLUSH 3 ml QSHIFT PAULA Administration Tiotropium [place] 1 puff 05/08/21 09:00 05/08/21 08:03 Tiotropium [place] 18 Mcg Cap.W.Dev INHALE 1 puff DAILY PAULA Administration Labs CBC & Chem 7: 05/08/21 07:36 05/07/21 22:12 Labs: Laboratory Results - last 24 hr 05/07/21 05/07/21 05/07/21 22:12 22:12 22:12 MCV 84.3 MCH 27.3 MCHC 32.4 RDW 15.3 Plt Count 346 D MPV 8.8 L Immature Gran % (Auto) 0.3 Neut % (Auto) 74.5 H Lymph % (Auto) 8.3 L [place] % (Auto) 7.2 Eos % (Auto) 9.0 H Baso % (Auto) 0.7 Lymph # (Auto) 1.3 [place] # (Auto) 1.2 Eos # (Auto) 1.4 H Baso # (Auto) 0.1 Abs Immat Gran (auto) 0.05 H Absolute Neuts (auto) 12.0 H Absolute Nucleated RBC 0.000 Nucleated RBC % (auto) 0.0 PT 12.4 INR 1.1 VBG pH VBG pCO2 VBG pO2 VBG HCO3 VBG O2 Saturation VBG Base Excess Anion Gap 18 Estim Creat Clear Calc 79.0 Estimated GFR > 60 Random Glucose 149 H Lactic Acid Lactic Acid Fup @ 2Hr Calcium 10.3 H D Magnesium Total Bilirubin 0.9 AST 12 ALT 15 Alkaline Phosphatase 129 H D Total Protein 7.9 D Albumin 4.4 Urine Color Urine Appearance Urine pH Ur Specific [place] Urine Protein Urine Glucose (UA) Urine Ketones Urine Blood Urine Nitrite Ur Leukocyte Esterase Urine Opiates Screen Ur Barbiturates Screen Ur Phencyclidine Scrn Ur Amphetamines Screen U Benzodiazepines Scrn Urine Cocaine Screen U Marijuana (THC) Screen COVID-19 (JON) COVID-19 Clin Com 05/07/21 05/07/21 05/07/21 22:12 22:12 22:12 MCV MCH MCHC RDW Plt Count MPV Immature Gran % (Auto) Neut % (Auto) Lymph % (Auto) [place] % (Auto) Eos % (Auto) Baso % (Auto) Lymph # (Auto) [place] # (Auto) Eos # (Auto) Baso # (Auto) Abs Immat Gran (auto) Absolute Neuts (auto) Absolute Nucleated RBC Nucleated RBC % (auto) PT INR VBG pH VBG pCO2 VBG pO2 VBG HCO3 VBG O2 Saturation VBG Base Excess Anion Gap Estim Creat Clear Calc Estimated GFR Random Glucose Lactic Acid 2.3 H* Lactic Acid Fup @ 2Hr Calcium Magnesium 2.1 Total Bilirubin AST ALT Alkaline Phosphatase Total Protein Albumin Urine Color Urine Appearance Urine pH Ur Specific [place] Urine Protein Urine Glucose (UA) Urine Ketones Urine Blood Urine Nitrite Ur Leukocyte Esterase Urine Opiates Screen Ur Barbiturates Screen Ur Phencyclidine Scrn Ur Amphetamines Screen U Benzodiazepines Scrn Urine Cocaine Screen U Marijuana (THC) Screen COVID-19 (JON) Negative COVID-[employer] See Note 05/07/21 05/08/21 05/08/21 22:19 01:05 07:36 MCV 84.8 MCH 27.1 MCHC 32.0 RDW 14.9 Plt Count 296 MPV 9.1 L Immature Gran % (Auto) Neut % (Auto) Lymph % (Auto) [place] % (Auto) Eos % (Auto) Baso % (Auto) Lymph # (Auto) [place] # (Auto) Eos # (Auto) Baso # (Auto) Abs Immat Gran (auto) Absolute Neuts (auto) Absolute Nucleated RBC 0.000 Nucleated RBC % (auto) 0.0 PT INR VBG pH 7.43 VBG pCO2 38 VBG pO2 50 VBG HCO3 26 VBG O2 Saturation 75.0 VBG Base Excess 1.9 Anion Gap Estim Creat Clear Calc Estimated GFR Random Glucose Lactic Acid Lactic Acid Fup @ 2Hr 1.7 Calcium Magnesium Total Bilirubin AST ALT Alkaline Phosphatase Total Protein Albumin Urine Color Urine Appearance Urine pH Ur Specific [place] Urine Protein Urine Glucose (UA) Urine Ketones Urine Blood Urine Nitrite Ur Leukocyte Esterase Urine Opiates Screen Ur Barbiturates Screen Ur Phencyclidine Scrn Ur Amphetamines Screen U Benzodiazepines Scrn Urine Cocaine Screen U Marijuana (THC) Screen COVID-19 (JON) COVID-[employer] 05/08/21 05/08/21 08:12 08:12 MCV MCH MCHC RDW Plt Count MPV Immature Gran % (Auto) Neut % (Auto) Lymph % (Auto) [place] % (Auto) Eos % (Auto) Baso % (Auto) Lymph # (Auto) [place] # (Auto) Eos # (Auto) Baso # (Auto) Abs Immat Gran (auto) Absolute Neuts (auto) Absolute Nucleated RBC Nucleated RBC % (auto) PT INR VBG pH VBG pCO2 VBG pO2 VBG HCO3 VBG O2 Saturation VBG Base Excess Anion Gap Estim Creat Clear Calc Estimated GFR Random Glucose Lactic Acid Lactic Acid Fup @ 2Hr Calcium Magnesium Total Bilirubin AST ALT Alkaline Phosphatase Total Protein Albumin Urine Color YELLOW Urine Appearance HAZY Urine pH 5.5 Ur Specific [place] >= 1.030 H Urine Protein NEG Urine Glucose (UA) 100 H Urine Ketones NEG Urine Blood NEG Urine Nitrite NEG Ur Leukocyte Esterase NEG Urine Opiates Screen Not Detected Ur Barbiturates Screen Not Detected Ur Phencyclidine Scrn Not Detected Ur Amphetamines Screen Not Detected U Benzodiazepines Scrn Not Detected Urine Cocaine Screen POSITIVE H U Marijuana (THC) Screen Not Detected COVID-19 (JON) COVID-19 Clin Com Progress Note: A&P (1) Asthma exacerbation with COPD (chronic obstructive pulmonary disease): Status: Acute Assessment and Plan: 51-year-old female with past medical history of COPD presents the hospital with complaints of shortness of breath. Acute COPD exacerbation cough, sputum production, dyspnea most likely exacerbated by her cocaine use will start her on IV Solu-Medrol, DuoNeb p.r.n. as well as scheduled follow respiratory status Hypothyroidism no levothyroxine on med list follow-up outpatient DVT prophylaxis: lovenox Attending: Dr. Cedeno Full code Quality Stroke Does the patient have a stroke diagnosis?: No VTE Prior VTE?: No VTE Risk Level:: Medical - moderate - high VTE Device Contraindication: Treatment Not Indicated VTE Drug Contraindication: N/A - Med Ordered
[2021-05-08] MEDS: Ketorolac Tromethamine 15 MG/ML VIAL IVPUSH (15:10)
[2021-05-08] MEDS: Acetaminophen 325 MG TABLET 650 MG PO (16:56)
[2021-05-08] MEDS: HYDROmorphone HCl 0.5 MG/0.5 ML SYRINGE IVPUSH (20:30)
[2021-05-09] VITALS (10 sets, daily range): BP systolic 111–130; BP diastolic 59–80; PULSE 89–121; RESP 16–22; TEMP 36–36.6; O2SAT 91–98
[2021-05-09] MEDS: Enoxaparin Sodium 40 MG/0.4 ML SYRINGE SUBCUT (05:19)
[2021-05-09 06:47] LABS: Basophils Percent Auto 0.1 % (0-2); Eosinophils Percent Auto 0.1 % (0-4); Hematocrit 35.4 % (37-47); Hemoglobin 11.3 g/dl (12.0-16.0); Imm Gran Abs Auto 0.08 X10*3/uL (0.00-0.03); Imm Gran Pct Auto 0.6 % (0.0-0.4); Lymphocytes Absolute Auto 0.6 X10*3/uL (1.2-4.9); Lymphocytes Percent Auto 4.3 % (20-40); MANUAL DIFF FLAG SCAN; Mean Corpuscular HGB Conc 31.9 g/dl (31.0-35.0); Mean Corpuscular Hemoglobin 27.3 pg (27.0-33.0); Mean Corpuscular Volume 85.5 fL (80-98); Mean Platelet Volume 9.4 fL (9.4-12.3); Monocytes Absolute Auto 0.4 X10*3/uL (0.1-1.2); Monocytes Percent Auto 2.6 % (2-11); Neutrophils Absolute Auto 12.7 X10*3/uL (2.0-8.3); Neutrophils Percent Auto 92.3 % (45-73); Platelet Count 317 X10*3/uL (160-400); Red Blood Count 4.14 X10*6/uL (4.20-5.50); Red Cell Distribution Width 15.2 % (11.0-16.0); SCAN SMEAR FLAG 1; White Blood Count 13.7 X10*3/uL (4.8-10.8)
[2021-05-09] MEDS: Albuterol/Iprat 2.5/0.5MG 3 ML AMPUL.NEB INHALE ×4 (07:15→19:57)
[2021-05-09 07:17] LABS: Anion Gap 19 (12-20); Blood Urea Nitrogen 29 mg/dL (9-16); Calcium 9.6 mg/dL (8.4-10.2); Carbon Dioxide 21 mmol/L (22-29); Chloride 105 mmol/L (96-108); Creatinine Clr Calc Pharmacy 84.2; Estimated Glomerular Filt Rate > 60; Glucose Random 166 mg/dL (60-115); Sodium 140 mmol/L (135-145)
[2021-05-09 07:18] LABS: SLIDE REVIEW VERIFIED
[2021-05-09] MEDS: Benzonatate 100 MG CAPSULE PO (07:27)
[2021-05-09] MEDS: methylPREDNISolone Sod Succ 40 MG/ML VIAL IVPUSH ×3 (07:29→20:31)
[2021-05-09] MEDS: 0.9 % Sodium Chloride Flush 3 ML SYRINGE IVFLUSH ×3 (07:30→20:31)
[2021-05-09] MEDS: guaiFENesin LA 600 MG TAB.ER.12H 1200 MG PO ×2 (09:58→20:30)
[2021-05-09] MEDS: Azithromycin 500 MG TABLET PO (10:30)
--- NOTE | 2021-05-09 11:20 | PM.IMPN ---
Subjective Subjective Date of Service: 05/09/21 Interval History: Follow up COPD/asthma still with wheezing and sob Physical Exam Vital Signs: Vital Signs: Last Vital Signs Temp 97.3 F 05/09/21 08:00 Pulse 89 05/09/21 08:00 Resp 18 05/09/21 08:00 BP 123/73 05/09/21 08:00 Pulse Ox 91 L 05/09/21 08:00 Body Mass Index 23.8 Objective Data Current Medications Generic Name Dose Route Start Last Admin Trade Name [place] PRN Reason Stop Dose Admin Acetaminophen 650 mg 05/08/21 00:56 05/08/21 16:56 Acetaminophen 325 Mg Tablet PO 650 mg Q6H PRN Administration Pain, Mild (Pain Scale 1-3) Albuterol/Ipratropium 3 ml 05/08/21 08:00 05/09/21 11:06 Albuterol/Iprat 2.5/0.5mg 3 Ml Ampul.Neb INHALE 3 ml RQ4H WHILE AWAKE PAULA Administration Albuterol/Ipratropium 3 ml 05/08/21 00:56 Albuterol/Iprat 2.5/0.5mg 3 Ml Ampul.Neb INHALE RQ4H PRN Shortness of Breath/Wheezing Azithromycin 500 mg 05/09/21 10:00 05/09/21 10:30 Azithromycin 500 Mg Tablet PO 500 mg Q24H PAULA Administration Docusate Sodium 100 mg 05/08/21 00:56 Docusate Sodium 100 Mg Capsule PO DAILY PRN Constipation Enoxaparin Sodium 40 mg 05/08/21 06:00 05/09/21 05:19 Enoxaparin Sodium 40 Mg/0.4 Ml Syringe SUBCUT 40 mg Q24H PAULA Administration Guaifenesin 1,200 mg 05/09/21 10:00 05/09/21 09:58 Guaifenesin [place] 600 Mg Tab.Er.12h PO 1,200 mg BID PAULA Administration Methylprednisolone Sodium Succinate 40 mg 05/09/21 15:00 Methylprednisolone Sod Succ 40 Mg/Ml Vial IVPUSH TID PAULA Ondansetron HCl 4 mg 05/08/21 00:56 Ondansetron Hcl 4 Mg/2 Ml Vial IVPUSH Q8H PRN Nausea and Vomiting Sodium Chloride 3 ml 05/08/21 08:00 05/09/21 07:30 0.9 % Sodium Chloride Flush 3 Ml Syringe IVFLUSH 3 ml QSHIFT PAULA Administration Tiotropium [place] 1 puff 05/08/21 09:00 05/09/21 07:16 Tiotropium [place] 18 Mcg Cap.W.Dev INHALE 1 puff DAILY PAULA Administration Labs CBC & Chem 7: 05/09/21 05:46 05/09/21 05:46 Labs: Laboratory Results - last 24 hr 05/09/21 05/09/21 05:46 05:46 MCV 85.5 MCH 27.3 MCHC 31.9 RDW 15.2 Plt Count 317 MPV 9.4 Immature Gran % (Auto) 0.6 H Neut % (Auto) 92.3 H Lymph % (Auto) 4.3 L [place] % (Auto) 2.6 Eos % (Auto) 0.1 Baso % (Auto) 0.1 Lymph # (Auto) 0.6 L [place] # (Auto) 0.4 Eos # (Auto) 0.0 Baso # (Auto) 0.0 Abs Immat Gran (auto) 0.08 H Absolute Neuts (auto) 12.7 H Absolute Nucleated RBC 0.000 Nucleated RBC % (auto) 0.0 Smear Tech's Comments VERIFIED Anion Gap 19 Estim Creat Clear Calc 84.2 Estimated GFR > 60 Random Glucose 166 H Calcium 9.6 D Microbiology Microbiology Results: Microbiology 05/07/21 22:57 Blood - Venous Blood Culture - Preliminary No growth after 24 hours. 05/07/21 22:12 Blood - Venous Blood Culture - Preliminary No growth after 24 hours. Progress Note: A&P (1) Asthma exacerbation with COPD (chronic obstructive pulmonary disease): Status: Acute Assessment and Plan: 51-year-old female with past medical history of COPD presents the hospital with complaints of shortness of breath. Acute COPD exacerbation cough, sputum production, dyspnea most likely exacerbated by her cocaine use Still with dry cough, wheezing and shortness of breath increase IV Solu-Medrol to TID, DuoNeb p.r.n. as well as scheduled added mucinex and azithromycin follow respiratory status Hypothyroidism no levothyroxine on med list follow-up outpatient DVT prophylaxis: lovenox Attending: Dr. Hernandes Full code Quality Stroke Does the patient have a stroke diagnosis?: No VTE Prior VTE?: No VTE Risk Level:: Medical - moderate - high VTE Device Contraindication: Treatment Not Indicated VTE Drug Contraindication: N/A - Med Ordered
--- NOTE | 2021-05-09 11:30 | MHC.CM.PN ---
PER PHYSICIAN ROUNDS, NO PLAN FOR DISCHARGE TODAY. CASE MANAGEMENT TO CONTINUE TO FOLLOW FOR ANY DISCHARGE NEEDS.
[2021-05-09] MEDS: Ketorolac Tromethamine 15 MG/ML VIAL IVPUSH (14:05)
[2021-05-09] MEDS: Acetaminophen 325 MG TABLET 650 MG PO (20:33)
[2021-05-10] VITALS (10 sets, daily range): BP systolic 106–138; BP diastolic 55–88; PULSE 79–104; RESP 16–20; TEMP 36–37; O2SAT 91–95
[2021-05-10] MEDS: Enoxaparin Sodium 40 MG/0.4 ML SYRINGE SUBCUT (05:19)
[2021-05-10] MEDS: Azithromycin 500 MG TABLET PO (07:55)
[2021-05-10] MEDS: methylPREDNISolone Sod Succ 40 MG/ML VIAL IVPUSH ×3 (07:55→19:51)
[2021-05-10] MEDS: guaiFENesin LA 600 MG TAB.ER.12H 1200 MG PO ×2 (07:55→19:51)
[2021-05-10] MEDS: Albuterol/Iprat 2.5/0.5MG 3 ML AMPUL.NEB INHALE ×4 (07:57→19:44)
[2021-05-10] MEDS: 0.9 % Sodium Chloride Flush 3 ML SYRINGE IVFLUSH ×3 (07:58→19:51)
--- NOTE | 2021-05-10 12:15 | P.PNIM_ITS ---
Subjective Subjective Date of Service: 05/10/21 Interval History: Follow-up asthma/COPD exacerbation feeling better than yesterday but still with some cough and wheezing Physical Exam Vital Signs: Vital Signs: Last Vital Signs Temp 96.9 F 05/10/21 11:10 Pulse 103 H 05/10/21 11:24 Resp 18 05/10/21 11:10 BP 122/83 05/10/21 11:10 Pulse Ox 92 05/10/21 11:10 Body Mass Index 23.8 Appearing in no acute distress lung sounds exp wheezing heart regular rate rhythm, clear S1, S2 positive bowel sounds, abdomen is soft, nontender neuro patient is alert x3, no focal deficits Objective Data Current Medications Generic Name Dose Route Start Last Admin Trade Name Freq PRN Reason Stop Dose Admin Acetaminophen 650 mg 05/08/21 00:56 05/09/21 20:33 Acetaminophen 325 Mg Tablet PO 650 mg Q6H PRN Administration Pain, Mild (Pain Scale 1-3) Albuterol/Ipratropium 3 ml 05/08/21 08:00 05/10/21 11:22 Albuterol/Iprat 2.5/0.5mg 3 Ml Ampul.Neb INHALE 3 ml RQ4H WHILE AWAKE PAULA Administration Albuterol/Ipratropium 3 ml 05/08/21 00:56 Albuterol/Iprat 2.5/0.5mg 3 Ml Ampul.Neb INHALE RQ4H PRN Shortness of Breath/Wheezing Azithromycin 500 mg 05/09/21 10:00 05/10/21 07:55 Azithromycin 500 Mg Tablet PO 500 mg Q24H PAULA Administration Docusate Sodium 100 mg 05/08/21 00:56 Docusate Sodium 100 Mg Capsule PO DAILY PRN Constipation Enoxaparin Sodium 40 mg 05/08/21 06:00 05/10/21 05:19 Enoxaparin Sodium 40 Mg/0.4 Ml Syringe SUBCUT 40 mg Q24H PAULA Administration Guaifenesin 1,200 mg 05/09/21 10:00 05/10/21 07:55 Guaifenesin [place] 600 Mg Tab.Er.12h PO 1,200 mg BID PAULA Administration Methylprednisolone Sodium Succinate 40 mg 05/09/21 15:00 05/10/21 07:55 Methylprednisolone Sod Succ 40 Mg/Ml Vial IVPUSH 40 mg TID PAULA Administration Ondansetron HCl 4 mg 05/08/21 00:56 Ondansetron Hcl 4 Mg/2 Ml Vial IVPUSH Q8H PRN Nausea and Vomiting Sodium Chloride 3 ml 05/08/21 08:00 05/10/21 07:58 0.9 % Sodium Chloride Flush 3 Ml Syringe IVFLUSH 3 ml QSHIFT PAULA Administration Tiotropium [place] 1 puff 05/08/21 09:00 05/10/21 07:58 Tiotropium [place] 18 Mcg Cap.W.Dev INHALE 1 puff DAILY PAULA Administration Labs CBC & Chem 7: 05/09/21 05:46 05/09/21 05:46 Microbiology Microbiology Results: Microbiology 05/07/21 22:57 Blood - Venous Blood Culture - Preliminary No growth after 48 hours. 05/07/21 22:12 Blood - Venous Blood Culture - Preliminary No growth after 48 hours. Progress Note: A&P (1) Asthma exacerbation with COPD (chronic obstructive pulmonary disease): Status: Acute Assessment and Plan: 51-year-old female with past medical history of COPD presents the hospital with complaints of shortness of breath. Acute COPD exacerbation cough, sputum production, dyspnea most likely exacerbated by her cocaine use Still with dry cough, wheezing and shortness of breath increase IV Solu-Medrol to TID, DuoNeb p.r.n. as well as scheduled continue mucinex and azithromycin follow respiratory status Hypothyroidism no levothyroxine on med list follow-up outpatient DISPO likely dc tomorrow if medically stable DVT prophylaxis: lovenox Attending: Dr. Hernandes Full code Quality Stroke Does the patient have a stroke diagnosis?: No VTE Prior VTE?: No VTE Risk Level:: Medical - moderate - high VTE Device Contraindication: Treatment Not Indicated VTE Drug Contraindication: N/A - Med Ordered
--- NOTE | 2021-05-10 12:18 | P.DS_ITS ---
DS: Providers Provider Date of Service: 05/11/21 <RAN Peralta - Last Filed: 05/11/21 09:29> Date of admission: 05/08/21 00:56 <Carmela Mcfadden NP - Last Filed: 05/10/21 17:41> Primary care physician: Eric De La Rosa PA-C <Carmela Mcfadden NP - Last Filed: 05/10/21 17:41> DS: Diagnosis Discharge Diagnosis (1) Asthma exacerbation with COPD (chronic obstructive pulmonary disease): Status: Acute <Carmela Mcfadden NP - Last Filed: 05/10/21 17:41> DS: Medications Discharge Medications Home Medications: Home Medications Medication Instructions Recorded Confirmed Spiriva with HandiHaler 1 cap INHALATION DAILY 02/01/21 05/08/21 montelukast 10 mg PO DAILY 02/01/21 05/08/21 benzonatate 100 mg PO TID PRN 05/08/21 05/08/21 Previous Rx's Medication Instructions Recorded nebulizers #1 ea 12/22/20 ipratropium 0.5 mg-albuterol 3 mg 3 ml INHALATION Q8H PRN 30 Days 01/02/21 (2.5 mg base)/3 mL nebulization #180 ml soln albuterol sulfate 0.63 mg/3 mL 0.63 mg INHALATION QID 30 Days #90 04/22/21 solution for nebulization ml albuterol sulfate 90 mcg/actuation 2 puff INHALATION Q6H PRN 30 Days 04/22/21 aerosol inhaler #8.5 g <Carmela Mcfadden NP - Last Filed: 05/10/21 17:41> DS: Summary Hospital Course Hospital Course: HP as per admitting provider this is a 51-year-old female with past medical history of COPD, asthma, hypothyroidism, IPF, who presents to the hospital with complaints of shortness of breath. Patient reports that she has always had shortness of breath and is on home oxygen p.r.n. but about few days ago started developing worsening shortness of breath, and some sputum production. reports some fever as high as 99, some chills, also reports using cocaine, denies any headache, change in vision, chest pain, no palpitations, no abdominal pain nausea or vomiting, no diarrhea constipation, no urinary symptoms. of note patient was recently placed on prednisone with no relief of her symptoms. On arrival to the ED hemodynamically stable, with no abnormal vitals, satting 90-91% on room air, patient placed on 2 L of oxygen now satting 98%. Labs are significant for WBC count 16.1, Lactic acid of 2.3 which resolved, chest x-ray shows no evidence of pneumonia but rather an extensive chronic airspace disease, appearing similar to as compared to previous. No definitive new acute superimposed process . Asthma/COPD exacerbation. History of admissions for this in the past. Continues to use cocaine which may exacerbate her respiratory symptoms. She did not have any consolidation noted on x-ray however she was mildly hypoxic with oxygen saturation 90-91%. She was treated with scheduled steroids and DuoNebs. Azithromycin and Mucinexwas also added. She was as vice to continue bronchodilators at home and avoid the use of cocaine and other allergens such as cigarette smoke. <Carmela Mcfadden NP - Last Filed: 05/10/21 17:41> Time Spent with Patient Time attestation: Total time spent providing and/or coordinating discharge services: <Carmela Mcfadden NP - Last Filed: 05/10/21 17:41> Discharge coordination time: Greater than 30 minutes <RAN Peralta - Last Filed: 05/11/21 09:29> Quality: Stroke Does the patient have a stroke diagnosis?: No <RAN Peralta - Last Filed: 05/11/21 09:29> Physical Exam 2 Vital Signs: Vital Signs: Last Vital Signs Temp 96.9 F 05/10/21 11:10 Pulse 103 H 05/10/21 11:24 Resp 18 05/10/21 11:10 BP 122/83 05/10/21 11:10 Pulse Ox 92 05/10/21 11:10 Body Mass Index 23.8 <Carmela Mcfadden NP - Last Filed: 05/10/21 17:41> Const: Nutritional Appearance: well nourished <RAN Peralta - Last Filed: 05/11/21 09:29> Orientation/consciousness: patient oriented x3 <RAN Peralta - Last Filed: 05/11/21 09:29> HENMT: Head: Yes normocephalic and Yes atraumatic <RAN Peralta - Last Filed: 05/11/21 09:29> Eyes: Sclerae: sclerae normal <RAN Peralta Last Filed: 05/11/21 09:29> Chest: Chest palpation & inspection: normal inspection of the chest <RAN Peralta Last Filed: 05/11/21 09:29> Resp: Other: course breath sound b/l <RAN Peralta - Last Filed: 05/11/21 09:29> Effort & Inspection: normal respiratory effort and no respiratory distress <RAN Peralta Last Filed: 05/11/21 09:29> Cardio: Rate: regular rate <RAN Peralta Last Filed: 05/11/21 09:29> Rhythm: regular rhythm <RAN Peralta Last Filed: 05/11/21 09:29> GI: Palpation (GI): Soft to palpation and nontender <RAN Peralta - Last Filed: 05/11/21 09:29> Neuro: General: patient oriented x3 <RAN Peralta Last Filed: 05/11/21 09:29> Cranial nerves: Yes CN's II-XII intact bilaterally and Yes Bilaterally intact EOM present <RAN Peralta Last Filed: 05/11/21 09:29> DS: Data Data Completed and Pending Labs on day of discharge: Preliminary micro results at discharge 05/07/21 22:57 Blood Culture - Preliminary Blood - Venous No growth after 48 hours. 05/07/21 22:12 Blood Culture - Preliminary Blood - Venous No growth after 48 hours. <Carmela Mcfadden NP - Last Filed: 05/10/21 17:41> Discharge Plan Discharge Patient Disposition: Home, Self-Care <Carmela Mcfadden NP - Last Filed: 05/10/21 17:41> Discharge Diagnosis: asthma/COPD exacerbation <Carmela Mcfadden NP - Last Filed: 05/10/21 17:41> asthma/COPD exacerbation <RAN Peralta Last Filed: 05/11/21 09:29> Referrals: Eric De La Rosa PA-C [Primary Care Provider] - 1 Week <Carmela Mcfadden NP - Last Filed: 05/10/21 17:41> Discharge Medications: New azithromycin 500 mg tablet 500 mg PO DAILY 2 Days Qty: 2 RF: 0 albuterol sulfate 90 mcg/actuation HFA aerosol inhaler 2 puff inhalation Q6H PRN (Reason: shortness of breath or wheezing) Qty: 8.5 RF: 0 Continued (DME) AeroEclipse II Nebulizer Misc See Rx Instructions .ROUTE .MEDSUPPLY Qty: 1 RF: 0 albuterol sulfate 0.63 mg/3 mL solution for nebulization 0.63 mg inhalation QID 30 Days Qty: 90 RF: 1 montelukast 10 mg tablet 10 mg PO DAILY RF: 0 Spiriva with HandiHaler 18 mcg capsule, w/inhalation device 1 cap inhalation DAILY RF: 0 benzonatate 100 mg capsule 100 mg PO TID PRN (Reason: Cough) RF: 0 albuterol sulfate 90 mcg/actuation HFA aerosol inhaler 2 puff inhalation Q6H PRN (Reason: shortness of breath or wheezing) 30 Days Qty: 8.5 RF: 3 ipratropium-albuterol 0.5 mg-3 mg(2.5 mg base)/3 mL solution for nebulization 3 ml inhalation Q8H PRN (Reason: wheezing) 30 Days Qty: 180 RF: 3 <Carmela Mcfadden NP - Last Filed: 05/10/21 17:41> Discharge Orders: Discharge Order (Routine); Ordered 05/11/21 Ordered By: Kathy Polanco <Carmela Mcfadden NP - Last Filed: 05/10/21 17:41> Diet: advance to usual diet <Carmela Mcfadden NP - Last Filed: 05/10/21 17:41> advance to usual diet <RAN Peralta - Last Filed: 05/11/21 09:29> Activity on Discharge: As tolerated <Carmela Mcfadden NP - Last Filed: 05/10/21 17:41> As tolerated <RAN Peralta - Last Filed: 05/11/21 09:29> Stand Alone Forms: Patient Portal Discharge page <Carmela Mcfadden NP - Last Filed: 05/10/21 17:41> Care Plan Goals: resolution of asthma and COPD symptoms <Carmela Mcfadden NP - Last Filed: 05/10/21 17:41> Health Concerns: asthma/COPD exacerbation <Carmela Mcfadden NP - Last Filed: 05/10/21 17:41> Plan of Treatment: continue taking medication as prescribed stop doing cocaine, this may worsen your respiratory symptoms follow-up with her primary care provider as needed <Carmela Mcfadden NP - Last Filed: 05/10/21 17:41> Assessment: see discharge summary <Carmela Mcfadden NP - Last Filed: 05/10/21 17:41>
[2021-05-10] MEDS: Acetaminophen 325 MG TABLET 650 MG PO (17:36)
[2021-05-10] MEDS: oxyCODONE HCl Immed Release 5 MG TABLET PO (19:51)
[2021-05-11 03:33] VITALS: BP 118/71; PULSE 76; RESP 16; TEMP 36.6; O2SAT 96
[2021-05-11] MEDS: Enoxaparin Sodium 40 MG/0.4 ML SYRINGE SUBCUT (05:17)
[2021-05-11] MEDS: Albuterol/Iprat 2.5/0.5MG 3 ML AMPUL.NEB INHALE (07:49)
[2021-05-11 07:50] VITALS: BP 134/84; PULSE 85; PULSE 86; RESP 18; TEMP 36.1; O2SAT 94; O2SAT 95
[2021-05-11] MEDS: Azithromycin 500 MG TABLET PO (08:08)
[2021-05-11] MEDS: Lidocaine 4 % Patch ADH..PATCH 1 PATCH TRANSDERMA (08:08)
[2021-05-11] MEDS: 0.9 % Sodium Chloride Flush 3 ML SYRINGE IVFLUSH (08:08)
[2021-05-11] MEDS: guaiFENesin LA 600 MG TAB.ER.12H 1200 MG PO (08:08)
[2021-05-11] MEDS: methylPREDNISolone Sod Succ 40 MG/ML VIAL IVPUSH (08:09)
[2021-05-11] MEDS: Fluconazole 150 MG TABLET PO (09:30)
--- NOTE | 2021-05-11 09:49 | MHC.CM.PN ---
PATIENT IS DISCHARGED TO HOME - SELF CARE. IMM 05/10 IN CHART. SPOUSE TO TRANSPORT. RN AWARE OF PLAN.
== END 2021-05-11 10:28 | disposition home or self-care (01) | DRG 191 ==
LOC: HO.ED 05-08 01:16 → HO.S3 05-08 01:21
PROVIDERS: Internal Medicine; Admitting Provider Internal Medicine; Emergency Provider Student in an Organized Health Care Education/Training Program; PCP Physician Assistant; Visit Provider Family Medicine
DX: J44.1 Chronic obstructive pulmonary disease with (acute) exacerbation (principal); J45.901 Unspecified asthma with (acute) exacerbation; F14.90 Cocaine use, unspecified, uncomplicated; D72.829 Elevated white blood cell count, unspecified; Z20.822 Contact with and (suspected) exposure to COVID-19; E03.9 Hypothyroidism, unspecified; Z99.81 Dependence on supplemental oxygen; Z87.891 Personal history of nicotine dependence; Z79.899 Other long term (current) drug therapy
CPT/HCPCS: 36415; 71045; 80048; 80053; 80307; 81003; 83605; 83735; 85025; 85027; 85610; 87040; 87635; 93005; 94640; 99285; J1170; J1650; J1885; J1956; J2920; J2930

== ENCOUNTER 2021-07-23 08:17 | Emergency (ER) | payer OTHER, SELFPAY ==
--- NOTE | ~2021-07-23 | XR_ITS ---
EXAMINATION: XR CHEST CLINICAL INFORMATION: Pneumonia COMPARISON: Previous chest x-ray 05/07/2021 TECHNIQUE: Frontal view of the chest was obtained. FINDINGS: The cardiac and mediastinal contours are stable. There is chronic appearing lung disease seen in the left lung. This appears unchanged. There is chronic lung disease at the at the right base that appears unchanged. There is new airspace disease seen in the right upper lung questionable for acute infection or acute alveolitis. There is no pleural effusion or pneumothorax. There are degenerative changes of the spine. XR/XR chest 1V IMPRESSION: Chronic lung disease in the left lung and at the right lung base. Question new acute lung disease, pneumonia or acute alveolitis, in the right upper lung.
--- NOTE | ~2021-07-23 | CT_ITS ---
EXAMINATION: CT CHEST WITHOUT CONTRAST CLINICAL INFORMATION: Right upper lobe pneumonia. COMPARISON: CT chest 11/17/2020 and chest x-ray 07/23/2021. TECHNIQUE: Multidetector volumetric CT imaging of the chest was done. Axial MIP volume rendering provided. Sagittal and coronal reformatted images were obtained. This CT examination was performed using dose optimization techniques as appropriate, variously including the following: *Automated exposure control *Adjustment of mA and/or kV according to patient size (this includes techniques or standardized protocols for targeted exams where dose is matched to indication/reason for exam; i.e. 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 LUNGS: Both lungs are slightly hyperinflated with intralobular and interlobular interstitial thickening in both upper and lower lobes with groundglass opacity scattered throughout both lungs. There is upper lobe and lingular cylindrical bronchiectasis. There are small pulmonary nodules as well.. A 4 mm nodule right lower lobe axial image 24/3, pleural 5 mm nodule left lower lobe axial image 24/3, 2 mm nodule right lower lobe superior segment image 205/5 few 2 mm micronodules right upper lobe axial image 206/5. MEDIASTINUM: The thyroid lobes are symmetric and normal. The central trachea and the bronchi widely patent. Heart size and the great vessels are normal caliber. There are small lymph nodes in the mediastinum. The largest (aortic lymph node measures 1.2 x 1.0 cm and a precarinal lymph node measures 1.0 x 0.8 cm. Heart size and the great vessels are normal caliber. No pericardial effusion seen. There is trace coronary artery calcifications. PLEURA: There is no pleural effusion. No pleural mass or thickening. AXILLA: There are small shotty lymph nodes in the axilla. The largest left axillary lymph node measures 6 mm. UPPER ABDOMEN: Visualized liver, spleen and pancreas unremarkable. OSSEOUS STRUCTURES: Unremarkable. CT/CT chest wo con IMPRESSION: Chronic interstitial lung disease throughout the lungs with bronchiectasis both upper lobes and the lingular segments. There are a few scattered pulmonary nodules. Most of them are visualized in the previous study and stable. The largest 5 mm nodule right lower lobe is stable. The differentials are several considering chronic interstitial fibrosis, hypersensitivity, sarcoidosis. No acute pneumonic consolidation seen. There are inflammatory mediastinal lymph nodes. Overall stable exam compared to 11/17/2020.
[2021-07-23 09:01] VITALS: BP 98/58; PULSE 82; RESP 16; TEMP 36.4; O2SAT 93; BMI 22.2
--- NOTE | 2021-07-23 09:05 | PC.NURSE ---
lungs - exp wheezing/tight all lobes.
--- NOTE | 2021-07-23 09:22 | ED_ITS ---
HPI - Asthma General Chief Complaint: Asthma Stated Complaint: DIFF BREATHING Time Seen by Provider: 07/23/21 08:54 Source: patient Mode of arrival: ambulatory Limitations: no limitations History of Present Illness HPI Narrative: Patient presents to ED chest tightness, coughing and wheezing. Patient states history of COPD and oxygen dependent. Patient does not know she had been exposed to COVID. Patient is not vaccinated against COVID Related Data Home Medications Medication Instructions Recorded Confirmed montelukast 10 mg tablet 10 mg PO DAILY 02/01/21 05/08/21 tiotropium bromide 18 mcg capsule 1 cap INHALATION DAILY 02/01/21 05/08/21 with inhalation device (Spiriva with HandiHaler) benzonatate 100 mg capsule 100 mg PO TID PRN 05/08/21 05/08/21 Previous Rx's Medication Instructions Recorded nebulizers (AeroEclipse II #1 ea 12/22/20 Nebulizer) ipratropium 0.5 mg-albuterol 3 mg 3 ml INHALATION Q8H PRN 30 Days 01/02/21 (2.5 mg base)/3 mL nebulization #180 ml soln albuterol sulfate 0.63 mg/3 mL 0.63 mg INHALATION QID 30 Days #90 04/22/21 solution for nebulization ml albuterol sulfate 90 mcg/actuation 2 puff INHALATION Q6H PRN #8.5 g 05/11/21 aerosol inhaler albuterol sulfate 90 mcg/actuation 2 puff INHALATION Q6H PRN 30 Days 05/11/21 aerosol inhaler #8.5 g azithromycin 500 mg tablet 500 mg PO DAILY 2 Days #2 tab 05/11/21 prednisone 20 mg tablet 40 mg PO DAILY 3 Days #6 tab 05/11/21 benzonatate 100 mg capsule 100 mg PO TID PRN #15 cap 07/23/21 (Tesfavian Mancini) prednisone 20 mg tablet 60 mg PO DAILY 5 Days #15 tab 07/23/21 Allergies Allergy/AdvReac Type Severity Reaction Status Date / Time No Known Allergies Allergy Verified 05/07/21 21:07 Review of Systems Review of Systems: Yes all other systems are reviewed and are negative Constitutional: Constitutional: Reports as per HPI and Reports no additional constitutional complaints Eyes: Eyes: Reports as per HPI and Reports no additional eye complaints ENT: Reports system reviewed and no additional complaints, except as documented and Reports as per HPI Cardiovascular: Cardiovascular: Reports as per HPI, Reports no additional cardiovascular complaints and Denies chest pain Respiratory: Respiratory: Reports as per HPI, Reports no additional respiratory complaints, Reports cough and Reports wheezing Gastrointestinal: Gastrointestinal: Reports as per HPI and Reports no ad ditional gastrointestinal complaints Musculoskeletal: Musculoskeletal: Reports no additional musculoskeletal complaints and Reports as per HPI Integumentary/Breasts: Skin/Breast: Reports system reviewed and no additional complaints, except as docu and Reports as per HPI Neurologic: Reports system reviewed and no additional complaints, except as documented and Reports as per HPI Psychiatric: Psychiatric: Reports no additional psychiatric complaints and Reports as per HPI Allergic/Immunologic: Allergic/Immunologic: Reports wheezing PMFSH Past Medical History Medical History Allergic rhinitis Asthma Asthma with exacerbation COPD (chronic obstructive pulmonary disease) Hypothyroid Interstitial lung disease IPF (idiopathic pulmonary fibrosis) Surgical History History of hemorrhoidectomy History of tubal ligation Family History Family History Father No problems noted. Mother No problems noted. Maternal Grandmother Stroke Maternal Grandfather Stroke Family/Other Substance abuse Social History Social History Household Members: Spouse Housing: House Do you presently have visiting nurse or other home services: No Alcohol intake: never Patient Tobacco Use Status: Former Tobacco user Quit Date: 7 years ago Second Hand Smoke Exposure: No Use of substances other than those prescribed or required for medical reasons: Yes Substance Use Type: Crack/Cocaine Substance Use Frequency Other:: last used on Last Used Substance: Days (ago) Advance Directives: Yes Advance Directives on File: Yes Advance Directives Date on File: 05/12/21 Patient : No service: No Current occupational status: unemployed and disabled Physical Exam Vital Signs: Vital Signs: Last Vital Signs Temp 98.7 F 07/23/21 12:37 Pulse 88 07/23/21 12:37 Resp 22 H 07/23/21 12:37 BP 99/65 07/23/21 12:37 Pulse Ox 94 07/23/21 12:37 Body Mass Index 22.2 HENMT: Head: Yes normal to inspection, Yes No palpable skull fracture present, Yes normocephalic and Yes atraumatic Eyes: General: appearance normal, both eyes and all related structures Neck: Neck: Yes normal visual inspection, Yes full ROM, Yes no lymphadenopathy, Yes no meningeal signs, Yes trachea midline, Yes supple and No tender Chest: Chest palpation & inspection: normal inspection of the chest and normal palpation of entire chest wall Resp: Effort & Inspection: normal respiratory effort and able to speak in complete sentences Auscultation: wheezes (diffuse) expiratory wheezes Cardio: Jugular venous distension: no JVD Heart sounds: S1 normal heart sound present and S2 normal heart sound present GI: Inspection: Yes normal to inspection and No abdominal wall ecchymosis Palpation (GI): Soft to palpation, not firm, nontender, no guarding and not rigid : General: No CVA tenderness and Yes no CVA tenderness Back/Spine/Pelvis: Back: no CVA tenderness, No CVA tenderness and No back tenderness Skin: General skin exam: no rashes or lesions noted and elasticity normal Neuro: General: gait normal, no meningeal signs and CN's II-XI intact bilaterally Cranial nerves: Yes CN's II-XII intact bilaterally Extrem: Other: Lower extremities negative for swelling, pitting edema, or calf tenderness General: Yes normal to inspection and Yes full ROM Psych: Appearance: grossly normal, well kempt and not disheveled Course Course Course Narrative: Patient will have labs and be given medication for COPD. Chest x-ray ordered for COVID swab ordered Reevaluation(s) Reevaluation #1: Troponin negative. EKG negative for STEMI. BNP negative. Patient feels better after receiving magnesium Solu-Medrol albuterol. Chest x- ray shows possible pneumonia. Was sent for chest CT to confirm. Time: 11:04 Reevaluation #2: Chest CT negative pneumonia. Patient is safe for discharge. Patient will be discharged with steroids. And Tessalon Perles. patient has albuterol inhaler and nebulizer at home. Patient feels better. Wheezing improved. Patient would like to be discharged Time: 13:18 MDM - Asthma MDM Narrative Medical decision making narrative: URI. COPD Lab Data Result diagrams: 07/23/21 10:43 07/23/21 10:43 Labs: Lab Results 07/23/21 07/23/21 07/23/21 Range/Units 10:42 10:43 10:43 WBC 9.2 (4.8-10.8) X10*3/uL RBC 4.36 (4.20-5.50) X10*6/uL Hgb 12.3 (12.0-16.0) g/dl Hct 37.4 (37-47) % MCV 85.8 (80-98) fL MCH 28.2 (27.0-33.0) pg MCHC 32.9 (31.0-35.0) g/dl RDW 14.0 (11.0-16.0) % Plt Count 277 (160-400) X10*3/uL MPV 9.1 L (9.4-12.3) fL Immature Gran % (Auto) 0.1 (0.0-0.4) % Neut % (Auto) 55.9 (45-73) % Lymph % (Auto) 22.7 (20-40) % Spalding % (Auto) 8.1 (2-11) % Eos % (Auto) 12.2 H (0-4) % Baso % (Auto) 1.0 (0-2) % Lymph # (Auto) 2.1 (1.2-4.9) X10*3/uL Spalding # (Auto) 0.7 (0.1-1.2) X10*3/uL Eos # (Auto) 1.1 H (0.0-0.4) X10*3/uL Baso # (Auto) 0.1 (0.0-0.2) X10*3/uL Abs Immat Gran (auto) 0.01 (0.00-0.03) X10*3/uL Absolute Neuts (auto) 5.1 (2.0-8.3) X10*3/uL Absolute Nucleated RBC 0.000 (0.0-0.012) X10*3/uL Nucleated RBC % (auto) 0.0 (0.0-0.2) /100WBC PT (9.9-13.0) SEC INR (0.9-1.1) APTT (24.1-38.0) SEC Sodium 139 (135-145) mmol/L Potassium 4.5 (3.3-5.1) mmol/L Chloride 106 (96-108) mmol/L Carbon Dioxide 23 (22-29) mmol/L Anion Gap 15 (12-20) BUN 9 D (9-16) mg/dL Creatinine 0.68 (0.5-1.4) mg/dL Estim Creat Clear Calc 94.1 Estimated GFR > 60 Random Glucose 110 (60-115) mg/dL Lactic Acid 0.8 (0.5-2.0) mmol/L Calcium 9.3 (8.4-10.2) mg/dL Total Bilirubin 0.2 (0.0-1.0) mg/dL AST 14 (5-31) U/L ALT 8 (0-31) U/L Alkaline Phosphatase 113 (39-117) U/L Troponin I High Sens (<3.5-17.0) ng/L B-Natriuretic Peptide (<100) pg/mL Total Protein 6.7 (6.5-8.0) g/dL Albumin 4.1 (3.5-5.0) g/dL Coronavirus (PCR) (Negative) Influenza Type A (PCR) (Negative) Influenza Type B (PCR) (Negative) RSV RNA Qual (PCR) (Negative) 07/23/21 07/23/21 07/23/21 Range/Units 10:43 10:43 10:44 WBC (4.8-10.8) X10*3/uL RBC (4.20-5.50) X10*6/uL Hgb (12.0-16.0) g/dl Hct (37-47) % MCV (80-98) fL MCH (27.0-33.0) pg MCHC (31.0-35.0) g/dl RDW (11.0-16.0) % Plt Count (160-400) X10*3/uL MPV (9.4-12.3) fL Immature Gran % (Auto) (0.0-0.4) % Neut % (Auto) (45-73) % Lymph % (Auto) (20-40) % Spalding % (Auto) (2-11) % Eos % (Auto) (0-4) % Baso % (Auto) (0-2) % Lymph # (Auto) (1.2-4.9) X10*3/uL Spalding # (Auto) (0.1-1.2) X10*3/uL Eos # (Auto) (0.0-0.4) X10*3/uL Baso # (Auto) (0.0-0.2) X10*3/uL Abs Immat Gran (auto) (0.00-0.03) X10*3/uL Absolute Neuts (auto) (2.0-8.3) X10*3/uL Absolute Nucleated RBC (0.0-0.012) X10*3/uL Nucleated RBC % (auto) (0.0-0.2) /100WBC PT 11.4 (9.9-13.0) SEC INR 1.0 (0.9-1.1) APTT 29.4 (24.1-38.0) SEC Sodium (135-145) mmol/L Potassium (3.3-5.1) mmol/L Chloride (96-108) mmol/L Carbon Dioxide (22-29) mmol/L Anion Gap (12-20) BUN (9-16) mg/dL Creatinine (0.5-1.4) mg/dL Estim Creat Clear Calc Estimated GFR Random Glucose (60-115) mg/dL Lactic Acid (0.5-2.0) mmol/L Calcium (8.4-10.2) mg/dL Total Bilirubin (0.0-1.0) mg/dL AST (5-31) U/L ALT (0-31) U/L Alkaline Phosphatase (39-117) U/L Troponin I High Sens < 3.5 (<3.5-17.0) ng/L B-Natriuretic Peptide 33 (<100) pg/mL Total Protein (6.5-8.0) g/dL Albumin (3.5-5.0) g/dL Coronavirus (PCR) NEGATIVE (Negative) Influenza Type A (PCR) NEGATIVE (Negative) Influenza Type B (PCR) NEGATIVE (Negative) RSV RNA Qual (PCR) NEGATIVE (Negative) ECG Data Interpretation: Sinus rhythm with PVC. Ventricular rate 82. Pr interval 144. QRS 80. QTC 441. Negative Discharge Plan Discharge Clinical Impression: COPD (chronic obstructive pulmonary disease) Patient Disposition: Home, Self-Care Instructions: COPD (Chronic Obstructive Pulmonary Disease) (ED) Additional Instructions: Will be discharged with oral steroids. Return to the ED for any chest pain, shortness of breath, worsening cough, fever, chills, weakness, dizziness, or any other concerning symptoms. Please follow-up with your primary care provider Prescriptions: New prednisone 20 mg tablet 60 mg PO DAILY 5 Days Qty: 15 RF: 0 benzonatate [Tessalon Perles] 100 mg capsule 100 mg PO TID PRN (Reason: cough) Qty: 15 RF: 0 No Action (DME) AeroEclipse II Nebulizer Misc See Rx Instructions .ROUTE .MEDSUPPLY Qty: 1 RF: 0 albuterol sulfate 0.63 mg/3 mL solution for nebulization 0.63 mg inhalation QID 30 Days Qty: 90 RF: 1 montelukast 10 mg tablet 10 mg PO DAILY RF: 0 Spiriva with HandiHaler 18 mcg capsule, w/inhalation device 1 cap inhalation DAILY RF: 0 benzonatate 100 mg capsule 100 mg PO TID PRN (Reason: Cough) RF: 0 azithromycin 500 mg tablet 500 mg PO DAILY 2 Days Qty: 2 RF: 0 albuterol sulfate 90 mcg/actuation HFA aerosol inhaler 2 puff inhalation Q6H PRN (Reason: shortness of breath or wheezing) 30 Days Qty: 8.5 RF: 3 albuterol sulfate 90 mcg/actuation HFA aerosol inhaler 2 puff inhalation Q6H PRN (Reason: shortness of breath or wheezing) Qty: 8.5 RF: 0 prednisone 20 mg tablet 40 mg PO DAILY 3 Days Qty: 6 RF: 0 ipratropium-albuterol 0.5 mg-3 mg(2.5 mg base)/3 mL solution for nebulization 3 ml inhalation Q8H PRN (Reason: wheezing) 30 Days Qty: 180 RF: 3 Interventions: ED Discharge Assessment Last Done: 07/23/21 13:42 Discharge Date/Time: 07/23/21 13:42 Print Language: Upper Sorbian
--- NOTE | 2021-07-23 09:25 | ECG_ITS ---
Test Reason : DIFFICULTY BREATHING Blood Pressure : / mmHG Vent. Rate : 082 BPM Atrial Rate : 082 BPM P-R Int : 144 ms QRS Dur : 080 ms QT Int : 378 ms P-R-T Axes : 058 -43 063 degrees QTc Int : 441 ms Sinus rhythm with Premature ventricular complexes or Fusion complexes Possible Left atrial enlargement Left axis deviation Low voltage QRS Abnormal ECG When compared with ECG of 07-MAY-2021 21:39, Fusion complexes are now Present Premature ventricular complexes are now Present Referred By: Hnerique Ramesh Electronically Signed By:CE JAVIER
[2021-07-23 10:10] VITALS: BP 108/69; PULSE 75; RESP 32; O2SAT 95
[2021-07-23] MEDS: Albuterol/Iprat 2.5/0.5MG 3 ML AMPUL.NEB INHALE (10:14)
[2021-07-23] MEDS: methylPREDNISolone Sod Succ 125 MG/2 ML VIAL IVPUSH (10:14)
[2021-07-23] MEDS: Magnesium Sulfate/H2O 2 GM/50 ML PIGGYBACK IV (10:14)
[2021-07-23 10:58] LABS: Basophils Absolute Auto 0.1 X10*3/uL (0.0-0.2); Eosinophils Absolute Auto 1.1 X10*3/uL (0.0-0.4); Eosinophils Percent Auto 12.2 % (0-4); Hematocrit 37.4 % (37-47); Hemoglobin 12.3 g/dl (12.0-16.0); Imm Gran Abs Auto 0.01 X10*3/uL (0.00-0.03); Imm Gran Pct Auto 0.1 % (0.0-0.4); Lymphocytes Absolute Auto 2.1 X10*3/uL (1.2-4.9); Lymphocytes Percent Auto 22.7 % (20-40); MANUAL DIFF FLAG NO; Mean Corpuscular HGB Conc 32.9 g/dl (31.0-35.0); Mean Corpuscular Hemoglobin 28.2 pg (27.0-33.0); Mean Corpuscular Volume 85.8 fL (80-98); Mean Platelet Volume 9.1 fL (9.4-12.3); Monocytes Absolute Auto 0.7 X10*3/uL (0.1-1.2); Monocytes Percent Auto 8.1 % (2-11); Neutrophils Absolute Auto 5.1 X10*3/uL (2.0-8.3); Neutrophils Percent Auto 55.9 % (45-73); Platelet Count 277 X10*3/uL (160-400); Red Blood Count 4.36 X10*6/uL (4.20-5.50); White Blood Count 9.2 X10*3/uL (4.8-10.8)
[2021-07-23 11:05] LABS: Prothrombin Time 11.4 SEC (9.9-13.0)
[2021-07-23 11:07] LABS: Partial Thromboplastin Time 29.4 SEC (24.1-38.0)
[2021-07-23 11:08] LABS: Lactic Acid 0.8 mmol/L (0.5-2.0)
[2021-07-23 11:14] LABS: Alanine Aminotransferase 8 U/L (0-31); Albumin Level 4.1 g/dL (3.5-5.0); Alkaline Phosphatase 113 U/L (39-117); Anion Gap 15 (12-20); Aspartate Amino Transferase 14 U/L (5-31); Bilirubin Total 0.2 mg/dL (0.0-1.0); Blood Urea Nitrogen 9 mg/dL (9-16); Calcium 9.3 mg/dL (8.4-10.2); Carbon Dioxide 23 mmol/L (22-29); Chloride 106 mmol/L (96-108); Creatinine Clr Calc Pharmacy 94.1; Estimated Glomerular Filt Rate > 60; Glucose Random 110 mg/dL (60-115); Potassium 4.5 mmol/L (3.3-5.1); Sodium 139 mmol/L (135-145); Total Protein 6.7 g/dL (6.5-8.0)
[2021-07-23 11:18] LABS: B Type Natriuretic Peptide 33 pg/mL (<100); Troponin-I High Sensitivity < 3.5 ng/L (<3.5-17.0)
[2021-07-23 11:31] LABS: Influenza A PCR NEGATIVE (Negative); Influenza B PCR NEGATIVE (Negative); Resp Syncy Virus RNA Qual PCR NEGATIVE (Negative); SARS COV2 PCR INHOUSE NEGATIVE (Negative)
[2021-07-23 11:45] VITALS: BP 95/61; PULSE 77; RESP 22; O2SAT 95
[2021-07-23 12:37] VITALS: BP 99/65; PULSE 88; RESP 22; TEMP 37.1; O2SAT 94
== END 2021-07-23 13:42 | disposition home or self-care (01) ==
PROVIDERS: Physician Assistant; Emergency Provider Emergency Medicine Emergency Medical Services; PCP Physician Assistant
DX: J44.9 Chronic obstructive pulmonary disease, unspecified (principal); R06.02 Shortness of breath; R05 Cough; F14.90 Cocaine use, unspecified, uncomplicated; Z20.822 Contact with and (suspected) exposure to COVID-19; Z99.81 Dependence on supplemental oxygen; Z87.891 Personal history of nicotine dependence
CPT/HCPCS: 0241U; 36415; 71045; 71250; 80053; 83605; 83880; 84484; 85025; 85610; 85730; 87040; 93005; 96365; 96366; 96375; 99284; 99285; J2930; J3475

== ENCOUNTER 2021-08-08 14:49 | Outpatient (REF) | payer OTHER, SELFPAY ==
[2021-08-08 18:01] LABS: Influenza A PCR NEGATIVE (Negative); Influenza B PCR NEGATIVE (Negative); Resp Syncy Virus RNA Qual PCR NEGATIVE (Negative); SARS COV2 PCR INHOUSE NEGATIVE (Negative)
== END 2021-08-08 14:50 | disposition home or self-care (01) ==
LOC: HO.LAB 14:49
PROVIDERS: Visit Provider Internal Medicine
DX: Z20.822 Contact with and (suspected) exposure to COVID-19 (principal); R43.9 Unspecified disturbances of smell and taste
CPT/HCPCS: 0241U; 36415

== ENCOUNTER 2021-09-15 10:16 | Outpatient (REF) | payer OTHER, SELFPAY ==
[2021-09-15 11:20] LABS: MANUAL DIFF FLAG NO
[2021-09-15 12:16] LABS: Basophils Absolute Auto 0.1 X10*3/uL (0.0-0.2); Basophils Percent Auto 1.2 % (0-2); Eosinophils Absolute Auto 1.7 X10*3/uL (0.0-0.4); Eosinophils Percent Auto 16.4 % (0-4); Hematocrit 37.4 % (37.0-47.0); Hemoglobin 11.6 g/dl (12.0-16.0); Imm Gran Abs Auto 0.04 X10*3/uL (0.00-0.03); Imm Gran Pct Auto 0.4 % (0.0-0.4); Mean Corpuscular Hemoglobin 26.1 pg (27.0-33.0); Mean Platelet Volume 9.7 fL (9.4-12.3); Monocytes Absolute Auto 0.9 X10*3/uL (0.1-1.2); Monocytes Percent Auto 8.3 % (2-11); Neutrophils Absolute Auto 5.7 x10*3/uL (2.0-8.3); Neutrophils Percent Auto 54.7 % (45-73); Platelet Count 378 X10*3/uL (160-400); Red Blood Count 4.45 X10*6/uL (4.20-5.50); Red Cell Distribution Width 15.1 % (11.0-16.0); White Blood Count 10.4 X10*3/uL (4.8-10.8)
== END 2021-09-15 10:17 | disposition home or self-care (01) ==
LOC: HO.LAB 10:16
PROVIDERS: PCP Physician Assistant; Visit Provider Internal Medicine Pulmonary Disease
DX: J84.10 Pulmonary fibrosis, unspecified (principal); J45.50 Severe persistent asthma, uncomplicated; J44.9 Chronic obstructive pulmonary disease, unspecified; Z91.09 Other allergy status, other than to drugs and biological substances
CPT/HCPCS: 36415; 82785; 85025; 86003; 99212

== ENCOUNTER 2021-11-10 13:03 | Outpatient (REF) | payer OTHER, SELFPAY ==
--- NOTE | 2021-11-10 17:25 | PFT_ITS ---
Forced vital capacity and FEV1 are both moderately decreased. [id number] is also moderately decreased. MVV normal. Postbronchodilator therapy, there is a slight improvement in [id number], and not in the other parameters. Total lung capacity and residual volume are both moderately decreased. Diffusion capacity is markedly decreased. CONCLUSION: Moderately severe restrictive pulmonary disorder. There is a small improvement in [id number], indicating a mild obstructive component involving the smaller airways and improved after bronchodilator therapy. This finding may indicate mild degree of bronchial asthma. Clinical correlation is recommended. Danyell Wagner MD [facility] / [id number]
== END 2021-11-10 13:04 | disposition home or self-care (01) ==
LOC: HO.RESP 13:03
PROVIDERS: PCP Physician Assistant; Visit Provider Internal Medicine Pulmonary Disease
DX: J44.9 Chronic obstructive pulmonary disease, unspecified (principal); J45.50 Severe persistent asthma, uncomplicated; J84.10 Pulmonary fibrosis, unspecified; Z91.09 Other allergy status, other than to drugs and biological substances
CPT/HCPCS: 94060; 94727; 94729; 99212

== ENCOUNTER → 2021-12-07 13:51 | Outpatient (BNVA) | payer OTHER, SELFPAY | PROVIDERS: PCP Physician Assistant; Visit Provider Internal Medicine Pulmonary Disease | DX: J84.10 Pulmonary fibrosis, unspecified (principal); J45.50 Severe persistent asthma, uncomplicated; J44.9 Chronic obstructive pulmonary disease, unspecified; Z91.09 Other allergy status, other than to drugs and biological substances; Z87.891 Personal history of nicotine dependence | CPT/HCPCS: 99212 ==

== ENCOUNTER 2021-12-15 10:50 | Outpatient (REF) | payer OTHER, SELFPAY | END 2021-12-15 10:51 | disposition home or self-care (01) | LOC: HO.MDS 10:50 | PROVIDERS: PCP Physician Assistant; Visit Provider Internal Medicine Pulmonary Disease | DX: J45.50 Severe persistent asthma, uncomplicated (principal) | CPT/HCPCS: 96372; J2357 ==

== ENCOUNTER 2022-01-11 11:29 | Outpatient (REF) | payer OTHER, SELFPAY | END 2022-01-11 11:30 | disposition home or self-care (01) | LOC: HO.MDS 11:29 | PROVIDERS: PCP Physician Assistant; Visit Provider Internal Medicine Pulmonary Disease | DX: J45.50 Severe persistent asthma, uncomplicated (principal) | CPT/HCPCS: 96372; J2357 ==

== ENCOUNTER → 2022-02-01 14:11 | Outpatient (BNVA) | payer OTHER, SELFPAY | PROVIDERS: PCP Physician Assistant; Visit Provider Internal Medicine Pulmonary Disease | DX: J84.10 Pulmonary fibrosis, unspecified (principal); J45.50 Severe persistent asthma, uncomplicated; J44.9 Chronic obstructive pulmonary disease, unspecified; Z91.09 Other allergy status, other than to drugs and biological substances | CPT/HCPCS: 99212 ==

== ENCOUNTER 2022-02-08 09:22 | Outpatient (REF) | payer OTHER, SELFPAY ==
--- NOTE | ~2022-02-08 | US_ITS ---
EXAMINATION: US VENOUS WITH DOPPLER UPPER EXTREMITY, right CLINICAL INFORMATION: Swelling COMPARISON: Previous exam July 2018 TECHNIQUE: Ultrasound of the upper extremity is performed using compression sonography and color and pulse Doppler flow with assessment of augmentation of flow. There is also imaging and Doppler assessment of the jugular and subclavian veins. Spectral analysis with color-flow imaging is performed. FINDINGS: Respiratory variation, normal compression, and augmented flow are noted throughout the upper extremity including the axillary, brachial, cubital, and radial and ulnar veins. There is normal flow in the internal jugular and subclavian veins. There is no visible deep or superficial thrombophlebitis. US/US venous duplex UE RT IMPRESSION: No DVT demonstrated in the right upper extremity
== END 2022-02-08 09:23 | disposition home or self-care (01) ==
LOC: HO.US 09:22
PROVIDERS: PCP Physician Assistant; Visit Provider Physician Assistant
DX: R60.0 Localized edema (principal)
CPT/HCPCS: 93971

== ENCOUNTER 2022-02-08 10:27 | Outpatient (REF) | payer OTHER, SELFPAY | END 2022-02-08 10:28 | disposition home or self-care (01) | LOC: HO.MDS 10:27 | PROVIDERS: PCP Physician Assistant; Visit Provider Internal Medicine Pulmonary Disease | DX: J45.50 Severe persistent asthma, uncomplicated (principal) | CPT/HCPCS: 96372; J2357 ==

== ENCOUNTER 2022-02-08 13:24 | Emergency (ER) | payer OTHER, SELFPAY ==
[2022-02-08 14:13] VITALS: BP 130/88; PULSE 98; RESP 22; TEMP 36.6; O2SAT 99; BMI 23.5
[2022-02-08 14:27] LABS: MANUAL DIFF FLAG NO
[2022-02-08 14:29] LABS: Basophils Percent Auto 0.2 % (0-2); Eosinophils Absolute Auto 0.4 X10*3/uL (0.0-0.4); Eosinophils Percent Auto 2.6 % (0-4); Hematocrit 40.3 % (37.0-47.0); Hemoglobin 12.8 g/dl (12.0-16.0); Imm Gran Abs Auto 0.07 X10*3/uL (0.00-0.03); Imm Gran Pct Auto 0.4 % (0.0-0.4); Mean Corpuscular HGB Conc 31.8 g/dl (31.0-35.0); Mean Corpuscular Hemoglobin 28.5 pg (27.0-33.0); Mean Corpuscular Volume 89.8 fL (80.0-98.0); Mean Platelet Volume 8.9 fL (9.4-12.3); Monocytes Absolute Auto 1.1 X10*3/uL (0.1-1.2); Monocytes Percent Auto 6.2 % (2-11); Neutrophils Absolute Auto 14.4 x10*3/uL (2.0-8.3); Neutrophils Percent Auto 84.6 % (45-73); Platelet Count 266 X10*3/uL (160-400); Red Blood Count 4.49 X10*6/uL (4.20-5.50); Red Cell Distribution Width 14.1 % (11.0-16.0)
[2022-02-08 14:45] LABS: Alanine Aminotransferase 17 U/L (0-31); Alkaline Phosphatase 71 U/L (39-117); Anion Gap 13 (12-20); Aspartate Amino Transferase 16 U/L (5-31); Bilirubin Total 0.4 mg/dL (0.0-1.0); Blood Urea Nitrogen 21 mg/dL (9-16); Calcium 9.1 mg/dL (8.4-10.2); Carbon Dioxide 27 mmol/L (22-29); Chloride 101 mmol/L (96-108); Creatinine Clr Calc Pharmacy 91.4; Estimated Glomerular Filt Rate > 60; Glucose Random 69 mg/dL (60-115); Potassium 3.8 mmol/L (3.3-5.1); Sodium 137 mmol/L (135-145)
== END 2022-02-08 23:03 | disposition left against medical advice (07) ==
PROVIDERS: Emergency Provider Emergency Medicine; PCP Physician Assistant
DX: M79.641 Pain in right hand (principal); L03.113 Cellulitis of right upper limb; F19.10 Other psychoactive substance abuse, uncomplicated
CPT/HCPCS: 36415; 80053; 85025; 87040; 99283

== ENCOUNTER 2022-02-09 02:35 | Inpatient (IN) | payer OTHER, SELFPAY ==
--- NOTE | ~2022-02-09 | CT_ITS ---
EXAMINATION: CT HAND WITH CONTRAST, RIGHT CLINICAL INFORMATION: Abscess COMPARISON: None TECHNIQUE: 85 mL Omnipaque 350 intravenous contrast was utilized. Multidetector helical imaging was performed through the right hand. Coronal and sagittal reformatted images were created. This CT examination was performed using dose optimization techniques as appropriate, variously including the following: *Automated exposure control *Adjustment of mA and/or kV according to patient size (this includes techniques or standardized protocols for targeted exams where dose is matched to indication/reason for exam; i.e. extremities or head) *Use of iterative reconstruction technique DLP: 180 mGy-cm FINDINGS: There is subcutaneous edema along the forearm, most prominent distally. Edema also extends into the dorsum of the hand overlying the metacarpals. No discrete collection is seen at this time, though there is suggestion of partial peripheral enhancement of fluid in the region of the third and fourth MCP joints, extending for approximately 3.5 cm. Articular alignment throughout the hand appears anatomic. No acute fracture is seen. CT/CT hand RT w con IMPRESSION: Swelling along the dorsum of the hand suspicious for cellulitis. Fluid attenuation in this region demonstrates partial peripheral enhancement, especially overlying the third and fourth MCP joints, suggesting phlegmonous change/developing abscess. Subcutaneous edema extends along the forearm, predominantly dorsally.
[2022-02-09 02:43] VITALS: BP 116/65; PULSE 82; RESP 18; TEMP 37.3; O2SAT 97; BMI 23.0
--- NOTE | 2022-02-09 03:37 | ED.SKABFB ---
HPI - Skin/Abscess/Foreign Bdy General Chief complaint: General Medical Stated complaint: swollen right arm Time Seen by Provider: 02/09/22 03:32 Source: patient and old records reviewed Mode of arrival: ambulatory (LWT earlier) Limitations: no limitations History of Present Illness MD complaint: rash, abscess/boil and lesion Onset (ago): day(s) (started Saturday) Tetanus up to date: yes Location: RUE and R hand Severity: severe Quality: aching Pain Consistency: constant Relieving factors: none Exacerbating factors: palpation and movement Context: IVDA Associated symptoms: chills Treatments prior to arrival: none Related Data Home Medications Medication Instructions Recorded Confirmed montelukast 10 mg tablet 10 mg PO DAILY 02/01/21 05/08/21 Previous Rx's Medication Instructions Recorded nebulizers (AeroEclipse II #1 ea 12/22/20 Nebulizer) fexofenadine 180 mg tablet 180 mg PO DAILY #30 tab 09/15/21 ([facility]) ipratropium 0.5 mg-albuterol 3 mg 3 ml INHALATION Q8H PRN 30 Days 09/15/21 (2.5 mg base)/3 mL nebulization #180 ml soln omalizumab 150 mg subcutaneous 300 mg SUBCUT Q4W 28 Days #1 ea 11/14/21 solution (Xolair) albuterol sulfate 90 mcg/actuation 2 puff INHALATION Q6H PRN #8.5 g 02/01/22 aerosol inhaler prednisone 10 mg tablet See Rx Instructions PO DAILY 28 02/01/22 Days #70 tab cephalexin 500 mg capsule 500 mg PO QID 7 Days #28 cap 02/08/22 sertraline 50 mg tablet (Zoloft) 50 mg PO DAILY 30 Days #30 tab 02/08/22 Allergies Allergy/AdvReac Type Severity Reaction Status Date / Time No Known Allergies Allergy Verified 02/08/22 08:39 Review of Systems Review of Systems: Constitutional : No Fever, pos Chills ENT/Mouth : No sore throat, No Rhinorrhea Eyes: No Eye Pain, No Swelling, No Redness Cardiovascular : No Chest Pain, No SOB Respiratory : No Cough, No Sputum Gastrointestinal : No Nausea, No Vomiting, No Diarrhea, No abdominal Pain Genitourinary : No Dysuria, No Hematuria Musculoskeletal : No joint pain, No Myalgias, No Joint Swelling Skin : No Skin Lesions, positive skin rash Neuro : No Weakness, No Numbness, No Headache Psych : No Anxiety, No Depression Heme/Lymph: No Bruising, No Bleeding,No Lymphadenopathy Endocrine : No Polyuria, No Polydipsia All other systems reviewed and are negative [facility] Past Medical History Medical History Allergic rhinitis Asthma Asthma with exacerbation COPD (chronic obstructive pulmonary disease) Hypothyroid Interstitial lung disease IPF (idiopathic pulmonary fibrosis) Surgical History History of hemorrhoidectomy History of tubal ligation Family History Family History Father No problems noted. Mother No problems noted. Maternal Grandmother Stroke Maternal Grandfather Stroke Family/Other Substance abuse Social History Social History Household Members: Spouse Housing: House Do you presently have visiting nurse or other home services: No Alcohol intake: never Patient Tobacco Use Status: Former Tobacco user Quit Date: 7 years ago e-Cigarette/Vaping Use: Never Used Second Hand Smoke Exposure: No Substance Use Type: Crack/Cocaine Advance Directives: Yes Advance Directives Information Provided: Yes Advance Directives on File: No Advance Directives Date on File: 05/12/21 service: No Current occupational status: unemployed and disabled Cognitive needs: No Hearing needs: No Vision needs: No Physical Exam Vital Signs: Vital Signs: Last Vital Signs Temp 99.2 F 02/09/22 02:43 Pulse 92 02/09/22 06:18 Resp 16 02/09/22 06:18 BP 98/60 02/09/22 06:18 Pulse Ox 95 02/09/22 06:18 BMI result Body Mass Index 23.0 Appearance: Alert. Oriented X3. No acute distress. Eyes: Pupils equal, round and reactive to light. ENT: Pharynx normal. Neck: Normal inspection. Neck supple. CVS: Normal heart rate and rhythm. Pulses normal. Respiratory: No respiratory distress. Breath sounds normal. Abdomen: Soft and non-tender. Skin: Skin warm and dry. Normal skin color. Extremities: No lower extremity edema. R hand significant swelling and erythema on dorsum of hand extending into the forearm she can move fingers but they are swollen she has no flexor tendon sheath ttp cannot fully extend the fingers due to swelling but I can extend them passively, she has abscess on dorsum of hand - 2+ radial pulse noted. L AC there is a small hematoma noted no overlying erythema ?small abscess. Neuro: Oriented X 3. No motor deficit. No sensory deficit. Course Course Course Narrative: plan to admit - hospitalist notified will ask orthopedics to evaluate hand as well - RAN child MDM - Skin/Abscess/Foreign Bdy MDM Narrative Medical decision making narrative: 51 yo female with hx of pulmonary fibrosis, MDD, cocaine IVDA, here with c/o R hand significant swelling and erythema into forearm after IVDA. At this time she can move fingers and most of the infection is on dorsum of hand - labs, cultures, IV zosyn/vancomycin ordered. CT scan to look at extent of the infection ordered. She agrees to stay in hospital. Pending CT scan will either I/D at bedside or consult orthopedics. Lab Data Result diagrams: 02/09/22 04:17 02/09/22 04:50 Labs: Lab Results 02/09/22 02/09/22 02/09/22 Range/Units 04:17 04:17 04:17 WBC 16.5 H (4.8-10.8) X10*3/uL RBC 4.24 (4.20-5.50) X10*6/uL Hgb 12.0 (12.0-16.0) g/dl Hct 37.4 (37.0-47.0) % MCV 88.2 (80.0-98.0) fL MCH 28.3 (27.0-33.0) pg MCHC 32.1 (31.0-35.0) g/dl RDW 14.2 (11.0-16.0) % Plt Count 230 (160-400) X10*3/uL MPV 8.9 L (9.4-12.3) fL Immature Gran % (Auto) 0.7 H (0.0-0.4) % Neut % (Auto) 90.4 H (45-73) % Lymph % (Auto) 2.6 L (20-40) % [place] % (Auto) 3.6 (2-11) % Eos % (Auto) 2.4 (0-4) % Baso % (Auto) 0.3 (0-2) % Lymph # (Auto) 0.4 L (1.2-4.9) X10*3/uL [place] # (Auto) 0.6 (0.1-1.2) X10*3/uL Eos # (Auto) 0.4 (0.0-0.4) X10*3/uL Baso # (Auto) 0.1 (0.0-0.2) X10*3/uL Abs Immat Gran (auto) 0.12 H (0.00-0.03) X10*3/uL Absolute Neuts (auto) 14.9 H (2.0-8.3) x10*3/uL Absolute Nucleated RBC 0.000 (0.0-0.012) X10*3/uL Nucleated RBC % (auto) 0.0 (0.0-0.2) /100WBC Smear Tech's Comments VERIFIED PT (9.9-13.0) SEC INR (0.9-1.1) APTT 21.7 L (24.1-38.0) SEC Sodium (135-145) mmol/L Potassium (3.3-5.1) mmol/L Chloride (96-108) mmol/L Carbon Dioxide (22-29) mmol/L Anion Gap (12-20) BUN (9-16) mg/dL Creatinine (0.5-1.4) mg/dL Estim Creat Clear Calc Estimated GFR Random Glucose (60-115) mg/dL Lactic Acid 0.7 (0.5-2.0) mmol/L Calcium (8.4-10.2) mg/dL Magnesium (1.6-2.6) mg/dL Total Bilirubin (0.0-1.0) mg/dL Direct Bilirubin (0.0-0.5) mg/dL AST (5-31) U/L ALT (0-31) U/L Alkaline Phosphatase (39-117) U/L Total Protein (6.5-8.0) g/dL Albumin (3.5-5.0) g/dL COVID-19 (JON) (Negative) COVID-19 Clin Com 02/09/22 02/09/22 02/09/22 Range/Units 04:17 04:17 04:50 WBC (4.8-10.8) X10*3/uL RBC (4.20-5.50) X10*6/uL Hgb (12.0-16.0) g/dl Hct (37.0-47.0) % MCV (80.0-98.0) fL MCH (27.0-33.0) pg MCHC (31.0-35.0) g/dl RDW (11.0-16.0) % Plt Count (160-400) X10*3/uL MPV (9.4-12.3) fL Immature Gran % (Auto) (0.0-0.4) % Neut % (Auto) (45-73) % Lymph % (Auto) (20-40) % [place] % (Auto) (2-11) % Eos % (Auto) (0-4) % Baso % (Auto) (0-2) % Lymph # (Auto) (1.2-4.9) X10*3/uL [place] # (Auto) (0.1-1.2) X10*3/uL Eos # (Auto) (0.0-0.4) X10*3/uL Baso # (Auto) (0.0-0.2) X10*3/uL Abs Immat Gran (auto) (0.00-0.03) X10*3/uL Absolute Neuts (auto) (2.0-8.3) x10*3/uL Absolute Nucleated RBC (0.0-0.012) X10*3/uL Nucleated RBC % (auto) (0.0-0.2) /100WBC Smear Tech's Comments PT 12.0 (9.9-13.0) SEC INR 1.1 (0.9-1.1) APTT (24.1-38.0) SEC Sodium 137 (135-145) mmol/L Potassium 4.0 (3.3-5.1) mmol/L Chloride 102 (96-108) mmol/L Carbon Dioxide 24 (22-29) mmol/L Anion Gap 15 (12-20) BUN 14 (9-16) mg/dL Creatinine 0.61 (0.5-1.4) mg/dL Estim Creat Clear Calc 104.9 Estimated GFR > 60 Random Glucose 144 H (60-115) mg/dL Lactic Acid (0.5-2.0) mmol/L Calcium 8.7 (8.4-10.2) mg/dL Magnesium 2.2 (1.6-2.6) mg/dL Total Bilirubin 0.9 (0.0-1.0) mg/dL Direct Bilirubin 0.2 (0.0-0.5) mg/dL AST 15 (5-31) U/L ALT 15 (0-31) U/L Alkaline Phosphatase 73 (39-117) U/L Total Protein 6.2 L (6.5-8.0) g/dL Albumin 3.5 (3.5-5.0) g/dL COVID-19 (JON) Negative (Negative) COVID-19 Clin Com See Note Discharge Plan Discharge Clinical Impression: Cellulitis, Leukocytosis, IV drug abuse Patient Disposition: Admitted As Inpatient
[2022-02-09 04:29] LABS: Basophils Absolute Auto 0.1 X10*3/uL (0.0-0.2); Basophils Percent Auto 0.3 % (0-2); Eosinophils Absolute Auto 0.4 X10*3/uL (0.0-0.4); Eosinophils Percent Auto 2.4 % (0-4); Hematocrit 37.4 % (37.0-47.0); Imm Gran Abs Auto 0.12 X10*3/uL (0.00-0.03); Imm Gran Pct Auto 0.7 % (0.0-0.4); Lymphocytes Absolute Auto 0.4 X10*3/uL (1.2-4.9); Lymphocytes Percent Auto 2.6 % (20-40); MANUAL DIFF FLAG SCAN; Mean Corpuscular HGB Conc 32.1 g/dl (31.0-35.0); Mean Corpuscular Hemoglobin 28.3 pg (27.0-33.0); Mean Corpuscular Volume 88.2 fL (80.0-98.0); Mean Platelet Volume 8.9 fL (9.4-12.3); Monocytes Absolute Auto 0.6 X10*3/uL (0.1-1.2); Monocytes Percent Auto 3.6 % (2-11); Neutrophils Absolute Auto 14.9 x10*3/uL (2.0-8.3); Neutrophils Percent Auto 90.4 % (45-73); Platelet Count 230 X10*3/uL (160-400); Red Blood Count 4.24 X10*6/uL (4.20-5.50); Red Cell Distribution Width 14.2 % (11.0-16.0); SCAN SMEAR FLAG 1; White Blood Count 16.5 X10*3/uL (4.8-10.8)
[2022-02-09 04:36] LABS: INTERNATIONAL NORM RATIO 1.1 (0.9-1.1)
[2022-02-09 04:38] LABS: Lactic Acid 0.7 mmol/L (0.5-2.0); Partial Thromboplastin Time 21.7 SEC (24.1-38.0)
[2022-02-09 04:41] LABS: COVID-19 Test Negative (Negative)
[2022-02-09 04:48] LABS: SLIDE REVIEW VERIFIED
[2022-02-09 05:21] LABS: Alanine Aminotransferase 15 U/L (0-31); Albumin Level 3.5 g/dL (3.5-5.0); Alkaline Phosphatase 73 U/L (39-117); Anion Gap 15 (12-20); Aspartate Amino Transferase 15 U/L (5-31); Bilirubin Direct 0.2 mg/dL (0.0-0.5); Bilirubin Total 0.9 mg/dL (0.0-1.0); Blood Urea Nitrogen 14 mg/dL (9-16); Calcium 8.7 mg/dL (8.4-10.2); Carbon Dioxide 24 mmol/L (22-29); Chloride 102 mmol/L (96-108); Creatinine Clr Calc Pharmacy 104.9; Estimated Glomerular Filt Rate > 60; Glucose Random 144 mg/dL (60-115); Magnesium 2.2 mg/dL (1.6-2.6); Sodium 137 mmol/L (135-145); Total Protein 6.2 g/dL (6.5-8.0)
[2022-02-09] MEDS: Piperacillin Sodium/Tazobactam 3.375 GM in 0.9 % Sodium Chloride 50 ML IV ×4 (05:32→23:55)
[2022-02-09] MEDS: 0.9 % Sodium Chloride 1,000 ML 999 ML IVCONT (05:33)
[2022-02-09] MEDS: oxyCODONE HCl Immed Release 5 MG TABLET 10 MG PO ×2 (05:36→08:40)
[2022-02-09] MEDS: iohexoL 350 MG/ML 100 ML INFUS..BTL 85 ML IV (05:36)
[2022-02-09 06:18] VITALS: BP 98/60; PULSE 92; RESP 16; O2SAT 95
[2022-02-09] MEDS: Lidocaine HCl 1 % MPF 5 ML VIAL SUBCUT (06:26)
[2022-02-09] MEDS: vancomycin HCL 750 MG in 0.9 % Sodium Chloride 250 ML 265 MG IV ×2 (06:26→10:36)
--- NOTE | 2022-02-09 08:27 | PHA.MEDREC ---
Pharmacy Consult ? Medication Reconciliation Pharmacy has completed the medication reconciliation. Pt states that she was taking Keflex but was unsure of dose, RX not in recent claim history. She also noted that she is on a prednisone taper, and has taken a weeks worth. Rx instructions stated Prednisone 10mg tablet, take 4 tabs QD X 7 days and decrease by one tablet weekly. Danita Diaz, VeronicaD
--- NOTE | 2022-02-09 08:34 | PM.IMHP ---
History of Present Illness Date of Service: 02/09/22 Chief Complaint: R hand pain, swelling This is a 51 year old female with a PMH as outlined below who presents to the ED with complaints of R hand erythema, edema, tenderness and decreased ROM which has been progressively worsening for the last 5 days. She reports that she uses intervenous cocaine and injected herself about 5-6 days ago. She knew immediately that she had missed her vein and in the days since her symptoms have progressively worsened. She went to her PCP's office on the day prior to admission where she was evaluated and started on PO Keflex. She was also sent to the ultrasound to rule out a DVT of the LUE. She states that she went home but her symptoms continued and so she decided to come to the ED. She denies any fevers or chills. In the ED, the patient was ntoed to have significant leukocytosis of 16k. A CT of the hand showed: Swelling along the dorsum of the hand suspicious for cellulitis. Fluid attenuation in this region demonstrates partial peripheral enhancement, especially overlying the third and fourth MCP joints, suggesting phlegmonous change/developing abscess. Subcutaneous edema extends along the forearm, predominantly dorsally. She was given a dose of IV vancomcyin/zosyn. Orthopedics has been notified and she will now be admitted for further treatment. COVID vaccination status: unvaccinated Review of Systems Review of Systems: negative except HPI [facility] Medical History Allergic rhinitis Asthma Asthma with exacerbation COPD (chronic obstructive pulmonary disease) Hypothyroid Interstitial lung disease IPF (idiopathic pulmonary fibrosis) Family History Father No problems noted. Mother No problems noted. Maternal Grandmother Stroke Maternal Grandfather Stroke Family/Other Substance abuse Surgical History History of hemorrhoidectomy History of tubal ligation Social History (Updated 02/09/22 @ 08:44 by Keegan Hernandes MD) Household Members: Spouse Housing: House Do you presently have visiting nurse or other home services: No Alcohol intake: never Patient Tobacco Use Status: Former Tobacco user Quit Date: 7 years ago e-Cigarette/Vaping Use: Never Used Second Hand Smoke Exposure: No Substance Use Type: Crack/Cocaine Advance Directives: Yes Advance Directives Information Provided: Yes Advance Directives on File: No Advance Directives Date on File: 05/12/21 service: No Current occupational status: unemployed and disabled Cognitive needs: No Hearing needs: No Vision needs: No Meds Allergies Allergy/AdvReac Type Severity Reaction Status Date / Time No Known Allergies Allergy Verified 02/08/22 08:39 Active Medications: Current Medications Lactated Ringer's (Lr) 1,000 mls @ 999 mls/hr IV .Q1H1M PAULA Stop: 02/09/22 09:30 Pharmacy Consult (Consult Rx Vancomycin Dosing) 1 each MISCELLANE DAILY PRN PRN Reason: Consult order Pharmacy Consult (Consult Rx Perform Med Rec) 1 each MISCELLANE ONCE PRN PRN Reason: Consult order Home Medications Medication Instructions Recorded Confirmed Last Taken Type albuterol sulfate 90 mcg/actuation 2 puff PO Q6H PRN 02/09/22 02/09/22 Unknown History aerosol inhaler ibuprofen 200 mg tablet (Advil) 400 mg PO Q6H PRN 02/09/22 02/09/22 Unknown History Physical Exam Vital Signs and Narrative: Vital Signs: Last Vital Signs Temp 99.2 F 02/09/22 02:43 Pulse 92 02/09/22 06:18 Resp 16 02/09/22 06:18 BP 98/60 02/09/22 06:18 Pulse Ox 95 02/09/22 06:18 BMI result Body Mass Index 23.0 Const: Other: Constitutional - Awake and Alert, No apparent distress Eyes - PERRLA, EOMI Cardiovascular - S1S2, RRR, No edema Respiratory - Normal lung expansion, Normal respiratory effort, No respiratory distress, CTA bilaterally Gastrointestinal - NT / ND; +BS; No rebound or guarding - No CVA tenderness Extremities - no calf tenderness bilaterally, no swelling Musculoskeletal - see hand pictures below; R hand ROM limited secondary to pain / edema Skin - Warm/Dry, see hand pictures below Neurological - Alert & oriented x3, No focal deficit Psychological - Appropriate affect Skin: Other: Results Labs CBC and Chem 7: 02/09/22 04:17 02/09/22 04:50 Labs: Laboratory Results - last 24 hr 02/09/22 02/09/22 02/09/22 04:17 04:17 04:17 MCV 88.2 MCH 28.3 MCHC 32.1 RDW 14.2 Plt Count 230 MPV 8.9 L Immature Gran % (Auto) 0.7 H Neut % (Auto) 90.4 H Lymph % (Auto) 2.6 L [place] % (Auto) 3.6 Eos % (Auto) 2.4 Baso % (Auto) 0.3 Lymph # (Auto) 0.4 L [place] # (Auto) 0.6 Eos # (Auto) 0.4 Baso # (Auto) 0.1 Abs Immat Gran (auto) 0.12 H Absolute Neuts (auto) 14.9 H Absolute Nucleated RBC 0.000 Nucleated RBC % (auto) 0.0 Smear Tech's Comments VERIFIED PT INR APTT 21.7 L Anion Gap Estim Creat Clear Calc Estimated GFR Random Glucose Lactic Acid 0.7 Calcium Magnesium Total Bilirubin Direct Bilirubin AST ALT Alkaline Phosphatase Total Protein Albumin COVID-19 (JON) COVID-19 Clin Com 02/09/22 02/09/22 02/09/22 04:17 04:17 04:50 MCV MCH MCHC RDW Plt Count MPV Immature Gran % (Auto) Neut % (Auto) Lymph % (Auto) [place] % (Auto) Eos % (Auto) Baso % (Auto) Lymph # (Auto) [place] # (Auto) Eos # (Auto) Baso # (Auto) Abs Immat Gran (auto) Absolute Neuts (auto) Absolute Nucleated RBC Nucleated RBC % (auto) Smear Tech's Comments PT 12.0 INR 1.1 APTT Anion Gap 15 Estim Creat Clear Calc 104.9 Estimated GFR > 60 Random Glucose 144 H Lactic Acid Calcium 8.7 Magnesium 2.2 Total Bilirubin 0.9 Direct Bilirubin 0.2 AST 15 ALT 15 Alkaline Phosphatase 73 Total Protein 6.2 L Albumin 3.5 COVID-19 (JON) Negative COVID-19 Clin Com See Note Imaging Radiologist's Impressions: Impressions Hand CT 02/09/22 05:30 IMPRESSION: Swelling along the dorsum of the hand suspicious for cellulitis. Fluid attenuation in this region demonstrates partial peripheral enhancement, especially overlying the third and fourth MCP joints, suggesting phlegmonous change/developing abscess. Subcutaneous edema extends along the forearm, predominantly dorsally. Assessment and Plan (1) Cellulitis: Qualifiers: Laterality: right Site of cellulitis: extremity Site of cellulitis of extremity: upper extremity Qualified Code(s): L03.113 - Cellulitis of right upper limb Status: Acute Plan This is a 51 yo F with a PMH of COPD/Asthma overlap syndrome, Pulmonary fibrosis, Allergies, IV cocaine use who presents to the hospital 5 days after injection into hand resulting in cellulitis and likely early abscess. She will be admitted for IV antibiotics with orthopedics consult. 1. Cellulitis and early abscess of the hand limb at risk. She is also chronically on steroids making her immunocompromised secondary to intervenous injection use. IV vancomyin and zosyn orthopedics consult in case I&D is needed follow culture data outpatient DVT study still pending 2. COPD/Asthma overlap syndrome / Pulmonary fibrosis continue her baseline inhalers; replace NF ones 3. IV cocaine use patient reports that she is determined to quit if agreeable, will get addiction medicine on board 4. Mood sertraline Full Code DVT pptx, Lovenox In light of a limb threatening cellulitis / early abscess in a patient who is immunocompromised secondary to chronic steroid use, I anticipate that she will need a medically necessary inpatient admission spanning at least 2 midnights for treatment (with broad spec IV antibiotics + possible I&D) and monitoring of response. This cannot be completed in a less acute setting. Quality Stroke Does the patient have a stroke diagnosis?: No VTE Prior VTE?: No VTE Risk Level:: Medical - moderate - high VTE Device Contraindication: Treatment Not Indicated VTE Drug Contraindication: N/A - Med Ordered
[2022-02-09] MEDS: Lidocaine HCl 2 % MPF 5 ML VIAL 10 ML INFILTRATI (08:41)
[2022-02-09] MEDS: Lactated Ringers 1,000 ML 999 ML IV (09:21)
[2022-02-09] MEDS: Enoxaparin Sodium 40 MG/0.4 ML SYRINGE SUBCUT (09:22)
--- NOTE | 2022-02-09 09:44 | PHA.PROG ---
Admission Date/Time: February 09, 2022 08:30 Indication: Bone and joint Weight in k.678 kg Adjusted body weight in Kg: [place] body weight in Kg: Obesity Dosing Indication % IBW: Serum Creatinine - Last 168 Hours 02/09/22 04:50 Creatinine 0.61 Estimated CrCl and GFR - Last 168 Hours 02/09/22 04:50 Estim Creat Clear Calc 104.9 Estimated GFR > 60 Vancomycin Loading Dose: 1500mg Current Vancomycin Dosing Regimen: 1000mg Q12H Vancomycin Monitoring using AUC goal of 400 - 600 range with trough as surrogate marker: 465mg/Lhr Date and Time for next Vancomycin Level to be drawn: 02/10/22 @1800 Pharmacist Comments on Vancomycin Plan: 750mg dose given 02/09/22 @0630, added another 750mg dose @ 0945 for total LD of 1500mg. Will continue to monitor. Vancomycin dosing will take advantage of [employer] as a clinical decision support tool that uses Bayesian modeling to calculate individual patient's pharmacokinetic parameters and forecast the patient's drug concentration time course with the target goal AUC 24 range of 400 - 600 mg/L/hr.
[2022-02-09] MEDS: predniSONE 10 MG TABLET 30 MG PO (10:36)
[2022-02-09] MEDS: Sertraline HCL 50 MG TABLET PO (10:37)
[2022-02-09 11:31] LABS: Amphetamine Screen Urine Not Detected (Not Detect); Barbiturates, Urine Not Detected (Not Detect); Benzodiazepines Screen Urine Not Detected (Not Detect); Cannabinoid Screen Urine POSITIVE (Not Detect); Cocaine Screen Urine Not Detected (Not Detect); Fentanyl, urine Not Detected (Not Detect); Opiate Screen Urine Not Detected (Not Detect); Phencyclidine Screen Urine Not Detected (Not Detect)
[2022-02-09 12:15] VITALS: BP 95/63; PULSE 82; O2SAT 95
--- NOTE | 2022-02-09 12:56 | PC.NURSE ---
patient presents to overflow at this time. ambulatory without issue. patient denies any needs at this time, alert and oriented
--- NOTE | 2022-02-09 13:27 | MHC.RECOVRN ---
Met with pt in ED16 this morning after pt called t/w and requested to speak. Pt reports returning to use of cocaine after was spiraling and pulled me in. is currently admitted at [facility] ICU for CHF/sepsis. Pt states we were bringing each other down bad this time. Pt had been using sporadically, however, recently returned to IV use. Pt is motivated to return to recovery and make lifestyle changes if necessary. Regarding , pt states If he keeps using I can't do it anymore. He is draining the life out of me. I've completely neglected myself. Will continue to follow and support pt.
[2022-02-09 17:38] VITALS: BP 101/67; PULSE 60; RESP 12; TEMP 36.3; O2SAT 95
--- NOTE | 2022-02-09 19:15 | PC.NURSE ---
Took report from Jayne to assume care of PT, Pt resting and watching TV, call light in reach.
[2022-02-09] MEDS: Acetaminophen 325 MG TABLET 650 MG PO (20:47)
[2022-02-09] MEDS: vancomycin HCL 1,000 MG in 0.9 % Sodium Chloride 250 ML 270 MG IV (22:01)
[2022-02-09] MEDS: 0.9 % Sodium Chloride Flush 3 ML SYRINGE IVFLUSH (23:56)
[2022-02-10] VITALS: BP 103/62; PULSE 67; RESP 18; TEMP 36.2; O2SAT 94
[2022-02-10] MEDS: Piperacillin Sodium/Tazobactam 3.375 GM in 0.9 % Sodium Chloride 50 ML IV ×2 (05:11→10:32)
[2022-02-10 06:42] VITALS: BP 108/64; PULSE 74; RESP 17; TEMP 36.5; O2SAT 94
[2022-02-10 07:06] LABS: Hematocrit 35.4 % (37.0-47.0); Hemoglobin 11.4 g/dl (12.0-16.0); Mean Corpuscular HGB Conc 32.2 g/dl (31.0-35.0); Mean Corpuscular Hemoglobin 28.6 pg (27.0-33.0); Mean Corpuscular Volume 88.7 fL (80.0-98.0); Mean Platelet Volume 9.2 fL (9.4-12.3); Platelet Count 260 X10*3/uL (160-400); Red Blood Count 3.99 X10*6/uL (4.20-5.50); Red Cell Distribution Width 14.1 % (11.0-16.0); White Blood Count 13.4 X10*3/uL (4.8-10.8)
[2022-02-10 07:18] VITALS: BP 116/71; PULSE 79; RESP 20; TEMP 36.9; O2SAT 95
[2022-02-10 07:25] LABS: Anion Gap 11 (12-20); Blood Urea Nitrogen 10 mg/dL (9-16); Calcium 8.5 mg/dL (8.4-10.2); Carbon Dioxide 29 mmol/L (22-29); Chloride 103 mmol/L (96-108); Creatinine Clr Calc Pharmacy 103.2; Estimated Glomerular Filt Rate > 60; Glucose Random 76 mg/dL (60-115); Potassium 4.1 mmol/L (3.3-5.1); Sodium 139 mmol/L (135-145)
[2022-02-10] MEDS: vancomycin HCL 1,000 MG in 0.9 % Sodium Chloride 250 ML 270 MG IV (08:50)
[2022-02-10] MEDS: Enoxaparin Sodium 40 MG/0.4 ML SYRINGE SUBCUT (08:52)
[2022-02-10] MEDS: predniSONE 10 MG TABLET 30 MG PO (08:52)
[2022-02-10] MEDS: 0.9 % Sodium Chloride Flush 3 ML SYRINGE IVFLUSH ×2 (08:52→15:16)
[2022-02-10] MEDS: Sertraline HCL 50 MG TABLET PO (08:53)
[2022-02-10] MEDS: Morphine Sulfate 4 MG/ML CARTRIDGE IVPUSH ×2 (09:10→16:49)
[2022-02-10 10:59] VITALS: BP 114/63; PULSE 90; RESP 18; TEMP 36.8; O2SAT 95
--- NOTE | 2022-02-10 10:59 | HO.PM.IMPN ---
Subjective Subjective Date of Service: 02/10/22 <RAN Peralta - Last Filed: 02/10/22 11:36> 02/11/22 <Pola Peralta DO - Last Filed: 02/11/22 08:00> Interval History: Seen and examined this morning Follow-up for right hand/arm cellulitis/abscess reporting pain in right hand. erythema increasing and spreading up right arm denies fever/chills <RAN Peralta - Last Filed: 02/10/22 11:36> Review of Systems Review of Systems: Yes all other systems are reviewed and are negative <RAN Peralta - Last Filed: 02/10/22 11:36> Constitutional Constitutional: Denies chills and Denies fever(s) <RAN Peralta - Last Filed: 02/10/22 11:36> Cardiovascular Cardiovascular: Denies chest pain, Denies palpitations and Denies dyspnea <RAN Peralta - Last Filed: 02/10/22 11:36> Respiratory Respiratory: Denies cough and Denies dyspnea <RAN Peralta - Last Filed: 02/10/22 11:36> Gastrointestinal Gastrointestinal: Denies abdominal pain, Denies diarrhea, Denies nausea and Denies vomiting <RAN Peralta Last Filed: 02/10/22 11:36> Endocrine Endocrine: Denies palpitations <RAN Peralta - Last Filed: 02/10/22 11:36> Physical Exam Vital Signs: Vital Signs: Last Vital Signs Temp 98.5 F 02/10/22 07:18 Pulse 79 02/10/22 07:18 Resp 20 02/10/22 07:18 BP 116/71 02/10/22 07:18 Pulse Ox 95 02/10/22 07:18 BMI result Body Mass Index 23.0 <RAN Peralta Last Filed: 02/10/22 11:36> Const: General: cooperative, no acute distress, alert and awake <RAN Peralta Last Filed: 02/10/22 11:36> Nutritional Appearance: average body habitus <RAN Peralta - Last Filed: 02/10/22 11:36> Orientation/consciousness: patient oriented x3 <RAN Peralta - Last Filed: 02/10/22 11:36> Eyes: Pupils: Equal, round and reactive pupils present <RAN Peralta - Last Filed: 02/10/22 11:36> EOM: EOMs intact bilaterally <RAN Peralta - Last Filed: 02/10/22 11:36> Cardio: Jugular venous distension: no JVD <RAN Peralta - Last Filed: 02/10/22 11:36> Rhythm: regular rhythm <RAN Peralta Last Filed: 02/10/22 11:36> Heart sounds: S1 normal heart sound present and S2 normal heart sound present <RAN Peralta - Last Filed: 02/10/22 11:36> GI: Inspection: No Abdominal wall edema <RAN Peralta - Last Filed: 02/10/22 11:36> Palpation (GI): Soft to palpation and nontender <RAN Peralta - Last Filed: 02/10/22 11:36> Skin: Other: <RAN Peralta - Last Filed: 02/10/22 11:36> Neuro: General: patient oriented x3 <RAN Peralta - Last Filed: 02/10/22 11:36> Cranial nerves: Yes Equal, round and reactive pupils present <RAN Peralta - Last Filed: 02/10/22 11:36> Extrem: General: Yes no pedal edema <RAN Peralta - Last Filed: 02/10/22 11:36> Objective Data Active Medications Acetaminophen (Acetaminophen 325 Mg Tablet) 650 mg PO Q6H PRN PRN Reason: Pain, Mild (Pain Scale 1-3) Last Admin: 02/09/22 20:47 Dose: 650 mg Documented by: YANNI Albuterol/Ipratropium (Albuterol/Iprat 2.5/0.5mg 3 Ml Ampul.Neb) 3 ml INHALE Q8H PRN PRN Reason: wheezing Enoxaparin Sodium (Enoxaparin Sodium 40 Mg/0.4 Ml Syringe) 40 mg SUBCUT Q24H [facility] Last Admin: 02/10/22 08:52 Dose: 40 mg Documented by: SOLANGE Vancomycin HCl 1,000 mg/ (Sodium Chloride) 270 mls @ 270 mls/hr IV Q12H [facility] Last Infusion: 02/10/22 09:50 Dose: 0 mls/hr Documented by: SOLANGE Piperacillin Sod/Tazobactam (Sod 3.375 gm/ Sodium Chloride) 50 mls @ 100 mls/hr IV Q6H [facility] Last Admin: 02/10/22 10:32 Dose: 100 mls/hr Documented by: SOLANGE Morphine Sulfate (Morphine Sulfate 4 Mg/Ml Cartridge) 4 mg IVPUSH Q4H PRN; Protocol PRN Reason: Pain, Severe (Pain Scale 7-10) Last Admin: 02/10/22 09:10 Dose: 4 mg Documented by: SOLANGE Ondansetron HCl (Ondansetron Hcl 4 Mg/2 Ml Vial) 4 mg IVPUSH Q8H PRN PRN Reason: Nausea and Vomiting Oxycodone HCl (Oxycodone Hcl Immed Release 5 Mg Tablet) 5 mg PO Q6H PRN PRN Reason: Pain, Severe (Pain Scale 7-10) Pharmacy Consult (Consult Rx Perform Med Rec) 1 each MISCELLANE ONCE PRN PRN Reason: Consult order Pharmacy Consult (Consult Rx Vancomycin Dosing) 1 each MISCELLANE DAILY PRN PRN Reason: Consult order Prednisone (Prednisone 10 Mg Tablet) 30 mg PO DAILY [facility] Last Admin: 02/10/22 08:52 Dose: 30 mg Documented by: SOLANGE Sertraline HCl (Sertraline Hcl 50 Mg Tablet) 50 mg PO DAILY [facility] Last Admin: 02/10/22 08:53 Dose: 50 mg Documented by: SOLANGE Sodium Chloride (0.9 % Sodium Chloride Flush 3 Ml Syringe) 3 ml IVFLUSH QSHIFT [facility] Last Admin: 02/10/22 08:52 Dose: 3 ml Documented by: SOLANGE <RAN Peralta - Last Filed: 02/10/22 11:36> Labs CBC & Chem 7: : 02/11/22 03:39 02/11/22 03:39 <RAN Peralta - Last Filed: 02/10/22 11:36> Labs: Laboratory Results - last 24 hr 02/09/22 02/10/22 02/10/22 11:10 06:08 06:08 MCV 88.7 MCH 28.6 MCHC 32.2 RDW 14.1 Plt Count 260 MPV 9.2 L Absolute Nucleated RBC 0.000 Nucleated RBC % (auto) 0.0 Anion Gap 11 L Estim Creat Clear Calc 103.2 Estimated GFR > 60 Random Glucose 76 Calcium 8.5 Urine Opiates Screen Not Detected Urine Fentanyl Screen Not Detected Ur Barbiturates Screen Not Detected Ur Phencyclidine Scrn Not Detected Ur Amphetamines Screen Not Detected U Benzodiazepines Scrn Not Detected Urine Cocaine Screen Not Detected U Marijuana (THC) Screen POSITIVE H <RAN Peralta - Last Filed: 02/10/22 11:36> Microbiology Microbiology Results: Microbiology 02/09/22 04:50 Blood Culture - Preliminary Blood - Venous No growth after 24 hours. 02/09/22 04:20 Blood Culture - Preliminary Blood - Venous No growth after 24 hours. 02/09/22 09:26 Gram Stain - Final Hand Right <RAN Peralta - Last Filed: 02/10/22 11:36> Assessment and Plan (1) IV drug abuse: Status: Acute <RAN Peralta - Last Filed: 02/10/22 11:36> (2) Cellulitis of arm, right: Status: Acute <RAN Peralta - Last Filed: 02/10/22 11:36> Plan This is a 51 yo F with a PMH of COPD/Asthma overlap syndrome, Pulmonary fibrosis, Allergies, IV cocaine use who presents to the hospital 5 days after injection into hand resulting in cellulitis and likely early abscess. She will be admitted for IV antibiotics with orthopedics consult. Sepsis secondary to Cellulitis /abscess of the right hand/arm r/t injection of IV drugs. erythema and swelling has spread from hand up past the elbow (met sepsis criteria with leukocytosis, RR 22, HR 98) leukocytosis trending down. no severe features s/p I&D in the ED 02/09 wound gram stain with 2+ GPC Continue IV vancomyin and zosyn for now ortho following - do not feel that there is need for any further I&D or washout at this time outpatient DVT study negative for clot BCx negative to date ID consult pending COPD/Asthma overlap syndrome / Pulmonary fibrosis continue her baseline inhalers; replace NF ones IV cocaine use patient reports that she is determined to quit care team following Mood sertraline Full Code DVT pptNavdeep wheeler Attending: dr. Peralta Needs continued inpatient care secondary to significant and worsening cellulitis / abscess in a patient who is immunocompromised secondary to chronic steroid use. At risk to develop sepsis. <RAN Peralta - Last Filed: 02/10/22 11:36> This is a 51 yo F with a PMH of COPD/Asthma overlap syndrome, Pulmonary fibrosis, Allergies, IV cocaine use who presents to the hospital 5 days after injection into hand resulting in cellulitis and likely early abscess. She will be admitted for IV antibiotics with orthopedics consult. Sepsis secondary to Cellulitis /abscess of the right hand/arm r/t injection of IV drugs. erythema and swelling has spread from hand up past the elbow (met sepsis criteria with leukocytosis, RR 22, HR 98) leukocytosis trending down. no severe features s/p I&D in the ED 02/09 wound gram stain with 2+ GPC Continue IV vancomyin and zosyn for now ortho following - do not feel that there is need for any further I&D or washout at this time outpatient DVT study negative for clot BCx negative to date ID consult pending COPD/Asthma overlap syndrome / Pulmonary fibrosis continue her baseline inhalers; replace NF ones IV cocaine use patient reports that she is determined to quit care team following Mood sertraline Full Code DVT Navdeep knott Attending: dr. Peralta Chart reviewed; patient examined. Agree with history and physical and plan as outlined by Ms. Polanco. Needs continued inpatient care secondary to significant and worsening cellulitis / abscess in a patient who is immunocompromised secondary to chronic steroid use. At risk to develop sepsis. <Pola Peralta DO - Last Filed: 02/11/22 08:00> Quality Stroke Does the patient have a stroke diagnosis?: No <RAN Peralta - Last Filed: 02/10/22 11:36> VTE Prior VTE?: No <RAN Peralta - Last Filed: 02/10/22 11:36> VTE Risk Level:: Medical - moderate - high <RAN Peralta - Last Filed: 02/10/22 11:36> VTE Device Contraindication: Treatment Not Indicated <RAN Peralta - Last Filed: 02/10/22 11:36> VTE Drug Contraindication: N/A - Med Ordered <RAN Peralta - Last Filed: 02/10/22 11:36>
[2022-02-10] MEDS: Acetaminophen 325 MG TABLET 650 MG PO (15:15)
[2022-02-10 15:21] VITALS: BP 114/71; PULSE 82; RESP 18; TEMP 37.1; O2SAT 94
--- NOTE | 2022-02-10 15:29 | W.PM.IDCN ---
History of Present Illness Data of Consult Service Date: 02/10/22 Requesting physician: Kathy Polanco Primary Care Provider: Unknown Physician HPI Reason for consult: sepsis,Group A strep She presents with six days right hand swelling and pain starting from cocaine injection site dorsum right hand. She has had chills. She reused needle from self (doesnt share) and goes to tapery. She denies opioid use disorder. She denies Hepatitis C or HIV. She has redness extending up arm as well. Review of Systems Review of Systems: Yes all other systems are reviewed and are negative [facility] Past Medical History Medical History (Updated 02/10/22 @ 15:35 by Neema Haro MD) Allergic rhinitis Asthma Asthma with exacerbation COPD (chronic obstructive pulmonary disease) Group A streptococcal infection Hypothyroid Interstitial lung disease IPF (idiopathic pulmonary fibrosis) Family History Family History Father No problems noted. Mother No problems noted. Maternal Grandmother Stroke Maternal Grandfather Stroke Family/Other Substance abuse Family history: reviewed and not pertinent Surgical History Surgical History History of hemorrhoidectomy History of tubal ligation Social History Social History Household Members: Spouse Housing: Apartment Do you presently have visiting nurse or other home services: No Alcohol intake: never Patient Tobacco Use Status: Former Tobacco user Quit Date: 5 years e-Cigarette/Vaping Use: Never Used Second Hand Smoke Exposure: No Substance Use Type: Crack/Cocaine and Marijuana Advance Directives Date on File: 05/12/21 service: No Current occupational status: unemployed Cognitive needs: No Hearing needs: No Vision needs: No Meds Allergies Allergy/AdvReac Type Severity Reaction Status Date / Time No Known Allergies Allergy Verified 02/08/22 08:39 Active Medications: Current Medications Acetaminophen (Acetaminophen 325 Mg Tablet) 650 mg PO Q6H PRN PRN Reason: Pain, Mild (Pain Scale 1-3) Last Admin: 02/10/22 15:15 Dose: 650 mg Documented by: Albuterol/Ipratropium (Albuterol/Iprat 2.5/0.5mg 3 Ml Ampul.Neb) 3 ml INHALE Q8H PRN PRN Reason: wheezing Enoxaparin Sodium (Enoxaparin Sodium 40 Mg/0.4 Ml Syringe) 40 mg SUBCUT Q24H [facility] Last Admin: 02/10/22 08:52 Dose: 40 mg Documented by: Morphine Sulfate (Morphine Sulfate 4 Mg/Ml Cartridge) 4 mg IVPUSH Q4H PRN; Protocol PRN Reason: Pain, Severe (Pain Scale 7-10) Last Admin: 02/10/22 09:10 Dose: 4 mg Documented by: Ondansetron HCl (Ondansetron Hcl 4 Mg/2 Ml Vial) 4 mg IVPUSH Q8H PRN PRN Reason: Nausea and Vomiting Oxycodone HCl (Oxycodone Hcl Immed Release 5 Mg Tablet) 5 mg PO Q6H PRN PRN Reason: Pain, Severe (Pain Scale 7-10) Pharmacy Consult (Consult Rx Perform Med Rec) 1 each MISCELLANE ONCE PRN PRN Reason: Consult order Pharmacy Consult (Consult Rx Vancomycin Dosing) 1 each MISCELLANE DAILY PRN PRN Reason: Consult order Prednisone (Prednisone 10 Mg Tablet) 30 mg PO DAILY [facility] Last Admin: 02/10/22 08:52 Dose: 30 mg Documented by: Sertraline HCl (Sertraline Hcl 50 Mg Tablet) 50 mg PO DAILY [facility] Last Admin: 02/10/22 08:53 Dose: 50 mg Documented by: Sodium Chloride (0.9 % Sodium Chloride Flush 3 Ml Syringe) 3 ml IVFLUSH QSHIFT [facility] Last Admin: 02/10/22 15:16 Dose: 3 ml Documented by: Home Medications Medication Instructions Recorded Confirmed Last Taken Type albuterol sulfate 90 mcg/actuation 2 puff PO Q6H PRN 02/09/22 02/09/22 Unknown History aerosol inhaler ibuprofen 200 mg tablet (Advil) 400 mg PO Q6H PRN 02/09/22 02/09/22 Unknown History Physical Exam Vital Signs: Vital Signs: Last Vital Signs Temp 98.7 F 02/10/22 15:21 Pulse 82 02/10/22 15:21 Resp 18 02/10/22 15:21 BP 114/71 02/10/22 15:21 Pulse Ox 94 02/10/22 15:21 BMI result Body Mass Index 23.0 Const: General: cooperative HEENT: Head: Yes normal to inspection Mouth: Normal oral and palatal mucosa present Eyes: General: appearance normal, both eyes and all related structures Resp: Effort & Inspection: normal respiratory effort Cardio: Rate: regular rate Rhythm: regular rhythm GI: Palpation (GI): Soft to palpation and nontender Extrem: Shoulder/upper arm images: 1. redness,better 2. redness and swelling,better Hand/finger images: 1. red area injection site Results Labs CBC & Chem 7: 02/10/22 06:08 02/10/22 06:08 Labs: Short CBC 02/10/22 Range/Units 06:08 WBC 13.4 H (4.8-10.8) X10*3/uL Hgb 11.4 L (12.0-16.0) g/dl Hct 35.4 L (37.0-47.0) % Plt Count 260 (160-400) X10*3/uL BMP 02/10/22 06:08 Sodium 139 Potassium 4.1 Chloride 103 Carbon Dioxide 29 BUN 10 Creatinine 0.62 Calcium 8.5 Microbiology Microbiology Results: Microbiology 02/09/22 09:26 Hand Right Gram Stain - Final 02/09/22 09:26 Hand Right Routine Culture - Final Streptococcus pyogenes (Grp A) 02/09/22 04:50 Blood - Venous Blood Culture - Preliminary No growth after 24 hours. 02/09/22 04:20 Blood - Venous Blood Culture - Preliminary No growth after 24 hours. Assessment and Plan (1) Group A streptococcal infection: Status: Acute This is caused by injection IV drug She has improvement Do want control toxin and decrease bacterial burden as well (2) Cellulitis of arm, right: Status: Acute (3) Leukocytosis: Qualifiers: Leukocytosis type: unspecified Qualified Code(s): D72.829 - Elevated white blood cell count, unspecified Status: Acute Plan Would stop Zosyn and Vancomycin IV Clindamycin 600 mg IV every 8 hours decrease bacterial burden and toxin Hand surgery followup Po Clindamycin 300 mg every 8 hours for a week on discharge likely
--- NOTE | 2022-02-10 16:02 | MHC.CM.PN ---
PT REPORTS SHE LIVES WITH HER AND IS COMPLETELY INDEPENDENT SHE DENIES USE OF DME OR HOME SERVICES PT HAS A HCP ON FILE AND REPORTS HER PCP IS KAYDEN BROWN IMM DELIVERED CURRENT DC PLAN IS HOME WITH NO SERVICES TO TRANSPORT
[2022-02-10] MEDS: Clindamycin Phosphate/D5W 600 MG/50 ML PIGGYBACK 100 MG IV (16:41)
--- NOTE | 2022-02-10 17:17 | MHC.RECOVSUP ---
Recovery Support note: This typewriter mechanic checked in with patient for support. Patient reports she is already on the waitlist at [facility] and is interested in pursuing other options for therapy. This typewriter mechanic provided patient with list of outpatient therapy agencies and encouraged her to call a few to see which one can get her in soonest. Discussed recovery coaching with patient. Patient is interested in a referral to a legal recovery specialist and also interested in meeting with a legal recovery specialist while in the hospital. This typewriter mechanic will introduce patient to a legal recovery specialist this shift.
--- NOTE | 2022-02-10 18:53 | PM.EVENT ---
Event Note Date of Service: 02/10/22 Event Note: Patient seen today, packing removed. She continues to have some redness and swelling in the right hand and redness up into the forearm. No fluctulance. She is able to open and close the hand without extreme pain, pulses present. No pain in the wrist. continue with iv abx, elevate and re eval tomorrow
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
[2022-02-10 19:26] VITALS: BP 122/70; PULSE 75; RESP 18; TEMP 36.9; O2SAT 92
[2022-02-11] VITALS (7 sets, daily range): BP systolic 93–121; BP diastolic 44–72; PULSE 60–79; RESP 14–20; TEMP 36–37.1; O2SAT 94–98
[2022-02-11] MEDS: 0.9 % Sodium Chloride Flush 3 ML SYRINGE IVFLUSH ×4 (01:25→23:28)
[2022-02-11] MEDS: Clindamycin Phosphate/D5W 600 MG/50 ML PIGGYBACK 100 MG IV ×4 (01:26→23:28)
[2022-02-11 04:18] LABS: Hematocrit 34.5 % (37.0-47.0); Hemoglobin 11.2 g/dl (12.0-16.0); Mean Corpuscular HGB Conc 32.5 g/dl (31.0-35.0); Mean Corpuscular Hemoglobin 28.1 pg (27.0-33.0); Mean Corpuscular Volume 86.7 fL (80.0-98.0); Platelet Count 264 X10*3/uL (160-400); Red Blood Count 3.98 X10*6/uL (4.20-5.50); Red Cell Distribution Width 13.8 % (11.0-16.0); White Blood Count 12.7 X10*3/uL (4.8-10.8)
[2022-02-11 04:55] LABS: Anion Gap 13 (12-20); Blood Urea Nitrogen 13 mg/dL (9-16); Calcium 8.5 mg/dL (8.4-10.2); Carbon Dioxide 27 mmol/L (22-29); Chloride 101 mmol/L (96-108); Creatinine Clr Calc Pharmacy 110.3; Estimated Glomerular Filt Rate > 60; Glucose Random 81 mg/dL (60-115); Potassium 3.9 mmol/L (3.3-5.1); Sodium 137 mmol/L (135-145)
[2022-02-11] MEDS: predniSONE 10 MG TABLET 30 MG PO (07:53)
[2022-02-11] MEDS: Enoxaparin Sodium 40 MG/0.4 ML SYRINGE SUBCUT (07:54)
[2022-02-11] MEDS: Sertraline HCL 50 MG TABLET PO (07:54)
--- NOTE | 2022-02-11 09:22 | PM.EVENT ---
Event Note Date of Service: 02/11/22 Event Note: spoke with nurse in regards to patient she states patient is feeling better, still has some swelling and redness but less than yesterday. pain has improved. patient was placed on nw abx by dr zuleta yesterday would like to see how she responds to these over the next 12-24 hours and will re-evaluate if worsening symptoms, please contact our team.
--- NOTE | 2022-02-11 11:14 | HO.PM.IMPN ---
Subjective Subjective Date of Service: 02/11/22 <RAN Peralta - Last Filed: 02/11/22 11:26> 02/11/22 <Pola Peralta DO - Last Filed: 02/11/22 15:08> Interval History: seen and examined this morning follow up for right hand/arm cellulitis Pain and swelling improving Denies fever, chills <RAN Peralta - Last Filed: 02/11/22 11:26> Review of Systems Review of Systems: Yes all other systems are reviewed and are negative <RAN Peralta - Last Filed: 02/11/22 11:26> Constitutional Constitutional: Denies chills and Denies fever(s) <RAN Peralta - Last Filed: 02/11/22 11:26> Cardiovascular Cardiovascular: Denies chest pain, Denies palpitations and Denies dyspnea <RAN Peralta - Last Filed: 02/11/22 11:26> Respiratory Respiratory: Denies cough and Denies dyspnea <RAN Peralta - Last Filed: 02/11/22 11:26> Gastrointestinal Gastrointestinal: Denies abdominal pain, Denies nausea and Denies vomiting <RAN Peralta - Last Filed: 02/11/22 11:26> Endocrine Endocrine: Denies palpitations <RAN Peralta - Last Filed: 02/11/22 11:26> Physical Exam Vital Signs: Vital Signs: Last Vital Signs Temp 97.4 F 02/11/22 06:42 Pulse 70 02/11/22 06:42 Resp 18 02/11/22 06:42 BP 106/44 L 02/11/22 06:42 Pulse Ox 96 02/11/22 06:42 BMI result Body Mass Index 23.0 <RAN Peralta - Last Filed: 02/11/22 11:26> Const: General: cooperative, no acute distress, alert and awake <RAN Peralta - Last Filed: 02/11/22 11:26> Nutritional Appearance: average body habitus <RAN Peralta - Last Filed: 02/11/22 11:26> Orientation/consciousness: patient oriented x3 <RAN Peralta Last Filed: 02/11/22 11:26> Eyes: Pupils: Equal, round and reactive pupils present <RAN Peralta Last Filed: 02/11/22 11:26> EOM: EOMs intact bilaterally <RAN Peralta Last Filed: 02/11/22 11:26> Cardio: Jugular venous distension: no JVD <RAN Peralta - Last Filed: 02/11/22 11:26> Rhythm: regular rhythm <RAN Peralta - Last Filed: 02/11/22 11:26> Heart sounds: S1 normal heart sound present and S2 normal heart sound present <RAN Peralta - Last Filed: 02/11/22 11:26> GI: Inspection: No Abdominal wall edema <RAN Peralta Last Filed: 02/11/22 11:26> Palpation (GI): Soft to palpation and nontender <RAN Peralta - Last Filed: 02/11/22 11:26> Skin: Other: right hand/arm swelling and erythema improving. more mobility right hand. good pulses. no fluctuance; packing removed. <RAN Peralta Last Filed: 02/11/22 11:26> Neuro: General: patient oriented x3 <RAN Peralta Last Filed: 02/11/22 11:26> Cranial nerves: Yes Equal, round and reactive pupils present <RAN Peralta - Last Filed: 02/11/22 11:26> Extrem: General: Yes no pedal edema <RAN Peralta - Last Filed: 02/11/22 11:26> Objective Data Active Medications Acetaminophen (Acetaminophen 325 Mg Tablet) 650 mg PO Q6H PRN PRN Reason: Pain, Mild (Pain Scale 1-3) Last Admin: 02/10/22 15:15 Dose: 650 mg Documented by: SOLANGE Albuterol/Ipratropium (Albuterol/Iprat 2.5/0.5mg 3 Ml Ampul.Neb) 3 ml INHALE Q8H PRN PRN Reason: wheezing Enoxaparin Sodium (Enoxaparin Sodium 40 Mg/0.4 Ml Syringe) 40 mg SUBCUT Q24H [facility] Last Admin: 02/11/22 07:54 Dose: 40 mg Documented by: SOLANGE Clindamycin Phosphate (Cleocin) 600 mg in 50 mls @ 100 mls/hr IV Q8H [facility] Last Infusion: 02/11/22 08:24 Dose: 0 mls/hr Documented by: SOLANGE Morphine Sulfate (Morphine Sulfate 4 Mg/Ml Cartridge) 4 mg IVPUSH Q4H PRN; Protocol PRN Reason: Pain, Severe (Pain Scale 7-10) Last Admin: 02/10/22 16:49 Dose: 4 mg Documented by: SOLANGE Ondansetron HCl (Ondansetron Hcl 4 Mg/2 Ml Vial) 4 mg IVPUSH Q8H PRN PRN Reason: Nausea and Vomiting Oxycodone HCl (Oxycodone Hcl Immed Release 5 Mg Tablet) 5 mg PO Q6H PRN PRN Reason: Pain, Severe (Pain Scale 7-10) Pharmacy Consult (Consult Rx Perform Med Rec) 1 each MISCELLANE ONCE PRN PRN Reason: Consult order Pharmacy Consult (Consult Rx Vancomycin Dosing) 1 each MISCELLANE DAILY PRN PRN Reason: Consult order Prednisone (Prednisone 10 Mg Tablet) 30 mg PO DAILY [facility] Last Admin: 02/11/22 07:53 Dose: 30 mg Documented by: SOLANGE Sertraline HCl (Sertraline Hcl 50 Mg Tablet) 50 mg PO DAILY [facility] Last Admin: 02/11/22 07:54 Dose: 50 mg Documented by: SOLANGE Sodium Chloride (0.9 % Sodium Chloride Flush 3 Ml Syringe) 3 ml IVFLUSH QSHIFT [facility] Last Admin: 02/11/22 07:53 Dose: 3 ml Documented by: SOLANGE <RAN Peralta - Last Filed: 02/11/22 11:26> Labs CBC & Chem 7: : 02/11/22 03:39 02/11/22 03:39 <RAN Peralta - Last Filed: 02/11/22 11:26> Labs: Laboratory Results - last 24 hr 02/11/22 02/11/22 03:39 03:39 MCV 86.7 MCH 28.1 MCHC 32.5 RDW 13.8 Plt Count 264 MPV 9.0 L Absolute Nucleated RBC 0.000 Nucleated RBC % (auto) 0.0 Anion Gap 13 Estim Creat Clear Calc 110.3 Estimated GFR > 60 Random Glucose 81 Calcium 8.5 <RAN Peralta - Last Filed: 02/11/22 11:26> Microbiology Microbiology Results: Microbiology 02/09/22 04:50 Blood Culture - Preliminary Blood - Venous No growth after 48 hours. 02/09/22 04:20 Blood Culture - Preliminary Blood - Venous No growth after 48 hours. 02/09/22 09:26 Gram Stain - Final Hand Right Routine Culture - Final Streptococcus pyogenes (Grp A) <RAN Peralta - Last Filed: 02/11/22 11:26> Assessment and Plan (1) Group A streptococcal infection: Status: Acute <RAN Peralta - Last Filed: 02/11/22 11:26> (2) Cellulitis of arm, right: Status: Acute <RAN Peralta - Last Filed: 02/11/22 11:26> (3) IV drug abuse: Status: Acute <RAN Peralta - Last Filed: 02/11/22 11:26> Plan This is a 51 yo F with a PMH of COPD/Asthma overlap syndrome, Pulmonary fibrosis, Allergies, IV cocaine use who presents to the hospital 5 days after injection into hand resulting in cellulitis and likely early abscess. She will be admitted for IV antibiotics with orthopedics consult. Sepsis secondary to Cellulitis /abscess of the right hand/arm r/t injection of IV drugs. erythema and swelling improving (met sepsis criteria initially with leukocytosis, RR 22, HR 98) leukocytosis trending down. no severe features s/p I&D in the ED 02/09 wound gram stain growing strep pyogenes Seen by ID: [email or web address] changed to IV clindamycin 02/10; recommending po Clindamycin 300 q8hrs x 1 week on d/c ortho following - do not feel that there is need for any further I&D or washout at this time outpatient DVT study negative for clot BCx negative to date COPD/Asthma overlap syndrome / Pulmonary fibrosis continue her baseline inhalers; replace NF ones Continue prednisone taper started as outpatient (to go down to 20mg daily on 4/14) IV cocaine use patient reports that she is determined to quit care team following Mood sertraline Full Code DVT aNvdeep knott Attending: dr. Peralta Needs continued inpatient care secondary to significant cellulitis / abscess in a patient who is immunocompromised secondary to chronic steroid use and at risk to develop sepsis. Requires close monitoring as well as IV narcotics for adequate pain control. <RAN Peralta - Last Filed: 02/11/22 11:26> This is a 51 yo F with a PMH of COPD/Asthma overlap syndrome, Pulmonary fibrosis, Allergies, IV cocaine use who presents to the hospital 5 days after injection into hand resulting in cellulitis and likely early abscess. She will be admitted for IV antibiotics with orthopedics consult. Sepsis secondary to Cellulitis /abscess of the right hand/arm r/t injection of IV drugs. erythema and swelling improving (met sepsis criteria initially with leukocytosis, RR 22, HR 98) leukocytosis trending down. no severe features s/p I&D in the ED 02/09 wound gram stain growing strep pyogenes Seen by ID: [email or web address] changed to IV clindamycin 02/10; recommending po Clindamycin 300 q8hrs x 1 week on d/c ortho following - do not feel that there is need for any further I&D or washout at this time outpatient DVT study negative for clot BCx negative to date COPD/Asthma overlap syndrome / Pulmonary fibrosis continue her baseline inhalers; replace NF ones Continue prednisone taper started as outpatient (to go down to 20mg daily on 02/15) IV cocaine use patient reports that she is determined to quit care team following Mood sertraline Full Code DVT Navdeep knott Attending: dr. Peralta Chart reviewed; patient examined. Agree with history physical and plan as outlined by Ms. Polanco Needs continued inpatient care secondary to significant cellulitis / abscess in a patient who is immunocompromised secondary to chronic steroid use and at risk to develop sepsis. Requires close monitoring as well as IV narcotics for adequate pain control. <Pola Peralta DO - Last Filed: 02/11/22 15:08> Quality Stroke Does the patient have a stroke diagnosis?: No <RAN Peralta - Last Filed: 02/11/22 11:26> VTE Prior VTE?: No <RAN Peralta - Last Filed: 02/11/22 11:26> VTE Risk Level:: Medical - moderate - high <RAN Peralta - Last Filed: 02/11/22 11:26> VTE Device Contraindication: Treatment Not Indicated <RAN Peralta - Last Filed: 02/11/22 11:26> VTE Drug Contraindication: N/A - Med Ordered <RAN Peralta - Last Filed: 02/11/22 11:26>
[2022-02-11] MEDS: Acetaminophen 325 MG TABLET 650 MG PO (13:36)
[2022-02-12 04:00] VITALS: BP 99/56; PULSE 63; RESP 14; TEMP 36.4; O2SAT 96
[2022-02-12 06:00] LABS: Hemoglobin 13.2 g/dl (12.0-16.0); Mean Corpuscular HGB Conc 32.2 g/dl (31.0-35.0); Platelet Count 190 X10*3/uL (160-400); Red Blood Count 4.71 X10*6/uL (4.20-5.50); Red Cell Distribution Width 14.1 % (11.0-16.0); White Blood Count 9.8 X10*3/uL (4.8-10.8)
[2022-02-12 06:15] LABS: Anion Gap 16 (12-20); Blood Urea Nitrogen 17 mg/dL (9-16); Calcium 8.9 mg/dL (8.4-10.2); Carbon Dioxide 25 mmol/L (22-29); Chloride 101 mmol/L (96-108); Creatinine Clr Calc Pharmacy 95.5; Estimated Glomerular Filt Rate > 60; Glucose Random 133 mg/dL (60-115); Potassium 3.9 mmol/L (3.3-5.1); Sodium 138 mmol/L (135-145)
[2022-02-12 07:17] VITALS: BP 95/52; PULSE 68; RESP 18; TEMP 36.6; O2SAT 95
[2022-02-12] MEDS: Morphine Sulfate 4 MG/ML CARTRIDGE IVPUSH ×2 (08:25→16:11)
[2022-02-12] MEDS: predniSONE 10 MG TABLET 30 MG PO (08:25)
[2022-02-12] MEDS: 0.9 % Sodium Chloride Flush 3 ML SYRINGE IVFLUSH ×3 (08:25→23:55)
[2022-02-12] MEDS: Sertraline HCL 50 MG TABLET PO (08:25)
[2022-02-12] MEDS: Clindamycin Phosphate/D5W 600 MG/50 ML PIGGYBACK 100 MG IV ×3 (08:26→23:54)
[2022-02-12] MEDS: Enoxaparin Sodium 40 MG/0.4 ML SYRINGE SUBCUT (08:26)
--- NOTE | 2022-02-12 10:01 | HO.PM.IMPN ---
Subjective Subjective Date of Service: 02/17/22 Review of Systems Follow up cellulitis and hand abscess Still with some pain adn worsening redness to right upper arm denies chest pain, sob, nausea Physical Exam Vital Signs: Vital Signs: Last Vital Signs Temp 98 F 02/12/22 07:17 Pulse 68 02/12/22 07:17 Resp 18 02/12/22 07:17 BP 95/52 L 02/12/22 07:17 Pulse Ox 95 02/12/22 07:17 BMI result Body Mass Index 23.0 Appearing in no acute distress lung sounds are clear to auscultation heart regular rate rhythm, clear S1, S2 positive bowel sounds, abdomen is soft, nontender neuro patient is alert x3, no focal deficits Erythema going up right outer arm Dressing to right hand intact, unable to visualize wound Objective Data Active Medications Acetaminophen (Acetaminophen 325 Mg Tablet) 650 mg PO Q6H PRN PRN Reason: Pain, Mild (Pain Scale 1-3) Last Admin: 02/11/22 13:36 Dose: 650 mg Documented by: SOLANGE Albuterol/Ipratropium (Albuterol/Iprat 2.5/0.5mg 3 Ml Ampul.Neb) 3 ml INHALE Q8H PRN PRN Reason: wheezing Enoxaparin Sodium (Enoxaparin Sodium 40 Mg/0.4 Ml Syringe) 40 mg SUBCUT Q24H [facility] Last Admin: 02/12/22 08:26 Dose: 40 mg Documented by: SOLANGE Clindamycin Phosphate (Cleocin) 600 mg in 50 mls @ 100 mls/hr IV Q8H [facility] Last Infusion: 02/12/22 08:56 Dose: 0 mls/hr Documented by: SOLANGE Morphine Sulfate (Morphine Sulfate 4 Mg/Ml Cartridge) 4 mg IVPUSH Q4H PRN; Protocol PRN Reason: Pain, Severe (Pain Scale 7-10) Last Admin: 02/12/22 08:25 Dose: 4 mg Documented by: SOLANGE Ondansetron HCl (Ondansetron Hcl 4 Mg/2 Ml Vial) 4 mg IVPUSH Q8H PRN PRN Reason: Nausea and Vomiting Oxycodone HCl (Oxycodone Hcl Immed Release 5 Mg Tablet) 5 mg PO Q6H PRN PRN Reason: Pain, Severe (Pain Scale 7-10) Pharmacy Consult (Consult Rx Perform Med Rec) 1 each MISCELLANE ONCE PRN PRN Reason: Consult order Pharmacy Consult (Consult Rx Vancomycin Dosing) 1 each MISCELLANE DAILY PRN PRN Reason: Consult order Prednisone (Prednisone 10 Mg Tablet) 30 mg PO DAILY [facility] Last Admin: 02/12/22 08:25 Dose: 30 mg Documented by: SOLANGE Sertraline HCl (Sertraline Hcl 50 Mg Tablet) 50 mg PO DAILY [facility] Last Admin: 02/12/22 08:25 Dose: 50 mg Documented by: SOLANGE Sodium Chloride (0.9 % Sodium Chloride Flush 3 Ml Syringe) 3 ml IVFLUSH QSHIFT [facility] Last Admin: 02/12/22 08:25 Dose: 3 ml Documented by: SOLANGE Labs CBC & Chem 7: 02/12/22 05:45 02/12/22 05:45 Labs: Laboratory Results - last 24 hr 02/12/22 02/12/22 05:45 05:45 MCV 87.0 MCH 28.0 MCHC 32.2 RDW 14.1 Plt Count 190 D MPV 10.0 Absolute Nucleated RBC 0.000 Nucleated RBC % (auto) 0.0 Anion Gap 16 Estim Creat Clear Calc 95.5 Estimated GFR > 60 Random Glucose 133 H Calcium 8.9 Microbiology Microbiology Results: Microbiology 02/09/22 04:50 Blood Culture - Preliminary Blood - Venous No growth after 48 hours. 02/09/22 04:20 Blood Culture - Preliminary Blood - Venous No growth after 48 hours. Assessment and Plan (1) Group A streptococcal infection: Status: Acute (2) Cellulitis of arm, right: Status: Acute (3) IV drug abuse: Plan This is a 51 yo F with a PMH of COPD/Asthma overlap syndrome, Pulmonary fibrosis, Allergies, IV cocaine use who presents to the hospital 5 days after injection into hand resulting in cellulitis and likely early abscess. She will be admitted for IV antibiotics with orthopedics consult. Sepsis secondary to Cellulitis /abscess of the right hand/arm r/t injection of IV drugs. Erythema continuing to go up right arm s/p I&D in the ED 02/09, ortho following no further I&D at this time wound gram stain growing strep pyogenes Seen by ID: [email or web address] changed to IV clindamycin 02/10; recommending po Clindamycin 300 q8hrs x 1 week on d/c outpatient DVT study negative for clot BCx negative to date COPD/Asthma overlap syndrome / Pulmonary fibrosis continue her baseline inhalers Continue prednisone taper started as outpatient (to go down to 20mg daily on 02/15) IV cocaine use patient reports that she is determined to quit care team following Mood sertraline Full Code DVT pptx, Lovenox Attending: dr. Hernandes Needs continued inpatient care secondary to significant cellulitis that is not improving and a change in IV abx may be warranted. Requires close monitoring as well as IV narcotics for adequate pain control. Quality Stroke Does the patient have a stroke diagnosis?: No VTE Prior VTE?: No VTE Risk Level:: Medical - moderate - high VTE Device Contraindication: Treatment Not Indicated VTE Drug Contraindication: N/A - Med Ordered
--- NOTE | 2022-02-12 10:14 | MHC.RECOVRN ---
Met with pt in 373 to check in. Pt reporting doing well, states my hand is much better, I have fingers again. Pt grateful for the time in the hospital in order to arrange supports prior to dc. Pt interested in recovery room rn outpatient, t/w sent referral. Pt reaching out to [facility] to help facilitate therapy in addition to making calls from list provided by [facility]. Pt concerned regarding HCV/HIV risk due to shared syringes, pt requesting testing. Pt denies other questions or concerns at this time. Discussed with Angeles Pinto APRN. Provider notified of pts request for blood test.
--- NOTE | 2022-02-12 10:24 | MHC.CLN ---
NUTRITION NUTRITION CONSULT FOR WOUND. PATIENT WITH CELLULITIS OF RIGHT HAND TO ELBOW. DIET=REGULAR. INTAKE APPEARS TO BE GOOD, 50-100%. NO NEW NUTRITION INTERVENTIONS AT THIS TIME.
[2022-02-12 11:14] VITALS: BP 90/55; PULSE 78; RESP 18; TEMP 36.1; O2SAT 97
--- NOTE | 2022-02-12 12:22 | PM.EVENT ---
Event Note Date of Service: 02/12/22 Event Note: Patient was seen early this morning by Dr. Nuñez to evaluated the patient's right arm and hand. It appears that the patient's hand and wrist pain and swelling has improved she does continue to have some lymphangitis into the forearm but there is no abscess formation. No need for surgical intervention.
--- NOTE | 2022-02-12 14:51 | PM.IDPN ---
Subjective Subjective Date of Service: 02/12/22 Critical Care Time (minutes): 15 Comment: she says hand feels better she has been seen by Hand Surgery Objective Data Labs CBC & Chem 7: 02/12/22 05:45 02/12/22 05:45 Labs: Laboratory Results - last 24 hr 02/12/22 02/12/22 05:45 05:45 WBC 9.8 RBC 4.71 Hgb 13.2 Hct 41.0 MCV 87.0 MCH 28.0 MCHC 32.2 RDW 14.1 Plt Count 190 D MPV 10.0 Absolute Nucleated RBC 0.000 Nucleated RBC % (auto) 0.0 Sodium 138 Potassium 3.9 Chloride 101 Carbon Dioxide 25 Anion Gap 16 BUN 17 H Creatinine 0.67 Estim Creat Clear Calc 95.5 Estimated GFR > 60 Random Glucose 133 H Calcium 8.9 Microbiology Microbiology Results: Microbiology 02/09/22 04:50 Blood - Venous Blood Culture - Preliminary No growth after 48 hours. 02/09/22 04:20 Blood - Venous Blood Culture - Preliminary No growth after 48 hours. 02/09/22 09:26 Hand Right Gram Stain - Final 02/09/22 09:26 Hand Right Routine Culture - Final Streptococcus pyogenes (Grp A) Physical Exam Vital Signs: Vital Signs: Last Vital Signs Temp 97 F 02/12/22 11:14 Pulse 78 02/12/22 11:14 Resp 18 02/12/22 11:14 BP 90/55 L 02/12/22 11:14 Pulse Ox 97 02/12/22 11:14 BMI result Body Mass Index 23.0 Const: General: cooperative Eyes: General: appearance normal, both eyes and all related structures Resp: Effort & Inspection: normal respiratory effort Cardio: Rate: regular rate Rhythm: regular rhythm GI: Palpation (GI): Soft to palpation and nontender Extrem: Other: less redness hand and arm Assessment and Plan Assessment and plan (1) Group A streptococcal infection: Problem details: Hand pain,Group A strep and patient improving post drainage Continue IV Clindamycin and po Clindamycin on discharge 300 tid for a week Status: Acute (2) Cellulitis of arm, right: Status: Acute Time Spent With Patient Time: Total time spent is greater than 50% in coordination of care (as documented) at patient's floor/unit and/or counseling patient:
[2022-02-12 15:14] VITALS: BP 112/64; PULSE 82; RESP 14; TEMP 36.9; O2SAT 96
[2022-02-12 19:08] VITALS: BP 109/67; PULSE 87; RESP 13; TEMP 36.5; O2SAT 93
[2022-02-12 23:29] VITALS: BP 102/59; PULSE 69; RESP 16; TEMP 36; O2SAT 96
[2022-02-13 03:28] VITALS: BP 121/74; PULSE 69; RESP 14; TEMP 36.3; O2SAT 96
[2022-02-13 04:56] LABS: HBS Num1 1.48 mIU/mL (0-7.99); HBc Num1 0.08 S/CO (0.00-0.79); Hepatitis B Core Antibody Nonreactive (Nonreactive); ~HepC Num1 0.08 S/CO (0.00-0.79); ~Hepatitis B Surface Antibody NONREACTIVE (Nonreactive); ~Hepatitis C Antibody Nonreactive (Nonreactive)
[2022-02-13 05:01] LABS: HBsAGNum1 0.13 S/CO (0.00-0.99); HIV AB/AG Nonreactive (Nonreactive); Hepatitis B Surface Antigen Negative (Negative)
[2022-02-13] MEDS: Clindamycin Phosphate/D5W 600 MG/50 ML PIGGYBACK 100 MG IV ×2 (07:16→23:58)
[2022-02-13] MEDS: predniSONE 10 MG TABLET 30 MG PO (07:16)
[2022-02-13] MEDS: 0.9 % Sodium Chloride Flush 3 ML SYRINGE IVFLUSH ×3 (07:17→23:58)
[2022-02-13] MEDS: Enoxaparin Sodium 40 MG/0.4 ML SYRINGE SUBCUT (07:17)
[2022-02-13] MEDS: Sertraline HCL 50 MG TABLET PO (07:17)
[2022-02-13 07:45] VITALS: BP 122/70; PULSE 65; RESP 16; TEMP 36.2; O2SAT 97
[2022-02-13] MEDS: oxyCODONE HCl Immed Release 5 MG TABLET PO (09:52)
--- NOTE | 2022-02-13 10:44 | PM.DS ---
DS: Providers Provider Date of Service: 02/13/22 Date of admission: 02/09/22 08:30 Primary care physician: Unknown Physician Consults: 02/09/22 06:22 Consult to Orthopedics Routine Consulting Provider: Monique Mccord Reason for consultation: R hand cellulitis Has provider been notified: Yes 02/10/22 10:22 Consult to Infectious Diseases Routine Consulting Provider: Neema Haro Reason for consultation: right hand/arm cellulitis/abscess; IV cocaine use Has provider been notified: No DS: Diagnosis Discharge Diagnosis (1) Group A streptococcal infection: Status: Acute (2) Cellulitis of arm, right: Status: Acute DS: Summary Hospital Course Hospital Course: Chief Complaint: R hand pain, swelling This is a 51 year old female with a PMH as outlined below who presents to the ED with complaints of R hand erythema, edema, tenderness and decreased ROM which has been progressively worsening for the last 5 days. She reports that she uses intervenous cocaine and injected herself about 5-6 days ago. She knew immediately that she had missed her vein and in the days since her symptoms have progressively worsened. She went to her PCP's office on the day prior to admission where she was evaluated and started on PO Keflex. She was also sent to the ultrasound to rule out a DVT of the LUE. She states that she went home but her symptoms continued and so she decided to come to the ED. She denies any fevers or chills. In the ED, the patient was ntoed to have significant leukocytosis of 16k. A CT of the hand showed: Swelling along the dorsum of the hand suspicious for cellulitis. Fluid attenuation in this region demonstrates partial peripheral enhancement, especially overlying the third and fourth MCP joints, suggesting phlegmonous change/developing abscess. Subcutaneous edema extends along the forearm, predominantly dorsally. She was given a dose of IV vancomcyin/zosyn. Orthopedics has been notified and she will now be admitted for further treatment. COVID vaccination status: unvaccinated Hospital course: 1. Cellulitis and early abscess of the hand due strep pyogenes realted to intravenous drug injection s/p I and D, culture growing strep pyogenes, initially was on Zosyn and Vancomycin and later evaluated by ID and recommended IV Clindamycin to be change to oral at discharge.. Overall the wound is looking much better and transitioning oral clindalycin 2. COPD/Asthma overlap syndrome / Pulmonary fibrosis continue her baseline inhalers; replace NF ones 3. IV cocaine use--stongly encouraged to stop. sertraline Full Code DVT pptx, Lovenox Time Spent with Patient Time attestation: Total time spent providing and/or coordinating discharge services: Discharge coordination time: Greater than 30 minutes Quality: Safe Use of Opioids Does Pt have an Active Cancer Diagnosis on the Problem List?: No Quality: Stroke Does the patient have a stroke diagnosis?: No Physical Exam Vital Signs: Vital Signs: Last Vital Signs Temp 97.2 F 02/13/22 07:45 Pulse 65 02/13/22 07:45 Resp 16 02/13/22 07:45 BP 122/70 02/13/22 07:45 Pulse Ox 97 02/13/22 07:45 BMI result Body Mass Index 23.0 DS: Data Data Completed and Pending Labs on day of discharge: Laboratory Results - last 24 hr 02/12/22 05:45 Hep Bs Antigen Negative Hep Bs Antibody NONREACTIVE Hep B Core Total Ab Nonreactive Hepatitis C Ab (EIA) Nonreactive HIV 1&2 Ab/P24 Ag 4thGn Nonreactive Preliminary micro results at discharge 02/09/22 04:50 Blood Culture - Preliminary Blood - Venous No growth after 48 hours. 02/09/22 04:20 Blood Culture - Preliminary Blood - Venous No growth after 48 hours. Discharge Plan Discharge Anticipated Discharge Date/Time: 02/14/22 11:55 Patient Disposition: Home, Self-Care Discharge Diagnosis: Cellulitis and abscess of the aright hand Referrals: Physician,Unknown J [Primary Care Provider] - 1 Week Discharge Medications: Continued (DME) AeroEclipse II Nebulizer Misc See Rx Instructions .ROUTE .MEDSUPPLY Qty: 1 0RF Rx Instructions: As directed Xolair 150 mg recon soln 300 mg subcut Q4W 28 Days Qty: 1 12RF Rx Instructions: requires multiple injection sites; do not exceed 150 mg per injection site ibuprofen [Advil] 200 mg Tablet 400 mg PO Q6H PRN (Reason: Pain) 0RF ipratropium-albuterol 0.5 mg-3 mg(2.5 mg base)/3 mL solution for nebulization 3 ml inhalation Q8H PRN (Reason: wheezing) 30 Days Qty: 180 3RF prednisone 10 mg tablet See Rx Instructions PO DAILY 28 Days Qty: 70 0RF Rx Instructions: Take four tabs daily for 7 days, then go down by 1 tab every 7 days, PO daily; No Action omeprazole 20 mg capsule,delayed release(DR/EC) 20 mg PO DAILY 30 Days Qty: 30 1RF albuterol sulfate 90 mcg/actuation HFA aerosol inhaler 2 puff PO Q6H PRN (Reason: wheezing) 30 Days Qty: 8.5 3RF sertraline [Zoloft] 50 mg tablet 50 mg PO DAILY 30 Days Qty: 30 1RF Discharge Orders: Discharge Order (Routine); Ordered 02/14/22 Ordered By: Rudolph Cedeno Diet: advance to usual diet Activity on Discharge: As tolerated Stand Alone Forms: Patient Portal Discharge page Care Plan Goals: full recovery of cellulitis Health Concerns: Cellulitis of the right arm Plan of Treatment: Take Clindamycin as recommended and follow up with your Doctor in a week Assessment: As above Discharge Date/Time: 02/14/22 13:09
[2022-02-13 11:45] VITALS: BP 111/71; PULSE 83; RESP 18; TEMP 36.1; O2SAT 94
--- NOTE | 2022-02-13 12:02 | MHC.CM.PN ---
Addendum entered by Indiana Ansari 02/14/22 11:25: PLAN IS HOME TODAY - SELF CARE Original Note: DC HOME - SELF CARE RN AWARE OF PLAN. IMM 02/12 IN CHART
[2022-02-13] MEDS: Lactulose 20 GM/30 ML SOLUTION 10 GM PO (13:11)
[2022-02-13 15:41] VITALS: BP 105/60; PULSE 74; RESP 16; TEMP 36.5; O2SAT 96
[2022-02-13] MEDS: Clindamycin Phosphate/D5W 600 MG/50 ML PIGGYBACK 50 MG IV (16:12)
[2022-02-13 19:40] VITALS: BP 100/70; PULSE 78; RESP 18; TEMP 36.8; O2SAT 94
[2022-02-13] MEDS: Morphine Sulfate 4 MG/ML CARTRIDGE IVPUSH (20:19)
[2022-02-13 23:26] VITALS: BP 103/57; PULSE 56; RESP 18; TEMP 36; O2SAT 96
[2022-02-14 03:41] VITALS: BP 95/57; PULSE 65; RESP 18; TEMP 36.2; O2SAT 97
[2022-02-14 07:25] VITALS: BP 106/66; PULSE 70; RESP 18; TEMP 36.5; O2SAT 96
[2022-02-14] MEDS: predniSONE 10 MG TABLET 30 MG PO (08:00)
[2022-02-14] MEDS: Sertraline HCL 50 MG TABLET PO (08:26)
[2022-02-14] MEDS: Enoxaparin Sodium 40 MG/0.4 ML SYRINGE SUBCUT (08:27)
[2022-02-14] MEDS: 0.9 % Sodium Chloride Flush 3 ML SYRINGE IVFLUSH (08:28)
[2022-02-14] MEDS: Clindamycin Phosphate/D5W 600 MG/50 ML PIGGYBACK 100 MG IV (08:28)
[2022-02-14 12:00] VITALS: BP 112/71; PULSE 73; RESP 17; TEMP 36.3; O2SAT 95
--- NOTE | 2022-02-27 10:27 | PM.CNOR ---
History of Present Illness HPI Consult date: 02/27/22 Chief complaint: Hand pain swelling erythema Narrative: 51 yo female who presented to the ED after IVDU in the hand. She noticed worsening redness and pain . The had a bedside I&D in the ED, and packing was placed . She was admitted to the medical service and orthopedics was consulted for ortho eval. Review of Systems Review of Systems: [facility] Past Medical History Medical History Allergic rhinitis Asthma Asthma with exacerbation COPD (chronic obstructive pulmonary disease) Group A streptococcal infection Hypothyroid Interstitial lung disease IPF (idiopathic pulmonary fibrosis) IV drug abuse Family History Family History Father No problems noted. Mother No problems noted. Maternal Grandmother Stroke Maternal Grandfather Stroke Family/Other Substance abuse Family history: reviewed and not pertinent Surgical History Surgical History History of hemorrhoidectomy History of tubal ligation Social History Social History Household Members: Spouse Housing: Apartment Do you presently have visiting nurse or other home services: No Alcohol intake: never Patient Tobacco Use Status: Former Tobacco user Quit Date: 5 years e-Cigarette/Vaping Use: Never Used Second Hand Smoke Exposure: No Substance Use Type: Crack/Cocaine and Marijuana Advance Directives Date on File: 05/12/21 service: No Current occupational status: unemployed Cognitive needs: No Hearing needs: No Vision needs: No Meds Allergies Allergy/AdvReac Type Severity Reaction Status Date / Time No Known Allergies Allergy Verified 03/01/22 16:16 Home Medications Medication Instructions Recorded Confirmed Last Taken Type ibuprofen 200 mg tablet (Advil) 400 mg PO Q6H PRN 02/09/22 03/01/22 Unknown History Physical Exam Vital Signs: Vital Signs: Last Vital Signs Temp 97.3 F 02/14/22 12:00 Pulse 73 02/14/22 12:00 Resp 17 02/14/22 12:00 BP 112/71 02/14/22 12:00 Pulse Ox 95 02/14/22 12:00 BMI result Body Mass Index 23.0 Const: General: cooperative, healthy appearing and no acute distress Extrem: Other: Patient seen today, packing removed. She continues to have some redness and swelling in the right hand and redness up into the forearm. No fluctulance. She is able to open and close the hand without extreme pain, pulses present. No pain in the wrist. Results Labs Result Diagrams: 02/12/22 05:45 02/12/22 05:45 Labs: H & H 02/09/22 02/10/22 02/11/22 Range/Units 04:17 06:08 03:39 Hgb 12.0 11.4 L 11.2 L (12.0-16.0) g/dl Hct 37.4 35.4 L 34.5 L (37.0-47.0) % 02/12/22 Range/Units 05:45 Hgb 13.2 (12.0-16.0) g/dl Hct 41.0 (37.0-47.0) % Coagulation 02/09/22 Range/Units 04:17 INR 1.1 (0.9-1.1) All other labs normal. Assessment and Plan (1) Cellulitis of arm, right: Status: Acute Plan continue with iv abx, elevate and re eval tomorrow to determine if surgical intervention is necessary. Procedures Date of Service Date of Service: 02/10/22
== END 2022-02-14 13:09 | disposition home or self-care (01) | DRG 872 ==
LOC: HO.ED 06:23 → HO.EDOVER 08:37 → HO.S3 02-10 05:47
PROVIDERS: Nurse Practitioner Acute Care; Physician Assistant Medical; Admitting Provider Family Medicine; Emergency Provider Emergency Medicine; Visit Provider Internal Medicine
DX: A41.9 Sepsis, unspecified organism (principal); L02.413 Cutaneous abscess of right upper limb; L02.511 Cutaneous abscess of right hand; L03.113 Cellulitis of right upper limb; B95.0 Streptococcus, group A, as the cause of diseases classified elsewhere; F14.10 Cocaine abuse, uncomplicated; J44.9 Chronic obstructive pulmonary disease, unspecified; J84.10 Pulmonary fibrosis, unspecified; F32.9 Major depressive disorder, single episode, unspecified; D72.829 Elevated white blood cell count, unspecified; E03.9 Hypothyroidism, unspecified; Z79.52 Long term (current) use of systemic steroids; Z98.51 Tubal ligation status; Z87.891 Personal history of nicotine dependence; Z79.899 Other long term (current) drug therapy
CPT/HCPCS: 36415; 73201; 80048; 80076; 80307; 83605; 83735; 85025; 85027; 85610; 85730; 86704; 86706; 86803; 87040; 87071; 87147; 87205; 87340; 87389; 87635; 96365; 96375; 99285; J1650; J2270; J2543; J3370; Q9967

== ENCOUNTER 2022-03-08 08:53 | Outpatient (REF) | payer OTHER, SELFPAY ==
--- NOTE | ~2022-03-08 | MM_ITS ---
EXAMINATION: MM SCREENING DIGITAL MAMMOGRAPHY, BILATERAL CLINICAL INFORMATION: Screening. Asymptomatic. The lifetime risk of breast cancer based on the Tyrer-Cuzick Model is 6.9%. COMPARISON: Mammography: August 24, 2011 TECHNIQUE: Digital mammography is performed in craniocaudal and mediolateral oblique views along with computer-aided detection (CAD). FINDINGS: The breasts are heterogeneously dense, which may obscure small masses (ACR BI-RADS breast composition Category c). There are no significant masses, abnormal calcifications, or other abnormalities. MM/MM screening mammo BI IMPRESSION: There are no significant changes from prior study. ASSESSMENT: BI-RADS 1: Negative RECOMMENDATION: Routine annual mammography screening. This patient's information was entered into a reminder system with a target due date for their next mammogram.
== END 2022-03-08 08:54 | disposition home or self-care (01) ==
LOC: HO.MAMMO 08:53
PROVIDERS: PCP Physician Assistant; Visit Provider Physician Assistant
DX: Z12.31 Encounter for screening mammogram for malignant neoplasm of breast (principal)
CPT/HCPCS: 77063; 77067

== ENCOUNTER 2022-03-08 09:50 | Outpatient (REF) | payer OTHER, SELFPAY | END 2022-03-08 09:51 | disposition home or self-care (01) | LOC: HO.MDS 09:50 | PROVIDERS: PCP Physician Assistant; Visit Provider Internal Medicine Pulmonary Disease | DX: J45.50 Severe persistent asthma, uncomplicated (principal) | CPT/HCPCS: 96372; J2357 ==

== ENCOUNTER → 2022-03-15 14:13 | Outpatient (BNVA) | payer OTHER, SELFPAY | PROVIDERS: PCP Physician Assistant; Visit Provider Internal Medicine Pulmonary Disease | DX: J45.50 Severe persistent asthma, uncomplicated (principal); Z91.09 Other allergy status, other than to drugs and biological substances | CPT/HCPCS: 99212 ==

== ENCOUNTER 2022-04-05 09:04 | Outpatient (REF) | payer OTHER, SELFPAY | END 2022-04-05 09:05 | disposition home or self-care (01) | LOC: HO.MDS 09:04 | PROVIDERS: PCP Physician Assistant; Visit Provider Internal Medicine Pulmonary Disease | DX: J45.50 Severe persistent asthma, uncomplicated (principal) | CPT/HCPCS: 96372; J2357 ==

== ENCOUNTER 2022-05-03 08:41 | Outpatient (REF) | payer OTHER, SELFPAY | END 2022-05-03 08:42 | disposition home or self-care (01) | LOC: HO.MDS 08:41 | PROVIDERS: PCP Physician Assistant; Visit Provider Internal Medicine Pulmonary Disease | DX: J45.50 Severe persistent asthma, uncomplicated (principal) | CPT/HCPCS: 96372 ==

== ENCOUNTER 2022-05-08 11:46 | Outpatient (REF) | payer OTHER, SELFPAY ==
--- NOTE | ~2022-05-08 | XR_ITS ---
EXAMINATION: XR CHEST CLINICAL INFORMATION: Asthma COMPARISON: Chest radiograph and chest CT dated 07/23/2021 TECHNIQUE: 2 views of the chest were obtained. FINDINGS: Again seen are chronic bilateral increased lung markings seen throughout the lungs, better characterized on CT which demonstrated chronic interstitial lung disease with bronchiectasis. There is 2 new areas of slightly increased patchy consolidation seen in the posterior basal segment of the left lower lobe and in the right upper lobe which could represent a new superimposed pneumonia/infiltrate. XR/XR chest 2V IMPRESSION: Chronic interstitial disease with 2 areas of slightly increased new opacity in the right upper lobe and left lower lobe.
== END 2022-05-08 11:47 | disposition home or self-care (01) ==
LOC: HO.XRAY 11:46
PROVIDERS: Visit Provider Physician Assistant
DX: J45.909 Unspecified asthma, uncomplicated (principal)
CPT/HCPCS: 71046

== ENCOUNTER 2022-05-31 11:23 | Outpatient (REF) | payer OTHER, SELFPAY | END 2022-05-31 11:24 | disposition home or self-care (01) | LOC: HO.MDS 11:23 | PROVIDERS: Visit Provider Internal Medicine Pulmonary Disease | DX: J45.50 Severe persistent asthma, uncomplicated (principal) | CPT/HCPCS: 96372; J2357 ==

== ENCOUNTER → 2022-06-07 13:40 | Outpatient (BNVA) | payer OTHER, SELFPAY | PROVIDERS: PCP Physician Assistant; Visit Provider Internal Medicine Pulmonary Disease | DX: J44.9 Chronic obstructive pulmonary disease, unspecified (principal); Z91.09 Other allergy status, other than to drugs and biological substances | CPT/HCPCS: 99212 ==

== ENCOUNTER 2022-06-28 08:15 | Outpatient (REF) | payer OTHER, SELFPAY | END 2022-06-28 08:16 | disposition home or self-care (01) | LOC: HO.MDS 08:15 | PROVIDERS: Visit Provider Internal Medicine Pulmonary Disease | DX: J45.50 Severe persistent asthma, uncomplicated (principal) | CPT/HCPCS: 96372; J2357 ==

== ENCOUNTER → 2022-08-07 13:42 | Outpatient (BNVA) | payer OTHER, SELFPAY | PROVIDERS: PCP Physician Assistant; Visit Provider Internal Medicine Pulmonary Disease | DX: J44.9 Chronic obstructive pulmonary disease, unspecified (principal); J45.50 Severe persistent asthma, uncomplicated; J84.10 Pulmonary fibrosis, unspecified; K21.9 Gastro-esophageal reflux disease without esophagitis | CPT/HCPCS: 99212 ==

== ENCOUNTER 2023-01-30 09:08 | Outpatient (REF) | payer OTHER, SELFPAY ==
[2023-01-30 09:36] LABS: Hematocrit 40.5 % (37.0-47.0); Hemoglobin 12.9 g/dl (12.0-16.0); Mean Corpuscular HGB Conc 31.9 g/dl (31.0-35.0); Mean Corpuscular Volume 87.9 fL (80.0-98.0); Mean Platelet Volume 8.7 fL (9.4-12.3); Platelet Count 258 X10*3/uL (160-400); Red Blood Count 4.61 X10*6/uL (4.20-5.50); Red Cell Distribution Width 13.1 % (11.0-16.0); White Blood Count 13.2 X10*3/uL (4.8-10.8)
[2023-01-30 10:09] LABS: Alanine Aminotransferase 12 U/L (0-31); Albumin Level 4.2 g/dL (3.5-5.0); Alkaline Phosphatase 78 U/L (39-117); Anion Gap 13 (12-20); Aspartate Amino Transferase 12 U/L (5-31); Bilirubin Total 0.5 mg/dL (0.0-1.0); Blood Urea Nitrogen 16 mg/dL (9-16); Calcium 9.2 mg/dL (8.4-10.2); Carbon Dioxide 25 mmol/L (22-29); Chloride 106 mmol/L (96-108); Cholesterol 347 mg/dL; Estimated Glomerular Filt Rate > 60; Glucose Fasting 88 mg/dL (60-99); HDL Cholesterol 55 mg/dL; LDL Cholesterol Calculated 247 mg/dl; Potassium 4.2 mmol/L (3.3-5.1); Sodium 140 mmol/L (135-145); Total Protein 6.4 g/dL (6.5-8.0); Triglycerides 229 mg/dL
[2023-01-30 12:13] LABS: Free T4 (Free Thyroxine) 0.78 ng/dL (0.71-1.85)
== END 2023-01-30 09:09 | disposition home or self-care (01) ==
LOC: HO.LAB 09:08
PROVIDERS: PCP Physician Assistant; Visit Provider Physician Assistant
DX: Z13.1 Encounter for screening for diabetes mellitus (principal); E66.09 Other obesity due to excess calories; Z68.30 Body mass index [BMI] 30.0-30.9, adult; E03.9 Hypothyroidism, unspecified
CPT/HCPCS: 36415; 80053; 80061; 84439; 84443; 85027

== ENCOUNTER 2023-02-19 09:18 | Outpatient (REF) | payer OTHER, SELFPAY ==
--- NOTE | ~2023-02-19 | US_ITS ---
EXAMINATION: US ABDOMEN COMPLETE CLINICAL INFORMATION: Right upper quadrant pain. COMPARISON: Ultrasound abdomen 01/03/2009. TECHNIQUE: Real-time imaging of the abdominal viscera. FINDINGS: PANCREAS: A 1.3 cm probable cyst in the body of the pancreas. ABDOMINAL AORTA: The proximal, mid, and distal segments are normal in caliber. INFERIOR VENA CAVA: Visualized portions are normal. LIVER: The liver is normal in size. The liver contour is normal. There is diffuse increased liver parenchymal echogenicity, consistent with infiltrative hepatocellular disease. No focal hepatic lesion. There is no intrahepatic biliary duct dilatation seen. GALLBLADDER: The gallbladder appears contracted without evidence of stones, sludge, wall thickening or pericholecystic fluid. Several gallbladder polyps measuring up to 3 mm. COMMON BILE DUCT: Normal in caliber measuring 0.7 cm in diameter. RIGHT KIDNEY: No hydronephrosis or renal calculi. The kidney measures 10.2 cm in maximum dimension. Benign-appearing 0.7 cm renal cyst no follow-up imaging recommended. LEFT KIDNEY: No hydronephrosis or focal parenchymal lesions. The kidney measures 10.1 cm in maximum dimension. 2 adjacent 3 mm echogenic foci in the lower pole may reflect a small nonobstructing stones. SPLEEN: Normal. The spleen measures 10.4 cm in maximum dimension. FREE FLUID: None. US/US abdomen complete IMPRESSION: * A 1.3 cm probable cyst in the body of the pancreas. Recommend further characterization with contrast-enhanced MR/MRCP. * Several gallbladder polyps measuring up to 3 mm. Recommend 6 month follow-up right upper quadrant ultrasound. * Two 3 mm nonobstructing left lower pole renal stones. * Increased hepatic echogenicity which can be seen in the setting of hepatic steatosis or underlying liver disease.
== END 2023-02-19 09:19 | disposition home or self-care (01) ==
LOC: HO.HMGCX 09:18
PROVIDERS: PCP Physician Assistant; Visit Provider Physician Assistant
DX: K80.20 Calculus of gallbladder without cholecystitis without obstruction (principal); R10.11 Right upper quadrant pain
CPT/HCPCS: 76700

== ENCOUNTER 2023-02-28 10:17 | Outpatient (REF) | payer OTHER, SELFPAY ==
--- NOTE | ~2023-02-28 | CT_ITS ---
EXAMINATION: CT CHEST WITHOUT CONTRAST CLINICAL INFORMATION: Pulmonary fibrosis COMPARISON: Previous chest CT scan most recent from 2020 TECHNIQUE: Multidetector volumetric CT imaging of the chest was done. Axial MIP volume rendering provided. Sagittal and coronal reformatted images were obtained. This CT examination was performed using dose optimization techniques as appropriate, variously including the following: *Automated exposure control *Adjustment of mA and/or kV according to patient size (this includes techniques or standardized protocols for targeted exams where dose is matched to indication/reason for exam; i.e. extremities or head) *Use of iterative reconstruction technique DLP: 123 mGy-cm FINDINGS: LUNGS: There is evidence of patchy areas of increased groundglass attenuation, focal bronchiectasis and increased interstitial markings. This is seen throughout the lungs and both centrally and peripherally. This is gradually increasing compared to previous exams. There may be evidence of mild paraseptal emphysema as well. There is a 5 mm right lower lobe nodule axial image 76 series 8 that is stable. No other pulmonary nodule. No endobronchial or endotracheal lesion. MEDIASTINUM: Small mediastinal lymph nodes. No enlarged lymph nodes. Normal heart size. Normal caliber thoracic aorta. Mild coronary artery calcification. Pulmonary arteries are upper normal in size and artery measuring 3 cm. CORONARY ARTERY CALCIFICATION: Mild PLEURA: There is no pleural effusion. No pleural mass or thickening. AXILLA: No lymphadenopathy. UPPER ABDOMEN: Unremarkable. OSSEOUS STRUCTURES: Mild degenerative changes of the spine. CT/CT chest wo IV con IMPRESSION: Gradual interval increase in interstitial lung disease compared to previous exams. Stable 5 mm right lower lobe nodule. Fleischner guidelines were followed.
== END 2023-02-28 10:18 | disposition home or self-care (01) ==
LOC: HO.CT 10:17
PROVIDERS: PCP Physician Assistant; Visit Provider Internal Medicine Pulmonary Disease
DX: J84.10 Pulmonary fibrosis, unspecified (principal)
CPT/HCPCS: 71250

== ENCOUNTER 2023-03-29 08:01 | Outpatient (REF) | payer OTHER, SELFPAY ==
--- NOTE | ~2023-03-29 | MM_ITS ---
EXAMINATION: MM SCREENING DIGITAL BREAST TOMOSYNTHESIS, BILATERAL CLINICAL INFORMATION: Screening. Asymptomatic. The lifetime risk of breast cancer based on the Tyrer-Cuzick Model is 7%. COMPARISON: Mammography: 03/08/2022, 08/24/2011 TECHNIQUE: Digital breast tomosynthesis is performed in both the craniocaudal and mediolateral oblique views along with computer-aided detection (CAD). Synthesized 2D images are generated from the tomosynthesis. FINDINGS: The breasts are heterogeneously dense, which may obscure small masses (ACR BI-RADS breast composition Category c). There are no significant masses, abnormal calcifications, or other abnormalities. Parenchymal pattern is similar to prior studies. There is no developing density or architectural abnormality. The axilla and skin contours are unremarkable. No significant changes. MM/MM tomosynthesis screening BI IMPRESSION: No mammographic evidence of malignancy. ASSESSMENT: BI-RADS 1: Negative RECOMMENDATION: Routine annual mammography screening. This patient's information was entered into a reminder system with a target due date for their next mammogram.
== END 2023-03-29 08:02 | disposition home or self-care (01) ==
LOC: HO.MAMMO 08:01
PROVIDERS: Visit Provider Physician Assistant
DX: Z12.31 Encounter for screening mammogram for malignant neoplasm of breast (principal)
CPT/HCPCS: 77063; 77067

== ENCOUNTER 2023-04-04 13:14 | Outpatient (REF) | payer OTHER, SELFPAY ==
[2023-04-04 15:03] LABS: Baso%MD 0.9 %; Eos%MD 5.7 %; Hematocrit 40.7 % (37.0-47.0); Hemoglobin 12.9 g/dl (12.0-16.0); IG%MD 0.3 %; Lymph%MD 18.4 %; Mean Corpuscular HGB Conc 31.7 g/dl (31.0-35.0); Mean Corpuscular Hemoglobin 27.3 pg (27.0-33.0); Mean Platelet Volume 9.6 fL (9.4-12.3); Mono%MD 9.2 %; Neut%MD 65.5 %; Platelet Count 270 X10*3/uL (160-400); Red Blood Count 4.73 X10*6/uL (4.20-5.50); Red Cell Distribution Width 13.9 % (11.0-16.0); White Blood Count 9.6 X10*3/uL (4.8-10.8)
[2023-04-04 15:48] LABS: Basophils Abs Manual 0.2 X10*3/uL (0.0-0.2); Basophils Percent Manual 2 % (0-2); Eosinophils Absolute Manual 0.4 X10*3/uL (0.0-0.4); Eosinophils Percent Manual 4 % (0-4); Lymphocytes Absolute Manual 1.8 X10*3/uL (1.2-4.9); Lymphocytes Percent Manual 19 % (20-40); Monocytes Absolute Manual 0.8 X10*3/uL (0.1-1.2); Monocytes Percent Manual 8 % (2-11); Neutrophils Percent Manual 67 % (45-73); Platelet Estimate NORMAL (NORMAL); Platelet Morphology Comment NORMAL; RBC Morphology NORMAL
[2023-04-04 15:49] LABS: Neutrophils Absolute Manual 6.4 X10*3/uL (2.0-8.3)
[2023-04-08 22:03] LABS: Immunoglobulin E 198 kU/L (<OR=114)
== END 2023-04-04 13:15 | disposition home or self-care (01) ==
LOC: HO.LAB 13:14
PROVIDERS: Absent Provider Physician Assistant; PCP Physician Assistant; Visit Provider Internal Medicine
DX: J84.9 Interstitial pulmonary disease, unspecified (principal); J44.9 Chronic obstructive pulmonary disease, unspecified; J45.50 Severe persistent asthma, uncomplicated; J30.9 Allergic rhinitis, unspecified; Z79.899 Other long term (current) drug therapy
CPT/HCPCS: 36415; 82785; 85007; 85027; 99212

== ENCOUNTER 2023-04-18 09:39 | Outpatient (REF) | payer OTHER, SELFPAY ==
--- NOTE | ~2023-04-18 | XR_ITS ---
EXAMINATION: XR CERVICAL SPINE CLINICAL INFORMATION: Cervicalgia. COMPARISON: CT cervical spine 09/19/[address] chest 02/28/2023. TECHNIQUE: 4 views of the cervical spine were obtained. FINDINGS: Significant degenerative changes are present from C5 through T1 with disc space narrowing, endplate sclerosis and osteophyte formation. No prevertebral soft tissue swelling, fractures or subluxations are seen. Interstitial disease is noted at the lung apices, similar to prior CT scan. XR/XR cervical spine 3V IMPRESSION: Degenerative changes from C5 through T1.
--- NOTE | ~2023-04-18 | XR_ITS ---
EXAMINATION: XR LUMBOSACRAL SPINE CLINICAL INFORMATION: Low back pain. COMPARISON: None available. TECHNIQUE: Three views of the lumbosacral spine. FINDINGS: There is a mild scoliosis convex to the left. Minimal spondylitic endplate changes are seen with some mild sclerosis and some mild osteophyte formation most marked at L4-L5. Disc spaces are well preserved. No fractures or subluxations. No bony destructive lesions. XR/XR lumbar spine 2-3V IMPRESSION: Mild degenerative changes and scoliosis as described above.
== END 2023-04-18 09:40 | disposition home or self-care (01) ==
LOC: HO.XRAY 09:39
PROVIDERS: PCP Physician Assistant; Visit Provider Physician Assistant
DX: M54.2 Cervicalgia (principal); M54.50 Low back pain, unspecified
CPT/HCPCS: 72040; 72100

== ENCOUNTER 2023-04-29 07:46 | Outpatient (REF) | payer OTHER, SELFPAY ==
--- NOTE | ~2023-04-29 | MR_ITS ---
EXAMINATION: MR ABDOMEN WITHOUT AND WITH CONTRAST CLINICAL INFORMATION: Pancreatic cyst. COMPARISON: None available. TECHNIQUE: MR abdomen was performed without and with use of 9 mL intravenous Gadavist gadolinium contrast. Postcontrast images are performed in multiphase dynamic sequences. Imaging was performed in 3 planes. MRCP was also performed. FINDINGS: LUNG BASES: Chronic interstitial changes at the lung bases. LIVER, GALLBLADDER, AND BILIARY TREE: The liver is normal in size and smooth in contour. Hepatic steatosis. No focal hepatic lesion or biliary ductal dilatation is present. The common duct measures 5 mm at the alber hepatis. The gallbladder is unremarkable with no evidence of gallbladder wall thickening, or obvious pericholecystic inflammatory changes. PANCREAS: No ductal dilatation. There are few cystic lesions of the pancreas with the largest in the body measuring 1.2 x 1.2 cm. No abnormal enhancement. There is likely communication with the main pancreatic duct. No peripancreatic stranding. SPLEEN: Not enlarged. ADRENAL GLANDS: No adrenal mass. KIDNEYS AND URETERS: The kidneys are and symmetric in size and enhancement. No hydronephrosis. No perinephric stranding. GASTROINTESTINAL TRACT: No bowel obstruction. No ascites or fluid collection. ABDOMINAL WALL: No significant hernia is appreciated. LYMPH NODES: No bulky abdominal lymphadenopathy. VASCULAR: Normal caliber abdominal aorta. MR/MR abdomen wo/w con IMPRESSION: Few cystic lesions of the pancreas likely communicating with the main pancreatic duct. The largest measures 1.2 x 1.2 cm. No abnormal enhancement. 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 Follow-up imaging in 12 months is advised. Hepatic steatosis.
[2023-04-29 11:33] LABS: Alanine Aminotransferase 16 U/L (0-31); Alkaline Phosphatase 84 U/L (39-117); Anion Gap 13 (12-20); Aspartate Amino Transferase 17 U/L (5-31); Bilirubin Total 0.5 mg/dL (0.0-1.0); Blood Urea Nitrogen 15 mg/dL (9-16); Calcium 9.4 mg/dL (8.4-10.2); Carbon Dioxide 25 mmol/L (22-29); Chloride 105 mmol/L (96-108); Cholesterol 327 mg/dL; Estimated Glomerular Filt Rate > 60; Glucose Fasting 83 mg/dL (60-99); HDL Cholesterol 52 mg/dL; LDL Cholesterol Calculated 236 mg/dl; Sodium 139 mmol/L (135-145); Total Protein 6.9 g/dL (6.5-8.0); Triglycerides 199 mg/dL
== END 2023-04-29 07:47 | disposition home or self-care (01) ==
LOC: HO.MRI 07:46
PROVIDERS: PCP Physician Assistant; Visit Provider Physician Assistant
DX: K86.89 Other specified diseases of pancreas (principal); E03.9 Hypothyroidism, unspecified; E78.5 Hyperlipidemia, unspecified
CPT/HCPCS: 36415; 74183; 80053; 80061; 84443; A9585

== ENCOUNTER 2023-05-15 08:42 | Outpatient (REF) | payer OTHER, SELFPAY ==
--- NOTE | ~2023-05-15 | MM_ITS ---
EXAMINATION: BONE DENSITOMETRY CLINICAL INDICATION: Asymptomatic menopausal state. COMPARISON: This is the patient's baseline examination. TECHNIQUE: Using a [employer] DXA System (software version: 13.1) manufactured by [employer], dual-energy x-ray absorptiometry was performed of the lumbar spine and left hip. The images are of good technical quality. Summary results are attached. FINDINGS: LEFT FEMUR, NECK: BMD 0.697 g/cm2, Z-score -2.0, T-score -2.5, osteoporosis. LEFT FEMUR, TOTAL: BMD 0.756 g/cm2, Z-score -1.9, T-score -2.0, osteopenia. AP SPINE L1-L4: BMD 0.950 g/cm2, Z-score -1.9, T-score -1.9, osteopenia. IDENTIFIED RISK FACTORS: Menopause, glucocorticoids (chronic). HISTORY OF FRACTURE: None listed. MEDICATIONS: None listed. MM/XR DEXA axial skeleton IMPRESSION: 1. DIAGNOSIS: Osteoporosis based on the lowest T-score value of -2.5 in the femoral neck applying World Health Organization criteria. 2. 10-YEAR FRACTURE RISK PREDICTION, FRAX: According to the guidelines, FRAX calculation should only be performed on patients in the osteopenia bone density category. Therefore, FRAX was not performed on this patient. 3. Treatment Recommendations: NOF guidelines recommend consideration for treatment in postmenopausal women and men age 50 and older presenting with the following: -A hip or vertebral (clinical or morphometric) fracture. -T-score less than or equal to -2.5 at the femoral neck or spine after appropriate evaluation to exclude secondary causes. -Low bone mass at the hip or spine and a 10-year fracture probability by FRAX of greater than or equal to 3% for hip fracture or greater than or equal to 20% for major osteoporotic fracture based on the [place] adapted WHO algorithm. 4. Other Recommendations: All treatment decisions require clinical judgment and consideration of individual patient factors, including patient preferences, comorbidities, previous drug use, risk factors not captured in the FRAX model (e.g. frailty, falls, vitamin D deficiency, increased bone turnover, interval significant decline in bone density) and possible under or overestimation of fracture risk by FRAX. Additional medical evaluation for secondary cause of low bone mineral density may be appropriate. FUTURE SCAN RECOMMENDATION: People with diagnosed cases of osteoporosis or at high risk for fracture should have regular bone mineral density tests. For patients eligible for Medicare, routine testing is allowed once every 2 years. The testing frequency can be increased to one year for patients who have rapidly progressing disease, those who are receiving or discontinuing medical therapy to restore bone mass, or have additional risk factors.
== END 2023-05-15 08:43 | disposition home or self-care (01) ==
LOC: HO.MAMMO 08:42
PROVIDERS: PCP Physician Assistant; Visit Provider Physician Assistant
DX: Z13.820 Encounter for screening for osteoporosis (principal); Z78.0 Asymptomatic menopausal state; Z79.52 Long term (current) use of systemic steroids
CPT/HCPCS: 77080

== ENCOUNTER 2023-06-03 11:08 | Outpatient (AMB) | payer OTHER, SELFPAY ==
--- NOTE | 2023-06-03 11:09 | MHC.OFFVIS ---
Intake Vital Signs 06/03/23 11:10 Height 5 ft 7 in Weight 181 lb BMI 28.3 BP 120/62 Blood Pressure Location Lt brachial Position Standing Pulse 95 Pulse Source Pulse Oximeter Pulse Oximetry (%) 101 H Oxygen Delivery Method Room Air Intake Visit Reasons: Asthma Intake Note: pt is here for follow up and states she is feeling okay, and had lab work, Allergies No Known Allergies Allergy (Verified 06/03/23 12:04) Medication List - Last Reconciled 06/03/23 by Danyell Wagner MD albuterol sulfate 90 mcg/actuation 2 puffs PO Q6H PRN alendronate (Fosamax) 70 mg PO QWEEK 12 weeks atorvastatin 20 mg PO DAILY 30 days calcium carbonate (Oyster Shell Calcium) 500 mg PO BID 90 days cholecalciferol (vitamin D3) 50 mcg PO DAILY 90 days hydroxyzine HCl 25 mg PO BID PRN 30 days ibuprofen (Advil) 400 mg PO Q6H PRN ipratropium-albuterol 0.5 mg-3 mg(2.5 mg base)/3 mL 3 mL inhalation Q8H PRN levothyroxine 50 mcg PO DAILY 30 days metronidazole 0.75% 1 appl topical DAILY 30 days montelukast 10 mg PO DAILY 90 days nebulizers (AeroEclipse II Nebulizer) As directed nystatin mL PO omeprazole 20 mg PO DAILY 30 days prednisone 5 mg PO DAILY sertraline (Zoloft) 50 mg PO DAILY 90 days tizanidine 2 mg PO TID 7 days umeclidinium-vilanterol 62.5-25 mcg/actuation (Anoro Ellipta) 1 inh inhalation DAILY 30 days Do you need a note to return to daycare/school/sports/work: No HPI Asthma HPI Details 53 YEARS OLD FEMALE WITH INTERSTITIAL LUNG DISEASE/COPD, COMES FOR FOLLOW-UP. CLAIMS THAT HER BREATHING IS IMPROVED AND DEFINITELY BETTER THAN BEFORE. SHE HAS MILD INTERMITTENT. COUGH BUT NO ATTACKS OF WHEEZING SHE GETS SHORT OF BREATH ON MODERATE AMOUNT OF EXERTION BUT NOT AT REST. CURRENTLY TAKING PREDNISONE 5 MG A DAY. ALSO USES IPRATROPIUM-ALBUTEROL NEBULIZER Q 8 HOURS P.R.N.. SHE HAD PULMONARY FUNCTION TEST RECENTLY AT [facility], I DO NOT HAVE THE REPORT . WE WILL TRY TO GET COPY OF THE PULMONARY FUNCTION TEST. [facility] Medical History Allergic rhinitis Asthma Asthma with exacerbation COPD (chronic obstructive pulmonary disease) Group A streptococcal infection Hypothyroid Interstitial lung disease IPF (idiopathic pulmonary fibrosis) IV drug abuse Surgical History History of hemorrhoidectomy History of tubal ligation Family History Father No problems noted. Mother No problems noted. Maternal Grandmother Stroke Maternal Grandfather Stroke Family/Other Substance abuse Social History Household Members: Spouse Housing: Apartment Do you presently have visiting nurse or other home services: No Alcohol intake: never Patient Tobacco Use Status: Former Tobacco user Quit Date: 5 years e-Cigarette/Vaping Use: Never Used Second Hand Smoke Exposure: No Substance Use Type: Crack/Cocaine and Marijuana Advance Directives Date on File: 05/12/21 service: No Current occupational status: unemployed Cognitive needs: No Hearing needs: No Vision needs: No Review of Systems Const All systems reviewed & are unremarkable except as noted in HPI and below Eyes Reports no additional complaints ENT Reports nasal congestion Card Denies chest pain, Denies irregular heart rhythm and Denies leg edema Resp Reports as per HPI and Reports wheezing GI Reports no additional complaints Reports no additional complaints Musc Reports myalgias Skin/Breast Reports system reviewed and no additional complaints, except as documented Neuro Reports no additional complaints Psych Reports anxiety and Reports depression (Mild being treated) Endo Reports no additional complaints Dane/Lymph Reports no additional complaints Aller/Immun Reports seasonal rhinorrhea and Reports wheezing Physical Exam Vital Signs: Last Vital Signs Pulse 95 06/03/23 11:10 BP 120/62 06/03/23 11:10 Pulse Ox 101 H 06/03/23 11:10 Oxygen Delivery Method Room Air 06/03/23 11:10 BMI result Body Mass Index 28.3 Const Other: Face is round with flushing of the cheeks., General: comfortable, no acute distress, alert and awake Orientation/consciousness: patient oriented x3 HEENT Head: Yes normal to inspection General nose exam: No nasal polyps present and No nasal discharge present Face and sinus: Yes sinuses nontender Mouth: oropharynx normal Throat: Yes posterior oropharynx normal Eyes General: appearance normal, both eyes and all related structures Neck Neck: Yes normal visual inspection, Yes no lymphadenopathy, Yes trachea midline and Yes no JVD Thyroid: Thyroid normal Chest Chest palpation & inspection: normal inspection of the chest, normal palpation of entire chest wall and no tenderness Resp Other: Percussion note is resonant Breath sounds are distant with prolonged expiratory phase.. Only a few inspiratory Creps over the basilar areas, no wheezes are heard. Cardio Palpation: normal PMI Rate: regular rate Rhythm: regular rhythm Heart sounds: no gallops and no murmurs GI Palpation (GI): Soft to palpation, nontender, No hepatosplenomegaly present and no masses Auscultation: normal bowel sounds Back/Spine/Pelvis Thoracic/Lumbar Spine: thoracic and lumbar spine normal to inspection Skin General skin exam: no rashes or lesions noted Neuro General: patient oriented x3 and no focal motor deficits Cranial nerves: Yes CN's II-XII intact bilaterally Extrem General: Yes normal to inspection, Yes no clubbing, cyanosis or edema and Yes no calf tenderness Psych Appearance: grossly normal and well kempt Speech and movement: Normal speech and movement present Assessment & Plan Assessment & Plan (1) Interstitial lung disease: Comment: PATIENT HAS CHRONIC INTERSTITIAL LUNG DISEASE, MOST LIKELY ON BASIS OF HYPERSENSITIVITY PNEUMONITIS. Last CT scan on 02/28 has shown changes of chronic fibrosis with honeycombing in the peripheral areas. TX: Prednisone 5 mg daily to continue at this time. Code(s): J84.9 - Interstitial pulmonary disease, unspecified (2) Asthma-COPD overlap syndrome: Comment: SHE HAS A LONGSTANDING HISTORY OF ASTHMA/COPD WHICH SEEMS TO BE ACTIVE AT PRESENT. SHE DOES NOT TOLERATE INHALED STEROIDS. TX : CONTINUE ANORO ELLIPTA 1 INHALATION DAILY USE [employer] (acquired by [employer]) UP TO 3 TIMES A DAY. ALBUTEROL HFA 2 PUFFS Q 4-6 HOURS P.R.N. WHEN OUTDOORS. ALSO CONTINUE SINGULAIR 10 MG DAILY. IGE level 198 ( slightly increased ) EIOSINOPHIL s 4 % I do not think she has any convincing need for biologic treatment. Code(s): J44.9 - Chronic obstructive pulmonary disease, unspecified (3) Allergic rhinitis: Comment: She has chronic mild allergic rhinitis which is controlled at present, She cannot use nasal steroids. Singulair 10 mg daily will be CONTINUED. Code(s): J30.9 - Allergic rhinitis, unspecified Coding Level of Care Code Est Pt Level 3 (28247) Diagnoses Interstitial lung disease J84.9 Asthma-COPD overlap syndrome J44.9 Allergic rhinitis J30.9
[2023-06-03 11:10] VITALS: BP 120/62; PULSE 95; O2SAT 101; BMI 28.3
== END 2023-06-03 11:27 | disposition home or self-care (01) ==
PROVIDERS: PCP Physician Assistant; Visit Provider Internal Medicine
DX: J84.9 Interstitial pulmonary disease, unspecified (principal); J44.9 Chronic obstructive pulmonary disease, unspecified; J30.9 Allergic rhinitis, unspecified
CPT/HCPCS: 99213

== ENCOUNTER → 2023-06-03 11:08 | Outpatient (BNVA) | payer OTHER, SELFPAY | PROVIDERS: PCP Physician Assistant; Visit Provider Internal Medicine | DX: J84.9 Interstitial pulmonary disease, unspecified (principal); J44.9 Chronic obstructive pulmonary disease, unspecified; J30.9 Allergic rhinitis, unspecified | CPT/HCPCS: 99212 ==

== ENCOUNTER 2023-06-20 12:00 | Outpatient (RCR) | payer OTHER, SELFPAY ==
--- NOTE | 2023-05-30 10:14 | MHC.PT.EP ---
[facility] Office [place] Office [place] Office [address] [phone] F: [phone] F: [phone] F: [phone] F: [phone] Physical Therapy Plan of Care Date of Evaluation: Date of Surgery: N/A Diagnosis: Cervicalgia Low back pain, unspecified Assessment: Pt is a pleasant 53yo F who presents to PT with low back pain and neck pain. Pt presents to PT with current impairments in pain, decreased lumbar ROM, decreased cervical ROM, soft tissue restrictions, decreased core stabilization, decreased hip/glute strength, and impaired posture. She is limited functionally by rotation, prolonged sitting, and prolonged standing. She is an excellent candidate for skilled PT in order to address current impairments to facilitate return to PLOF. She is recommended to be seen 2x/week for 4 weeks and will be reassessed at that time. 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 Manual therapy to restore motion and function. Therapeutic exercise to improve strength and flexibility. Neuromuscular re-education for posture and balance. Therapeutic activities to return to functional activities of daily living. Electronically signed by: Nasra Up, PT, DPT Please sign and return to therapist. Thank you for your referral.
--- NOTE | 2023-06-21 11:19 | MHC.PT.DC ---
[facility] [place] Office [place] Office [place] Office [address] Dayan Calzada [address] [phone] F: [phone] F: [phone] F: [phone] F: [phone] Physical Therapy Discharge Report Diagnosis: Cervicalgia Low back pain, unspecified Date of Surgery: N/A Date of Evaluation: 05/28/23 Date of Discharge: 06/21/23 Treatments to Date: 8 Cancellations to Date: No Shows to Date: Discharge Status: Achieved Goals Improved Function Independent with HEP Discharge Summary: Pt was seen for skilled PT from 05/28/23-06/20/23. She made good progress since SOC. She had an overall decrease in pain. She met her STGs and LTGs. She is I with HEP. She is being D/C from skilled PT at this time. Electronically signed by: Nasra Up, PT, DPT Please sign and return to therapist. Thank you for your referral.
== END 2023-06-21 11:19 | disposition home or self-care (01) ==
LOC: HO.PT 12:00
PROVIDERS: PCP Physician Assistant; Visit Provider Physician Assistant
DX: M54.2 Cervicalgia (principal); M54.50 Low back pain, unspecified
CPT/HCPCS: 97110; 97162; 97530

== ENCOUNTER → 2023-06-24 08:41 | Outpatient (BNVA) | payer OTHER, SELFPAY | PROVIDERS: PCP Physician Assistant; Visit Provider Nurse Practitioner Family ==

== ENCOUNTER 2023-09-02 10:08 | Outpatient (AMB) | payer OTHER, SELFPAY ==
--- NOTE | 2023-09-02 10:10 | A.OFFPC_ITS ---
Vital Signs 09/02/23 10:11 Height 5 ft 7 in Weight 187 lb 8 oz BMI 29.4 BP 110/62 Blood Pressure Location Lt brachial Position Sitting Pulse 88 Pulse Source Pulse Oximeter Pulse Oximetry (%) 94 Oxygen Delivery Method Room Air Intake Visit Reasons: Follow-up hyperlipidemia Intake Note: Patient is here to follow up on hyperlipidemia. 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 Party Planner: Not Required per policy Accompanied by: Self / Same As Patient Allergies No Known Allergies Allergy (Verified 09/02/23 10:22) Medication List - Last Reconciled 09/02/23 by Eric De La Rosa PA-C albuterol sulfate 90 mcg/actuation 2 puffs PO Q6H PRN alendronate (Fosamax) 70 mg PO QWEEK 12 weeks atorvastatin 20 mg PO DAILY 90 days bisacodyl (Dulcolax (bisacodyl)) 10 mg (2 x 5 mg) PO ONCE 1 day calcium carbonate (Oyster Shell Calcium) 500 mg PO BID 90 days cholecalciferol (vitamin D3) 50 mcg PO DAILY 90 days hydroxyzine HCl 25 mg PO BID PRN 30 days ibuprofen 600 mg PO TID PRN 14 days ipratropium-albuterol 0.5 mg-3 mg(2.5 mg base)/3 mL 3 mL inhalation Q8H PRN levothyroxine 50 mcg PO DAILY 30 days metronidazole 0.75% 1 appl topical DAILY 30 days montelukast 10 mg PO DAILY 90 days nebulizers (AeroEclipse II Nebulizer) As directed nystatin mL PO omeprazole 20 mg PO DAILY 30 days polyethylene glycol 3350 (Miralax) 238 grams PO ONCE polyethylene glycol 3350 (Miralax) 17 grams PO DAILY sertraline (Zoloft) 50 mg PO DAILY 90 days umeclidinium-vilanterol 62.5-25 mcg/actuation (Anoro Ellipta) 1 inh inhalation DAILY 30 days Tobacco use date assessed: 09/02/23 Dental Screening Dental Screen Date: 09/02/23 Did you have a dental visit in the last 12 months?: Yes Did you have a dental problem in the last 6 months where you did not have access to dental care?: No Was dental information given to patient?: Patient has dentist HPI Follow-up hyperlipidemia HPI Details Patient is a 53-year-old female here today for a follow-up visit.? Patient has a past medical history significant for major depression disorder, anxiety,? h/o IV drug use disorder, asthma. Concern--> reports she is concerned about coronary artery disease. She does have elevated cholesterol and has a past history of years of drug abuse. She does have shortness of breath which is likely due to her interstitial lung disease though would like her heart checked out. Of no will not be able to tolerate walking on a treadmill thus will try for nuclear stress test. .. Asthma:? Followed by pulmonology Here in [place] the would like to transfer care to [facility] pulmonology.? She has been placed on a new inhaler (anoro) which she feels has stabilized her pulmonary symptoms.? .. History of polysubstance abuse: Has been sober now for over a year. I congratulated her on this.!!.? . .. Hypothyroidism: Most recent TSH has been normal. She continues on levothyroxine 50 mcg. .. Hyperlipidemia: Noted very elevated total cholesterol and LDL a most recent fasting labs. She has started statin therapy and reports no side effects. [facility] Medical History Allergic rhinitis Asthma Asthma with exacerbation COPD (chronic obstructive pulmonary disease) Group A streptococcal infection Hypothyroid Interstitial lung disease IPF (idiopathic pulmonary fibrosis) IV drug abuse Surgical History History of hemorrhoidectomy History of tubal ligation Family History Father No problems noted. Mother No problems noted. Maternal Grandmother Stroke Maternal Grandfather Stroke Family/Other Substance abuse Social History Household Members: Spouse Housing: Apartment Do you presently have visiting nurse or other home services: No Alcohol intake: never Patient Tobacco Use Status: Former Tobacco user Quit Date: 5 years e-Cigarette/Vaping Use: Never Used Second Hand Smoke Exposure: No Substance Use Type: Crack/Cocaine and Marijuana Advance Directives Date on File: 05/12/21 service: No Current occupational status: unemployed Cognitive needs: No Hearing needs: No Vision needs: No Questionnaire Thrive Questionnaire Date Thrive assessed: 01/30/23 APOLLO-7 AMB Questionnaire APOLLO-7 Date APOLLO - 7 assessed: 01/30/23 Source: Developed by Drs. Shay Fernando, Janette Vincent, Matthieu Bello and colleagues, with an educational nayana from [employer]. Review of Systems Const Denies headache(s) Eyes Denies loss of vision ENT Denies vertigo, Denies dizziness, Denies headache(s) and Denies sore throat Card Denies chest pain, Denies leg edema, Denies lightheadedness and Reports dyspnea on exertion Resp Reports cough, Denies hemoptysis, Reports dyspnea on exertion and Reports wheezing GI Denies abdominal pain, Denies melena, Denies constipation, Denies diarrhea and Denies vomiting Denies urinary frequency, Denies dysuria and Denies urinary urgency Musc Denies arthralgias, Denies joint swelling, Denies numbness and Denies tingling Neuro Denies Abnormal speech present, Denies behavioral changes, Denies vertigo, Denies dizziness, Denies headache(s), Denies loss of vision, Denies memory loss, Denies numbness and Denies tingling Psych Denies anxiety, Denies behavioral changes, Denies depression, Denies memory loss and Denies panic attacks Dane/Lymph Denies easy bleeding and Denies easy bruising Aller/Immun Reports wheezing Physical exam (Primary Care) Vital Signs: Last Vital Signs Pulse 88 09/02/23 10:11 BP 110/62 09/02/23 10:11 Pulse Ox 94 09/02/23 10:11 Oxygen Delivery Method Room Air 09/02/23 10:11 BMI result Body Mass Index 29.4 Tobacco/Smoking Status: Tobacco use Status Tobacco use date assessed 09/02/23 09/02/23 10:11 Patient Tobacco Use Status Former Tobacco user 09/02/23 10:11 e-Cigarette/Vaping Use Never Used 09/02/23 10:11 Thrive Assessment: Date of Thrive Assessment Date Thrive assessed 01/30/23 09/02/23 10:11 Const General: healthy appearing, no acute distress, alert and awake Nutritional Appearance: well nourished Orientation/consciousness: oriented to person, oriented to place and oriented to time HENMT Ears: TM's normal bilaterally General nose exam: Normal nasal mucous membranes and turbinates present Eyes Conjunctivae: conjunctivae normal Sclerae: sclerae normal Pupils: Equal, round and reactive pupils present Neck Neck: Yes no lymphadenopathy and Yes no JVD Thyroid: Thyroid normal Carotids: no bruits Resp Effort & Inspection: normal respiratory effort and not tachypneic Auscultation: no crackles, no rales, no rhonchi and wheezes Cardio Rate: regular rate Rhythm: regular rhythm Heart sounds: no murmurs and normal S1 and S2 GI Palpation (GI): Soft to palpation, nontender, no hepatomegaly and no splenomegaly Auscultation: normal bowel sounds Skin General skin exam: no rashes or lesions noted and dry skin Neuro General: oriented to person, oriented to place and oriented to time Cranial nerves: Yes Equal, round and reactive pupils present Speech: No Abnormal speech present Gait exam (Neuro): Normal gait present Motor exam (neuro): no tremor noted Extrem Right upper extremity: full ROM Left upper extremity: full ROM Right lower extremity: full ROM; no edema Left lower extremity: full ROM; no edema Psych Mental Status: mental status grossly normal Speech and movement: Normal speech and movement present Affect: normal affect Attitude: cooperative Thought process: Normal thought process present Office Procedures Flu Questionnaire Does the patient have a severe egg allergy?: No Does the patient have severe life threatening allergies?: No Does the patient have a fever or illness today?: No Has the patient ever had Guillain-[place] Syndrome?: No Has the patient ever had any past reaction to a flu shot?: No Immunizations flu vacc [id number] 6mos up(PF) 60 mcg(15 mcgx4)/0.5 mL IM syringe Performing Provider: Eric De La Rosa PA-C [facility] Administered by: Leona Salazar on 09/02/23 10:37 Dose Route Admin Location Dispensed Lot Number Expiration Date 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 Most likely related to her pulmonary fibrosis though she is concerned about her heart. In the setting of very elevated total cholesterol and LDL and previous polysubstance use disorder she does risk for coronary artery disease. Will send for nuclear stress test (2) HLD (hyperlipidemia): Code(s): E78.5 - Hyperlipidemia, unspecified Qualifiers: Hyperlipidemia type: mixed hyperlipidemia Qualified Code(s): E78.2 - Mixed hyperlipidemia Plan: Noted very elevated total cholesterol and LDL. Patient willing to start cholesterol medication. Will recheck fasting cholesterol 4 months to assure appropriate goal LDL below 160 (3) Interstitial lung disease: Comment: PATIENT HAS CHRONIC INTERSTITIAL LUNG DISEASE, MOST LIKELY ON BASIS OF HYPERSENSITIVITY PNEUMONITIS. Last CT scan on 02/28 has shown changes of chronic fibrosis with honeycombing in the peripheral areas. TX: Prednisone 5 mg daily to continue at this time. Code(s): J84.9 - Interstitial pulmonary disease, unspecified Plan: Continues to follow pulmonology. Continues on Anoro which has drastically helped her pulmonary function. Does still use prednisone on a daily basis. Orders: Orders Influenza [id number] Immunization Today Z23 - Encounter for immunization TSH reflex Free T4 Today E03.9 - Hypothyroidism, unspecified CA lexiscan stress w derek Today R06.02 - Shortness of breath NM cardiolite stress test Today R06.02 - Shortness of breath Medications: New azelaic acid 15% (Finacea) 1 appl topical BID 30 days 50 grams 2RF L71.9 - Rosacea, unspecified Changed From levothyroxine 50 mcg PO DAILY 30 days 30 tabs 3RF E03.9 - Hypothyroidism, unspecified To levothyroxine 50 mcg PO DAILY 90 days 90 tabs 2RF E03.9 - Hypothyroidism, unspecified Coding Level of Care Code Est Pt Level 4 (98451) Diagnoses SOB (shortness of breath) R06.02 Mixed hyperlipidemia E78.2 Hyperlipidemia type: mixed hyperlipidemia Interstitial lung disease J84.9
[2023-09-02 10:11] VITALS: BP 110/62; PULSE 88; O2SAT 94; BMI 29.4
== END 2023-09-02 11:15 | disposition home or self-care (01) ==
PROVIDERS: PCP Physician Assistant; Visit Provider Physician Assistant
DX: R06.02 Shortness of breath (principal); E78.2 Mixed hyperlipidemia; J84.9 Interstitial pulmonary disease, unspecified; Z23 Encounter for immunization
CPT/HCPCS: 90471; 90686; 99214

== ENCOUNTER 2023-09-09 09:50 | Outpatient (REF) | payer OTHER, SELFPAY ==
[2023-09-09 10:20] LABS: Hematocrit 39.3 % (37.0-47.0); Hemoglobin 12.8 g/dl (12.0-16.0); Mean Corpuscular HGB Conc 32.6 g/dl (31.0-35.0); Mean Corpuscular Hemoglobin 28.3 pg (27.0-33.0); Mean Corpuscular Volume 86.8 fL (80.0-98.0); Mean Platelet Volume 8.8 fL (9.4-12.3); Platelet Count 198 X10*3/uL (160-400); Red Blood Count 4.53 X10*6/uL (4.20-5.50); White Blood Count 9.5 X10*3/uL (4.8-10.8)
[2023-09-09 10:58] LABS: Alanine Aminotransferase 26 U/L (0-31); Albumin Level 4.1 g/dL (3.5-5.0); Alkaline Phosphatase 96 U/L (39-117); Anion Gap 12 (12-20); Aspartate Amino Transferase 23 U/L (5-31); Bilirubin Total 0.3 mg/dL (0.0-1.0); Blood Urea Nitrogen 16 mg/dL (9-16); Calcium 9.4 mg/dL (8.4-10.2); Carbon Dioxide 24 mmol/L (22-29); Chloride 107 mmol/L (96-108); Cholesterol 220 mg/dL (<200); Estimated Glomerular Filt Rate > 60; Glucose Fasting 104 mg/dL (60-99); HDL Cholesterol 41 mg/dL (>40); LDL Cholesterol Calculated 138 mg/dL (<100); Sodium 139 mmol/L (135-145); Total Protein 7.1 g/dL (6.5-8.0); Triglycerides 206 mg/dL (<150)
[2023-09-09 11:08] LABS: TSH reflex Free T4 4.22 uIU/mL (0.32-4.0)
[2023-09-09 11:18] LABS: Vitamin B12 554 pg/mL (200-900)
[2023-09-09 11:32] LABS: Folate 8.8 ng/mL (> or = 4.0)
[2023-09-09 11:41] LABS: Free T4 (Free Thyroxine) 0.76 ng/dL (0.71-1.85)
== END 2023-09-09 09:51 | disposition home or self-care (01) ==
LOC: HO.LAB 09:50
PROVIDERS: PCP Physician Assistant; Visit Provider Physician Assistant
DX: E78.2 Mixed hyperlipidemia (principal); E03.9 Hypothyroidism, unspecified; E53.8 Deficiency of other specified B group vitamins; R53.83 Other fatigue
CPT/HCPCS: 36415; 80053; 80061; 82306; 82607; 82746; 84439; 84443; 85027

== ENCOUNTER → 2023-10-14 | Outpatient (REF) | payer OTHER, SELFPAY ==
[2023-10-14 09:12] VITALS: PULSE 95; RESP 16; O2SAT 91
[2023-10-14] MEDS: Albuterol Sulfate (0.083%) 2.5 MG/3 ML VIAL.NEB INHALE (09:12)
== END ==
LOC: HO.CARD
PROVIDERS: PCP Physician Assistant; Visit Provider Physician Assistant
DX: R06.02 Shortness of breath (principal)
CPT/HCPCS: 94640; J0280; J2785

== ENCOUNTER → 2023-12-16 09:28 | Outpatient (REF) | payer OTHER, SELFPAY ==
--- NOTE | ~2023-12-16 | NM_ITS ---
Dobutamine Myocardial perfusion study Indication: Shortness of breath Technique: The patient was brought in for an dobutamine perfusion study on 12/16/2023. Patient performed stress testing as per dobutamine protocol and was injected 30 mCi of sestamibi was given intravenously one target HR was achieved. Images were obtained using the SPECT gamma camera interlaced with the gating device. Images were obtained in supine position. Resting perfusion study was performed on 12/19/2023. Patient was administered 30 mCi of sestamibi intravenously at rest. Images were then obtained in supine position. Images obtained with and without CT attenuation. Total DLP 169 mGy-cm. Images were processed with the software and compared side to side in short axis, horizontal long axis and vertical long axis views. Findings: The stress perfusion study showed non attenuated images show minimal area of thinning of the distal anterior wall of the LV myocardium. Remainder of the LV myocardium is normally perfused. Attenuation corrected images show normal uptake of radiotracer in all segments of LV myocardium. The gated study shows normal LV systolic function with calculated LVEF of 50%. LV cavity is normal in size. The gated study shows normal systolic wall thickening and contraction of all segments. There is no transient ischemic dilation. Resting study shows attenuated corrected images show normal uptake of radiotracer in all segments of LV myocardium. Gating at rest reveals normal systolic wall motion with ejection fraction at 55%. The findings are consistent with normal myocardial perfusion. NM/NM cardiolite stress test Impression: 1. Normal myocardial perfusion 2. Gated LVEF is 55% 3. Transient ischemic dilatation not present Stress EKG is negative for ischemia
--- NOTE | 2023-12-16 09:32 | CA_ITS ---
Acquisition Time: 2023-12-16 09:59:59 Total Exercise Time: 00:13:04 Test Indications: sob Medications: see h Protocol: DOBUTAMINE Max HR: 148 BPM 89% of Pred: 166 BPM Max BP: 122/074 mmHG Max Work Load: 1.0 METS Pharmacological stress test with Dobutamine infusion per protocol with max dose 30 mcg/kg achieving 87% MPHR, without anginal symptoms, with isolated PVCs, with normotensive response to infusion, without EKGs changes. Nuclear images pending. Test reviewed with Dr. Woods. Referred By: Eric De La Rosa Overread By: Lisy Interiano
== END ==
LOC: HO.CARD 09:28
PROVIDERS: PCP Physician Assistant; Visit Provider Physician Assistant
DX: R06.02 Shortness of breath (principal)
CPT/HCPCS: 78452; 93017; A9500; J1250

== ENCOUNTER → 2023-12-16 09:32 | Outpatient (BNV) | payer OTHER, SELFPAY | PROVIDERS: PCP Physician Assistant; Visit Provider Nurse Practitioner | DX: R06.02 Shortness of breath (principal) | CPT/HCPCS: 78452; 93016; 93018 ==

== ENCOUNTER 2024-02-13 09:15 | Day surgery (SDC) | payer OTHER, SELFPAY ==
[2024-02-11 14:53] VITALS: BMI 29.4
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
[2024-02-13 10:23] VITALS: BMI 28.7
[2024-02-13 10:37] VITALS: PULSE 82; RESP 18; O2SAT 99
[2024-02-13] MEDS: Albuterol Sulfate (0.083%) 2.5 MG/3 ML VIAL.NEB INHALE (10:37)
[2024-02-13] MEDS: Lactated Ringers 1,000 ML 100 ML IVCONT (10:43)
[2024-02-13 11:15] VITALS: BP 113/76; PULSE 89; RESP 20; TEMP 37; O2SAT 94
--- NOTE | 2024-02-13 11:23 | MHC.SHP ---
Pre-Procedural Eval Section A - 24 Hr Update-Section A only Date of Service: 02/13/24 Section B - Complete if H&P > 30 days Chief Complaint: screening Relevant Family History (Specify if Yes): No Relevant Social History: None Present Medications: see Short Stay Collaborative assessment Medical History: Significant History (Allergic rhinitis Asthma Asthma with exacerbation COPD (chronic obstructive pulmonary disease) Group A streptococcal infection Hypothyroid Interstitial lung disease IPF (idiopathic pulmonary fibrosis) IV drug abuse) History of Previous Operations: Relevant previous surgery/procedure and date(s) (History of hemorrhoidectomy History of tubal ligation) Allergies: Allergies Allergy/AdvReac Type Severity Reaction Status Date / Time No Known Allergies Allergy Verified 02/13/24 10:25 Review of Systems Sugical H&P ROS: Negative: Constitution, Cardiovascular, Respiratory, Neurological, Psychiatric, Hem-Onc, Allergic/Immunologic, Gastrointestinal, Genitourinary, Musculoskeletal, Integumentary, Endocrine and Eyes/Ears/Nose/Throat Exam Surgical H&P Exam: Normal: HEENT, Normal: Heart, Normal: Lungs, Normal: Extremities, Normal: Abdomen, Normal: Skin and Normal: Neurological Plan Diagnosis/Plan: Unchanged I have reviewed the history and physical and performed a pertinent physical examination on my patient. No changes have occurred unless specified. Time Spent With Patient Time: Total time managing care of this patient today ____ minutes.
--- NOTE | 2024-02-13 11:24 | W.PM.OPN ---
Operative Note Operative Note Date of Service: 02/13/24 Narrative: Operative Information Procedure Description: Colonoscopy Indication: screening Anesthesia: MAC COLONOSCOPY Instrument: Olympus variable stiffness pediatric scope 190L Colonoscopy Monitoring: Vital signs and clinical assessment, continuous EKG monitoring, Pulse oximetry, Carbon Dioxide monitoring and blood pressure monitoring were done throughout the procedure. Colon withdrawal time was 11 minutes. Procedure: The patient was placed in the left lateral decubitis position and pre-procedure medications were administered. After a digital rectal examination of the ano-rectum, the video colonoscope was inserted into the rectum and advanced through the colon to the cecum/TI. The colonoscope was slowly withdrawn in a retrograde panoramic fashion and the colon mucosa was carefully examined including a retroflexed view of the rectum. Findings and interventions are described below. Procedure Difficulty: easy Findings: Terminal Ileum-normal Cecum:normal Ascending Colon: 5-6 mm sessile polyp removed with cold forceps Transverse Colon -normal Descending Colon:normal Sigmoid Colon: normal Rectum: Retroflexion with small internal hemorrhoids seen, grade I Anorectum - normal Intervention: cold forceps Colon preparation: [place] Bowel Preparation Scale Right colon; 2 Transverse colon: 2 Left colon; 2 (0 = Unprepared colon segment with mucosa not seen due to solid stool that cannot be cleared. 1 = Portion of mucosa of the colon segment seen, but other areas of the colon segment not well seen due to staining, residual stool and/or opaque liquid. 2 = Minor amount of residual staining, small fragments of stool and/or opaque liquid, but mucosa of colon segment seen well. 3 = Entire mucosa of colon segment seen well with no residual staining, small fragments of stool or opaque liquid) Impression and Post Procedure Diagnosis: colon polyp internal hemorrhoids Plan: High fiber diet leaflet Avoid straining at stool, epsom salts and sitz bath, anusol supps or cream Repeat Colonoscopy in 5 years due to polyp and few areas of fair prep or earlier if clinically indicated Above findings were reviewed with the patient and relevant handouts were provided if indicated.
[2024-02-13 11:59] VITALS: BP 113/57; PULSE 84; RESP 12; TEMP 36.1; O2SAT 97
[2024-02-13 12:14] VITALS: BP 117/72; PULSE 88; RESP 16; O2SAT 94
== END 2024-02-13 12:48 | disposition home or self-care (01) ==
PROVIDERS: PCP Physician Assistant; Visit Provider Internal Medicine Gastroenterology
PROC: 0DJD8ZZ Inspection of Lower Intestinal Tract, Via Natural or Artificial Opening Endoscopic (ICD-10-PCS; CPT 45378; principal; 2024-02-13 12:00)
DX: Z12.11 Encounter for screening for malignant neoplasm of colon (principal); D12.2 Benign neoplasm of ascending colon; K64.0 First degree hemorrhoids; J44.9 Chronic obstructive pulmonary disease, unspecified; J84.112 Idiopathic pulmonary fibrosis; E03.9 Hypothyroidism, unspecified; F19.10 Other psychoactive substance abuse, uncomplicated; F14.90 Cocaine use, unspecified, uncomplicated; Z87.891 Personal history of nicotine dependence; Z79.899 Other long term (current) drug therapy; Z56.0 Unemployment, unspecified
CPT/HCPCS: 45380; 88305; 94640; J2704

== ENCOUNTER → 2024-02-13 09:15 | Outpatient (BNV) | payer OTHER, SELFPAY | PROVIDERS: PCP Physician Assistant; Visit Provider Internal Medicine Gastroenterology | DX: Z12.11 Encounter for screening for malignant neoplasm of colon (principal); K63.5 Polyp of colon; K64.8 Other hemorrhoids | CPT/HCPCS: 45380 ==